=== PATIENT | male | born 1950 | race Caucasian/White ===

== ENCOUNTER 2022-10-31 06:51 | Observation (INO) ==
--- NOTE | 2022-10-31 08:26 | History & Physical Bridge Note ---
Date of Service October 31, 2022 History & Physical Bridge Note I have examined the patient, reviewed the History & Physical and in the interval since the performance of the History & Physical I have noted the following changes of clinical significance: no changes noted Typical anginal symptoms. Normal stress MPI. Primary cyber software engineer feels stress may be false negative with patients symptoms and risk factors. Definitive evaluation by coronary angiography. PCI as indicated.
--- NOTE | 2022-10-31 08:31 | Pre Anesthesia Assessment ---
Date of Service October 31, 2022 Pre Sedation Assessment Vital Signs Temp Pulse Resp BP Pulse Ox O2 Del Method 10/31/22 07:11 36.8 C 90 16 155/105 H 94 Room Air Cardiovascular RRR, no murmur, no edema Respiratory normal respiratory effort, lungs clear to auscultation Pre-Sedation Airway Assessment Smoking Status: Former smoker Hx Sleep Apnea: No Short, Thick Neck: No Thyromental Distance: > or= 3.5 Finger Breadths Oral Cavity: + WNL Mallampati Class: II ASA: ASA3 NPO Status Date of Last Intake of Fluids: 10/31/22 Time of Last Intake of Fluids: 05:00 Last Oral Intake of Fluids Comment: sips with pills Date of Last Intake of Solid Food: 10/30/22 Notes The planned sedation has been discussed with the patient. Informed Consent was obtained. I have identified the patient, determined the appropriateness of sedation and have assessed the patient immediately prior to the procedure. All medicine(s) and interventions are by my order. [facility] Procedure Codes (Charges) Indication for Procedure Indication for procedure: angina
[2022-10-31] MEDS ORDERED: HEPARIN (PORCINE) 1000 UNIT/ML 10 ML (CATH LAB USE ONLY) ONE (09:03)
[2022-10-31] MEDS ORDERED: niCARdipine HCL INJ 2.5 MG/ML 10 ML AMP ONE (09:03)
[2022-10-31] MEDS ORDERED: fentaNYL citrate PF 100 MCG/2 ML VIAL ONE (09:03)
[2022-10-31] MEDS ORDERED: MIDAZOLAM HCL 1 MG/ML 2ML VIAL ONE (09:03)
[2022-10-31] MEDS ORDERED: NITROGLYCERIN/D5W 100MCG/ML 20ML SYR ONE (09:04)
--- NOTE | 2022-10-31 10:09 | Post Anesthesia Assessment ---
Date of Service October 31, 2022 Post Sedation Assessment Vital Signs Temp Pulse Resp BP Pulse Ox O2 Del Method 10/31/22 10:00 87 18 145/100 H 94 Room Air 10/31/22 09:45 91 H 18 142/101 H 94 Room Air 10/31/22 07:11 36.8 C 90 16 155/105 H 94 Room Air Recovery Score Activity: Moves 4 extremities Respiration: Deep Breath/Cough Circulation: +/-20% PreAnes Value Consciousness: Fully Awake Oxygen Saturation: > 92% On Room Air Post Anesthesia Score: 2 Discharge Sedation Level of Care: Fast Track Phase II Post Sedation Plan On clinical assessment, the patient appears to have tolerated the sedation without complications. Patient is recovering as anticipated. Patient will continue to be monitored by nursing and may be discharged when sedation discharge criteria are met per below protocol. Upon Completions of procedure up to 15 minutes continue every 5 minute vital signs and the P.A.R. score; then discharge to a Phase I or Fast Track to Phase II per the following guidelines: * Discharge Patient to appropriate Phase II area if PAR is 8 or greater or return to pre- procedure baseline. The post - procedure orders will be as directed. * If PAR score is less than 8 or not return to pre-procedure baseline then patient will follow Phase I monitoring till PAR is reached for Phase II. The Phase I may be done in procedure room or may call to secure a Phase I area. * If naloxone or flumazenil are used for reversal, hold in Phase I for continued monitoring from when last reversal dose was given for a minimum of 60 minutes or longer pending the nurse and/or physician discretion of patient condition before discharge to Phase II. Please call the Sedation Physician to re-evaluate and complete post-note for discharge to Phase II area. Do NOT discharge from procedure sedation or Phase 1 until post- sedation evaluation note is complete by procedure /sedation MD Sedation Discharge Instructions to be given to the patient at discharge to home. [facility] Procedure Codes (Charges) Indication for Procedure Indication for procedure: angina Sedation/Anesthesia Procedure 1: Sedation/Anesthesia: 22820 Mod Sedation by the same physician;Init15 Min Child Age 5 & Up (09:21-09:31) Total Sedation Time (minutes): 10
--- NOTE | 2022-10-31 10:13 | Cardiac Catheterization ---
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 Cardiac Status Clinical evaluation leading to the procedure CAD Presenation: Stable angina Anginal Classification: CCS III Heart Failure: No Cardiogenic Shock within 24 Hours: No Cardiac Arrest within 24 Hours: No Imaging Studies Past 6 Months: Yes Stress Testing w/SPECT MPI: Yes - Negative Coronary Anatomy Dominant: Right Left Main (% Stenosis): Ostial (40 to 50%) LAD (% Stenosis): Proximal (Tandem 50%) and Mid (99%) D1 (% Stenosis): Ostial (99%) and Proximal (99%) Circumflex (% Stenosis): Proximal (30%) OM1 (% Stenosis): Proximal (70 to 80%) and Mid (40%) RCA (% Stenosis): Proximal (70 to 80%, 60 to 70%) R PDA (% Stenosis): Normal R PL1 (% Stenosis): Normal Ramus (% Stenosis): Normal Diagnostic Physicians Name: Valdemar Mireles MD, PhD Closure Device Percutaneous Entry Location: Radial Closure Device: Radial Band Recommendations: Medical Therapy and/or Counseling and CABG Cardiac Cath Procedure Full Procedure Date October 31, 2022 Pre-Procedure Diagnosis Pre-Procedure Diagnosis: Angina AUC Score AUC Score: 07 Post-Procedure Diagnosis Post-Procedure Diagnosis: Severe CAD Procedure(s) Performed Procedure(s) Performed: Coronary Angiography Specimen Processor Valdemar Mireles MD, PhD Estimated Blood Loss Estimated Blood Loss: 5 mL Medication(s) Medication(s): Fentanyl, Heparin, Lidocaine 1%, Nicardipine, Nitroglycerin and Versed Summary of Findings Brief description: Patient was brought to the cardiac catheterization suite where he was shaved and prepped in a sterile fashion. Sedated using IV Versed and fentanyl. Soft tissues of the right wrist were anesthetized using 2 mils of 1% Xylocaine. The right radial artery was accessed using a modified Seldinger technique and a 6 Australian radial artery glide sheath was placed. Patient was provided anticoagulation with IV heparin and antispasmodics including nicardipine and nitroglycerin. All catheters were advanced and exchanged over a 0.035 J-tip wire. Left coronary angiography was performed in orthogonal views with a 5 [place] Trappe 4 diagnostic catheter. Right coronary angiography was performed in orthogonal views with a 5 [place] Trappe 4 diagnostic catheter. Diagnostic catheters were removed. The radial artery sheath was removed. Hemostasis was obtained using the TR band. Patient remained hemodynamically stable and asymptomatic. He was returned to the recovery area. This ended the case. Coronary angiography findings: LMT: Large caliber and relatively short vessel trifurcating into LAD, circumflex, and ramus. Some views suggest ostial stenosis 40 to 50%. LAD: Large caliber and transapical. Proximal segment with tandem up to 50% stenosis. Gives a large septal branch as well as a medium to large branching first diagonal. The ostium of the diagonal is 99% occluded. The proximal segment also has a 99% occlusion. After that, the vessel remains relatively large and bifurcates. The mid LAD is diffusely diseased with a long eccentric stenosis up to 99% narrowing. The early distal vessel has a short intramyocardial segment. The remainder of the distal vessel has no more than mild scattered plaques. LCx: This is large caliber and nondominant. Travels in the AV groove. Proximal segment with mild less than 30% stenosis. It gives a large caliber and branching OM1. The proximal segment has a 70 to 80% narrowing with the mid segment having a 40% stenosis. The vessel branches distally. The mid AV groove vessel becomes medium in caliber and continues distally where it then terminates. Ramus: Small to medium caliber branching vessel without significant disease. RCA: This is very large caliber and dominant. It is tortuous proximally. There is a 70 to 80% napkin ring type lesion. Then, a longer 60 to 70% hazy stenosis as it transitions to the mid vessel. Mid and distal vessel remain large with mild diffuse disease. There is a large RV marginal branch which has an ostial 99% stenosis. The RCA bifurcates into a large PDA and a large posterior lateral. These vessels have no more than mild scattered plaques. Summary: 1. Severe multivessel coronary artery disease consistent with "normal stress test" as this likely represents balanced ischemia. 2. Recommend evaluation for coronary artery bypass grafting versus complex staged PCI at tertiary center by the "heart team". 3. Optimize medical therapy for secondary prevention of coronary disease. This will include low-dose aspirin, high intensity statin therapy, angiotensin r eceptor geovanni. Consider beta-geovanni if tolerated by asthma. Hemodynamics Rest Ao:: 139/106 mmHg Final Ao: 130/100 mmHg LV: Not performed Recommendations Recommendations: Medical Therapy and/or Counseling and CABG Radiation Exposure (mGy) 825 mGy, fluoroscopy time 1.6 minutes Contrast (mls) 60 Anesthesia 1 mg IV Versed, 25 mcg IV fentanyl (start 09:21, and 09:31) Procedural Complication(s) None Disposition Recovery Room\\PACU I attest to the content of the Intraoperative Record and any orders documented therein. Any exceptions are noted below. [facility] Card Cath Procedure Codes Cardiac Catheterization Procedure 1: Cardiovascular Cath Procedures: 54701 Coronaries Moderate Sedation Procedure 1: Sedation/Anesthesia: 68762 Mod Sedation by the same physician;Init15 Min Child Age 5 & Up (10 min, 920 to 930) PG Care Time/CCT Total # of Minutes Spent Total Time Spent with Patient: Total time spent is greater than 50% in coordination of care (as documented) at patient's floor/unit and/or counseling patient:
[2022-10-31] MEDS ORDERED: ISOSORBIDE MONO EXTENDED REL 30 MG TABCR PO ONE (11:54)
--- NOTE | 2022-10-31 13:33 | XCELERA ---
[id number] [id number]
[2022-10-31] MEDS ORDERED: MoRPHine SULFATE 2 MG/ML CARP IV PRN (14:25)
[2022-10-31] MEDS ORDERED: NITROGLYCERIN SL 0.4 MG/TAB TAB SL PRN (14:25)
[2022-10-31] MEDS ORDERED: ZOLPIDEM TARTRATE 5 MG TAB PO PRN (14:25)
[2022-10-31] MEDS ORDERED: ACETAMINOPHEN 325 MG TAB PO PRN (14:25)
[2022-10-31] MEDS ORDERED: ONDANSETRON INJ 2 MG/ML 2 ML VIAL IV PRN (14:25)
[2022-10-31] MEDS ORDERED: MAGNESIUM HYDROXIDE SUSP 30 ML UDC PO PRN (14:25)
[2022-10-31] MEDS ORDERED: ALUMINUM/MAGNESIUM SUSP 30 ML UDC PO PRN (14:25)
[2022-10-31] MEDS ORDERED: ATORVASTATIN 40 MG TAB PO SCH (16:00)
[2022-11-01] MEDS ORDERED: ISOSORBIDE MONO EXTENDED REL 30 MG TABCR PO SCH (09:00)
[2022-11-01] MEDS ORDERED: METOPROLOL SUCC 25MG EXT REL TAB PO SCH (09:00)
[2022-11-01] MEDS ORDERED: ASPIRIN 81 MG ECTAB PO SCH (09:00)
[2022-11-01] MEDS ORDERED: LOSARTAN POTASSIUM 50 MG TAB PO SCH (09:00)
--- NOTE | 2022-11-12 11:00 | Discharge Summary ---
Date of Service October 31, 2022 Admission HPI Per Admitting Provider Patient was seen for elective outpatient cath. He underwent diagnostic cath demonstrating severe multivessel coronary disease. He had typical symptoms but a negative stress test. Post catheterization decision was made to admit the patient under observation status with tentative plan for transfer to tertiary center. Patient was admitted and was hemodynamically stable. He was subsequently accepted by [facility] cardiac surgery and shortly after arrival on the floor he was transferred to [facility]. Admission Exam (Per Admitting) Constitutional WD/WN, vitals as above Respiratory normal respiratory effort, lungs clear to auscultation Cardiovascular RRR, no murmur, no edema Neurologic patellar DTR's 2+ bilat, sensation intact Psychiatric A+Ox3, euthymic affect Discharge Data Procedures Performed Operation Date: 10/31/22 08:00 Actual Procedures p Cath, Coronaries ONLY (no LV) - Valdemar Mireles MD, PhD s Cineradiography w/Routine Exam - Valdemar Mireles MD, PhD Hospital Course (1) Hypertension: Continue current medical regimen with losartan. Beta-geovanni if tolerated. (2) Hypercholesterolemia: High intensity statin therapy (3) Chest pain syndrome: Severe CAD. Transfer to [facility] for coronary artery bypass grafting. Patient has been accepted in transfer by Dr. Wilburn Plan Transfer to [facility] any cardiac surgery for coronary artery bypass grafting Continue current medical regimen Discharge Instructions Transport ALS Continue current medical regimen Coding Level of Care Code 20876 INP/OBS DISCH >30 MIN Diagnoses Hypertension I10 Hypercholesterolemia E78.00 Chest pain syndrome R07.9
== END 2022-10-31 19:45 | disposition short-term general hospital (02) ==
LOC: 2S 06:51 → CC 06:51
PROC: CLB.CCO (2022-10-31 08:00)

== ENCOUNTER 2023-12-30 08:45 | Inpatient (IN) ==
[2023-12-30] MEDS: ALBUT/IPRATROP 3MG/0.5MG NEB 3 ML VIAL NEB STA (09:19)
[2023-12-30 09:37] LABS: Basophils # (auto) 0.03 K/uL (0.00-0.20); Basophils % (auto) 0.3 %; Eosinophils # (auto) 0.22 K/uL (0.00-0.50); Eosinophils % (auto) 2.3 %; Hematocrit (blood only) 36.1 % (42.0-52.0); Hemoglobin 11.6 g/dl (14.0-18.0); Immature Granulocytes # (auto) 0.07 K/uL (0.01-0.20); Immature Granulocytes % (auto) 0.7 %; Lymphocytes # (auto) 0.79 K/uL (1.20-3.40); Lymphocytes % (auto) 8.3 %; Mean Corpuscular Hemoglobin 29.1 pg (25.0-34.0); Mean Corpuscular Hgb Conc 32.1 g/dL (32.0-36.0); Mean Corpuscular Volume 90.5 fL (80.0-100.0); Mean Platelet Volume 8.9 fL (9.4-12.4); Monocytes # (auto) 1.03 K/uL (0.11-0.59); Monocytes % (auto) 10.9 %; Neutrophils # (auto) 7.34 K/uL (1.40-6.50); Neutrophils % (auto) 77.5 %; Platelet Count 165 K/uL (130-400); RDW Coefficient of Variation 15.2 % (11.5-14.5); RDW Standard Deviation 50.3 fL (36.4-46.3); Red Blood Count 3.99 M/uL (4.70-6.10); White Blood Count 9.48 K/ul (4.8-10.8)
--- NOTE | 2023-12-30 09:51 | Emergency Department Note ---
History of Present Illness General Chief Complaint: Shortness of Breath/Dyspnea Stated Complaint: SOB Time Seen by Provider: 12/30/23 08:58 History of Present Illness Provider Complaint: shortness of breath Onset (ago): day(s) (1) Consistency/Duration: + progressively worsening Relieved By: + oxygen Exacerbated By: + coughing Known history of: COPD and recurrent pneumonia Associated symptoms: + chest pain, + cough, + wheezing and + chest congestion; no hemoptysis Related Data Home oxygen amount: none Home Medications Medication Instructions Recorded Confirmed Type atorvastatin 40 mg tablet 40 mg PO DAILY #90 tabs 02/22/22 12/30/23 Rx fenofibrate nanocrystallized 145 145 mg PO DAILY 02/22/22 12/30/23 History mg tablet folic acid 1 mg tablet 1 mg PO DAILY 02/22/22 12/30/23 History metoprolol tartrate 25 mg tablet 37.5 mg PO BID 12/14/22 12/30/23 History alprazolam 0.5 mg tablet 0.5 mg PO BID PRN Anxiety 12/30/23 12/30/23 History aspirin 81 mg tablet,delayed 81 mg PO DAILY 12/30/23 12/30/23 History release escitalopram oxalate 10 mg tablet 10 mg PO DAILY 12/30/23 12/30/23 History fluticasone fur. 100 mcg-umeclid 1 inh inhalation DAILY 12/30/23 12/30/23 History 62.5 mcg-vilant 25 mcg inhalat.powder (Trelegy Ellipta) Allergies Allergy/AdvReac Type Severity Reaction Status Date / Time Penicillins Allergy Unknown Verified 12/30/23 11:12 Past Med/Surg History Problem List (Updated 12/30/23 @ 14:39 by Vijay Head MD) Hepatitis C virus Cholecystostomy care H/O abdominal aortic aneurysm repair Acute on chronic respiratory failure with hypoxemia Pneumonia (Acute) COPD (chronic obstructive pulmonary disease) COPD exacerbation S/P CABG (coronary artery bypass graft) CAD (coronary artery disease) Chest pain syndrome SOBOE (shortness of breath on exertion) PVD (peripheral vascular disease) Hypercholesterolemia Hypertension Social History Smoking Status: Never smoker Second Hand Exposure: No; Do You Dip or Chew Tobacco: No; Hx Alcohol Use: No Hx Substance Use: Yes Last Used Substance: Unknown Preferred Language: Setswana Communication Ability: Effective Administrative Coordinator Required: No Beliefs That Will Affect Care: None Current Living Situation: Spouse Feels Safe at Home: Yes Assistive Devices: None Physical Exam 2 Vital Signs: Vital Signs - 24 hr 12/30/23 08:56 12/30/23 08:56 12/30/23 08:56 Temperature 36.8 C 36.8 C Temperature Source Oral Oral Pulse Rate 97 H Pulse Rate [Apical ] 97 H Respiratory Rate 20 20 Respiratory Effort / Characteristics Spontaneous Spontaneous Blood Pressure 146/83 H Blood Pressure [Ri ght Arm] 146/83 H Blood Pressure Heide n 104 Blood Pressure Heide n [Right Arm] 104 Blood Pressure Pos ition Semi-fowlers Blood Pressure Pos ition [Right Arm] Pulse Oximetry 96 89 L 96 Oxygen Delivery Me thod Nasal Cannula Room Air Nasal Cannula Oxygen Flow Rate 2 2 Sepsis Recent Feve r Within 48 Hours No Sepsis New/Unexpla ined Change in Men qu[place] Status N/A Sepsis Action Take n by Nursing No Action Required Oxygen Flow Rate - Titration 2 Pulse Oximetry Pos t Tiitration 96 12/30/23 08:58 12/30/23 10:00 12/30/23 12:57 Temperature Temperature Source Pulse Rate 100 H 105 H Pulse Rate [Apical ] 99 H Respiratory Rate 20 Respiratory Effort / Characteristics Blood Pressure Blood Pressure [Ri ght Arm] 135/86 Blood Pressure Heide n Blood Pressure Heide n [Right Arm] 102 Blood Pressure Pos ition Blood Pressure Pos ition [Right Arm] Semi-fowlers Pulse Oximetry 98 Oxygen Delivery Me thod Nasal Cannula Oxygen Flow Rate 2 Sepsis Recent Feve r Within 48 Hours Sepsis New/Unexpla ined Change in Men quinton Status Sepsis Action Take n by Nursing Oxygen Flow Rate - Titration Pulse Oximetry Pos t Tiitration Physical Exam: Physical Exam GENERAL: oriented to person, place, and time. appears well-developed and well- nourished. HENT: Exam performed. - Head: Normocephalic and atraumatic. EYES: Conjunctivae and EOM are normal. Right eye exhibits no discharge. Left eye exhibits no discharge. No scleral icterus. NECK: Normal range of motion. Neck supple. No JVD present. CV: Normal rate, regular rhythm, normal heart sounds and intact distal pulses. There is no peripheral edema. Palpable radial pulses bue. PULM/CHEST: Diminished breath sounds bilaterally. Rhonchi bilaterally. ABD: The abdomen is soft. There is no tenderness. NEURO: Motor and sensation grossly intact. SKIN: Skin is warm and dry. He is not diaphoretic. PSYCH: normal mood and affect. Behavior is normal. Judgment and thought content normal. Course Course 08: The patient was evaluated in room B9. A complete history and physical exam was performed Cardiac monitoring: An order was placed for continuous cardiac monitoring. The monitor shows a rate of 90 with sinus rhythm interpreted by me Patient hypoxic on room air. Supplemental oxygen via nasal cannula applied which improved the patient's oxygen saturation. 1010: Vital signs stable on supplemental oxygen via nasal cannula. Imaging shows pneumonia. Patient be treated with Rocephin and azithromycin. 1035: Vital signs stable on supplemental oxygen via nasal cannula. D-dimer elevated. Will obtain CTA of the chest. 1235:Vital signs stable on supplemental oxygen via nasal cannula. CTA of the chest shows no PE. Does confirm pneumonia. Labs are otherwise unremarkable with exception of mildly elevated BNP of 159. Respiratory BioFire negative. [facility]. Administered Medications Discontinued Medications Albuterol (Albut/Ipratrop 3mg/0.5mg Neb 3 Ml Vial) 3 ml NEB NOW STA; Protocol Stop: 12/30/23 09:07 Last Admin: 12/30/23 09:19 Dose: 3 ml Documented By: GAGE Azithromycin (Azithromycin 250 Mg Tab) 500 mg PO NOW ONE Stop: 12/30/23 10:06 Last Admin: 12/30/23 11:05 Dose: 500 mg Documented By: GAGE Ceftriaxone Sodium (Rocephin) 2,000 mg in 50 mls @ 100 mls/hr IV NOW STA Stop: 12/30/23 10:34 Last Infusion: 12/30/23 11:38 Dose: Infused Documented By: Admin: 12/30/23 10:57 Dose: 100 mls/hr Documented By: GAGE Ioversol (Optiray 320 125ml) 121 ml IV ONCE ONE Stop: 12/30/23 10:49 Last Admin: 12/30/23 10:50 Dose: 121 ml Documented By: Medical Decision Making Laboratory Data Attestation: I reviewed the patient's lab results. 12/30/23 08:55 07/01/24 08:55 Lab Results 12/30/23 12/30/23 12/30/23 Range/Units 08:55 09:19 09:19 WBC 9.48 (4.8-10.8) K/ul RBC 3.99 L (4.70-6.10) M/uL Hgb 11.6 L (14.0-18.0) g/dl Hct 36.1 L (42.0-52.0) % MCV 90.5 (80.0-100.0) fL MCH 29.1 (25.0-34.0) pg MCHC 32.1 (32.0-36.0) g/dL RDW Std Deviation 50.3 H (36.4-46.3) fL RDW Coeff of Kaye 15.2 H (11.5-14.5) % Plt Count 165 (130-400) K/uL MPV 8.9 L (9.4-12.4) fL Immature Gran % (Auto) 0.7 % Neut % (Auto) 77.5 % Lymph % (Auto) 8.3 % Hutchinson % (Auto) 10.9 % Eos % (Auto) 2.3 % Baso % (Auto) 0.3 % Neut # (Auto) 7.34 H (1.40-6.50) K/uL Lymph # (Auto) 0.79 L (1.20-3.40) K/uL Hutchinson # (Auto) 1.03 H (0.11-0.59) K/uL Eos # (Auto) 0.22 (0.00-0.50) K/uL Baso # (Auto) 0.03 (0.00-0.20) K/uL Immature Gran # (Auto) 0.07 (0.01-0.20) K/uL PT 12.1 H (9.0-12.0) Seconds INR 1.1 (0.9-1.1) APTT 33 H (21-31) Seconds PTT Ratio 1.2 D-Dimer 21581 H* (0-500) ug/L FEU VBG pH 7.38 (7.36-7.41) VBG pCO2 (38-50) mmHg VBG pO2 mmHg VBG HCO3 mmol/L VBG O2 Saturation % VBG Base Excess mEq/L Sodium 135 L (136-145) mmol/L Potassium 3.7 (3.5-5.1) mmol/L Chloride 104 (98-107) mmol/L Carbon Dioxide 24 (21-32) mmol/L Anion Gap 7 (3-11) BUN 24 H (6-23) mg/dl Creatinine 0.97 (0.6-1.4) mg/dl Est Cr Clr Drug Dosing 65.4 ml/min Est GFR ( Amer) 90.7 ml/min Est GFR (Non-Af Amer) 78.2 ml/min BUN/Creatinine Ratio 24.7 H (10-20) Glucose 100 H (70-99(Fasting)) mg/dl Calcium 8.3 L (8.6-10.3) mg/dl Troponin I High Sens 10.3 (0-20) pg/ml B-Natriuretic Peptide 159 H (0-100) pg/ml Lipase 50 (11-82) U/L Adenovirus (PCR) (NotDetected) B. pertussis DNA (PCR) (NotDetected) B.parapertussis DNA PCR (NotDetected) C. pneumoniae DNA (PCR) (NotDetected) Coronavirus OC43 (PCR) (NotDetected) Coronavirus HKU1 (PCR) (NotDetected) Coronavirus 229E (PCR) (NotDetected) SARS-CoV-2 (PCR) (NotDetected) Coronavirus NL63 (PCR) (NotDetected) Human Metapneumovir PCR (NotDetected) Influenza Type A (PCR) (NotDetected) Influenza Type B (PCR) (NotDetected) M. pneumoniae (PCR) (NotDetected) Parainfluenza 1 (PCR) (NotDetected) Parainfluenza 2 (PCR) (NotDetected) Parainfluenza 3 (PCR) (NotDetected) Parainfluenza 4 (PCR) (NotDetected) RSV (PCR) (NotDetected) Entero/Rhino (PCR) (NotDetected) 12/30/23 12/30/23 12/30/23 Range/Units 09:19 09:19 09:19 WBC (4.8-10.8) K/ul RBC (4.70-6.10) M/uL Hgb (14.0-18.0) g/dl Hct (42.0-52.0) % MCV (80.0-100.0) fL MCH (25.0-34.0) pg MCHC (32.0-36.0) g/dL RDW Std Deviation (36.4-46.3) fL RDW Coeff of Kaye (11.5-14.5) % Plt Count (130-400) K/uL MPV (9.4-12.4) fL Immature Gran % (Auto) % Neut % (Auto) % Lymph % (Auto) % Hutchinson % (Auto) % Eos % (Auto) % Baso % (Auto) % Neut # (Auto) (1.40-6.50) K/uL Lymph # (Auto) (1.20-3.40) K/uL Hutchinson # (Auto) (0.11-0.59) K/uL Eos # (Auto) (0.00-0.50) K/uL Baso # (Auto) (0.00-0.20) K/uL Immature Gran # (Auto) (0.01-0.20) K/uL PT (9.0-12.0) Seconds INR (0.9-1.1) APTT (21-31) Seconds PTT Ratio D-Dimer (0-500) ug/L FEU VBG pH (7.36-7.41) VBG pCO2 40 (38-50) mmHg VBG pO2 29 mmHg VBG HCO3 24 mmol/L VBG O2 Saturation % VBG Base Excess mEq/L Sodium (136-145) mmol/L Potassium (3.5-5.1) mmol/L Chloride (98-107) mmol/L Carbon Dioxide (21-32) mmol/L Anion Gap (3-11) BUN (6-23) mg/dl Creatinine (0.6-1.4) mg/dl Est Cr Clr Drug Dosing ml/min Est GFR ( Amer) ml/min Est GFR (Non-Af Amer) ml/min BUN/Creatinine Ratio (10-20) Glucose (70-99(Fasting)) mg/dl Calcium (8.6-10.3) mg/dl Troponin I High Sens (0-20) pg/ml B-Natriuretic Peptide (0-100) pg/ml Lipase (11-82) U/L Adenovirus (PCR) (NotDetected) B. pertussis DNA (PCR) (NotDetected) B.parapertussis DNA PCR (NotDetected) C. pneumoniae DNA (PCR) (NotDetected) Coronavirus OC43 (PCR) (NotDetected) Coronavirus HKU1 (PCR) (NotDetected) Coronavirus 229E (PCR) (NotDetected) SARS-CoV-2 (PCR) (NotDetected) Coronavirus NL63 (PCR) (NotDetected) Human Metapneumovir PCR (NotDetected) Influenza Type A (PCR) (NotDetected) Influenza Type B (PCR) (NotDetected) M. pneumoniae (PCR) (NotDetected) Parainfluenza 1 (PCR) (NotDetected) Parainfluenza 2 (PCR) (NotDetected) Parainfluenza 3 (PCR) (NotDetected) Parainfluenza 4 (PCR) (NotDetected) RSV (PCR) (NotDetected) Entero/Rhino (PCR) (NotDetected) 12/30/23 12/30/23 12/30/23 Range/Units 09:19 09:19 09:22 WBC (4.8-10.8) K/ul RBC (4.70-6.10) M/uL Hgb (14.0-18.0) g/dl Hct (42.0-52.0) % MCV (80.0-100.0) fL MCH (25.0-34.0) pg MCHC (32.0-36.0) g/dL RDW Std Deviation (36.4-46.3) fL RDW Coeff of Kaye (11.5-14.5) % Plt Count (130-400) K/uL MPV (9.4-12.4) fL Immature Gran % (Auto) % Neut % (Auto) % Lymph % (Auto) % Hutchinson % (Auto) % Eos % (Auto) % Baso % (Auto) % Neut # (Auto) (1.40-6.50) K/uL Lymph # (Auto) (1.20-3.40) K/uL Hutchinson # (Auto) (0.11-0.59) K/uL Eos # (Auto) (0.00-0.50) K/uL Baso # (Auto) (0.00-0.20) K/uL Immature Gran # (Auto) (0.01-0.20) K/uL PT (9.0-12.0) Seconds INR (0.9-1.1) APTT (21-31) Seconds PTT Ratio D-Dimer (0-500) ug/L FEU VBG pH (7.36-7.41) VBG pCO2 (38-50) mmHg VBG pO2 mmHg VBG HCO3 mmol/L VBG O2 Saturation < 60.0 % VBG Base Excess -1.3 mEq/L Sodium (136-145) mmol/L Potassium (3.5-5.1) mmol/L Chloride (98-107) mmol/L Carbon Dioxide (21-32) mmol/L Anion Gap (3-11) BUN (6-23) mg/dl Creatinine (0.6-1.4) mg/dl Est Cr Clr Drug Dosing ml/min Est GFR ( Amer) ml/min Est GFR (Non-Af Amer) ml/min BUN/Creatinine Ratio (10-20) Glucose (70-99(Fasting)) mg/dl Calcium (8.6-10.3) mg/dl Troponin I High Sens (0-20) pg/ml B-Natriuretic Peptide (0-100) pg/ml Lipase (11-82) U/L Adenovirus (PCR) Not Detected (NotDetected) B. pertussis DNA (PCR) Not Detected (NotDetected) B.parapertussis DNA PCR Not Detected (NotDetected) C. pneumoniae DNA (PCR) Not Detected (NotDetected) Coronavirus OC43 (PCR) Not Detected (NotDetected) Coronavirus HKU1 (PCR) Not Detected (NotDetected) Coronavirus 229E (PCR) Not Detected (NotDetected) SARS-CoV-2 (PCR) Not Detected (NotDetected) Coronavirus NL63 (PCR) Not Detected (NotDetected) Human Metapneumovir PCR Not Detected (NotDetected) Influenza Type A (PCR) Not Detected (NotDetected) Influenza Type B (PCR) Not Detected (NotDetected) M. pneumoniae (PCR) Not Detected (NotDetected) Parainfluenza 1 (PCR) Not Detected (NotDetected) Parainfluenza 2 (PCR) Not Detected (NotDetected) Parainfluenza 3 (PCR) Not Detected (NotDetected) Parainfluenza 4 (PCR) Not Detected (NotDetected) RSV (PCR) Not Detected (NotDetected) Entero/Rhino (PCR) Not Detected (NotDetected) Imaging Data Attestation: I personally reviewed and interpreted this imaging study as follows: My Impression: Chest x-ray: Left-sided pneumonia Radiologist's Impression: Chest X-Ray 12/30/23 09:07 XR chest 1V portable CLINICAL HISTORY: Chest pain, nonspecific COMPARISON STUDY: Chest radiograph October 11, 2014. FINDINGS: There are median sternotomy wires. Cardiac size is normal. Mediastinal contours are unremarkable. No pneumothorax or pleural effusion is present. There is underlying emphysema. A 1.6 cm irregular right upper lung density is present. Moderate airspace opacities within the left lung are present. IMPRESSION: 1. Moderate airspace opacities within the left lung suggestive of pneumonia. Follow-up PA and lateral chest radiographs in 1 to 2 months are recommended to ensure resolution. 2. 1.6 cm irregular right upper lung density. This may also be infectious however should be assessed on follow-up chest radiograph to ensure resolution. 3. Emphysema. ACT 112: Negative or not required by law. Electronically signed by: Oscar Moulton M.D. 12/30/2023 9:53 AM Chest CTA 12/30/23 10:34 CHEST CTA for PULMONARY ARTERIES CT DOSE: 801.58 mGy.cm HISTORY: Shortness of breath. TECHNIQUE: Multiaxial CT images of the chest were performed following the intravenous administration of contrast to evaluate the pulmonary arteries. 3D/Maximal intensity projection images were also obtained. Sagittal and coronal reformations were also reviewed. A dose lowering technique was utilized adhering to the principles of ALARA. COMPARISON STUDY: Chest 12/30/2023. FINDINGS: Atherosclerotic plaque within the thoracic aorta with no evidence for a dissection. 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 Limited views of the upper abdomen demonstrate a normal spleen and adrenal glands. A 1.2 cm hypodense lesion within the right hepatic dome favors a cyst. The heart is normal in size. No pericardial effusion. Trace left pleural effusion. Respiratory motion artifact results in nondiagnostic evaluation of the majority of the left lower lobe segmental/subsegmental pulmonary arteries. Otherwise, no filling defects within the remaining pulmonary arteries to suggest a pulmonary embolus. No evidence for right-sided heart strain. Normal esophagus. No hilar lymphadenopathy. A few mildly enlarged AP window lymph nodes with the dominant lymph node measuring 17 x 9 mm. No acute fractures. There are poststernotomy changes with prior coronary artery bypass. No pneumothorax. The central airways are patent. Advanced emphysema. Peripheral consolidation within the left upper lobe likely representing a pneumonia. A 4R nodule within the right lung apex on image 179. There is an irregular/nodular density within the right lung apex on image 180 measuring approximately 2.0 x 0.9 cm. This corresponds the chest x-ray abnormality and could represent scarring or a pulmonary lesion. A 6 mm nodule within the right upper lobe on image 140 with an adjacent calcified granuloma. A 4 mm nodule within the right upper lobe on image 93. A peripheral 14 x 10 mm nodule within the right lower lobe on image 119. This may also represent an area of scarring or pulmonary lesion. IMPRESSION: 1. No evidence for a pulmonary embolus with limitations as described above. 2. Peripheral consolidation within the left upper lobe which favors a pneumonia. A 3-[address] follow-up recommended to ensure resolution. 3. Advanced emphysema. 4. Borderline AP window lymphadenopathy which may be reactive. Attention at follow-up recommended. 5. Similar-appearing irregular nodules within the right lung apex and right lower lobe as described above with the largest measuring 2.0 x 0.9 cm. These could represent scarring. Pulmonary lesions are not excluded. Therefore, these also require 3-[address] follow-up to ensure stability. 6. 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 7. Additional findings as described above. ACT 112: Positive. There are findings on this exam that require communication between the performing entity and the patient following Patient Test Result Information Act ([place] Act 112) guidelines. Electronically signed by: Alessandro Lujan M.D. 12/30/2023 11:15 AM ECG Data Attestation: I personally reviewed and interpreted this ECG as follows: Interpretation: Sinus rhythm with a rate of 94. UT QRS and QTc intervals within normal limits. No ST elevation or ST depression. [facility] Narrative 0858: The patient was evaluated in room B9. A complete history and physical exam was performed Cardiac monitoring: An order was placed for continuous cardiac monitoring. The monitor shows a rate of 90 with sinus rhythm interpreted by me Patient hypoxic on room air. Supplemental oxygen via nasal cannula applied which improved the patient's oxygen saturation. 1010: Vital signs stable on supplemental oxygen via nasal cannula. Imaging shows pneumonia. Patient be treated with Rocephin and azithromycin. 1035: Vital signs stable on supplemental oxygen via nasal cannula. D-dimer elevated. Will obtain CTA of the chest. 1235:Vital signs stable on supplemental oxygen via nasal cannula. CTA of the chest shows no PE. Does confirm pneumonia. Labs are otherwise unremarkable with exception of mildly elevated BNP of 159. Respiratory BioFire negative. [facility]. Impression & Plan Pneumonia Critical Care Time Critical Care Time: Yes Total Critical Care Time: 70 I have personally spent greater than 70 minutes of critical care time in the direct management of this patient. This includes bedside care, interpretation of diagnostic studies, and testing, discussion with consultants, patient, and family members, and other required patient management activities. This 70 minutes is in excess of all separately billable procedures. Discharge Plan Visit Data Chief Complaint: Shortness of Breath/Dyspnea Stated Complaint: SOB ED Provider: Vijay Head Discharge Problem: Pneumonia Patient Disposition: Admitted As Inpatient Forms Stand Alone Forms: My [facility] Prescriptions Prescriptions: No Action fenofibrate nanocrystallized 145 mg tablet 145 mg PO DAILY folic acid 1 mg tablet 1 mg PO DAILY atorvastatin 40 mg tablet 40 mg PO DAILY Qty: 90 3RF metoprolol tartrate 25 mg tablet 37.5 mg PO BID aspirin 81 mg Tablet,Delayed Release (Dr/Ec) 81 mg PO DAILY alprazolam 0.5 mg tablet 0.5 mg PO BID PRN (Reason: Anxiety) escitalopram oxalate 10 mg tablet 10 mg PO DAILY Trelegy Ellipta 100-62.5-25 mcg blister with device 1 inh INHALATION DAILY Referrals Referrals: Valdemar Segundo [Primary Care Provider] - Discharge Problem: Pneumonia Qualifiers: Pneumonia type: due to unspecified organism Laterality: left Lung location: u nspecified part of lung Qualified Code(s): J18.9 - Pneumonia, unspecified organism
--- NOTE | 2023-12-30 09:55 | XRay Report ---
XR chest 1V portable CLINICAL HISTORY: Chest pain, nonspecific COMPARISON STUDY: Chest radiograph October 11, 2014. FINDINGS: There are median sternotomy wires. Cardiac size is normal. Mediastinal contours are unremar kable. No pneumothorax or pleural effusion is present. There is underlying emphysema. A 1.6 cm irregu lar right upper lung density is present. Moderate airspace opacities within the left lung are present . IMPRESSION: 1. Moderate airspace opacities within the left lung suggestive of pneumonia. Follow-up PA and lateral chest radiographs in 1 to 2 months are recommended to ensure resolution. 2. 1.6 cm irregular right upper lung density. This may also be infectious however should be assessed on follow-up chest radiograph to ensure resolution. 3. Emphysema. ACT 112: Negative or not required by law. Electronically signed by: Oscar Moulton M.D. 12/30/2023 9:53 AM
[2023-12-30 09:56] LABS: INR 1.1 (0.9-1.1); Partial Thromboplastin Ratio 1.2; Partial Thromboplastin Time 33 Seconds (21-31); Prothrombin Time 12.1 Seconds (9.0-12.0)
[2023-12-30 09:59] LABS: Calcium 8.3 mg/dl (8.6-10.3); Potassium 3.7 mmol/L (3.5-5.1)
[2023-12-30 10:03] LABS: Troponin I High Sensitivity 10.3 pg/ml (0-20)
[2023-12-30 10:04] LABS: BUN Creatinine Ratio 24.7 (10-20); Creatinine Clr Calc Pharmacy 65.4 ml/min; Est GFR (African American) 90.7 ml/min; Est GFR (Non-African American) 78.2 ml/min
--- OUTSIDE RECORDS SUMMARY | 2023-12-30 10:17 | External Medical Summary | Summary of Care ---
Author Name Unknown Organization [facility] Address [address] [place] [address] Phone [phone] Care Team Providers Care Home Health Clinician Name Role Phone Valdemar Segundo PA-C Primary Care Provider [phone] Reason for Referral * Evaluate & Treat - Unlimited Visits (Within 30 days (routine)) - Authorized Specialty Diagnoses / Procedures Referred By Renaldo suresh Referred To Contact General Surgery Diagnoses Acute cholecystitis Ginny Lopez MD [address] [place] [address] Referral ID Status Reason Start Date Expiration Date Visits Requested Visits Authorized [id number] Authorized Specialty Services Required 12/04/2023 999 999 Question Answer Referral Priority Within 30 days (routine) Where should this appointment be scheduled? [facility] What condition is the patient being seen for? General Surgery Conditions What condition is the patient being seen for? Gallbladder Comments [place] - Around Mar 2024. Reason for Visit * Reason Comments Follow Up Encounter Details Date Type Department Care Team (Late st Contact Info) Description 12/04/2023 1:00 PM EDT Office Visit General Surgery, [place] [address] [place] [address] Clinic, Emergency General Surgery [address], [place] [id number] Jejunostomy tube leak (HCC)*; Acute cholecystitis Allergies Active Allergy Reactions Criticality Noted Date Comments Penicillins Rash 09/28/2003 documented as of this encounter (statuses as of 12/04/2023) Medications Medication Sig Dispensed Refills Start Date End Date Status Roselia Ellipta 100-62.5-25 MCG/ACT Aerosol Powder Breath Activated TAKE 1 inhalation BY MOUTH daily rinse mouth well after use. 05/09/2022 Active Albuterol Sulfate HFA 108 (90 Base) MCG/ACT Inhalation Aerosol Solution Inhale by mouth as needed. Active Fenofibrate 145 MG Oral Tablet (Tricor) take 1 tablet by mouth daily for triglycerides 04/12/2022 Active Folic Acid 1 MG Oral Tablet Take 1 Tablet by mouth in the morning. 04/12/2022 Active Atorvastatin Calcium 40 MG Oral Tablet (Lipitor) Take 1 Tablet by mouth in the morning. 03/26/2022 Active Cholecalciferol 125 MCG (5000 UT) Oral Capsule DAILY 02/22/2022 Active Aspirin 81 MG Oral Tablet Delayed Release daily. 02/22/2022 Active Cyanocobalamin 1000 MCG/ML Injection Solution (Cyanocobalamin) every 30 days. 02/22/2022 Acti ve Lansoprazole 30 MG Oral Capsule Delayed Release (Prevacid) Take 1 Capsule by mouth in the morning. Active Metoprolol Tartrate 25 MG Oral Tablet (Lopressor) Take by mouth 2 times a day. 1 1/2 tablets Active Escitalopram Oxalate 10 MG Oral Tablet (Lexapro) take 1 tablet by mouth every day for anxiety/depression 11/12/2023 Active oxyCODONE HCl 5 MG Oral Tablet (Oxy IR) Take 1 Tablet by mouth every 4 hours as needed for severe pain. 10 Tablet 11/08/2023 Discontinue d(Patient preference/ discontinua tion) documented as of this encounter (statuses as of 12/04/2023) Active Problems Problem Noted Date Diagnosed Date Bacteremia 10/28/2023 Gram-negative bacteremia 10/27/2023 Acute cholecystitis 10/27/2023 S/P repair of abdominal aort ic aneurysm using bifurcation graft 10/27/2023 Coronary artery disease invo lving [place] coronary artery of [place] heart without angina pectoris 06/05/2023 S/P CABG (coronary artery bypass graft) 06/05/20 23 Infrarenal abdominal aortic aneurysm (AAA) witho ut rupture 05/30/2022 Iliac artery aneurysm, right 05/30/2022 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 Nicotine use 05/30/2022 SPRAIN CRUCIATE LIG KNEE 10/01/2003 documented as of this encounter (statuses as of 12/04/2023) Resolved Problems Problem Noted Date Diagnosed Date Resolved Date Healthcare-associated pneumonia 10/27/2023 11/08/2023 Hypomagnesemia 10/26/2023 11/08/2023 On tube feeding diet 10/25/2023 024 Hypokalemia 10/23/2023 11/08/2023 EDEL (acute kidney injury) 10/20/2023 Acute hypoxic respiratory failure 10/18/2023 11/08/2023 On total parenteral nutrition (TPN) 10/13/2023 11/08/2023 Ileus, postoperative 10/13/2023 024 Kidney dysfunction 10/13/2023 documented as of this encounter (statuses as of 12/04/2023) Social History Tobacco Use Types Packs/Day Years Used Date Smoking Tobacco: Former Cigarettes Smokeless Tobacco: Former Snuff Quit: 10/03/2023 Alcohol Use Standard Drinks/Week Comments Not Currently 0 (1 standard drink = 0.6 oz pur e alcohol) Sex and Gender Information Value Date Recorded Sex Assigned at Not on file Gender Identity Not on file Sexual Orientation Not on file Job Start Date Occupation Industry Not on file Not on file Not on file documented as of this encounter Last Filed Vital Signs Vital Sign Reading Time Taken Comments Blood Pressure 134/76 12/04/2023 1:15 PM EDT Pulse 83 12/04/2023 1:15 PM EDT Temperature 35.3 C (95.5 F) 12/04/2023 1:15 PM ED T Respiratory Rate - - Oxygen Saturation 96% 12/04/2023 1:15 PM EDT Inhaled Oxygen Concentration - - Weight - - Height - - Body Mass Index - - documented in this encounter Functional Status Functional Status Response Date of Assess ment Are you deaf or do you have serious difficulty h earing? No 10/03/2023 Are you blind or do you have serious difficulty seeing, even when wearing glasses? No 10/03/2023 Do you have serious difficul ty walking or climbing stairs? (5 years old or older) No 10/03/2023 Do you have difficulty dress ing or bathing? (5 years old or older) No 10/03/2023 Because of a physical, menta l, or emotional condition, do you have difficulty doing errands alone such as visiting a doctor s office or shopping? (15 years old or older) No 10/03/19 Cognitive Status Response Date of Assessm ent Because of a physical, menta l, or emotional condition, do you have serious difficulty concentrating, remembering, or making decisions? (5 years old or older) No 10/03/2023 documented as of this encounter Progress Notes * Ginny Lopez MD - 12/04/2023 1:00 PM EDT Images from the original note were not included. GENERAL SURGERY CLINIC FOLLOW-UP [facility] Name: Neri Bear Date: 12/04/2023 Time: 1:54 PM Subjective Neri Bear is a 73 year old male that presents for follow-up. He was recently admitted to [facility] after elective open AAA on 10/03/23. He decompensated postoperativelyand returned to the OR on 10/17. There was concern for iatrogenic injury to the duodenum and generalsurgery was consulted intraoperatively. The serosal tear was oversewn and J tube was placed. He even tually became bacteremic and required IR perc deon placement. Prior to discharge patient was able to tolerate PO feeds and J tube has been clamped. He was discharged on 11/08/23. Since discharge, he has been doing well. Appetite is improving. Pain minimal. Mobility improving. Having bowel function. 0 mL coming from LLQ surgical drain over last week. Not using J tube at all since leaving hospital. Leaks occasionally, sutures are coming out. Objective Vitals: 12/04/23 1315 Temp: 35.3 C (95.5 F) Pulse: 83 SpO2: 96% BP: 134/76 PHYSICAL EXAM: CONSTITUTIONAL: no acute distress CV: distally perfused, normal heart rate RESP/CHEST: normal respiratory effort ABDOMEN: soft, non-tender, non-distended EXTREMITIES: no edema SKIN: warm, dry NEURO: awake, alert, oriented SURGICAL SITE: Midline incision well-healed. RUQ drain with bilious output. LLQ drain with scant serous output. G tube in place with 1 suture, appears to have pulled out several cm. LABS: N/A IMAGING: N/A Assessment Neri Bear is a 73 year old male s/p AAA and takeback with repair of duodenal serosal tear and J-tube. Plan - J tube and LLQ drain removed - F/u with IR for cholangiogram through tube prior to discussing removal. - Will place referral for General surgery in [place] (patient prefers) to discuss eventual GB removal. - RT EGS clinic PRN Ginny Lopez MD General Surgery PGY-5 documented in this encounter Plan of Treatment Upcoming Encounters Date Type Department Care Team (Late st Contact Info) Description 01/22/2024 1:50 PM EDT Office Visit Vascular Surgery, [facility] [address] [place] [address] Gregory Le MD [address] [place] [address] 01/27/2024 2:00 PM EDT Appointment Interventional Radiology [facility], [facility] 1st Floor [address] [place] [address] 04/29/2024 1:30 PM EDT Imaging Radiology [facility] [address] [facility] [address] [place] [address] 05/06/2024 1:30 PM EST Office Visit Vascular Surgery, [facility] [address] [place] [address] Gregory Le MD [address] [place] [address] Scheduled Referrals Name Type Priority Associated Diagnoses Orde r Schedule SURGERY REFERRAL OP Referral Within 30 days (routine) Acute cholecystitis Ordered: 12/04/2023 Health Maintenance Due Date Last Done Comments Depression Screening 1962 Hepatitis C Screening 1970 DTaP,Tdap,and Td Vaccines (1 - Tdap) 1971 Cologuard 1997 Fecal Occult Blood Test 1997 Sigmoidoscopy 1997 Zoster Vaccines (1 of 2) 2002 Pneumococcal Vaccine: 65+ Years (1 of 1 - PCV) 2017 COVID-19 Vaccine (1 - 2022-2 4 season) 2023 Influenza Vaccine (FLU shot) (Season Ended) 2024 Colonoscopy 11/04/2033 11/05/2023, 11/05/2023 Colorectal Cancer Screening 11/04/2033 GARDASIL-HPV IMMUNIZATION SERIES Aged Out No longer eligible b ased on patient's age to complete this topic Hepatitis B Aged Out No longer eligi ble based on patient's age to complete this topic MENINGOCOCCAL (MENACTRA/MENVEO) Aged Out No longer eligible b ased on patient's age to complete this topic documented as of this encounter Medical Devices Implanted Type Area Livestock Ranch Hand Device Identifier Shelf Expiration Date Model / Serial / Lot Graft Bifur [id number] [id number] - [id number] Implanted:Qty : 1 on 10/03/2023 by Gregory Le MD at OR [facility] N/A: Aorta GETINGE : MAQUET [id number] 04/30/2028 M002 [id number] / [id number] Tube Feeding Jejunal Skn 0200- - [id number] Implanted:Qty : 1 on 10/18/2023 by Gregory Le MD at OR [facility] N/A: Abdomen [facility] 05/29/2024 0200-18 / / [id number] documented as of this encounter Visit Diagnoses Diagnosis Jejunostomy tube leak (HCC)- Primary Mechanical complication of colostomy and enterostomy Acute cholecystitis documented in this encounter Advance Directives * Full Code (Latest Code Status on File) Date Activated Date Inactivated Comments 10/03/2023 1:20 PM 11/08/2023 6:00 PM This order re flects the patients wishes and were consensually agreed upon. Question Answer Comments Discussion of Advance Direct toma occurred with: Not Discussed due to patient's condition Does the patient have a Living Will? No Does the patient have Health Care Power of [place]? No Care Teams Home Health Clinician Relationship Specialty Start Date End Date Valdemar Segundo, PAWalterC [address] [place] [address] [place] [address] PCP - General Physician Clipper Operator 05/03/21 documented as of this encounter
--- OUTSIDE RECORDS SUMMARY | 2023-12-30 10:17 | External Medical Summary | Summary of Care ---
Author Name Unknown Organization [facility] Address [address] [place] [address] Phone [phone] Care Team Providers Care Managed Security Sales Consultant Name Role Phone Valdemar Segundo PA-C Primary Care Provider [phone] Reason for Visit * Reason Onset Date Comments Advice 11/12/2023 Encounter Details Date Type Department Care Team (Late st Contact Info) Description 11/12/2023 Telephone General Surgery, [place] [address] [place], [place] [phone] Sandra Handy, FIELD ADMINISTRATIVE ASSISTANT [address] [place] [address] Advice Allergies Active Allergy Reactions Criticality Noted Date Comments Penicillins Rash 09/28/2003 documented as of this encounter (statuses as of 11/14/2023) Medications Medication Sig Dispensed Refills Start Date End Date Status Roselia Vasquez 100-62.5-25 MCG/ACT Aerosol Powder Breath Activated TAKE 1 inhalation BY MOUTH daily rinse mouth well after use. 0 05/09/2022 Active Albuterol Sulfate HFA 108 (90 Base) MCG/ACT Inhalation Aerosol Solution Inhale by mouth as needed. 0 Active Fenofibrate 145 MG Oral Tablet (Tricor) take 1 tablet by mouth daily for triglycerides 0 04/12/2022 Active Folic Acid 1 MG Oral Tablet Take 1 Tablet by mouth in the morning. 0 04/12/2022 Active Atorvastatin Calcium 40 MG Oral Tablet (Lipitor) Take 1 Tablet by mouth in the morning. 0 03/26/2022 Active Cholecalciferol 125 MCG (5000 UT) Oral Capsule DAILY 0 02/22/2022 Active Aspirin 81 MG Oral Tablet Delayed Release daily. 0 02/22/2022 Active Cyanocobalamin 1000 MCG/ML Injection Solution (Cyanocobalamin) every 30 days. 0 02/22/2022 Acti ve Lansoprazole 30 MG Oral Capsule Delayed Release (Prevacid) Take 1 Capsule by mouth in the morning. 0 Active Metoprolol Tartrate 25 MG Oral Tablet (Lopressor) Take by mouth 2 times a day. 1 1/2 tablets 0 Active oxyCODONE HCl 5 MG Oral Tablet (Oxy IR) Take 1 Tablet by mouth every 4 hours as needed for severe pain. 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 Nicotine use 05/30/2022 SPRAIN CRUCIATE LIG KNEE 10/01/2003 documented as of this encounter (statuses as of 11/14/2023) Resolved Problems Problem Noted Date Diagnosed Date Resolved Date Healthcare-associated pneumonia 10/27/2023 11/08/2023 Hypomagnesemia 10/26/2023 11/08/2023 On tube feeding diet 10/25/2023 024 Hypokalemia 10/23/2023 11/08/2023 EDEL (acute kidney injury) 10/20/2023 Acute hypoxic respiratory failure 10/18/2023 11/08/2023 On total parenteral nutrition (TPN) 10/13/2023 11/08/2023 Ileus, postoperative 10/13/2023 024 Kidney dysfunction 10/13/2023 05/10/202 4 documented as of this encounter (statuses as of 11/14/2023) Social History Tobacco Use Types Packs/Day Years Used Date Smoking Tobacco: Former Cigarettes Smokeless Tobacco: Current Snuff Sex and Gender Information Value Date Recorded Sex Assigned at Not on file Gender Identity Not on file Sexual Orientation Not on file Job Start Date Occupation Industry Not on file Not on file Not on file documented as of this encounter Functional Status Functional Status Response [...] No 10/03/2023 documented as of this encounter Miscellaneous Notes * Telephone Encounter - Sandra Handy LPN - 11/14/2023 10:[address] Bautista left me know that he should come to clinic as scheduled and clean the skin around the tube area. Can tape the tube to his abdomen. Returned call to the patient and gave her the keith * Telephone Encounter - Sandra Handy LPN - 11/12/2023 3:30 PM EDT Patient's daughter calling into the office to report that the top stitch is out due to skin irritation from leakage around the tube that is yellow, sticky, thick, and has an odor. She reports no fevers at this time but does report hot flashes/chills.I left her know that I'll talk to the team and get back to her. documented in this encounter Plan of Treatment Upcoming Encounters Date Type Department Care Team (Late st Contact Info) Description 11/14/2023 12:30 PM EDT Imaging Radiology [address] [place] [address] 11/20/2023 2:10 PM EDT Office Visit Vascular Surgery, [facility] [address] [place] [address] Gregory Le MD [address], [place] [phone] 12/04/2023 1:00 PM EDT Office Visit General [facility] [address] [place], [place] [phone] Clinic, Emergency General Surgery [address], [place] [id number] 01/27/2024 2:00 PM EDT Appointment Interventional Radiology [facility], [facility] [facility] [address] [place] [address] Health Maintenance Due Date Last Done Comments Depression Screening 1962 Hepatitis C Screening 1970 DTaP,Tdap,and Td Vaccines (1 - Tdap) 1971 Cologuard 1997 Fecal Occult Blood Test 1997 Sigmoidoscopy 1997 Zoster Vaccines (1 of 2) 2002 Pneumococcal Vaccine: 65+ Years (1 of 1 - PCV) 2017 COVID-19 Vaccine ( - 2022-2 4 season) 2023 Influenza Vaccine [...] this encounter Medical Devices Implanted Type Area Tooling Specialist Device Identifier Shelf Expiration Date Model / Serial / Lot Graft Bifur 16x8 [id number] - [id number] Implanted:Qty : 1 on 10/03/2023 by Gregory Le MD at OR [facility] N/A: Aorta GETINGE : MAQUET [id number] 04/30/2028 M002 [id number] / [id number] Tube Feeding Jejunal Skn 0200- - [id number] Implanted:Qty : 1 on 10/18/2023 by Gregory Le MD at OR [facility] N/A: Abdomen [facility] 05/29/2024 0200-18 / / [id number] documented as of this encounter Advance Directives Latest Code Status on File Code Status Date Activated Date Inactivated Comments Full Code 10/03/2023 1:20 PM 11/08/2023 6:00 PM This o rder reflects the patients wishes and were consensually agreed upon. Question Answer Comments Discussion of Advance Directives occurred with: Not Discussed due to patient's condition Does the patient have a Living Will? No Does the patient have Health Care Power of Assistant Art Director? No Care Teams Managed Security Sales Consultant Relationship Specialty Start Date End Date Valdemar Segundo, MARYCARMEN [address] [place] [id number] PCP - General Physician Steel Analyst 05/03/21 documented as of this encounter
--- OUTSIDE RECORDS SUMMARY | 2023-12-30 10:17 | External Medical Summary | Summary of Care ---
Author Name Unknown Organization [facility] Address [address] [place] [address] Phone [phone] Care Team Providers Care Retail Custodial Associate Name Role Phone Valdemar Segundo PA-C Primary Care Provider [phone] Reason for Referral * Precert (Within 10 days (routine)) - Pending Review Specialty Diagnoses / Procedures Referred By Contac t Referred To Contact Radiology Diagnoses Iliac artery aneurysm, right (HCC) S/P repair of abdominal aortic aneurysm using bifurcation graft Acute cholecystitis Gram-negative bacteremia Procedures CTA ABD/PELVIS Elian Herrera PA-C [address] [place] [address] Referral ID Status Reason Start Date Expiration Date V isits Requested Visits Authorized [id number] Pending Review 11/20/2023 999 999 Reason for Visit * Reason Comments Follow Up Encounter Details Date Type Department Care Team (Late st Contact Info) Description 11/20/2023 2:10 PM EDT Office Visit Vascular Surgery, [facility] [address] [facility] [place] [id number] Gregory Le MD [address] [place] [address] S/P repair of abdominal aortic aneurysm using bifurcation graft*; Iliac artery aneurysm, right (HCC); Acute cholecystitis; Gram-negative bacteremia Allergies Active Allergy Reactions Criticality Noted Date Comments Penicillins Rash 09/28/2003 documented as of this encounter (statuses as of 11/20/2023) Medications Medication Sig Dispensed Refills Start Date End Date Status Roselia Pimentelta 100-62.5-25 MCG/ACT Aerosol Powder Breath Activated TAKE [...] times a day. 1 1/2 tablets Active oxyCODONE HCl 5 MG Oral Tablet (Oxy IR) Take 1 Tablet by mouth every 4 hours as needed for severe pain. 10 Tablet 11/08/2023 Active Additional Information Patient not taking.Reported on 11/20/2023 Escitalopram Oxalate 10 MG Oral Tablet (Lexapro) take 1 tablet by mouth every day for anxiety/depression 11/12/2023 Active documented as of this encounter (statuses as of 11/20/2023) Active Problems Problem Noted Date Diagnosed Date Bacteremia 10/28/2023 Gram-negative bacteremia 10/27/2023 Acute cholecystitis 10/27/2023 S/P repair of abdominal aort ic aneurysm using bifurcation graft 10/27/2023 Coronary artery disease invo lving [place] coronary artery of [place] heart without angina pectoris 06/05/2023 S/P CABG (coronary artery bypass graft) 06/05/20 23 Infrarenal abdominal aortic aneurysm (AAA) witho ut rupture 05/30/2022 Iliac artery aneurysm, right 05/30/2022 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 Nicotine use 05/30/2022 SPRAIN CRUCIATE LIG KNEE 10/01/2003 documented as of this encounter (statuses as of 11/20/2023) Resolved Problems Problem Noted Date Diagnosed Date Resolved Date Healthcare-associated pneumonia 10/27/2023 11/08/2023 Hypomagnesemia 10/26/2023 11/08/2023 On tube feeding diet 10/25/2023 024 Hypokalemia 10/23/2023 11/08/2023 EDEL (acute kidney injury) 10/20/2023 Acute hypoxic respiratory failure 10/18/2023 11/08/2023 On total parenteral nutrition (TPN) 10/13/2023 11/08/2023 Ileus, postoperative 10/13/2023 024 Kidney dysfunction 10/13/2023 documented as of this encounter (statuses as of 11/20/2023) Social History Tobacco Use Types Packs/Day Years Used Date Smoking Tobacco: Former Cigarettes Smokeless Tobacco: Former Snuff Quit: 10/03/2023 Tobacco Cessation:Counseling Given: No Sex and Gender Information Value Date Recorded Sex Assigned at Not on file Gender Identity Not on file Sexual Orientation Not on file Job Start Date Occupation Industry Not on file Not on file Not on file documented as of this encounter Last Filed Vital Signs Vital Sign Reading Time Taken Comments Blood Pressure 128/78 11/20/2023 2:14 PM EDT Pulse 79 11/20/2023 2:14 PM EDT Temperature 36.3 C (97.3 F) 11/20/2023 2:14 PM ED T Respiratory Rate - - Oxygen Saturation - - Inhaled Oxygen Concentration - - Weight 69 kg (152 lb 3.2 oz) 11/20/2023 2:14 PM EDT per patient Height - - Body Mass Index 23.15 10/05/2023 4:00 AM EDT documented in this encounter Functional Status Functional [...] as of this encounter Progress Notes * Elian Herrera PA-C - 11/20/2023 2:10 PM EDT Date of Service: 11/20/23 Neri Bear is a 73 year old male. Patient being seen in consultation at the request of Grover Parham DO Chief Complaint: Post op return S/P open AAA repair with bifurcation graft on 10/03/[address] Le Complicated by HAP, bacteremia, acute cholecystitis, EDEL, hypoxic resp failure, ileus Discharged to home on 11/08/23 Required abd exploration, MARCY on 10/18/[address] Le Required repair duodenal serosal repair, naso-duodenal decompression and insertion of J-tube on 10/19/[address] Le Required perc deon tube on 10/27/23 by IR Has scheduled F/U with [facility] GenSurg 12/04/23 To have cholecystogram on 01/27/24 Since discharge to home pt has PT/OT, VNA and a home health aide coming to the home Leg remain weak yet getting stronger Has sacral decubitus that VNA is caring for Remains on NCO2 HPI: Pre op, very pleasant reformed smoker (but uses chewing tobacco) who underwent an MRI which revealed a AAA. He was referred to us. CT scan was also completed at [facility] in [place] on 04/07/21. We were not sure we would get the imaging we requested so an aortic duplex was also completed. He denies any FHx of AAA. ABDOMINAL AORTIC ANEURYSM: Patient denies any symptoms related to AAA. Patient denies new abdominal pain, flank pain and back pain. Size of aneurysm is 3.8 cm as detected by CT scan. FAMILY HISTORY: No family history of aortic aneurysms. Current Outpatient Medications Medication Sig Dispense Refill Trelegy Ellipta 100-62.5-25 MCG/ACT Aerosol Powder Breath Activated TAKE 1 inhalation BY MOUTH daily rinse mouth well after use. Albuterol Sulfate HFA 108 (90 Base) MCG/ACT Inhalation Aerosol Solution Inhale by mouth as needed. Fenofibrate 145 MG Oral Tablet (Tricor) take 1 tablet by mouth daily for triglycerides Folic Acid 1 MG Oral Tablet Take 1 Tablet by mouth in the morning. Atorvastatin Calcium 40 MG Oral Tablet (Lipitor) Take 1 Tablet by mouth in the morning. Cholecalciferol 125 MCG (5000 UT) Oral Capsule DAILY Aspirin 81 MG Oral Tablet Delayed Release daily. Cyanocobalamin 1000 MCG/ML Injection Solution (Cyanocobalamin) every 30 days. Lansoprazole 30 MG Oral Capsule Delayed Release (Prevacid) Take 1 Capsule by mouth in the morning. Metoprolol Tartrate 25 MG Oral Tablet (Lopressor) Take by mouth 2 times a day. 1 1/2 tablets oxyCODONE HCl 5 MG Oral Tablet (Oxy IR) Take 1 Tablet by mouth every 4 hours as needed for severe pain. 10 Tablet 0 No current facility-administered medications for this visit. Patient Active Problem List Diagnosis SPRAIN CRUCIATE LIG KNEE Infrarenal abdominal aortic aneurysm (AAA) without rupture (HCC) Iliac artery aneurysm, right (HCC) Celiac artery aneurysm (HCC) Nicotine use Coronary artery disease involving [place] coronary artery of [place] heart without angina pectoris S/P CABG (coronary artery bypass graft) Gram-negative bacteremia Acute cholecystitis S/P repair of abdominal aortic aneurysm using bifurcation graft Bacteremia No past medical history on file. Past Surgical History: Procedure Laterality Date ANEUR AORTA INVOL RENALS,MESEN N/A 10/03/2023 REPAIR ANEURYSM ABDOMINAL AORTA INVOLVING VISCERAL MUSCLES performed by Gregory Le MD at OR [facility] COLONOSCOPY, DIAGNOSTIC (RECTUM) N/A 11/05/2023 COLONOSCOPY FLEXIBLE PROXIMAL DIAGNOSTIC performed by John Irby DO at ENDOSCOPY [facility] EGD, FLEXIBLE, DIAGNOSTIC N/A 11/04/2023 ESOPHAGOGASTRODUODENOSCOPY (EGD), FLEXIBLE, TRANSORAL, DIAGNOSTIC performed by Kathrine Rawls DO at ENDOSCOPY [facility] IR GASTROINTESTINAL CHOLECYSTOTOMY 10/27/2023 REOPENING OF ABDOMEN N/A 10/18/2023 REOPEN RECENT LAPAROTOMY performed by Gregory Le MD at OR [facility] Social History Socioeconomic History Marital status: Spouse name: Not on file Number of children: Not on file Years of education: Not on file Highest education level: Not on file Occupational History Not on file Tobacco Use Smoking status: Former Types: Cigarettes Smokeless tobacco: Current Types: Snuff Substance and Sexual Activity Alcohol use: Not on file Drug use: Not on file Sexual activity: Not on file Other Topics Concern Not on file Social History Narrative Not on file Social Determinants of Health Financial Resource Strain: Not on file Food Insecurity: Not on file Transportation Needs: Not on file Physical Activity: Not on file Stress: Not on file Social Connections: Not on file Intimate Partner Violence: Not on file Housing Stability: Not on file COMPLETE REVIEW OF SYSTEMS: Cardiovascular: Negative for chest pain, shortness of breath, palpitations, angina or [place]. Stress test @ [facility], [place] per pt report Neurological: Negative for stroke, TIA, amaurosis fugax All other systems negative except for those noted above and in the history of present illness (HPI). GENERAL MULTI-SYSTEM PHYSICAL EXAM: VITAL SIGNS: There were no vitals taken for this visit. GENERAL MULTI-SYSTEM PHYSICAL EXAM: GENERAL: RRR NECK: Supple, no masses RESPIRATORY: CTA, decent effort CHEST: healed sternotomy CARDIOVASCULAR: RRR. No murmurs or varicosities. No BLE edema GASTROINTESTINAL: +BS, NT/ND, midline incision intact w/ anuradha, intact. GB tube, FT and J/P drainall in place SKIN: No rashes PSYCHIATRIC: Nl mood and affect NEUROLOGIC: 5/5 muscle strength and sensation PULSE SCALE: Carotid Right:----Bruit: No Left:----Bruit: No Radial Right: 3 Left: 3 Femoral Right: 3 Left: 3 Popliteal Right: 3 Left: 3 Dorsalis Pedis Right: 2 Left: 3 Posterior Tibial Right: 3 Left: 3 PULSE SCALE: 4=Aneurysmal; 3=Normal; 2=Diminished; 1=Barely Palpable; 0=Absent DIAGNOSTIC STUDIES: 08/28/23 CTA Abd/Pelvis: Stable prox celiac narrowing w/ 1.3 cm post-stenotic dilatation, accessory right superior renal artery, 5.6 x 5.5 cm angulated AAA making prox seal for EVAR a difficult challenge. RCIA 3.5 cm, LCIA 2.7 cm, LIIA 2.9 cm 06/03/2023 CTA Abd/Pelvis: Stable proximal celiac stenosis w/ 1.3 cm post- stenotic dilatation, 5.1 cm AAA w/ 90 degree angulation, short proximal neck ~ 8 mm, RCIA 3.5 cm, LIIA 2.7 cm 06/04/2022 BLE Art Duplex: R pop 1 cm, L pop 0.9 cm 05/21/22 Abd Aortic Duplex: AAA 4.5 cm, RCIA 2.9 cm, LIIA 2.1 cm 05/21/22 Mesenteric Duplex: Celiac Art 1.23 cm, Celiac Art 292, Hep Art 138, Splenic Art 144, SMA 97/148/150/120, ZI 44 04/28/2021; Location of Study: [facility]; Modality: duplex; AAA measures 3.6 cm in greatest transverse dimension. R SONY 2.6 cm and L SONY 1.7 cm 04/07/2021; Location of Study: Outside; Modality: CT; AAA measures 3.8 cm in greatest transverse dimension. R SONY 2.6 cm, L IIA 1.9 cm. Celiac artery also dilated at 1.2 cm, possible proximal stenosisand this is post-stenotic dilatation versus true ectasia/aneurysm LABS: Results for orders placed or performed during the hospital encounter of 10/03/23 TYPE AND SCREEN Result Value Ref Range ABO O Rh Positive Red Blood Cell Antibody Screen Negative Specimen Expiration Date 10/06/2023 23:59 COMPREHENSIVE METABOLIC PANEL Result Value Ref Range BUN 31 (H) 6 - 20 mg/dL Creatinine 1.8 (H) 0.6 - 1.2 mg/dL Estimated Glomerular Filtration Rate 40 (L) >=60 mL/min Sodium 139 135 - 146 mmol/L Potassium 4.0 3.5 - 5.1 mmol/L Chloride 106 98 - 107 mmol/L CO2 20 (L) 22 - 32 mmol/L Anion Gap 13 7 - 15 mmol/L Glucose 102 70 - 120 mg/dL Albumin 4.1 3.8 - 5.0 g/dL AST 38 10 - 50 U/L Alkaline Phosphatase 51 35 - 130 U/L Bilirubin, Total 1.1 <=1.2 mg/dL Calcium 9.1 8.4 - 10.2 mg/dL Protein 7.0 6.0 - 8.3 g/dL ALT 20 10 - 50 U/L ABO/RH Result Value Ref Range ABO O Rh Positive WHOLE BLOOD PROFILE, ARTERIAL Result Value Ref Range Temperature 37.0 C pH, Arterial 7.283 (L) 7.350 - 7.450 units pCO2, Arterial 46.4 (H) 35.0 - 45.0 mmHg pO2, Arterial 271.0 (H) 75.0 - 100.0 mmHg Base Excess, Arterial -5.0 (L) -2.0 - 2.0 mmol/L HGB 13.3 (L) 14.0 - 16.8 g/dL Hematocrit, Whole Blood 40.7 40.0 - 48.4 % Oxyhemoglobin, Arterial 97.5 94.0 - 99.0 % total Hgb Carboxyhemoglobin, Whole Blood 1.1 <=1.5 % total Hgb Methemoglobin, Whole Blood 0.8 <=1.5 % total Hgb Reduced Hemoglobin, Arterial 0.6 0.0 - 5.0 % total Hgb O2 Content, Arterial 18.8 15.0 - 24.0 %vol Potassium, Whole Blood 4.8 3.5 - 5.1 mmol/L Sodium, Whole Blood 139 135 - 146 mmol/L Chloride, Whole Blood 108 (H) 98 - 107 mmol/L Calcium, Ionized, Whole Blood 1.06 (L) 1.13 - 1.32 mmol/L Anion Gap, Whole Blood 9.5 7.0 - 15.0 mmol/L Glucose, Whole Blood 163 (H) 70 - 120 mg/dL FiO2 Not Provided % O2 Flow, Arterial Not Provided L/min Bicarbonate, Whole Blood 21.2 (L) 23.0 - 31.0 mmol/L LACTATE,WHOLE BLOOD Result Value Ref Range Lactate, Whole Blood 1.1 0.4 - 2.0 mmol/L WHOLE BLOOD PROFILE, ARTERIAL Result Value Ref Range Temperature 37.0 C pH, Arterial 7.279 (L) 7.350 - 7.450 units pCO2, Arterial 38.7 35.0 - 45.0 mmHg pO2, Arterial 247.0 (H) 75.0 - 100.0 mmHg Base Excess, Arterial -8.1 (L) -2.0 - 2.0 mmol/L HGB 9.6 (L) 14.0 - 16.8 g/dL Hematocrit, Whole Blood 29.7 (L) 40.0 - 48.4 % Oxyhemoglobin, Arterial 97.8 94.0 - 99.0 % total Hgb Carboxyhemoglobin, Whole Blood 1.4 <=1.5 % total Hgb Methemoglobin, Whole Blood 0.5 <=1.5 % total Hgb Reduced Hemoglobin, Arterial 0.3 0.0 - 5.0 % total Hgb O2 Content, Arterial 13.8 (L) 15.0 - 24.0 %vol Potassium, Whole Blood 4.6 3.5 - 5.1 mmol/L Sodium, Whole Blood 138 135 - 146 mmol/L Chloride, Whole Blood 108 (H) 98 - 107 mmol/L Calcium, Ionized, Whole Blood 1.02 (L) 1.13 - 1.32 mmol/L Anion Gap, Whole Blood 12.8 7.0 - 15.0 mmol/L Glucose, Whole Blood 173 (H) 70 - 120 mg/dL FiO2 Not Provided % O2 Flow, Arterial Not Provided L/min Bicarbonate, Whole Blood 17.5 (L) 23.0 - 31.0 mmol/L LACTATE,WHOLE BLOOD Result Value Ref Range Lactate, Whole Blood 2.9 (H) 0.4 - 2.0 mmol/L CBC Result Value Ref Range WBC 12.20 (H) 4.00 - 10.80 K/uL RBC 3.07 4.50 - 5.25 M/uL HGB 10.1 (L) 14.0 - 16.8 g/dL HCT 30.4 (L) 40.0 - 48.4 % MCV 99.0 82.0 - 99.5 fL MCH 32.9 27.0 - 34.0 pg MCHC 33.2 32.0 - 36.0 g/dL RDW 13.1 11.5 - 15.5 % PLT 49 (L) 140 - 400 K/uL MPV 9.0 6.6 - 11.1 fL nRBCs 0 <=0 /100 WBCs FIBRINOGEN Result Value Ref Range Fibrinogen <60 (LL) 178 - 467 mg/dL PT INR Result Value Ref Range Prothrombin Time 31.2 (H) 11.6 - 15.2 seconds INR 3.0 (H) 0.8 - 1.2 APTT Result Value Ref Range aPTT >150 (HH) 21 - 38 seconds TEG (THROMBOELASTOGRAPH) Result Value Ref Range Reaction Time >20.0 (H) 2.5 - 8.3 minutes TEG (THROMBOELASTOGRAPH), HEPARINASE Result Value Ref Range Reaction Time 7.2 2.5 - 8.3 minutes Kinetics Time 13.8 (H) 0.5 - 3.7 minutes Alpha Angle 23.0 (L) 46.8 - 78.4 degrees Maximum Amplitude 27.3 (L) 50.6 - 72.5 mm Coagulation Index -12.6 (L) -3.0 - 3.0 Percent Lysis 30 0.0 0.0 - 7.5 % WHOLE BLOOD PROFILE, ARTERIAL Result Value Ref Range Temperature 37.0 C pH, Arterial 7.325 (L) 7.350 - 7.450 units pCO2, Arterial 49.5 (H) 35.0 - 45.0 mmHg pO2, Arterial 248.0 (H) 75.0 - 100.0 mmHg Base Excess, Arterial -0.7 -2.0 - 2.0 mmol/L HGB 10.5 (L) 14.0 - 16.8 g/dL Hematocrit, Whole Blood 32.6 (L) 40.0 - 48.4 % Oxyhemoglobin, Arterial 96.6 94.0 - 99.0 % total Hgb Carboxyhemoglobin, Whole Blood 1.7 (H) <=1.5 % total Hgb Methemoglobin, Whole Blood 1.2 <=1.5 % total Hgb Reduced Hemoglobin, Arterial 0.5 0.0 - 5.0 % total Hgb O2 Content, Arterial 14.9 (L) 15.0 - 24.0 %vol Potassium, Whole Blood 5.1 3.5 - 5.1 mmol/L Sodium, Whole Blood 142 135 - 146 mmol/L Chloride, Whole Blood 104 98 - 107 mmol/L Calcium, Ionized, Whole Blood 1.04 (L) 1.13 - 1.32 mmol/L Anion Gap, Whole Blood 12.3 7.0 - 15.0 mmol/L Glucose, Whole Blood 181 (H) 70 - 120 mg/dL FiO2 Not Provided % O2 Flow, Arterial Not Provided L/min Bicarbonate, Whole Blood 25.1 23.0 - 31.0 mmol/L CBC Result Value Ref Range WBC 10.52 4.00 - 10.80 K/uL RBC 3.21 4.50 - 5.25 M/uL HGB 10.7 (L) 14.0 - 16.8 g/dL HCT 31.2 (L) 40.0 - 48.4 % MCV 97.2 82.0 - 99.5 fL MCH 33.3 27.0 - 34.0 pg MCHC 34.3 32.0 - 36.0 g/dL RDW 13.2 11.5 - 15.5 % PLT 87 (L) 140 - 400 K/uL MPV 8.6 6.6 - 11.1 fL nRBCs 0 <=0 /100 WBCs LACTATE,WHOLE BLOOD Result Value Ref Range Lactate, Whole Blood 3.5 (H) 0.4 - 2.0 mmol/L APTT Result Value Ref Range aPTT 37 21 - 38 seconds FIBRINOGEN Result Value Ref Range Fibrinogen 187 178 - 467 mg/dL PT INR Result Value Ref Range Prothrombin Time 17.4 (H) 11.6 - 15.2 seconds INR 1.4 (H) 0.8 - 1.2 TEG (THROMBOELASTOGRAPH) Result Value Ref Range Reaction Time 6.5 2.5 - 8.3 minutes Kinetics Time 2.1 0.5 - 3.7 minutes Alpha Angle 61.7 46.8 - 78.4 degrees Maximum Amplitude 54.8 50.6 - 72.5 mm Coagulation Index -1.4 -3.0 - 3.0 Percent Lysis 30 0.0 0.0 - 7.5 % TEG (THROMBOELASTOGRAPH), HEPARINASE Result Value Ref Range Reaction Time 6.5 2.5 - 8.3 minutes Kinetics Time 2.2 0.5 - 3.7 minutes Alpha Angle 41.2 (L) 46.8 - 78.4 degrees Maximum Amplitude 57.6 50.6 - 72.5 mm Coagulation Index -2.7 -3.0 - 3.0 Percent Lysis 30 0.0 0.0 - 7.5 % CALCIUM, IONIZED Result Value Ref Range Calcium, Ionized 1.19 1.13 - 1.32 mmol/L LACTATE,WHOLE BLOOD Result Value Ref Range Lactate, Whole Blood 2.3 (H) 0.4 - 2.0 mmol/L CK Result Value Ref Range CK 101 39 - 308 U/L TROPONIN T, HIGH SENSITIVITY Result Value Ref Range Troponin T, High Sensitivity 36 (H) <=22 ng/L LACTATE,WHOLE BLOOD Result Value Ref Range Lactate, Whole Blood 1.7 0.4 - 2.0 mmol/L CBC Result Value Ref Range WBC 10.48 4.00 - 10.80 K/uL RBC 3.54 4.50 - 5.25 M/uL HGB 11.6 (L) 14.0 - 16.8 g/dL HCT 35.0 (L) 40.0 - 48.4 % MCV 98.9 82.0 - 99.5 fL MCH 32.8 27.0 - 34.0 pg MCHC 33.1 32.0 - 36.0 g/dL RDW 13.3 11.5 - 15.5 % PLT 95 (L) 140 - 400 K/uL MPV 9.4 6.6 - 11.1 fL nRBCs 0 <=0 /100 WBCs BASIC METABOLIC PANEL Result Value Ref Range BUN 32 (H) 6 - 20 mg/dL Creatinine 2.0 (H) 0.6 - 1.2 mg/dL Estimated Glomerular Filtration Rate 35 (L) >=60 mL/min Sodium 143 135 - 146 mmol/L Potassium 4.6 3.5 - 5.1 mmol/L Chloride 105 98 - 107 mmol/L CO2 26 22 - 32 mmol/L Anion Gap 12 7 - 15 mmol/L Glucose 147 (H) 70 - 120 mg/dL Calcium 8.5 8.4 - 10.2 mg/dL LACTATE,WHOLE BLOOD Result Value Ref Range Lactate, Whole Blood 1.9 0.4 - 2.0 mmol/L CBC Result Value Ref Range WBC 9.97 4.00 - 10.80 K/uL RBC 3.41 4.50 - 5.25 M/uL HGB 11.3 (L) 14.0 - 16.8 g/dL HCT 33.4 (L) 40.0 - 48.4 % MCV 97.9 82.0 - 99.5 fL MCH 33.1 27.0 - 34.0 pg MCHC 33.8 32.0 - 36.0 g/dL RDW 13.4 11.5 - 15.5 % PLT 88 (L) 140 - 400 K/uL MPV 8.8 6.6 - 11.1 fL nRBCs 0 <=0 /100 WBCs BASIC METABOLIC PANEL Result Value Ref Range BUN 34 (H) 6 - 20 mg/dL Creatinine 2.1 (H) 0.6 - 1.2 mg/dL Estimated Glomerular Filtration Rate 33 (L) >=60 mL/min Sodium 143 135 - 146 mmol/L Potassium 4.7 3.5 - 5.1 mmol/L Chloride 105 98 - 107 mmol/L CO2 27 22 - 32 mmol/L Anion Gap 11 7 - 15 mmol/L Glucose 131 (H) 70 - 120 mg/dL Calcium 8.1 (L) 8.4 - 10.2 mg/dL PT INR Result Value Ref Range Prothrombin Time 15.1 11.6 - 15.2 seconds INR 1.2 0.8 - 1.2 APTT Result Value Ref Range aPTT 30 21 - 38 seconds CALCIUM, IONIZED Result Value Ref Range Calcium, Ionized 1.15 1.13 - 1.32 mmol/L IRON SCREEN, INCLUDING TIBC Result Value Ref Range Iron 39 (L) 45 - 176 ug/dL Iron Binding Capacity 190 (L) 250 - 425 ug/dL Transferrin Saturation Percent 21 15 - 55 % HEMOGLOBIN A1C Result Value Ref Range Hemoglobin A1C 5.4 4.0 - 5.6 % Estimated Average Glucose 108 <126 mg/dL LACTATE,WHOLE BLOOD Result Value Ref Range Lactate, Whole Blood 1.8 0.4 - 2.0 mmol/L CBC Result Value Ref Range WBC 10.66 4.00 - 10.80 K/uL RBC 3.22 4.50 - 5.25 M/uL HGB 10.7 (L) 14.0 - 16.8 g/dL HCT 31.9 (L) 40.0 - 48.4 % MCV 99.1 82.0 - 99.5 fL MCH 33.2 27.0 - 34.0 pg MCHC 33.5 32.0 - 36.0 g/dL RDW 13.5 11.5 - 15.5 % PLT 99 (L) 140 - 400 K/uL MPV 9.2 6.6 - 11.1 fL nRBCs 0 <=0 /100 WBCs BASIC METABOLIC PANEL Result Value Ref Range BUN 38 (H) 6 - 20 mg/dL Creatinine 2.2 (H) 0.6 - 1.2 mg/dL Estimated Glomerular Filtration Rate 31 (L) >=60 mL/min Sodium 144 135 - 146 mmol/L Potassium 4.8 3.5 - 5.1 mmol/L Chloride 107 98 - 107 mmol/L CO2 27 22 - 32 mmol/L Anion Gap 10 7 - 15 mmol/L Glucose 112 70 - 120 mg/dL Calcium 8.0 (L) 8.4 - 10.2 mg/dL LACTATE,WHOLE BLOOD Result Value Ref Range Lactate, Whole Blood 3.5 (H) 0.4 - 2.0 mmol/L CBC Result Value Ref Range WBC 12.09 (H) 4.00 - 10.80 K/uL RBC 3.33 4.50 - 5.25 M/uL HGB 10.8 (L) 14.0 - 16.8 g/dL HCT 33.2 (L) 40.0 - 48.4 % MCV 99.7 82.0 - 99.5 fL MCH 32.4 27.0 - 34.0 pg MCHC 32.5 32.0 - 36.0 g/dL RDW 13.7 11.5 - 15.5 % PLT 117 (L) 140 - 400 K/uL MPV 9.2 6.6 - 11.1 fL nRBCs 0 <=0 /100 WBCs BASIC METABOLIC PANEL Result Value Ref Range BUN 41 (H) 6 - 20 mg/dL Creatinine 2.5 (H) 0.6 - 1.2 mg/dL Estimated Glomerular Filtration Rate 27 (L) >=60 mL/min Sodium 143 135 - 146 mmol/L Potassium 4.4 3.5 - 5.1 mmol/L Chloride 105 98 - 107 mmol/L CO2 24 22 - 32 mmol/L Anion Gap 14 7 - 15 mmol/L Glucose 107 70 - 120 mg/dL Calcium 7.6 (L) 8.4 - 10.2 mg/dL BASIC METABOLIC PANEL Result Value Ref Range BUN 45 (H) 6 - 20 mg/dL Creatinine 2.4 (H) 0.6 - 1.2 mg/dL Estimated Glomerular Filtration Rate 29 (L) >=60 mL/min Sodium 143 135 - 146 mmol/L Potassium 4.3 3.5 - 5.1 mmol/L Chloride 106 98 - 107 mmol/L CO2 26 22 - 32 mmol/L Anion Gap 11 7 - 15 mmol/L Glucose 105 70 - 120 mg/dL Calcium 7.3 (L) 8.4 - 10.2 mg/dL BASIC METABOLIC PANEL Result Value Ref Range BUN 48 (H) 6 - 20 mg/dL Creatinine 2.3 (H) 0.6 - 1.2 mg/dL Estimated Glomerular Filtration Rate 29 (L) >=60 mL/min Sodium 141 135 - 146 mmol/L Potassium 4.4 3.5 - 5.1 mmol/L Chloride 103 98 - 107 mmol/L CO2 28 22 - 32 mmol/L Anion Gap 10 7 - 15 mmol/L Glucose 96 70 - 120 mg/dL Calcium 7.6 (L) 8.4 - 10.2 mg/dL *Note: Due to a large number of results and/or encounters for the requested time period, some results have not been displayed. A complete set of results can be found in Results Review. The above clinical lab tests were reviewed by me on 11/20/23 IMPRESSIONS: S/P open AAA repair with bifurcation graft on 10/03/[address] Le Highly complicated post op course highlighted by HAP, bacteremia, acute cholecystitis, EDEL, hypoxicresp failure, ileus EDEL resolved prior to discharge Discharged to home on 11/08/23 Has ICU-induced polyneuropathy, getting stronger with home PT and OT. S/P abd exploration, MARCY on 10/18/[address] Le S/P repair duodenal serosal repair, naso-duodenal decompression and insertion of J-tube on 10/19/[address] 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 Follows with Dr. Vargas, [facility] Reformed smoker but uses chewing tobacco HTN PLAN: Very complicated post op course following recent open AAA repair Patient doing pretty well, all things considered. Has a ways to go for full recovery but pt determined to do so Post op EDEL normalized prior to discharge The patient was counseled regarding the pathophysiology and natural history of mesenteric vascular disease, as well as the interventional and noninterventional therapeutic options. Continue ASA 81 mg daily for platelet inhibition Continue Lipitor 40 mg daily for pleiotropic effects of statins RTC 6 months with CTA Abd/Pelvis 1-2 wks prior to that next visit. He has a LIIA aneurysm that willrequire covered stent and coiling. Will make future OR plans @ next visit. Patient re-instructed to stop nicotine use, in any form. He remains dedicated to using chewing tobacco The patient was seen and examined with Gregory Le MD. Elian Herrera MPAS, PA-C Section of Vascular and Endovascular Surgery [address] [address] I have reviewed the advanced practitioner's documentation on the date of service referenced in note, and I agree with, and take responsibility for the plan of care. 73 year old male s/p open aortoiliac repair on 10/02, with plans for future endovascular repair of left internal iliac artery aneurysm with coil embolization and stent grafting from dacron graft to external iliac artery Unfortunately this was complicated by prolonged ileus, proximal anastomotic stricture, duodenal injury during re-exploration for prolonged ileus and attempted re-opening of the retroperitoneal space to revise the proximal anastomosis (abandoned) which resulted in Rahul drain placement (minimal serous output at this time) and jejunostomy tube placement (not being used, tolerating PO diet). He alsodeveloped acalculous cholecystitis (now with cholecystostomy tube) and is still on some oxygen for COPD and pleural effusion. He has also developed a decubitus ulcer. Today he is home with family. He is generally progressing slowly and feeling stronger. His legs arestill weak. He does have weakly palpable pedal pulses. Hughes were removed in clinic and his incision looks good. He is seeing general surgery in about two weeks and hoping to get multiple tubes removed which will greatly increase his ability to offload his buttocks. 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 We will plan on doing both of these things endovascularly. For now I'll plan to see him back in about a month for a status check. I would prefer to wait about6 months to address his stenosis/aneurysmal disease. I have offered second opinion should he want to seek care elsewhere given his matthew course. Gregory Le MD Section of Vascular [place] [address] [phone] documented in this encounter Nursing Notes * Pooja Graves PHARM Tech - 11/20/2023 2:20 PM EDT Patient was instructed to not get up on the exam table/exam chair until directed and assisted by their provider; patient is to remain seated in the chair/ wheelchair/ exam table/ exam chair for fall prevention and safety reasons. Patient is aware to have assistance to step down off exam table/exam chair with personnel. Patient voiced full comprehension of instructions. Reviewed the option of transferring scripts to [facility] pharmacy with patient and / or family. Pooja L Brown, porcelain mixer documented in this encounter Plan of Treatment Upcoming Encounters Date Type Department Care Team (Late st Contact Info) Description 12/04/2023 1:00 PM EDT [facility] [address] [place] [address] Clinic, Emergency General Surgery [address] [place] [address] 01/22/2024 1:50 PM EDT Office Visit Vascular Surgery, [facility] [address] [place] [address] Gregory Le MD [address] [place], [place] [id number] 01/27/2024 2:00 PM EDT Appointment Interventional Radiology [facility], [facility] 1st Floor [address] [place] [address] 04/29/2024 1:30 PM EDT Imaging Radiology [facility] 1st [facility] [address] [place] [address] 05/06/2024 1:30 PM EST Office Visit Vascular Surgery, [facility] [address] [place] [address] Gregory Le MD [address] [place], [place] [id number] Scheduled Orders Name Type Priority Associated Diagnoses Orde r Schedule CTA ABD/PELVIS Medical Imaging Routine Iliac artery aneurysm, right (HCC) S/P repair of abdominal aortic aneurysm using bifurcation graft Acute cholecystitis Gram-negative bacteremia Ordered: 11/20/2023 Health Maintenance Due Date Last Done Comments [...] this encounter Medical Devices Implanted Type Area Video System Repairer Device Identifier Shelf Expiration Date Model / Serial / Lot Graft Bifur 16x8 [id number] - [id number] Implanted:Qty : 1 on 10/03/2023 by Gregory Le MD at OR [facility] N/A: Aorta GETINGE : MAQUET [id number] 04/30/2028 M002 [id number] / [id number] Tube Feeding Jejunal Skn 0200- - [id number] Implanted:Qty : 1 on 10/18/2023 by Gregory Le MD at OR [facility] N/A: [facility]domen [facility] 05/29/2024 0200-18 / / [id number] documented as of this encounter Visit Diagnoses Diagnosis S/P repair of abdominal aortic aneurysm using bifurcation graft- Primary Other postprocedural status Iliac artery aneurysm, right (HCC) Aneurysm of iliac artery Acute cholecystitis Gram-negative bacteremia Bacteremia documented in this encounter Advance Directives * [...] the patient have Health Care Power of Maintenance Planning Clerk? No Care Teams Retail Custodial Associate Relationship Specialty Start Date End Date Valdemar Segundo PA-C [address] [place] [id number] PCP - General Physician Avionics Manager 05/03/21 documented as of this encounter
--- OUTSIDE RECORDS SUMMARY | 2023-12-30 10:18 | External Medical Summary | Summary of Care ---
Author Name Unknown Organization [facility] Address [address] [place] [address] Phone [phone] Care Team Providers Care Senior Product Engineer Name Role Phone Valdemar Segundo PA-C Primary Care Provider [phone] Reason for Visit * Reason Onset Date Comments Advice 11/12/2023 Encounter Details Date Type Department Care Team (Late st Contact Info) Description 11/12/2023 Telephone Vascular Surg [facility] [address] [place], [place] [phone] Services, [facility] [address] [place] [address] Advice Allergies Active Allergy Reactions Criticality Noted Date Comments Penicillins Rash 09/28/2003 documented as of this encounter (statuses as of 11/12/2023) Medications Medication Sig Dispensed Refills Start Date [...] as of this encounter (statuses as of 11/12/2023) Active Problems Problem Noted Date Diagnosed Date Bacteremia 10/28/2023 Gram-negative bacteremia 10/27/2023 Acute cholecystitis 10/27/2023 S/P repair of abdominal aort ic aneurysm using bifurcation graft 10/27/2023 Coronary artery disease invo lving [place] coronary artery of [place] heart without angina pectoris 06/05/2023 S/P CABG (coronary artery bypass graft) 06/05/20 Infrarenal abdominal aortic aneurysm (AAA) witho ut rupture 05/30/2022 Iliac artery aneurysm, right 05/30/2022 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 Nicotine use 05/30/2022 SPRAIN CRUCIATE LIG KNEE 10/01/2003 documented as of this encounter (statuses as of 11/12/2023) Resolved Problems Problem Noted Date Diagnosed Date Resolved Date Healthcare-associated pneumonia 10/27/2023 11/08/2023 Hypomagnesemia 10/26/2023 11/08/2023 On tube feeding diet 10/25/2023 024 Hypokalemia 10/23/2023 11/08/2023 EDEL (acute kidney injury) 10/20/2023 Acute hypoxic respiratory failure 10/18/2023 11/08/2023 On total parenteral nutrition (TPN) 10/13/2023 11/08/2023 Ileus, postoperative 10/13/2023 024 Kidney dysfunction 10/13/2023 documented as of this encounter (statuses as of 11/12/2023) Social History Tobacco Use Types Packs/Day Years [...] encounter Miscellaneous Notes * Telephone Encounter - Candice Robert OSA - 11/12/2023 3:29 PM EDT Pt daughter Danielle calling on behalf of the pt, pcp and at home nurse both wondering if the pt should be on any kind of anit blood clot medication? Also, he was given a lot of Lasix while in hospital but was not sent home with anything wondering if he should still be on that as well? Please contact daughter at [phone] documented in this encounter Plan of Treatment Upcoming Encounters Date Type Department Care Team (Late st Contact Info) Description 11/14/2023 12:30 PM EDT Imaging Radiology [facility] [address] [place] [address] 11/20/2023 2:10 PM EDT Office Visit Vascular Surgery, [facility] [address] [place] [address] Gregory Le MD [address] [place] [address] 12/04/2023 1:00 PM EDT [facility] [address] [place] [address] Clinic, Emergency General Surgery [address] [place] [address] Health Maintenance Due Date Last Done Comments [...] this encounter Medical Devices Implanted Type Area Supervisor [employer] Device Identifier Shelf Expiration Date Model / Serial / Lot Graft Bifur 16x8 [id number] - [id number] Implanted:Qty : 1 on 10/03/2023 by Gregory Le MD [facility] N/A: Aorta GETINGE : MAQUET [id number] 04/30/2028 M002 [id number] / [id number] / [id number] Tube Feeding Jejunal Skn 0200- - [id number] Implanted:Qty : 1 on 10/18/2023 by Gregory Le MD at OR [facility] N/A: Abdomen [employer] 05/29/2024 0200-18 / / [id number] documented as of this encounter Advance Directives [...] the patient have Health Care Power of Account Support Analyst? No Care Teams Senior Product Engineer Relationship Specialty Start Date End Date Valdemar Segundo, ANGELIAC [address] [place], [place] [address] [address] PCP - General Physician Balance Wheel Screw Hole Driller 05/03/21 documented as of this encounter
--- OUTSIDE RECORDS SUMMARY | 2023-12-30 10:18 | External Medical Summary ---
Author Name Unknown Address Unknown Organization K01:LABORATORY [address] [facility] [address] Laboratory Report Ordering Provider Test Date Status SIRISHA GRAY 11/06/2023 04:29:00 Final Observation Date Value Abnormality Reference (Units ) Status Calcium.ionized [Moles/volume] in Serum or Plasma by Ion-selective membrane electrode (ISE) 11/06/2023 04:29:00 1.16 1.13-1.32 (mmol/L) Final This test was developed and its performance characteristics dtermined by [employer]. It has not been cleared or approved by the [place] Food and Drug Administration Performing Location LAB[facility]ATORY [place] [address] [facility] [address]
--- OUTSIDE RECORDS SUMMARY | 2023-12-30 10:18 | External Medical Summary ---
Author Name Unknown Address Unknown Organization [id number]:LABORATORY [facility] - [address] [place] [address] Laboratory Report Ordering Provider Test Date Status OWEN DORSEY 11/08/2023 04:57:00 Final Observation Date Value Abnormality Reference (Units ) Status WBC, Total 11/08/2023 04:57:00 10.03 4.00-10.80 (K/uL) Final RBC 11/08/2023 04:57:00 3.14 4.50-5.25 (M/uL) Final Hemoglobin 11/08/2023 04:57:00 9.6 Below low normal 14.0-16.8 (g/dL) Final HCT 11/08/2023 04:57:00 30.6 Below low normal 40.0-48.4 (%) Final MCV 11/08/2023 04:57:00 97.5 82.0-99.5 (fL) Final MCH 11/08/2023 04:57:00 30.6 27.0-34.0 (pg) Final MCHC 11/08/2023 04:57:00 31.4 32.0-36.0 (g/dL) Final RDW 11/08/2023 04:57:00 18.1 11.5-15.5 (%) Final Platelets 11/08/2023 04:57:00 312 140-400 (K/uL) Final MPV 11/08/2023 04:57:00 9.0 6.6-11.1 (fL) Final Nucleated erythrocytes/100 leukocytes [Ratio] in Blood by Automated count 11/08/2023 04:57:00 0 <=0 (/100 WBCs) Final Performing Location LABORATORY [facility] - [address] [place] [address]
--- OUTSIDE RECORDS SUMMARY | 2023-12-30 10:18 | External Medical Summary ---
Author Name Unknown Address Unknown Organization [id number]:LABORATORY [facility] - [facility] [address] [place] [address] Laboratory Report Ordering Provider Test Date Status DUNIA JENSEN 11/07/2023 04:24:00 Final Observation Date Value Abnormality Reference (Units ) Status BUN 11/07/2023 04:24:00 28 Above high normal 6-20 (mg/dL) Final Creatinine 11/07/2023 04:24:00 1.3 Above high normal 0.6-1.2 (mg/dL) Final Glomerular filtration rate/1.73 sq M.predicted [Volume Rate/Area] in Serum, Plasma or Blood by Creatinine-based formula (CKD-EPI) 11/07/2023 04:24:00 57 Below low normal >=60 (mL/min) Final eGFR is calculated based on the CKD-EPI 2020 equation Sodium 11/07/2023 04:24:00 140 135-146 (m mol/L) Final Potassium 11/07/2023 04:24:00 4.0 3.5-5.1 (m mol/L) Final Cl 11/07/2023 04:24:00 109 Above high normal 98 -107 (mmol/L) Final CO2 11/07/2023 04:24:00 26 22-32 (mmo l/L) Final Anion gap 11/07/2023 04:24:00 5 Below low normal 7-1 5 (mmol/L) Final Glucose 11/07/2023 04:24:00 85 70-120 (mg /dL) Final Calcium 11/07/2023 04:24:00 7.2 Below low normal 8.4 -10.2 (mg/dL) Final Performing Location LABORATORY [facility] - [address] [place] [address]
--- OUTSIDE RECORDS SUMMARY | 2023-12-30 10:18 | External Medical Summary | Summary of Care ---
Author Name Unknown Organization [facility] Address [address] [place] [address] Phone [phone] Care Team Providers Care Security Inspector Name Role Phone Valdemar Segundo PA-C Primary Care Provider [phone] Reason for Referral * Precert (Within 10 days (routine)) - Pending Review Specialty Diagnoses / Procedures Referred By Contazeem t Referred To Contact Radiology Diagnoses Acute cholecystitis Procedures IR GASTROINTESTINAL CHOLECYSTOTOMY Keila Barth CRNP [address] [place] [address] Referral ID Status Reason Start Date Expiration Date V isits Requested Visits Authorized [id number] Pending Review 12/14/[phone] Encounter Details Date Type Department Care Team (Late st Contact Info) Description 11/13/2023 Telephone Interventional Radiology [facility], [facility] [address] [place] [address] Keila Barth CRNP [address] [place] [address] Allergies Active Allergy Reactions Criticality Noted Date Comments Penicillins Rash 09/28/2003 documented as of this encounter (statuses as of 11/13/2023) Medications Medication Sig Dispensed Refills Start Date [...] as of this encounter (statuses as of 11/13/2023) Active Problems Problem Noted Date Diagnosed Date Bacteremia 10/28/2023 Gram-negative bacteremia 10/27/2023 Acute cholecystitis 10/27/2023 S/P repair of abdominal aort ic aneurysm using bifurcation graft 10/27/2023 Coronary artery disease invo lving [place] coronary artery of [place] heart without angina pectoris 06/05/2023 S/P CABG (coronary artery bypass graft) 06/05/20 Infrarenal abdominal aortic aneurysm (AAA) witho ut rupture 05/30/2022 Iliac artery aneurysm, right 05/30/2022 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 Nicotine use 05/30/2022 SPRAIN CRUCIATE LIG KNEE 10/01/2003 documented as of this encounter (statuses as of 11/13/2023) Resolved Problems Problem Noted Date Diagnosed Date Resolved Date Healthcare-associated pneumonia 10/27/2023 11/08/2023 Hypomagnesemia 10/26/2023 11/08/2023 On tube feeding diet 10/25/2023 024 Hypokalemia 10/23/2023 11/08/2023 EDEL (acute kidney injury) 10/20/2023 Acute hypoxic respiratory failure 10/18/2023 11/08/2023 On total parenteral nutrition (TPN) 10/13/2023 11/08/2023 Ileus, postoperative 10/13/2023 024 Kidney dysfunction 10/13/2023 documented as of this encounter (statuses as of 11/13/2023) Social History Tobacco Use Types Packs/Day Years [...] No 10/03/2023 documented as of this encounter Plan of Treatment Upcoming Encounters Date Type Department Care Team (Late st Contact Info) Description 11/14/2023 12:30 PM EDT Imaging Radiology [facility] [address] [place] [address] 11/20/2023 2:10 PM EDT Office Visit Vascular Surgery, [address] [place] [address] Gregory Le MD [address] [place] [address] 12/04/2023 1:00 PM EDT Office Visit General Surgery, [place] [address] [place] [address] Clinic, Emergency General Surgery [address] [place] [address] 01/27/2024 2:00 PM EDT Appointment Interventional Radiology [facility], [facility] 1st Floor [address] [place] [address] Scheduled Orders Name Type Priority Associated Diagnoses Orde r Schedule IR GASTROINTESTINAL CHOLECYSTOTOMY Medical Imaging Routine Acute cholecystitis Expected: 12/14/2023, Expires: 12/13/2024 Health Maintenance Due Date Last Done Comments [...] this encounter Medical Devices Implanted Type Area Manager Utilization Management Device Identifier Shelf Expiration Date Model / Serial / Lot Graft Bifur 16x8 [id number] - [id number] Implanted:Qty : 1 on 10/03/2023 by Gregory Le MD at OR [facility] N/A: Aorta GETINGE : MAQUET [id number] 04/30/2028 M002 [id number] 1680 / [id number] L2 Tube Feeding Jejunal Skn 0200- - [id number] Implanted:Qty : 1 on 10/18/2023 by Gregory Le MD at OR [facility] N/A: Abdomen [facility] 05/29/2024 0200-18 / / [id number] documented as of this encounter Visit Diagnoses Diagnosis Acute cholecystitis- Primary documented in this encounter Advance Directives Latest Code Status [...] the patient have Health Care Power of Relations Coordinator? No Care Teams Security Inspector Relationship Specialty Start Date End Date Valdemar Segundo, ANGELIAC [address] [place], [place] [address] [address] PCP - General Physician Health Club Attendant 05/03/21 documented as of this encounter
--- OUTSIDE RECORDS SUMMARY | 2023-12-30 10:18 | External Medical Summary | Summary of Care ---
Author Name Unknown Organization [facility] Address [address] [place] [address] Phone [phone] Care Team Providers Care Nurse Wound Name Role Phone Valdemar Segundo PA-C Primary Care Provider [phone] Reason for Visit * Reason Onset Date Comments Advice 11/12/2023 Encounter Details Date Type Department Care Team (Late st Contact Info) Description 11/12/2023 Telephone General Surgery, [place] [address] [place], [place] [id number] Sandra Handy, DIRECTOR OF THERAPY SERVICES [address] [place] [address] Advice Allergies Active Allergy Reactions [...] graft 10/27/2023 Coronary artery disease invo lving [place] coronary artery of [place] heart without angina pectoris 06/05/2023 S/P CABG [...] Description 11/14/2023 12:30 PM EDT Imaging Radiology [address], [address] [place] [address] 11/20/2023 2:10 PM EDT Office Visit Vascular Surgery, [facility] [address] [place] [address] Gregory eL MD [address] [place] [address] 12/04/2023 1:00 PM EDT Office Visit General Surgery, [place] [address] [place] [address] Clinic, Emergency General Surgery [address] [place] [address] 01/27/2024 2:00 PM EDT Appointment Interventional Radiology [facility], [facility] 1[facility] [address] [place] [address] Health Maintenance Due Date Last [...] this encounter Medical Devices Implanted Type Area Heel Cementer Device Identifier Shelf Expiration Date Model / Serial / Lot Graft Bifur 16x8 [id number] - [id number] Implanted:Qty : 1 on 10/03/2023 by Gregory Le MD at [place] [facility] N/A: Aorta GETINGE : MAQUET [id number] 04/30/2028 M002 [id number] 1680 / [id number] L2 Tube Feeding Jejunal Skn 0200- - [id number] Implanted:Qty : 1 on 10/18/2023 by Gregory Le MD at [place] [facility] N/A: Abdomen [facility] 05/29/2024 0200-18 / / [id number] documented as of this encounter Advance Directives [...] the patient have Health Care Power of Automotive Design Layout Drafter? No Care Teams Nurse Wound Relationship Specialty Start Date End Date Valdemar Segundo, MARYCARMEN [address] [place], [place] [address] [address] PCP - General Physician Automobile Appraiser 05/03/21 documented as of this encounter
--- OUTSIDE RECORDS SUMMARY | 2023-12-30 10:18 | External Medical Summary ---
Author Name Unknown Address Unknown Organization K01:LABORATORY [facility] - [address] [place] [address] Laboratory Report Ordering Provider Test Date Status SHAWN HAWLEY 11/08/2023 04:57:00 Final Observation Date Value Abnormality Reference (Units ) Status Albumin 11/08/2023 04:57:00 1.7 Below low normal 3.8-5.0 (g/dL) Final AST (Aspartate aminotransferase) 11/08/2023 04:57:00 23 10-50 (U/L) Final Alk Phos 11/08/2023 04:57:00 44 35-130 (U/L) Final ALT (Alanine aminotransferase) 11/08/2023 04:57:00 8 Below low normal 10-50 (U/L) Final Bilirubin, Total 11/08/2023 04:57:00 0.3 <=1.2 (mg/dL) Final Bilirubin, Direct 11/08/2023 04:57:00 <0.2 0.0-0.3 (mg/dL) Final Protein 11/08/2023 04:57:00 5.3 Below low normal 6.0-8.3 (g/dL) Final Performing Location LABORATORY [facility] - [address] [place] [address]
--- OUTSIDE RECORDS SUMMARY | 2023-12-30 10:18 | External Medical Summary ---
Author Name Unknown Address Unknown Organization K01:LABORATORY [facility] - [address] [place] [address] Laboratory Report Ordering Provider Test Date Status MARCI GRUBER 11/06/2023 08:59:00 Final Observation Date Value Abnormality Reference (Units ) Status ABO 11/06/2023 08:59:00 O Final RH 11/06/2023 08:59:00 Positive Final RED BLOOD CELL ANTIBODY SCREEN 11/06/2023 08:59:00 Negative Final SPECIMEN EXPIRATION DATE 11/06/2023 08:59:00 11/09/2023 23:59 Final Performing Location LABORATORY [facility] - [address] [place] [address]
--- OUTSIDE RECORDS SUMMARY | 2023-12-30 10:18 | External Medical Summary ---
Author Name Unknown Address Unknown Organization : Laboratory Report Ordering Provider Test Date Status CHAITANYA HADLEY 11/05/2023 17:06:07 Final Observation Date Value Abnormality Reference (Units ) Status Glucose Point of Care 11/05/2023 17:06:07 91 70-120 (mg/dL) Final Performing Location
--- OUTSIDE RECORDS SUMMARY | 2023-12-30 10:18 | External Medical Summary ---
Author Name Unknown Address Unknown Organization K01:LABORATORY [facility] - [facility] [address] [place] [address] Laboratory Report Ordering Provider Test Date Status DUNIA JENSEN 11/06/2023 04:29:00 Final Observation Date Value Abnormality Reference (Units ) Status BUN 11/06/2023 04:29:00 40 Above high normal 6-20 (mg/dL) Final Creatinine 11/06/2023 04:29:00 1.5 Above high normal 0.6-1.2 (mg/dL) Final Glomerular filtration rate/1.73 sq M.predicted [Volume Rate/Area] in Serum, Plasma or Blood by Creatinine-based formula (CKD-EPI) 11/06/2023 04:29:00 52 Below low normal >=60 (mL/min) Final eGFR is calculated based on the CKD-EPI 2020 equation Sodium 11/06/2023 04:29:00 147 Above high normal 13 5-146 (mmol/L) Final Potassium 11/06/2023 04:29:00 4.5 3.5-5.1 (m mol/L) Final Cl 11/06/2023 04:29:00 116 Above high normal 98 -107 (mmol/L) Final CO2 11/06/2023 04:29:00 26 22-32 (mmo l/L) Final Anion gap 11/06/2023 04:29:00 5 Below low normal 7-1 5 (mmol/L) Final Glucose 11/06/2023 04:29:00 103 70-120 (mg /dL) Final Calcium 11/06/2023 04:29:00 7.4 Below low normal 8.4 -10.2 (mg/dL) Final Performing Location LABORATORY [facility] - [address] [place] [address]
--- OUTSIDE RECORDS SUMMARY | 2023-12-30 10:18 | External Medical Summary | Summary of Care ---
Author Name Unknown Organization [facility] Address [address] [place] [address] Phone [phone] Care Team Providers Care Senior Net Software Developer Name Role Phone Valdemar Segundo PA-C Primary Care Provider [phone] Reason for Visit * Reason Onset Date Comments Advice 11/12/2023 Encounter Details Date Type Department Care Team (Late st Contact Info) Description 11/12/2023 Telephone Vascular Surg [facility] [address] [place], [place] [id number] Services, [facility] [address] [place] [address] Advice Allergies Active Allergy Reactions Criticality Noted [...] graft 10/27/2023 Coronary artery disease invo [place]ving [place] coronary artery of [place] heart without angina pectoris 06/05/2023 S/P CABG [...] encounter Miscellaneous Notes * Telephone Encounter - Raya Villeda PA-C - 11/12/2023 4:37 PM EDT Called and answered questions * Telephone Encounter - Candice Robert OSA [...] that as well? Please contact daughter at [phone] documented in this encounter Plan of Treatment Upcoming Encounters Date Type Department Care Team (Late st Contact Info) Description 11/14/2023 12:30 PM EDT Imaging Radiology [facility] [address] [facility] [address] [place] [address] 11/20/2023 2:10 PM EDT Office Visit Vascular Surgery, [facility] [address] [facility] [place] [address] Gregory Le MD [address] [place] [address] 12/04/2023 1:00 PM EDT Office Visit General Surgery, [place] [address] [place] [address] Clinic, Emergency General Surgery [address] [place] [address] Health Maintenance Due Date Last Done Comments Depression Screening 1964 Hepatitis C Screening 1970 DTaP,Tdap,and Td Vaccines (1 - Tdap) 1971 Cologuard 1997 Fecal Occult Blood Test 1997 Sigmoidoscopy 1997 Zoster Vaccines (1 of 2) 2002 Pneumococcal Vaccine: 65+ Years (1 of 1 - PCV) 2017 COVID-19 Vaccine (2022-2 4 season) 2023 Influenza Vaccine (FLU shot) [...] this encounter Medical Devices Implanted Type Area Filling Hand Device Identifier Shelf Expiration Date Model / Serial / Lot Graft Bifur 16x8 [id number] - [id number] Implanted:Qty : 1 on 10/03/2023 by Gregory Le MD at [place] [facility] [place] N/A: Aorta GETINGE : MAQUET [id number] 04/30/2028 M002 [id number] [id number] / [id number] L2 Tube Feeding Jejunal Skn 0200- - [id number] Implanted:Qty : 1 on 10/18/2023 by Gregory eL MD at [place] [facility] [place] N/A: Abdomen [facility] 05/29/2024 0200-18 / / [id number] documented as of this encounter Advance Directives [...] the patient have Health Care Power of Header Set Up Operator? No Care Teams Senior Net Software Developer Relationship Specialty Start Date End Date Valdemar Segundo, MARYCARMEN [address] [place] [address] [place] [address] PCP - General Physician Tool Filer Hand 05/03/21 documented as of this encounter
--- OUTSIDE RECORDS SUMMARY | 2023-12-30 10:18 | External Medical Summary ---
Author Name Unknown Address Unknown Organization K01:LAB[facility]ORY [facility] [place] [address] [place] [address] Laboratory Report Ordering Provider Test Date Status OWEN DORSEY 11/07/2023 04:24:00 Final Observation Date Value Abnormality Reference (Units ) Status WBC, Total 11/07/2023 04:24:00 10.42 4.00-10.80 (K/uL) Final RBC 11/07/2023 04:24:00 2.83 4.50-5.25 (M/uL) Final Hemoglobin 11/07/2023 04:24:00 8.7 Below low normal 14.0-16.8 (g/dL) Final HCT 11/07/2023 04:24:00 28.1 Below low normal 40.0-48.4 (%) Final MCV 11/07/2023 04:24:00 99.3 82.0-99.5 (fL) Final MCH 11/07/2023 04:24:00 30.7 27.0-34.0 (pg) Final MCHC 11/07/2023 04:24:00 31.0 32.0-36.0 (g/dL) Final RDW 11/07/2023 04:24:00 18.8 11.5-15.5 (%) Final Platelets 11/07/2023 04:24:00 310 140-400 (K/uL) Final MPV 11/07/2023 04:24:00 8.9 6.6-11.1 (fL) Final Nucleated erythrocytes/100 leukocytes [Ratio] in Blood by Automated count 11/07/2023 04:24:00 0 <=0 (/100 WBCs) Final Performing Location LAB[facility]ORY [facility] [place] - [address] [place] [address]
--- OUTSIDE RECORDS SUMMARY | 2023-12-30 10:18 | External Medical Summary ---
Author Name Unknown Address Unknown Organization K01:LABORATORY [facility] [place] - [address] [place] [address] Laboratory Report Ordering Provider Test Date Status SHWAN HAWLEY 11/06/2023 04:29:00 Final Observation Date Value Abnormality Reference (Units ) Status Albumin 11/06/2023 04:29:00 1.7 Below low normal 3.8-5.0 (g/dL) Final AST (Aspartate aminotransferase) 11/06/2023 04:29:00 14 10-50 (U/L) Final Alk Phos 11/06/2023 04:29:00 41 35-130 (U/L) Final ALT (Alanine aminotransferase) 11/06/2023 04:29:00 11 10-50 (U/L) Final Bilirubin, Total 11/06/2023 04:29:00 0.3 <=1.2 (mg/dL) Final Bilirubin, Direct 11/06/2023 04:29:00 <0.2 0.0-0.3 (mg/dL) Final Protein 11/06/2023 04:29:00 4.7 Below low normal 6.0-8.3 (g/dL) Final Performing Location LABORATORY [facility] [place] - [address] [place] [address]
--- OUTSIDE RECORDS SUMMARY | 2023-12-30 10:18 | External Medical Summary ---
Author Name Unknown Address Unknown Organization K01:LABORATORY [facility] [place] - [address] [place] [address] Laboratory Report Ordering Provider Test Date Status OWEN DORSEY 11/06/2023 04:29:00 Final Observation Date Value Abnormality Reference (Units ) Status WBC, Total 11/06/2023 04:29:00 11.80 Above high normal 4.00-10.80 (K/uL) Final RBC 11/06/2023 04:29:00 2.15 4.50-5.25 (M/uL) Final Hemoglobin 11/06/2023 04:29:00 6.8 Below low normal 14.0-16.8 (g/dL) Final HCT 11/06/2023 04:29:00 22.6 Below low normal 40.0-48.4 (%) Final MCV 11/06/2023 04:29:00 105.1 82.0-99.5 (fL) Final MCH 11/06/2023 04:29:00 31.6 27.0-34.0 (pg) Final MCHC 11/06/2023 04:29:00 30.1 32.0-36.0 (g/dL) Final RDW 11/06/2023 04:29:00 18.4 11.5-15.5 (%) Final Platelets 11/06/2023 04:29:00 300 140-400 (K/uL) Final MPV 11/06/2023 04:29:00 9.2 6.6-11.1 (fL) Final Nucleated erythrocytes/100 leukocytes [Ratio] in Blood by Automated count 11/06/2023 04:29:00 0 <=0 (/100 WBCs) Final Performing Location LABORATORY [facility] [place] - [address] [place] [address]
--- OUTSIDE RECORDS SUMMARY | 2023-12-30 10:18 | External Medical Summary ---
Author Name Unknown Address Unknown Organization K01:LABORATORY [facility] [place] - [address] [place] [address] Laboratory Report Ordering Provider Test Date Status SIRISHA GRAY 11/06/2023 14:13:00 Final Observation Date Value Abnormality Reference (Units ) Status WBC, Total 11/06/2023 14:13:00 11.80 Above high normal 4.00-10.80 (K/uL) Final RBC 11/06/2023 14:13:00 2.87 4.50-5.25 (M/uL) Final Hemoglobin 11/06/2023 14:13:00 8.8 Below low normal 14.0-16.8 (g/dL) Final HCT 11/06/2023 14:13:00 28.7 Below low normal 40.0-48.4 (%) Final MCV 11/06/2023 14:13:00 100.0 82.0-99.5 (fL) Final MCH 11/06/2023 14:13:00 30.7 27.0-34.0 (pg) Final MCHC 11/06/2023 14:13:00 30.7 32.0-36.0 (g/dL) Final RDW 11/06/2023 14:13:00 19.3 11.5-15.5 (%) Final Platelets 11/06/2023 14:13:00 320 140-400 (K/uL) Final MPV 11/06/2023 14:13:00 8.8 6.6-11.1 (fL) Final Nucleated erythrocytes/100 leukocytes [Ratio] in Blood by Automated count 11/06/2023 14:13:00 0 <=0 (/100 WBCs) Final Performing Location LABORATORY [facility] [place] - [address] [place] [address]
--- OUTSIDE RECORDS SUMMARY | 2023-12-30 10:18 | External Medical Summary ---
Author Name Unknown Address Unknown Organization K01:LABORATORY [facility] [place] - [facility] [place] [address] [place] [address] Laboratory Report Ordering Provider Test Date Status SHAWN HAWLEY 11/07/2023 04:24:00 Final Observation Date Value Abnormality Reference (Units ) Status Albumin 11/07/2023 04:24:00 1.8 Below low normal 3.8-5.0 (g/dL) Final AST (Aspartate aminotransferase) 11/07/2023 04:24:00 22 10-50 (U/L) Final Result may be falsely elevat ed due to hemolysis. Alk Phos 11/07/2023 04:24:00 43 35-130 (U/ L) Final ALT (Alanine aminotransferase) 11/07/2023 04:24:00 11 10-50 (U/L) Fin al Bilirubin, Total 11/07/2023 04:24:00 0.3 <=1 .2 (mg/dL) Final Bilirubin, Direct 11/07/2023 04:24:00 <0.2 0. 0-0.3 (mg/dL) Final Protein 11/07/2023 04:24:00 5.1 Below low normal 6.0 -8.3 (g/dL) Final Performing Location LABORATORY [facility] [place] - [address] [place] [address]
--- OUTSIDE RECORDS SUMMARY | 2023-12-30 10:18 | External Medical Summary ---
Author Name Unknown Address Unknown Organization K01:LABORATORY [facility] [place] - [facility] [place] [address] [place] [address] Laboratory Report Ordering Provider Test Date Status DUNIA JENSEN 11/08/2023 04:57:00 Final Observation Date Value Abnormality Reference (Units ) Status BUN 11/08/2023 04:57:00 23 Above high normal 6-20 (mg/dL) Final Creatinine 11/08/2023 04:57:00 1.2 0.6-1.2 (mg/dL) Final Glomerular filtration rate/1.73 sq M.predicted [Volume Rate/Area] in Serum, Plasma or Blood by Creatinine-based formula (CKD-EPI) 11/08/2023 04:57:00 65 >=60 (mL/min) Final eGFR is calculated based on the CKD-EPI 2020 equation Sodium 11/08/2023 04:57:00 139 135-146 (m mol/L) Final Potassium 11/08/2023 04:57:00 3.6 3.5-5.1 (m mol/L) Final Cl 11/08/2023 04:57:00 107 98-107 (mm ol/L) Final CO2 11/08/2023 04:57:00 24 22-32 (mmo l/L) Final Anion gap 11/08/2023 04:57:00 8 7-15 (mmol /L) Final Glucose 11/08/2023 04:57:00 89 70-120 (mg /dL) Final Calcium 11/08/2023 04:57:00 7.4 Below low normal 8.4 -10.2 (mg/dL) Final Performing Location LABORATORY [facility] [place] - [address] [place] [address]
--- OUTSIDE RECORDS SUMMARY | 2023-12-30 10:19 | External Medical Summary ---
Author Name Unknown Address Unknown Organization K01:LABORATORY [facility] [place] - [address] [place] [address] Laboratory Report Ordering Provider Test Date Status DUNIA JENSEN 11/05/2023 05:24:00 Final Observation Date Value Abnormality Reference (Units ) Status BUN 11/05/2023 05:24:00 46 Above high normal 6-20 (mg/dL) Final Creatinine 11/05/2023 05:24:00 1.6 Above high normal 0.6-1.2 (mg/dL) Final Glomerular filtration rate/1.73 sq M.predicted [Volume Rate/Area] in Serum, Plasma or Blood by Creatinine-based formula (CKD-EPI) 11/05/2023 05:24:00 44 Below low normal >=60 (mL/min) Final eGFR is calculated based on the CKD-EPI 2020 equation Sodium 11/05/2023 05:24:00 149 Above high normal 13 5-146 (mmol/L) Final Potassium 11/05/2023 05:24:00 3.6 3.5-5.1 (m mol/L) Final Cl 11/05/2023 05:24:00 117 Above high normal 98 -107 (mmol/L) Final CO2 11/05/2023 05:24:00 24 22-32 (mmo l/L) Final Anion gap 11/05/2023 05:24:00 8 7-15 (mmol /L) Final Glucose 11/05/2023 05:24:00 119 70-120 (mg /dL) Final Calcium 11/05/2023 05:24:00 7.5 Below low normal 8.4 -10.2 (mg/dL) Final Performing Location LABORATORY [facility] [place] - [address] [place] [address]
--- OUTSIDE RECORDS SUMMARY | 2023-12-30 10:19 | External Medical Summary ---
Author Name Unknown Address Unknown Organization : Laboratory Report Ordering Provider Test Date Status CHAITANYA HADLEY 11/04/2023 05:32:14 Final Observation Date Value Abnormality Reference (Units ) Status Glucose Point of Care 11/04/2023 05:32:14 96 70-120 (mg/dL) Final Performing Location
--- OUTSIDE RECORDS SUMMARY | 2023-12-30 10:19 | External Medical Summary ---
Author Name Unknown Address Unknown Organization : Laboratory Report Ordering Provider Test Date Status CHAITANYA HADLEY 11/04/2023 23:23:55 Final Observation Date Value Abnormality Reference (Units ) Status Glucose Point of Care 11/04/2023 23:23:55 140 Above high normal 70-120 (mg/dL) Final Performing Location
--- OUTSIDE RECORDS SUMMARY | 2023-12-30 10:19 | External Medical Summary ---
Author Name Unknown Address Unknown Organization : Laboratory Report Ordering Provider Test Date Status CHAITANYA HADLEY 11/05/2023 05:19:15 Final Observation Date Value Abnormality Reference (Units ) Status Glucose Point of Care 11/05/2023 05:19:15 105 70-120 (mg/dL) Final Performing Location
--- OUTSIDE RECORDS SUMMARY | 2023-12-30 10:19 | External Medical Summary ---
Author Name Unknown Address Unknown Organization : Laboratory Report Ordering Provider Test Date Status CHAITANYA HADLEY 11/04/2023 14:21:44 Final Observation Date Value Abnormality Reference (Units ) Status Glucose Point of Care 11/04/2023 14:21:44 96 70-120 (mg/dL) Final Performing Location
--- OUTSIDE RECORDS SUMMARY | 2023-12-30 10:19 | External Medical Summary ---
Author Name Unknown Address Unknown Organization K01:LABORATORY [facility] - [address] [place] [address] Laboratory Report Ordering Provider Test Date Status OWEN DORSEY 11/04/2023 13:41:00 Final CBC recheck be done after EG D today. Please coordinate with bedside RN on timing Observation Date Value Abnormality Reference (Units ) Status WBC, Total 11/04/2023 13:41:00 19.85 Above high normal 4.00-10.80 (K/uL) Final RBC 11/04/2023 13:41:00 2.57 4.50-5.25 (M/uL) Final Hemoglobin 11/04/2023 13:41:00 8.0 Below low normal 14.0-16.8 (g/dL) Final HCT 11/04/2023 13:41:00 26.4 Below low normal 40.0-48.4 (%) Final MCV 11/04/2023 13:41:00 102.7 82.0-99.5 (fL) Final MCH 11/04/2023 13:41:00 31.1 27.0-34.0 (pg) Final MCHC 11/04/2023 13:41:00 30.3 32.0-36.0 (g/dL) Final RDW 11/04/2023 13:41:00 18.6 11.5-15.5 (%) Final Platelets 11/04/2023 13:41:00 401 Above high normal 140-400 (K/uL) Final MPV 11/04/2023 13:41:00 9.8 6.6-11.1 (fL) Final Nucleated erythrocytes/100 leukocytes [Ratio] in Blood by Automated count 11/04/2023 13:41:00 0 <=0 (/100 WBCs) Final Performing Location LABORATORY [facility] - [address] [place] [address]
--- OUTSIDE RECORDS SUMMARY | 2023-12-30 10:19 | External Medical Summary ---
Author Name Unknown Address Unknown Organization : Laboratory Report Ordering Provider Test Date Status CHAITANYA HADLEY 11/04/2023 17:48:07 Final Observation Date Value Abnormality Reference (Units ) Status Glucose Point of Care 11/04/2023 17:48:07 117 70-120 (mg/dL) Final Performing Location
--- OUTSIDE RECORDS SUMMARY | 2023-12-30 10:19 | External Medical Summary ---
Author Name Unknown Address Unknown Organization K01:LABORATORY [facility] [place] - [address] [place] [address] Laboratory Report Ordering Provider Test Date Status OWEN DORSEY 11/05/2023 05:24:00 Final Observation Date Value Abnormality Reference (Units ) Status WBC, Total 11/05/2023 05:24:00 16.70 Above high normal 4.00-10.80 (K/uL) Final RBC 11/05/2023 05:24:00 2.44 4.50-5.25 (M/uL) Final Hemoglobin 11/05/2023 05:24:00 7.6 Below low normal 14.0-16.8 (g/dL) Final HCT 11/05/2023 05:24:00 25.5 Below low normal 40.0-48.4 (%) Final MCV 11/05/2023 05:24:00 104.5 82.0-99.5 (fL) Final MCH 11/05/2023 05:24:00 31.1 27.0-34.0 (pg) Final MCHC 11/05/2023 05:24:00 29.8 32.0-36.0 (g/dL) Final RDW 11/05/2023 05:24:00 18.3 11.5-15.5 (%) Final Platelets 11/05/2023 05:24:00 372 140-400 (K/uL) Final MPV 11/05/2023 05:24:00 9.4 6.6-11.1 (fL) Final Nucleated erythrocytes/100 leukocytes [Ratio] in Blood by Automated count 11/05/2023 05:24:00 0 <=0 (/100 WBCs) Final Performing Location LABORATORY [facility] [place] - [address] [place] [address]
--- OUTSIDE RECORDS SUMMARY | 2023-12-30 10:19 | External Medical Summary ---
Author Name Unknown Address Unknown Organization K01:[place] [facility] [place] [address] [place] [address] Laboratory Report Ordering Provider Test Date Status SHAWN HAWLEY 11/04/2023 01:31:00 Final Observation Date Value Abnormality Reference (Units ) Status Albumin 11/04/2023 01:31:00 1.6 Below low normal 3.8-5.0 (g/dL) Final AST (Aspartate aminotransferase) 11/04/2023 01:31:00 16 10-50 (U/L) Final Alk Phos 11/04/2023 01:31:00 47 35-130 (U/L) Final ALT (Alanine aminotransferase) 11/04/2023 01:31:00 9 Below low normal 10-50 (U/L) Final Bilirubin, Total 11/04/2023 01:31:00 0.3 <=1.2 (mg/dL) Final Bilirubin, Direct 11/04/2023 01:31:00 <0.2 0.0-0.3 (mg/dL) Final Protein 11/04/2023 01:31:00 4.8 Below low normal 6.0-8.3 (g/dL) Final Performing Location [facility] [place] [address] [place] [address]
--- OUTSIDE RECORDS SUMMARY | 2023-12-30 10:19 | External Medical Summary ---
Author Name Unknown Address Unknown Organization K01:LABORATORY [facility] [place] - [address] [place] [address] Laboratory Report Ordering Provider Test Date Status SHAWN HAWLEY 11/05/2023 05:24:00 Final Observation Date Value Abnormality Reference (Units ) Status Albumin 11/05/2023 05:24:00 1.9 Below low normal 3.8-5.0 (g/dL) Final AST (Aspartate aminotransferase) 11/05/2023 05:24:00 19 10-50 (U/L) Final Alk Phos 11/05/2023 05:24:00 48 35-130 (U/L) Final ALT (Alanine aminotransferase) 11/05/2023 05:24:00 12 10-50 (U/L) Final Bilirubin, Total 11/05/2023 05:24:00 0.3 <=1.2 (mg/dL) Final Bilirubin, Direct 11/05/2023 05:24:00 0.2 0.0-0.3 (mg/dL) Final Protein 11/05/2023 05:24:00 5.4 Below low normal 6.0-8.3 (g/dL) Final Performing Location LABORATORY [facility] [place] - [address] [place] [address]
--- OUTSIDE RECORDS SUMMARY | 2023-12-30 10:19 | External Medical Summary ---
Author Name Unknown Address Unknown Organization K01:LABORATORY [facility] [place] - [address] [place] [address] Laboratory Report Ordering Provider Test Date Status OWEN DORSEY 11/04/2023 01:31:00 Final Observation Date Value Abnormality Reference (Units ) Status WBC, Total 11/04/2023 01:31:00 16.28 Above high normal 4.00-10.80 (K/uL) Final RBC 11/04/2023 01:31:00 2.47 4.50-5.25 (M/uL) Final Hemoglobin 11/04/2023 01:31:00 7.7 Below low normal 14.0-16.8 (g/dL) Final HCT 11/04/2023 01:31:00 25.0 Below low normal 40.0-48.4 (%) Final MCV 11/04/2023 01:31:00 101.2 82.0-99.5 (fL) Final MCH 11/04/2023 01:31:00 31.2 27.0-34.0 (pg) Final MCHC 11/04/2023 01:31:00 30.8 32.0-36.0 (g/dL) Final RDW 11/04/2023 01:31:00 18.0 11.5-15.5 (%) Final Platelets 11/04/2023 01:31:00 348 140-400 (K/uL) Final MPV 11/04/2023 01:31:00 9.6 6.6-11.1 (fL) Final Nucleated erythrocytes/100 leukocytes [Ratio] in Blood by Automated count 11/04/2023 01:31:00 0 <=0 (/100 WBCs) Final Performing Location LABORATORY [facility] [place] - [address] [place] [address]
--- OUTSIDE RECORDS SUMMARY | 2023-12-30 10:20 | External Medical Summary ---
Author Name Unknown Address Unknown Organization : Laboratory Report Ordering Provider Test Date Status CHAITANYA HADLEY 11/03/2023 18:05:10 Final Observation Date Value Abnormality Reference (Units ) Status Glucose Point of Care 11/03/2023 18:05:10 121 Above high normal 70-120 (mg/dL) Final Performing Location
--- OUTSIDE RECORDS SUMMARY | 2023-12-30 10:20 | External Medical Summary ---
Author Name Unknown Address Unknown Organization K01:LABORATORY [facility] [place] - [address] [place] [address] Laboratory Report Ordering Provider Test Date Status SHAWN HAWLEY 11/02/2023 04:47:00 Final Observation Date Value Abnormality Reference (Units ) Status Albumin 11/02/2023 04:47:00 1.6 Below low normal 3.8-5.0 (g/dL) Final AST (Aspartate aminotransferase) 11/02/2023 04:47:00 19 10-50 (U/L) Final Alk Phos 11/02/2023 04:47:00 53 35-130 (U/L) Final ALT (Alanine aminotransferase) 11/02/2023 04:47:00 15 10-50 (U/L) Final Bilirubin, Total 11/02/2023 04:47:00 0.3 <=1.2 (mg/dL) Final Bilirubin, Direct 11/02/2023 04:47:00 0.2 0.0-0.3 (mg/dL) Final Protein 11/02/2023 04:47:00 4.9 Below low normal 6.0-8.3 (g/dL) Final Performing Location LABORATORY [facility] [place] - [address] [place] [address]
--- OUTSIDE RECORDS SUMMARY | 2023-12-30 10:20 | External Medical Summary ---
Author Name Unknown Address Unknown Organization : Laboratory Report Ordering Provider Test Date Status CHAITANYA HADLEY 11/03/2023 11:48:32 Final Observation Date Value Abnormality Reference (Units ) Status Glucose Point of Care 11/03/2023 11:48:32 140 Above high normal 70-120 (mg/dL) Final Performing Location
--- OUTSIDE RECORDS SUMMARY | 2023-12-30 10:20 | External Medical Summary ---
Author Name Unknown Address Unknown Organization : Laboratory Report Ordering Provider Test Date Status CHAITANYA HADLEY 11/03/2023 23:29:16 Final Observation Date Value Abnormality Reference (Units ) Status Glucose Point of Care 11/03/2023 23:29:16 128 Above high normal 70-120 (mg/dL) Final Performing Location
--- OUTSIDE RECORDS SUMMARY | 2023-12-30 10:20 | External Medical Summary ---
Author Name Unknown Address Unknown Organization K01:[place] [facility] [place] [facility] [address] [place] [address] Laboratory Report Ordering Provider Test Date Status OWEN DORSEY 11/02/2023 04:47:00 Final Observation Date Value Abnormality Reference (Units ) Status WBC, Total 11/02/2023 04:47:00 18.09 Above high normal 4.00-10.80 (K/uL) Final RBC 11/02/2023 04:47:00 2.18 4.50-5.25 (M/uL) Final Hemoglobin 11/02/2023 04:47:00 6.8 Below low normal 14.0-16.8 (g/dL) Final HCT 11/02/2023 04:47:00 22.7 Below low normal 40.0-48.4 (%) Final MCV 11/02/2023 04:47:00 104.1 82.0-99.5 (fL) Final MCH 11/02/2023 04:47:00 31.2 27.0-34.0 (pg) Final MCHC 11/02/2023 04:47:00 30.0 32.0-36.0 (g/dL) Final RDW 11/02/2023 04:47:00 15.5 11.5-15.5 (%) Final Platelets 11/02/2023 04:47:00 309 140-400 (K/uL) Final MPV 11/02/2023 04:47:00 10.0 6.6-11.1 (fL) Final Nucleated erythrocytes/100 leukocytes [Ratio] in Blood by Automated count 11/02/2023 04:47:00 0 <=0 (/100 WBCs) Final Performing Location [place] [facility] [place] [address] [place] [address]
--- OUTSIDE RECORDS SUMMARY | 2023-12-30 10:20 | External Medical Summary ---
Author Name Unknown Address Unknown Organization K01:LABORATORY [facility] [place] - [address] [place] [address] Laboratory Report Ordering Provider Test Date Status OWEN DORSEY 11/03/2023 02:24:00 Final Get Heparin, unfractionated (Xa) level 6 hours after start of infusion and 6 hours after each dose adjustment Observation Date Value Abnormality Reference (Units ) Status Heparin, unfractionated level 11/03/2023 02:24:00 0.78 Above high normal <0.10 (IU/mL) Final Unfractionated therapeutic r anges for Anti Xa activity:
For Cardiac/Neurologic treatment: 0.3 to 0.6 IU/mL.
For treatment of DVT or Pulmonary Embolism: 0.3 to 0.7 IU/mL. Performing Location LABORATORY [facility] [place] - [address] [place] [address]
--- OUTSIDE RECORDS SUMMARY | 2023-12-30 10:20 | External Medical Summary ---
Author Name Unknown Address Unknown Organization K01:LABORATORY [facility] [place] - [address] [place] [address] Laboratory Report Ordering Provider Test Date Status CAMILADUNIA 11/02/2023 11:13:00 Final Observation Date Value Abnormality Reference (Units ) Status Sodium 11/02/2023 11:13:00 148 Above high normal 13 5-146 (mmol/L) Final Potassium 11/02/2023 11:13:00 4.1 3.5-5.1 (m mol/L) Final Cl 11/02/2023 11:13:00 115 Above high normal 98 -107 (mmol/L) Final CO2 11/02/2023 11:13:00 26 22-32 (mmo l/L) Final Anion gap 11/02/2023 11:13:00 7 7-15 (mmol /L) Final Performing Location [facility] [place] - [address] [place] [id number]
--- OUTSIDE RECORDS SUMMARY | 2023-12-30 10:20 | External Medical Summary ---
Author Name Unknown Address Unknown Organization : Laboratory Report Ordering Provider Test Date Status CHAITANYA HADLEY 11/03/2023 01:30:37 Final Observation Date Value Abnormality Reference (Units ) Status Glucose Point of Care 11/03/2023 01:30:37 126 Above high normal 70-120 (mg/dL) Final Performing Location
--- OUTSIDE RECORDS SUMMARY | 2023-12-30 10:20 | External Medical Summary ---
Author Name Unknown Address Unknown Organization : Laboratory Report Ordering Provider Test Date Status CHAITANYA HADLEY 11/02/2023 06:28:23 Final Observation Date Value Abnormality Reference (Units ) Status Glucose Point of Care 11/02/2023 06:28:23 119 70-120 (mg/dL) Final Performing Location
--- OUTSIDE RECORDS SUMMARY | 2023-12-30 10:20 | External Medical Summary ---
Author Name Unknown Address Unknown Organization : Laboratory Report Ordering Provider Test Date Status CHAITANYA HADLEY 11/02/2023 12:00:05 Final Observation Date Value Abnormality Reference (Units ) Status Glucose Point of Care 11/02/2023 12:00:05 135 Above high normal 70-120 (mg/dL) Final Performing Location
--- OUTSIDE RECORDS SUMMARY | 2023-12-30 10:20 | External Medical Summary ---
Author Name Unknown Address Unknown Organization K01:LABORATORY [facility] [place] [facility] - [address] [place] [address] Laboratory Report Ordering Provider Test Date Status SUGEY NAGY 11/02/2023 06:25:00 Final Observation Date Value Abnormality Reference (Units ) Status ABO 11/02/2023 06:25:00 O Final RH 11/02/2023 06:25:00 Positive Final RED BLOOD CELL ANTIBODY SCREEN 11/02/2023 06:25:00 Negative Final SPECIMEN EXPIRATION DATE 11/02/2023 06:25:00 11/05/2023 23:59 Final Performing Location LABORATORY [facility] [place] [facility] - [address] [place] [address]
--- OUTSIDE RECORDS SUMMARY | 2023-12-30 10:20 | External Medical Summary ---
Author Name Unknown Address Unknown Organization : Laboratory Report Ordering Provider Test Date Status CHAITANYA HADLEY 11/03/2023 06:11:44 Final Observation Date Value Abnormality Reference (Units ) Status Glucose Point of Care 11/03/2023 06:11:44 128 Above high normal 70-120 (mg/dL) Final Performing Location
--- OUTSIDE RECORDS SUMMARY | 2023-12-30 10:20 | External Medical Summary ---
Author Name Unknown Address Unknown Organization : Laboratory Report Ordering Provider Test Date Status CHAITANYA HADLEY 11/02/2023 00:32:32 Final Observation Date Value Abnormality Reference (Units ) Status Glucose Point of Care 11/02/2023 00:32:32 115 70-120 (mg/dL) Final Performing Location
--- OUTSIDE RECORDS SUMMARY | 2023-12-30 10:20 | External Medical Summary ---
Author Name Unknown Address Unknown Organization : Laboratory Report Ordering Provider Test Date Status CHAITANYA HADLEY 11/02/2023 18:01:58 Final Observation Date Value Abnormality Reference (Units ) Status Glucose Point of Care 11/02/2023 18:01:58 101 70-120 (mg/dL) Final Performing Location
--- OUTSIDE RECORDS SUMMARY | 2023-12-30 10:20 | External Medical Summary ---
Author Name Unknown Address Unknown Organization K01:[facility]ORY [facility] [place] [facility] [address] [place] [address] Laboratory Report Ordering Provider Test Date Status DUNIA JENSEN 11/03/2023 02:24:00 Final Observation Date Value Abnormality Reference (Units ) Status BUN 11/03/2023 02:24:00 43 Above high normal 6-20 (mg/dL) Final Creatinine 11/03/2023 02:24:00 1.7 Above high normal 0.6-1.2 (mg/dL) Final Glomerular filtration rate/1.73 sq M.predicted [Volume Rate/Area] in Serum, Plasma or Blood by Creatinine-based formula (CKD-EPI) 11/03/2023 02:24:00 42 Below low normal >=60 (mL/min) Final eGFR is calculated based on the CKD-EPI 2020 equation Sodium 11/03/2023 02:24:00 149 Above high normal 13 5-146 (mmol/L) Final Potassium 11/03/2023 02:24:00 3.7 3.5-5.1 (m mol/L) Final Cl 11/03/2023 02:24:00 116 Above high normal 98 -107 (mmol/L) Final CO2 11/03/2023 02:24:00 26 22-32 (mmo l/L) Final Anion gap 11/03/2023 02:24:00 7 7-15 (mmol /L) Final Glucose 11/03/2023 02:24:00 134 Above high normal 70 -120 (mg/dL) Final Calcium 11/03/2023 02:24:00 7.0 Below low normal 8.4 -10.2 (mg/dL) Final Performing Location LAB[facility] [place] [address] [place] [address]
--- OUTSIDE RECORDS SUMMARY | 2023-12-30 10:20 | External Medical Summary ---
Author Name Unknown Address Unknown Organization K01:LABORATORY [facility] [place] - [address] [place] [address] Laboratory Report Ordering Provider Test Date Status OWEN DORSEY 11/03/2023 08:21:00 Final Get Heparin, unfractionated (Xa) level 6 hours after start of infusion and 6 hours after each dose adjustment Observation Date Value Abnormality Reference (Units ) Status Heparin, unfractionated level 11/03/2023 08:21:00 0.73 Above high normal <0.10 (IU/mL) Final Unfractionated therapeutic r anges for Anti Xa activity:
For Cardiac/Neurologic treatment: 0.3 to 0.6 IU/mL.
For treatment of DVT or Pulmonary Embolism: 0.3 to 0.7 IU/mL. Performing Location LABORATORY [facility] [place] - [address] [place] [address]
--- OUTSIDE RECORDS SUMMARY | 2023-12-30 10:20 | External Medical Summary ---
Author Name Unknown Address Unknown Organization K01:[facility] [place] [address] [place] [address] Laboratory Report Ordering Provider Test Date Status SUGEY NAGY 11/02/2023 12:48:00 Final Observation Date Value Abnormality Reference (Units ) Status WBC, Total 11/02/2023 12:48:00 19.26 Above high normal 4.00-10.80 (K/uL) Final RBC 11/02/2023 12:48:00 2.75 4.50-5.25 (M/uL) Final Hemoglobin 11/02/2023 12:48:00 8.5 Below low normal 14.0-16.8 (g/dL) Final HCT 11/02/2023 12:48:00 27.5 Below low normal 40.0-48.4 (%) Final MCV 11/02/2023 12:48:00 100.0 82.0-99.5 (fL) Final MCH 11/02/2023 12:48:00 30.9 27.0-34.0 (pg) Final MCHC 11/02/2023 12:48:00 30.9 32.0-36.0 (g/dL) Final RDW 11/02/2023 12:48:00 17.3 11.5-15.5 (%) Final Platelets 11/02/2023 12:48:00 372 140-400 (K/uL) Final MPV 11/02/2023 12:48:00 9.9 6.6-11.1 (fL) Final Nucleated erythrocytes/100 leukocytes [Ratio] in Blood by Automated count 11/02/2023 12:48:00 0 <=0 (/100 WBCs) Final Performing Location [facility] [place] [address] [place] [address]
--- OUTSIDE RECORDS SUMMARY | 2023-12-30 10:20 | External Medical Summary ---
Author Name Unknown Address Unknown Organization K01:[place] [facility] [place] [address] [place] [address] Laboratory Report Ordering Provider Test Date Status DUNIA JENSEN 11/03/2023 10:53:00 Final Observation Date Value Abnormality Reference (Units ) Status WBC, Total 11/03/2023 10:53:00 19.34 Above high normal 4.00-10.80 (K/uL) Final RBC 11/03/2023 10:53:00 2.20 4.50-5.25 (M/uL) Final Hemoglobin 11/03/2023 10:53:00 6.9 Below low normal 14.0-16.8 (g/dL) Final HCT 11/03/2023 10:53:00 22.5 Below low normal 40.0-48.4 (%) Final MCV 11/03/2023 10:53:00 102.3 82.0-99.5 (fL) Final MCH 11/03/2023 10:53:00 31.4 27.0-34.0 (pg) Final MCHC 11/03/2023 10:53:00 30.7 32.0-36.0 (g/dL) Final RDW 11/03/2023 10:53:00 17.3 11.5-15.5 (%) Final Platelets 11/03/2023 10:53:00 358 140-400 (K/uL) Final MPV 11/03/2023 10:53:00 9.8 6.6-11.1 (fL) Final Nucleated erythrocytes/100 leukocytes [Ratio] in Blood by Automated count 11/03/2023 10:53:00 0 <=0 (/100 WBCs) Final Performing Location [facility] [place] [address] [place] [address]
--- OUTSIDE RECORDS SUMMARY | 2023-12-30 10:20 | External Medical Summary ---
Author Name Unknown Address Unknown Organization K01:LABORATORY [facility] [place] - [address] [place] [address] Laboratory Report Ordering Provider Test Date Status MARI ARREDONDO 11/02/2023 21:59:00 Final Observation Date Value Abnormality Reference (Units ) Status WBC, Total 11/02/2023 21:59:00 19.26 Above high normal 4.00-10.80 (K/uL) Final RBC 11/02/2023 21:59:00 2.38 4.50-5.25 (M/uL) Final Hemoglobin 11/02/2023 21:59:00 7.6 Below low normal 14.0-16.8 (g/dL) Final HCT 11/02/2023 21:59:00 24.1 Below low normal 40.0-48.4 (%) Final MCV 11/02/2023 21:59:00 101.3 82.0-99.5 (fL) Final MCH 11/02/2023 21:59:00 31.9 27.0-34.0 (pg) Final MCHC 11/02/2023 21:59:00 31.5 32.0-36.0 (g/dL) Final RDW 11/02/2023 21:59:00 17.4 11.5-15.5 (%) Final Platelets 11/02/2023 21:59:00 346 140-400 (K/uL) Final MPV 11/02/2023 21:59:00 9.6 6.6-11.1 (fL) Final Nucleated erythrocytes/100 leukocytes [Ratio] in Blood by Automated count 11/02/2023 21:59:00 0 <=0 (/100 WBCs) Final Performing Location LABORATORY [facility] [place] - [address] [place] [address]
--- OUTSIDE RECORDS SUMMARY | 2023-12-30 10:20 | External Medical Summary ---
Author Name Unknown Address Unknown Organization : Laboratory Report Ordering Provider Test Date Status CHAITANYA HADLEY 11/01/2023 18:00:05 Final Observation Date Value Abnormality Reference (Units ) Status Glucose Point of Care 11/01/2023 18:00:05 95 70-120 (mg/dL) Final Performing Location
--- OUTSIDE RECORDS SUMMARY | 2023-12-30 10:20 | External Medical Summary ---
Author Name Unknown Address Unknown Organization K01:LABORATORY [facility] - [facility] [place] [address] [place] [address] Laboratory Report Ordering Provider Test Date Status DUNIA JENSEN 11/02/2023 04:47:00 Final Observation Date Value Abnormality Reference (Units ) Status BUN 11/02/2023 04:47:00 43 Above high normal 6-20 (mg/dL) Final Creatinine 11/02/2023 04:47:00 1.6 Above high normal 0.6-1.2 (mg/dL) Final Glomerular filtration rate/1.73 sq M.predicted [Volume Rate/Area] in Serum, Plasma or Blood by Creatinine-based formula (CKD-EPI) 11/02/2023 04:47:00 45 Below low normal >=60 (mL/min) Final eGFR is calculated based on the CKD-EPI 2020 equation Sodium 11/02/2023 04:47:00 149 Above high normal 13 5-146 (mmol/L) Final Potassium 11/02/2023 04:47:00 3.2 Below low normal 3.5 -5.1 (mmol/L) Final Cl 11/02/2023 04:47:00 115 Above high normal 98 -107 (mmol/L) Final CO2 11/02/2023 04:47:00 27 22-32 (mmo l/L) Final Anion gap 11/02/2023 04:47:00 7 7-15 (mmol /L) Final Glucose 11/02/2023 04:47:00 127 Above high normal 70 -120 (mg/dL) Final Calcium 11/02/2023 04:47:00 7.0 Below low normal 8.4 -10.2 (mg/dL) Final Performing Location LABORATORY [facility] - [address] [place] [address]
--- OUTSIDE RECORDS SUMMARY | 2023-12-30 10:20 | External Medical Summary ---
Author Name Unknown Address Unknown Organization K01:LABORATORY [facility] [place] - [address] [place] [address] Laboratory Report Ordering Provider Test Date Status DUNIA JENSEN 11/04/2023 01:31:00 Final Observation Date Value Abnormality Reference (Units ) Status BUN 11/04/2023 01:31:00 43 Above high normal 6-20 (mg/dL) Final Creatinine 11/04/2023 01:31:00 1.6 Above high normal 0.6-1.2 (mg/dL) Final Glomerular filtration rate/1.73 sq M.predicted [Volume Rate/Area] in Serum, Plasma or Blood by Creatinine-based formula (CKD-EPI) 11/04/2023 01:31:00 48 Below low normal >=60 (mL/min) Final eGFR is calculated based on the CKD-EPI 2020 equation Sodium 11/04/2023 01:31:00 149 Above high normal 13 5-146 (mmol/L) Final Potassium 11/04/2023 01:31:00 3.7 3.5-5.1 (m mol/L) Final Cl 11/04/2023 01:31:00 118 Above high normal 98 -107 (mmol/L) Final CO2 11/04/2023 01:31:00 25 22-32 (mmo l/L) Final Anion gap 11/04/2023 01:31:00 6 Below low normal 7-1 5 (mmol/L) Final Glucose 11/04/2023 01:31:00 131 Above high normal 70 -120 (mg/dL) Final Calcium 11/04/2023 01:31:00 6.9 Below low normal 8.4 -10.2 (mg/dL) Final Performing Location LABORATORY [facility] [place] - [address] [place] [address]
--- OUTSIDE RECORDS SUMMARY | 2023-12-30 10:20 | External Medical Summary ---
Author Name Unknown Address Unknown Organization : Laboratory Report Ordering Provider Test Date Status CHAITANYA HADLEY 11/01/2023 12:23:05 Final Observation Date Value Abnormality Reference (Units ) Status Glucose Point of Care 11/01/2023 12:23:05 150 Above high normal 70-120 (mg/dL) Final Performing Location
--- OUTSIDE RECORDS SUMMARY | 2023-12-30 10:20 | External Medical Summary ---
Author Name Unknown Address Unknown Organization K01:LABORATORY [facility] - [address] [place] [address] Laboratory Report Ordering Provider Test Date Status DUNIA JENSEN 11/03/2023 16:15:00 Final Observation Date Value Abnormality Reference (Units ) Status WBC, Total 11/03/2023 16:15:00 18.53 Above high normal 4.00-10.80 (K/uL) Final RBC 11/03/2023 16:15:00 2.65 4.50-5.25 (M/uL) Final Hemoglobin 11/03/2023 16:15:00 8.3 Below low normal 14.0-16.8 (g/dL) Final HCT 11/03/2023 16:15:00 25.8 Below low normal 40.0-48.4 (%) Final MCV 11/03/2023 16:15:00 97.4 82.0-99.5 (fL) Final MCH 11/03/2023 16:15:00 31.3 27.0-34.0 (pg) Final MCHC 11/03/2023 16:15:00 32.2 32.0-36.0 (g/dL) Final RDW 11/03/2023 16:15:00 17.8 11.5-15.5 (%) Final Platelets 11/03/2023 16:15:00 339 140-400 (K/uL) Final MPV 11/03/2023 16:15:00 9.7 6.6-11.1 (fL) Final Nucleated erythrocytes/100 leukocytes [Ratio] in Blood by Automated count 11/03/2023 16:15:00 0 <=0 (/100 WBCs) Final Performing Location LABORATORY [facility] - [address] [place] [address]
--- OUTSIDE RECORDS SUMMARY | 2023-12-30 10:20 | External Medical Summary ---
Author Name Unknown Address Unknown Organization K01:LABORATORY [facility] [place] - [facility] [address] [place] [address] Laboratory Report Ordering Provider Test Date Status OWEN DORSEY 11/02/2023 04:48:00 Final Get Heparin, unfractionated (Xa) level 6 hours after start of infusion and 6 hours after each dose adjustment Observation Date Value Abnormality Reference (Units ) Status Heparin, unfractionated level 11/02/2023 04:48:00 0.47 Above high normal <0.10 (IU/mL) Final Unfractionated therapeutic r anges for Anti Xa activity:
For Cardiac/Neurologic treatment: 0.3 to 0.6 IU/mL.
For treatment of DVT or Pulmonary Embolism: 0.3 to 0.7 IU/mL. Performing Location LABORATORY [facility] [place] - [address] [place] [address]
--- OUTSIDE RECORDS SUMMARY | 2023-12-30 10:20 | External Medical Summary ---
Author Name Unknown Address Unknown Organization K01:LABORATORY [facility] [place] - [address] [place] [address] Laboratory Report Ordering Provider Test Date Status NIMO DIAZ 11/03/2023 08:21:00 Final Observation Date Value Abnormality Reference (Units ) Status WBC, Total 11/03/2023 08:21:00 18.95 Above high normal 4.00-10.80 (K/uL) Final RBC 11/03/2023 08:21:00 2.26 4.50-5.25 (M/uL) Final Hemoglobin 11/03/2023 08:21:00 7.1 Below low normal 14.0-16.8 (g/dL) Final HCT 11/03/2023 08:21:00 23.3 Below low normal 40.0-48.4 (%) Final MCV 11/03/2023 08:21:00 103.1 82.0-99.5 (fL) Final MCH 11/03/2023 08:21:00 31.4 27.0-34.0 (pg) Final MCHC 11/03/2023 08:21:00 30.5 32.0-36.0 (g/dL) Final RDW 11/03/2023 08:21:00 17.2 11.5-15.5 (%) Final Platelets 11/03/2023 08:21:00 345 140-400 (K/uL) Final MPV 11/03/2023 08:21:00 10.0 6.6-11.1 (fL) Final Nucleated erythrocytes/100 leukocytes [Ratio] in Blood by Automated count 11/03/2023 08:21:00 0 <=0 (/100 WBCs) Final Performing Location LABORATORY [facility] [place] - [address] [place] [address]
--- OUTSIDE RECORDS SUMMARY | 2023-12-30 10:20 | External Medical Summary ---
Author Name Unknown Address Unknown Organization K01:LABORATORY [facility] - [address] [place] [address] Laboratory Report Ordering Provider Test Date Status SHAWN HAWLEY 11/03/2023 02:24:00 Final Observation Date Value Abnormality Reference (Units ) Status Albumin 11/03/2023 02:24:00 1.8 Below low normal 3.8-5.0 (g/dL) Final AST (Aspartate aminotransferase) 11/03/2023 02:24:00 16 10-50 (U/L) Final Alk Phos 11/03/2023 02:24:00 50 35-130 (U/L) Final ALT (Alanine aminotransferase) 11/03/2023 02:24:00 10 10-50 (U/L) Final Bilirubin, Total 11/03/2023 02:24:00 0.3 <=1.2 (mg/dL) Final Bilirubin, Direct 11/03/2023 02:24:00 <0.2 0.0-0.3 (mg/dL) Final Protein 11/03/2023 02:24:00 5.1 Below low normal 6.0-8.3 (g/dL) Final Performing Location LABORATORY [facility] - [address] [place] [address]
--- OUTSIDE RECORDS SUMMARY | 2023-12-30 10:20 | External Medical Summary ---
Author Name Unknown Address Unknown Organization K01:LABORATORY [facility] [place] - [address] [place] [address] Laboratory Report Ordering Provider Test Date Status OWEN DORSEY 11/03/2023 02:24:00 Final Observation Date Value Abnormality Reference (Units ) Status WBC, Total 11/03/2023 02:24:00 17.63 Above high normal 4.00-10.80 (K/uL) Final RBC 11/03/2023 02:24:00 2.35 4.50-5.25 (M/uL) Final Hemoglobin 11/03/2023 02:24:00 7.4 Below low normal 14.0-16.8 (g/dL) Final HCT 11/03/2023 02:24:00 24.3 Below low normal 40.0-48.4 (%) Final MCV 11/03/2023 02:24:00 103.4 82.0-99.5 (fL) Final MCH 11/03/2023 02:24:00 31.5 27.0-34.0 (pg) Final MCHC 11/03/2023 02:24:00 30.5 32.0-36.0 (g/dL) Final RDW 11/03/2023 02:24:00 17.4 11.5-15.5 (%) Final Platelets 11/03/2023 02:24:00 342 140-400 (K/uL) Final MPV 11/03/2023 02:24:00 9.8 6.6-11.1 (fL) Final Nucleated erythrocytes/100 leukocytes [Ratio] in Blood by Automated count 11/03/2023 02:24:00 0 <=0 (/100 WBCs) Final Performing Location LABORATORY [facility] [place] - [address] [place] [address]
--- OUTSIDE RECORDS SUMMARY | 2023-12-30 10:20 | External Medical Summary ---
Author Name Unknown Address Unknown Organization K01:LABORATORY [facility] [place] - [address] [place] [address] Laboratory Report Ordering Provider Test Date Status DUNIA JENSEN 11/01/2023 14:28:21 Final Observation Date Value Abnormality Reference (Units) Status Source 11/01/2023 14:28:21 Semi-formed Final Clostridioides difficile toxin and [id number] strain DNA panel - Stool by LAUREN with probe detection 11/01/2023 14:28:21 Negative. No C. difficile toxin B gene DNA detected by PCR (Amplified Probe). Negative Final Performing Location LABORATORY [facility] [place] - [address] [place] [address]
--- OUTSIDE RECORDS SUMMARY | 2023-12-30 10:20 | External Medical Summary ---
Author Name Unknown Address Unknown Organization : Laboratory Report Ordering Provider Test Date Status CHAITANYA HADLEY 11/01/2023 23:58:54 Final Observation Date Value Abnormality Reference (Units ) Status Glucose Point of Care 11/01/2023 23:58:54 129 Above high normal 70-120 (mg/dL) Final Performing Location
--- OUTSIDE RECORDS SUMMARY | 2023-12-30 10:21 | External Medical Summary ---
Author Name Unknown Address Unknown Organization K01:LABORATORY [facility] [place] - [address] [place] [address] Laboratory Report Ordering Provider Test Date Status OWEN DORSEY 10/30/2023 02:19:00 Final Get Heparin, unfractionated (Xa) level 6 hours after start of infusion and 6 hours after each dose adjustment Observation Date Value Abnormality Reference (Units ) Status Heparin, unfractionated level 10/30/2023 02:19:00 0.39 Above high normal <0.10 (IU/mL) Final Unfractionated therapeutic r anges for Anti Xa activity:
For Cardiac/Neurologic treatment: 0.3 to 0.6 IU/mL.
For treatment of DVT or Pulmonary Embolism: 0.3 to 0.7 IU/mL. Performing Location LABORATORY [facility] [place] - [address] [place] [address]
--- OUTSIDE RECORDS SUMMARY | 2023-12-30 10:21 | External Medical Summary ---
Author Name Unknown Address Unknown Organization K01:[place] [facility] [place] [facility] [address] [place] [address] Laboratory Report Ordering Provider Test Date Status OWEN DORSEY 10/31/2023 04:20:00 Final Get Heparin, unfractionated (Xa) level 6 hours after start of infusion and 6 hours after each dose adjustment Observation Date Value Abnormality Reference (Units ) Status Heparin, unfractionated level 10/31/2023 04:20:00 0.24 Above high normal <0.10 (IU/mL) Final Unfractionated therapeutic r anges for Anti Xa activity:
For Cardiac/Neurologic treatment: 0.3 to 0.6 IU/mL.
For treatment of DVT or Pulmonary Embolism: 0.3 to 0.7 IU/mL. Performing Location [place] [facility] [place] [address] [place] [address]
--- OUTSIDE RECORDS SUMMARY | 2023-12-30 10:21 | External Medical Summary ---
Author Name Unknown Address Unknown Organization K01:LABORATORY [facility] [place] - [facility] [address] [place] [address] Laboratory Report Ordering Provider Test Date Status DUNIA JENSEN 10/31/2023 04:20:00 Final Observation Date Value Abnormality Reference (Units ) Status BUN 10/31/2023 04:20:00 52 Above high normal 6-20 (mg/dL) Final Creatinine 10/31/2023 04:20:00 1.6 Above high normal 0.6-1.2 (mg/dL) Final Glomerular filtration rate/1.73 sq M.predicted [Volume Rate/Area] in Serum, Plasma or Blood by Creatinine-based formula (CKD-EPI) 10/31/2023 04:20:00 45 Below low normal >=60 (mL/min) Final eGFR is calculated based on the CKD-EPI 2020 equation Sodium 10/31/2023 04:20:00 146 135-146 (m mol/L) Final Potassium 10/31/2023 04:20:00 3.6 3.5-5.1 (m mol/L) Final Cl 10/31/2023 04:20:00 112 Above high normal 98 -107 (mmol/L) Final CO2 10/31/2023 04:20:00 29 22-32 (mmo l/L) Final Anion gap 10/31/2023 04:20:00 5 Below low normal 7-1 5 (mmol/L) Final Glucose 10/31/2023 04:20:00 117 70-120 (mg /dL) Final Calcium 10/31/2023 04:20:00 6.8 Below low normal 8.4 -10.2 (mg/dL) Final Performing Location LABORATORY [facility] [place] - [address] [place] [address]
--- OUTSIDE RECORDS SUMMARY | 2023-12-30 10:21 | External Medical Summary ---
Author Name Unknown Address Unknown Organization : Laboratory Report Ordering Provider Test Date Status CHAITANYA HADLEY 11/01/2023 06:10:33 Final Observation Date Value Abnormality Reference (Units ) Status Glucose Point of Care 11/01/2023 06:10:33 126 Above high normal 70-120 (mg/dL) Final Performing Location
--- OUTSIDE RECORDS SUMMARY | 2023-12-30 10:21 | External Medical Summary ---
Author Name Unknown Address Unknown Organization : Laboratory Report Ordering Provider Test Date Status CHAITANYA HADLEY 10/30/2023 23:33:56 Final Observation Date Value Abnormality Reference (Units ) Status Glucose Point of Care 10/30/2023 23:33:56 127 Above high normal 70-120 (mg/dL) Final Performing Location
--- OUTSIDE RECORDS SUMMARY | 2023-12-30 10:21 | External Medical Summary ---
Author Name Unknown Address Unknown Organization K01:LABORATORY [facility] [place] - [facility] [address] [place] [address] Laboratory Report Ordering Provider Test Date Status OWEN DORSEY 11/01/2023 02:32:00 Final Observation Date Value Abnormality Reference (Units ) Status WBC, Total 11/01/2023 02:32:00 20.42 Above high normal 4.00-10.80 (K/uL) Final RBC 11/01/2023 02:32:00 2.31 4.50-5.25 (M/uL) Final Hemoglobin 11/01/2023 02:32:00 7.4 Below low normal 14.0-16.8 (g/dL) Final HCT 11/01/2023 02:32:00 23.4 Below low normal 40.0-48.4 (%) Final MCV 11/01/2023 02:32:00 101.3 82.0-99.5 (fL) Final MCH 11/01/2023 02:32:00 32.0 27.0-34.0 (pg) Final MCHC 11/01/2023 02:32:00 31.6 32.0-36.0 (g/dL) Final RDW 11/01/2023 02:32:00 15.3 11.5-15.5 (%) Final Platelets 11/01/2023 02:32:00 315 140-400 (K/uL) Final MPV 11/01/2023 02:32:00 9.8 6.6-11.1 (fL) Final Nucleated erythrocytes/100 leukocytes [Ratio] in Blood by Automated count 11/01/2023 02:32:00 0 <=0 (/100 WBCs) Final Performing Location LABORATORY [facility] [place] - [address] [place] [address]
--- OUTSIDE RECORDS SUMMARY | 2023-12-30 10:21 | External Medical Summary ---
Author Name Unknown Address Unknown Organization : Laboratory Report Ordering Provider Test Date Status CHAITANYA HADLEY 10/30/2023 16:40:57 Final Observation Date Value Abnormality Reference (Units ) Status Glucose Point of Care 10/30/2023 16:40:57 122 Above high normal 70-120 (mg/dL) Final Performing Location
--- OUTSIDE RECORDS SUMMARY | 2023-12-30 10:21 | External Medical Summary | Summary of Care ---
Author Name Unknown Organization [facility] Address [address] [place] [address] Phone [phone] Care Team Providers Care Loss Claim Clerk Name Role Phone Valdemar Segundo PA-C Primary Care Provider [phone] Reason for Visit * Reason Onset Date Comments Med Request 10/25/2023 Encounter Details Date Type Department Care Team (Late st Contact Info) Description 10/25/2023 Telephone Vascular Surg [facility] [address] [place] [address] Gregory Le MD [address], [place] [id number] Med Request Allergies Active Allergy Reactions Criticality Noted Date Comments Penicillins Rash 09/28/2003 documented as of this encounter (statuses as of 10/31/2023) Medications Medication Sig Dispensed Refills Start Date End Date Status Peptamen 1.5 Oral Liquid Administer 65 mL/hr x 21 hours daily, as directed through feeding tube via feeding pump 50973 mL 11 10/28/2023 Active Trelegy Ellipta 100-62.5-25 MCG/ACT Aerosol Powder Breath Activated TAKE 1 inhalation BY MOUTH daily rinse mouth well after use. 0 05/09/2022 Suspended Albuterol Sulfate HFA 108 (90 Base) MCG/ACT Inhalation Aerosol Solution Inhale by mouth as needed. 0 Suspended Fenofibrate 145 MG Oral Tablet (Tricor) take 1 tablet by mouth daily for triglycerides 0 04/12/2022 Suspended Folic Acid 1 MG Oral Tablet Take 1 Tablet by mouth in the morning. 0 04/12/2022 Suspended Atorvastatin Calcium 40 MG Oral Tablet (Lipitor) Take 1 Tablet by mouth in the morning. 0 03/26/2022 Suspended Cholecalciferol 125 MCG (5000 UT) Oral Capsule DAILY 0 02/22/2022 Suspended Aspirin 81 MG Oral Tablet Delayed Release daily. 0 02/22/2022 Suspended Losartan Potassium 100 MG Oral Tablet (Cozaar) take one tablet by mouth every day for blood pressure-stop 50mg 0 02/26/2022 Suspended Cyanocobalamin 1000 MCG/ML Injection Solution (Cyanocobalamin) every 30 days. 0 02/22/2022 Susp ended Lansoprazole 30 MG Oral Capsule Delayed Release (Prevacid) Take 1 Capsule by mouth in the morning. 0 Suspended Metoprolol Tartrate 25 MG Oral Tablet (Lopressor) Take by mouth 2 times a day. 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 using bifurcation graft 10/27/2023 Hypomagnesemia 10/26/2023 On tube feeding diet 10/25/2023 Hypokalemia 10/23/2023 EDEL (acute kidney injury) 10/20/2023 Acute hypoxic respiratory failure 10/18/2023 On total parenteral nutrition (TPN) 10/13/2023 Ileus, postoperative 10/13/2023 Kidney dysfunction 10/13/2023 Coronary artery disease invo lving [place] coronary artery of [place] heart without angina pectoris 06/05/2023 S/P CABG (coronary artery bypass graft) 06/05/20 Infrarenal abdominal aortic aneurysm (AAA) witho ut rupture 05/30/2022 Iliac artery aneurysm, right 05/30/2022 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 Nicotine use 05/30/2022 SPRAIN 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 LIG KNEE 10/01/2003 documented as of this encounter (statuses as of 10/31/2023) Social History Tobacco Use Types Packs/Day Years [...] Description 11/14/2023 12:30 PM EDT Imaging Radiology [facility] [facility] [address] [facility] [place] [address] 11/20/2023 2:10 PM EDT Office Visit Vascular Surgery, [address] [place] [address] Gregory Le MD [address] [place] [address] Health Maintenance Due Date Last Done Comments Depression Screening 1964 Hepatitis C Screening 1970 DTaP,Tdap,and Td Vaccines (1 - Tdap) 1971 Cologuard 1997 Colonoscopy 1997 Colorectal Cancer Screening 1997 Fecal Occult Blood Test 1997 Sigmoidoscopy 1997 Zoster Vaccines (1 of 2) 2002 Pneumococcal Vaccine: 65+ Ye ars (1 of 1 - PCV) 2017 COVID-19 Vaccine (2022-2 4 season) 2023 Influenza Vaccine (FLU shot) (Season Ended) 2024 GARDASIL-HPV IMMUNIZATION SERIES Aged Out No longer eligible based on patient's age to complete this topic Hepatitis B Aged Out No longer eligi ble based on patient's age to complete this topic MENINGOCOCCAL (MENACTRA/MENVEO) Aged Out No longer eligible based on patient's age to complete this topic documented as of this encounter Medical Devices Implanted Type Area Or Director Device Identifier Shelf Expiration Date Model / Serial / Lot Graft Bifur [id number] - [id number] Implanted:Qty : 1 on 10/03/2023 by Gregory Le MD at OR [facility] [place] N/A: Aorta GETINGE : MAQUET [id number] 04/30/2028 [id number] [id number] / [id number] Tube Feeding Jejunal Skn 0200- - [id number] Implanted:Qty : 1 on 10/18/2023 by Gregory Le MD at OR [facility] N/A: Abdomen [facility] 05/29/2024 [id number] / / [id number] documented as of this encounter Advance Directives Latest Code Status on File Code Status Date Activated Date Inactivated Comments Full Code 10/03/2023 1:20 PM This order reflects the patients wishes and were consensually agreed upon. Question Answer Comments Discussion of Advance Directives occurred with: Not Discussed due to patient's condition Does the patient have a Living Will? No Does the patient have Health Care Power of Machine Overhauler? No Care Teams Loss Claim Clerk Relationship Specialty Start Date End Date Valdemar Segundo, MARYCARMEN [address] [place] [address] [place] [address] PCP - General Physician Community Advocate 05/03/21 documented as of this encounter
--- OUTSIDE RECORDS SUMMARY | 2023-12-30 10:21 | External Medical Summary ---
Author Name Unknown Address Unknown Organization [id number]:LABORATORY [facility] [place] - [address] [place] [address] Laboratory Report Ordering Provider Test Date Status OWEN DORSEY 10/30/2023 02:19:00 Final Observation Date Value Abnormality Reference (Units ) Status WBC, Total 10/30/2023 02:19:00 20.05 Above high normal 4.00-10.80 (K/uL) Final RBC 10/30/2023 02:19:00 2.46 4.50-5.25 (M/uL) Final Hemoglobin 10/30/2023 02:19:00 7.7 Below low normal 14.0-16.8 (g/dL) Final HCT 10/30/2023 02:19:00 24.9 Below low normal 40.0-48.4 (%) Final MCV 10/30/2023 02:19:00 101.2 82.0-99.5 (fL) Final MCH 10/30/2023 02:19:00 31.3 27.0-34.0 (pg) Final MCHC 10/30/2023 02:19:00 30.9 32.0-36.0 (g/dL) Final RDW 10/30/2023 02:19:00 15.2 11.5-15.5 (%) Final Platelets 10/30/2023 02:19:00 232 140-400 (K/uL) Final MPV 10/30/2023 02:19:00 10.2 6.6-11.1 (fL) Final Nucleated erythrocytes/100 leukocytes [Ratio] in Blood by Automated count 10/30/2023 02:19:00 0 <=0 (/100 WBCs) Final Performing Location LAB[facility]ATORY [facility] [place] - [address] [place] [address]
--- OUTSIDE RECORDS SUMMARY | 2023-12-30 10:21 | External Medical Summary ---
Author Name Unknown Address Unknown Organization [id number]:LABORATORY [facility] [place] - [address] [place] [address] Laboratory Report Ordering Provider Test Date Status OWEN DORSEY 11/01/2023 09:10:00 Final Get Heparin, unfractionated (Xa) level 6 hours after start of infusion and 6 hours after each dose adjustment Observation Date Value Abnormality Reference (Units ) Status Heparin, unfractionated level 11/01/2023 09:10:00 0.64 Above high normal <0.10 (IU/mL) Final Unfractionated therapeutic r anges for Anti Xa activity:
For Cardiac/Neurologic treatment: 0.3 to 0.6 IU/mL.
For treatment of DVT or Pulmonary Embolism: 0.3 to 0.7 IU/mL. Performing Location LABORATORY [facility] [place] - [address] [place] [address]
--- OUTSIDE RECORDS SUMMARY | 2023-12-30 10:21 | External Medical Summary ---
Author Name Unknown Address Unknown Organization [id number]:[facility] [place] [address] [place] [address] Laboratory Report Ordering Provider Test Date Status OWEN DORSEY 10/30/2023 09:07:00 Final Get Heparin, unfractionated (Xa) level 6 hours after start of infusion and 6 hours after each dose adjustment Observation Date Value Abnormality Reference (Units ) Status Heparin, unfractionated level 10/30/2023 09:07:00 0.34 Above high normal <0.10 (IU/mL) Final Unfractionated therapeutic r anges for Anti Xa activity:
For Cardiac/Neurologic treatment: 0.3 to 0.6 IU/mL.
For treatment of DVT or Pulmonary Embolism: 0.3 to 0.7 IU/mL. Performing Location [facility] [place] [address] [place] [address]
--- OUTSIDE RECORDS SUMMARY | 2023-12-30 10:21 | External Medical Summary ---
Author Name Unknown Address Unknown Organization : Laboratory Report Ordering Provider Test Date Status CHAITANYA HADLEY 10/31/2023 19:00:47 Final Observation Date Value Abnormality Reference (Units ) Status Glucose Point of Care 10/31/2023 19:00:47 147 Above high normal 70-120 (mg/dL) Final Performing Location
--- OUTSIDE RECORDS SUMMARY | 2023-12-30 10:21 | External Medical Summary ---
Author Name Unknown Address Unknown Organization : Laboratory Report Ordering Provider Test Date Status CHAITANYA HADLEY 10/30/2023 11:26:02 Final Observation Date Value Abnormality Reference (Units ) Status Glucose Point of Care 10/30/2023 11:26:02 122 Above high normal 70-120 (mg/dL) Final Performing Location
--- OUTSIDE RECORDS SUMMARY | 2023-12-30 10:21 | External Medical Summary ---
Author Name Unknown Address Unknown Organization [id number]:[facility] [place] [facility] [address] [place] [address] Laboratory Report Ordering Provider Test Date Status DUNIA JENSEN 11/01/2023 02:32:00 Final Observation Date Value Abnormality Reference (Units ) Status BUN 11/01/2023 02:32:00 48 Above high normal 6-20 (mg/dL) Final Creatinine 11/01/2023 02:32:00 1.6 Above high normal 0.6-1.2 (mg/dL) Final Glomerular filtration rate/1.73 sq M.predicted [Volume Rate/Area] in Serum, Plasma or Blood by Creatinine-based formula (CKD-EPI) 11/01/2023 02:32:00 46 Below low normal >=60 (mL/min) Final eGFR is calculated based on the CKD-EPI 2020 equation Sodium 11/01/2023 02:32:00 146 135-146 (m mol/L) Final Potassium 11/01/2023 02:32:00 3.3 Below low normal 3.5 -5.1 (mmol/L) Final Cl 11/01/2023 02:32:00 112 Above high normal 98 -107 (mmol/L) Final CO2 11/01/2023 02:32:00 26 22-32 (mmo l/L) Final Anion gap 11/01/2023 02:32:00 8 7-15 (mmol /L) Final Glucose 11/01/2023 02:32:00 128 Above high normal 70 -120 (mg/dL) Final Calcium 11/01/2023 02:32:00 6.9 Below low normal 8.4 -10.2 (mg/dL) Final Performing Location [facility] [place] [address] [place] [address]
--- OUTSIDE RECORDS SUMMARY | 2023-12-30 10:21 | External Medical Summary ---
Author Name Unknown Address Unknown Organization : Laboratory Report Ordering Provider Test Date Status CHAITANYA HADLEY 10/29/2023 17:49:40 Final Observation Date Value Abnormality Reference (Units ) Status Glucose Point of Care 10/29/2023 17:49:40 145 Above high normal 70-120 (mg/dL) Final Performing Location
--- OUTSIDE RECORDS SUMMARY | 2023-12-30 10:21 | External Medical Summary ---
Author Name Unknown Address Unknown Organization : Laboratory Report Ordering Provider Test Date Status CHAITANYA HADLEY 10/31/2023 11:53:59 Final Observation Date Value Abnormality Reference (Units ) Status Glucose Point of Care 10/31/2023 11:53:59 138 Above high normal 70-120 (mg/dL) Final Performing Location
--- OUTSIDE RECORDS SUMMARY | 2023-12-30 10:21 | External Medical Summary ---
Author Name Unknown Address Unknown Organization : Laboratory Report Ordering Provider Test Date Status CHAITANYA HADLEY 10/31/2023 04:57:08 Final Observation Date Value Abnormality Reference (Units ) Status Glucose Point of Care 10/31/2023 04:57:08 112 70-120 (mg/dL) Final Performing Location
--- OUTSIDE RECORDS SUMMARY | 2023-12-30 10:21 | External Medical Summary ---
Author Name Unknown Address Unknown Organization K01:LABORATORY [facility] [place] - [facility] [address] [place] [address] Laboratory Report Ordering Provider Test Date Status OWEN DORSEY 10/31/2023 18:43:00 Final Get Heparin, unfractionated (Xa) level 6 hours after start of infusion and 6 hours after each dose adjustment Observation Date Value Abnormality Reference (Units ) Status Heparin, unfractionated level 10/31/2023 18:43:00 0.26 Above high normal <0.10 (IU/mL) Final Unfractionated therapeutic r anges for Anti Xa activity:
For Cardiac/Neurologic treatment: 0.3 to 0.6 IU/mL.
For treatment of DVT or Pulmonary Embolism: 0.3 to 0.7 IU/mL. Performing Location LABORATORY [facility] [place] - [address] [place] [address]
--- OUTSIDE RECORDS SUMMARY | 2023-12-30 10:21 | External Medical Summary ---
Author Name Unknown Address Unknown Organization K01:LAB[facility]ATORY [facility] [place] - [facility] [address] [place] [address] Laboratory Report Ordering Provider Test Date Status DUNIA JENSEN 10/30/2023 02:19:00 Final Observation Date Value Abnormality Reference (Units ) Status BUN 10/30/2023 02:19:00 58 Above high normal 6-20 (mg/dL) Final Creatinine 10/30/2023 02:19:00 1.7 Above high normal 0.6-1.2 (mg/dL) Final Glomerular filtration rate/1.73 sq M.predicted [Volume Rate/Area] in Serum, Plasma or Blood by Creatinine-based formula (CKD-EPI) 10/30/2023 02:19:00 43 Below low normal >=60 (mL/min) Final eGFR is calculated based on the CKD-EPI 2020 equation Sodium 10/30/2023 02:19:00 145 135-146 (m mol/L) Final Potassium 10/30/2023 02:19:00 3.9 3.5-5.1 (m mol/L) Final Cl 10/30/2023 02:19:00 110 Above high normal 98 -107 (mmol/L) Final CO2 10/30/2023 02:19:00 24 22-32 (mmo l/L) Final Anion gap 10/30/2023 02:19:00 11 7-15 (mmol /L) Final Glucose 10/30/2023 02:19:00 131 Above high normal 70 -120 (mg/dL) Final Calcium 10/30/2023 02:19:00 6.8 Below low normal 8.4 -10.2 (mg/dL) Final Performing Location LABORATORY [facility] [place] - [address] [place] [address]
--- OUTSIDE RECORDS SUMMARY | 2023-12-30 10:21 | External Medical Summary ---
Author Name Unknown Address Unknown Organization K01[place] [place] [address] [place] [address] Laboratory Report Ordering Provider Test Date Status SHAWN HAWLEY 10/30/2023 02:19:00 Final Observation Date Value Abnormality Reference (Units ) Status Albumin 10/30/2023 02:19:00 1.5 Below low normal 3.8-5.0 (g/dL) Final AST (Aspartate aminotransferase) 10/30/2023 02:19:00 26 10-50 (U/L) Final Alk Phos 10/30/2023 02:19:00 66 35-130 (U/L) Final ALT (Alanine aminotransferase) 10/30/2023 02:19:00 14 10-50 (U/L) Final Bilirubin, Total 10/30/2023 02:19:00 0.5 <=1.2 (mg/dL) Final Bilirubin, Direct 10/30/2023 02:19:00 0.4 Above high normal 0.0-0.3 (mg/dL) Final Protein 10/30/2023 02:19:00 4.9 Below low normal 6.0-8.3 (g/dL) Final Performing Location [facility] [place] [address] [place] [address]
--- OUTSIDE RECORDS SUMMARY | 2023-12-30 10:21 | External Medical Summary ---
Author Name Unknown Address Unknown Organization K01:LABORATORY [facility] [place] - [address] [place] [address] Laboratory Report Ordering Provider Test Date Status OWEN DORSEY 11/01/2023 02:32:00 Final Get Heparin, unfractionated (Xa) level 6 hours after start of infusion and 6 hours after each dose adjustment Observation Date Value Abnormality Reference (Units ) Status Heparin, unfractionated level 11/01/2023 02:32:00 0.62 Above high normal <0.10 (IU/mL) Final Unfractionated therapeutic r anges for Anti Xa activity:
For Cardiac/Neurologic treatment: 0.3 to 0.6 IU/mL.
For treatment of DVT or Pulmonary Embolism: 0.3 to 0.7 IU/mL. Performing Location LABORATORY [facility] [place] - [address] [place] [address]
--- OUTSIDE RECORDS SUMMARY | 2023-12-30 10:21 | External Medical Summary ---
Author Name Unknown Address Unknown Organization K01:[facility] [place] - [facility] [address] [place] [address] Laboratory Report Ordering Provider Test Date Status OWEN DORSEY 10/29/2023 18:52:00 Final Get Heparin, unfractionated (Xa) level 6 hours after start of infusion and 6 hours after each dose adjustment Observation Date Value Abnormality Reference (Units ) Status Heparin, unfractionated level 10/29/2023 18:52:00 0.45 Above high normal <0.10 (IU/mL) Final Unfractionated therapeutic r anges for Anti Xa activity:
For Cardiac/Neurologic treatment: 0.3 to 0.6 IU/mL.
For treatment of DVT or Pulmonary Embolism: 0.3 to 0.7 IU/mL. Performing Location LAB[facility]ORY [facility] [place] - [address] [place] [address]
--- OUTSIDE RECORDS SUMMARY | 2023-12-30 10:21 | External Medical Summary ---
Author Name Unknown Address Unknown Organization : Laboratory Report Ordering Provider Test Date Status CHAITANYA HADLEY 11/01/2023 00:23:43 Final Observation Date Value Abnormality Reference (Units ) Status Glucose Point of Care 11/01/2023 00:23:43 124 Above high normal 70-120 (mg/dL) Final Performing Location
--- OUTSIDE RECORDS SUMMARY | 2023-12-30 10:21 | External Medical Summary ---
Author Name Unknown Address Unknown Organization K01[place] [place] [address] [place] [address] Laboratory Report Ordering Provider Test Date Status OWEN DORSEY 10/31/2023 04:20:00 Final Observation Date Value Abnormality Reference (Units ) Status WBC, Total 10/31/2023 04:20:00 14.96 Above high normal 4.00-10.80 (K/uL) Final RBC 10/31/2023 04:20:00 2.24 4.50-5.25 (M/uL) Final Hemoglobin 10/31/2023 04:20:00 7.0 Below low normal 14.0-16.8 (g/dL) Final HCT 10/31/2023 04:20:00 23.0 Below low normal 40.0-48.4 (%) Final MCV 10/31/2023 04:20:00 102.7 82.0-99.5 (fL) Final MCH 10/31/2023 04:20:00 31.3 27.0-34.0 (pg) Final MCHC 10/31/2023 04:20:00 30.4 32.0-36.0 (g/dL) Final RDW 10/31/2023 04:20:00 15.0 11.5-15.5 (%) Final Platelets 10/31/2023 04:20:00 241 140-400 (K/uL) Final MPV 10/31/2023 04:20:00 10.1 6.6-11.1 (fL) Final Nucleated erythrocytes/100 leukocytes [Ratio] in Blood by Automated count 10/31/2023 04:20:00 0 <=0 (/100 WBCs) Final Performing Location [facility] [place] [address] [place] [address]
--- OUTSIDE RECORDS SUMMARY | 2023-12-30 10:21 | External Medical Summary ---
Author Name Unknown Address Unknown Organization K01:[facility]ORATORY [facility] [place] - [facility] [address] [place] [address] Laboratory Report Ordering Provider Test Date Status OWEN DORSEY 10/31/2023 11:32:00 Final Get Heparin, unfractionated (Xa) level 6 hours after start of infusion and 6 hours after each dose adjustment Observation Date Value Abnormality Reference (Units ) Status Heparin, unfractionated level 10/31/2023 11:32:00 0.37 Above high normal <0.10 (IU/mL) Final Unfractionated therapeutic r anges for Anti Xa activity:
For Cardiac/Neurologic treatment: 0.3 to 0.6 IU/mL.
For treatment of DVT or Pulmonary Embolism: 0.3 to 0.7 IU/mL. Performing Location [facility]ORY [facility] [place] - [address] [place] [address]
--- OUTSIDE RECORDS SUMMARY | 2023-12-30 10:21 | External Medical Summary ---
Author Name Unknown Address Unknown Organization : Laboratory Report Ordering Provider Test Date Status CHAITANYA HADLEY 10/30/2023 05:54:42 Final Observation Date Value Abnormality Reference (Units ) Status Glucose Point of Care 10/30/2023 05:54:42 141 Above high normal 70-120 (mg/dL) Final Performing Location
--- OUTSIDE RECORDS SUMMARY | 2023-12-30 10:21 | External Medical Summary ---
Author Name Unknown Address Unknown Organization : Laboratory Report Ordering Provider Test Date Status CHAITANYA HADLEY 10/30/2023 00:03:30 Final Observation Date Value Abnormality Reference (Units ) Status Glucose Point of Care 10/30/2023 00:03:30 139 Above high normal 70-120 (mg/dL) Final Performing Location
--- OUTSIDE RECORDS SUMMARY | 2023-12-30 10:21 | External Medical Summary ---
Author Name Unknown Address Unknown Organization K01:LAB[facility]ORY [facility] [place] - [facility] [address] [place] [address] Laboratory Report Ordering Provider Test Date Status SHAWN HAWLEY 10/31/2023 04:20:00 Final Observation Date Value Abnormality Reference (Units ) Status Albumin 10/31/2023 04:20:00 1.6 Below low normal 3.8-5.0 (g/dL) Final AST (Aspartate aminotransferase) 10/31/2023 04:20:00 22 10-50 (U/L) Final Result may be falsely elevat ed due to hemolysis. Alk Phos 10/31/2023 04:20:00 54 35-130 (U/ L) Final ALT (Alanine aminotransferase) 10/31/2023 04:20:00 10 10-50 (U/L) Fin al Bilirubin, Total 10/31/2023 04:20:00 0.4 <=1 .2 (mg/dL) Final Bilirubin, Direct 10/31/2023 04:20:00 0.3 0. 0-0.3 (mg/dL) Final Protein 10/31/2023 04:20:00 4.6 Below low normal 6.0 -8.3 (g/dL) Final Performing Location LABORATORY [facility] [place] - [address] [place] [address]
--- OUTSIDE RECORDS SUMMARY | 2023-12-30 10:21 | External Medical Summary ---
Author Name Unknown Address Unknown Organization K01:[facility] [place] [address] [place] [address] Laboratory Report Ordering Provider Test Date Status SHAWN HAWLEY 11/01/2023 02:32:00 Final Observation Date Value Abnormality Reference (Units ) Status Albumin 11/01/2023 02:32:00 1.6 Below low normal 3.8-5.0 (g/dL) Final AST (Aspartate aminotransferase) 11/01/2023 02:32:00 22 10-50 (U/L) Final Alk Phos 11/01/2023 02:32:00 56 35-130 (U/L) Final ALT (Alanine aminotransferase) 11/01/2023 02:32:00 11 10-50 (U/L) Final Bilirubin, Total 11/01/2023 02:32:00 0.5 <=1.2 (mg/dL) Final Bilirubin, Direct 11/01/2023 02:32:00 0.3 0.0-0.3 (mg/dL) Final Protein 11/01/2023 02:32:00 5.1 Below low normal 6.0-8.3 (g/dL) Final Performing Location [facility] [place] [address] [place] [address]
--- OUTSIDE RECORDS SUMMARY | 2023-12-30 10:22 | External Medical Summary ---
Author Name Unknown Address Unknown Organization K01:[facility] [place] [address] [place] [address] Laboratory Report Ordering Provider Test Date Status MARKIE DORSEYGWENDOLYN 10/28/2023 16:12:00 Final Observation Date Value Abnormality Reference (Units ) Status Heparin, unfractionated level 10/28/2023 16:12:00 <0.10 <0.10 (IU/mL) Final Results rechecked. Performing Location [facility] [place] [address] [place] [address]
--- OUTSIDE RECORDS SUMMARY | 2023-12-30 10:22 | External Medical Summary ---
Author Name Unknown Address Unknown Organization K01:[facility] [place] [address] [place] [address] Laboratory Report Ordering Provider Test Date Status CHAITANYA HADLEY 10/28/2023 03:15:06 Final Observation Date Value Abnormality Reference (Units ) Status Vancomycin, level 10/28/2023 03:15:06 21.4 10 .0-40.0 (ug/mL) Final Performing Location LABORATORY [facility] - [address] [place] [address]
--- OUTSIDE RECORDS SUMMARY | 2023-12-30 10:22 | External Medical Summary ---
Author Name Unknown Address Unknown Organization K01[place] [facility] [place] [address] [place] [address] Laboratory Report Ordering Provider Test Date Status OWEN DORSEY 10/29/2023 05:11:00 Final Get Heparin, unfractionated (Xa) level 6 hours after start of infusion and 6 hours after each dose adjustment Observation Date Value Abnormality Reference (Units ) Status Heparin, unfractionated level 10/29/2023 05:11:00 0.21 Above high normal <0.10 (IU/mL) Final Unfractionated therapeutic r anges for Anti Xa activity:
For Cardiac/Neurologic treatment: 0.3 to 0.6 IU/mL.
For treatment of DVT or Pulmonary Embolism: 0.3 to 0.7 IU/mL. Performing Location [facility] [place] [address] [place] [address]
--- OUTSIDE RECORDS SUMMARY | 2023-12-30 10:22 | External Medical Summary ---
Author Name Unknown Address Unknown Organization K01:LAB[facility]ATORY [facility] [place] [address] [place] [address] Laboratory Report Ordering Provider Test Date Status SUNITALARSLEO 10/29/2023 05:11:00 Final Observation Date Value Abnormality Reference (Units ) Status Magnesium 10/29/2023 05:11:00 2.7 Above high normal 1. 5-2.6 (mg/dL) Final Performing Location [facility] - [address] [place] [address]
--- OUTSIDE RECORDS SUMMARY | 2023-12-30 10:22 | External Medical Summary ---
Author Name Unknown Address Unknown Organization K01:LABORATORY [facility] [place] - [facility] [address] [place] [address] Laboratory Report Ordering Provider Test Date Status BRIAN ALFORD 10/28/2023 03:15:06 Final Observation Date Value Abnormality Reference (Units ) Status BUN 10/28/2023 03:15:06 52 Above high normal 6-20 (mg/dL) Final Creatinine 10/28/2023 03:15:06 1.6 Above high normal 0.6-1.2 (mg/dL) Final Glomerular filtration rate/1.73 sq M.predicted [Volume Rate/Area] in Serum, Plasma or Blood by Creatinine-based formula (CKD-EPI) 10/28/2023 03:15:06 45 Below low normal >=60 (mL/min) Final eGFR is calculated based on the CKD-EPI 2020 equation Sodium 10/28/2023 03:15:06 146 135-146 (m mol/L) Final Potassium 10/28/2023 03:15:06 4.7 3.5-5.1 (m mol/L) Final Cl 10/28/2023 03:15:06 109 Above high normal 98 -107 (mmol/L) Final CO2 10/28/2023 03:15:06 30 22-32 (mmo l/L) Final Anion gap 10/28/2023 03:15:06 7 7-15 (mmol /L) Final Glucose 10/28/2023 03:15:06 92 70-120 (mg /dL) Final Calcium 10/28/2023 03:15:06 6.9 Below low normal 8.4 -10.2 (mg/dL) Final Performing Location LABORATORY [facility] [place] - [address] [place] [address]
--- OUTSIDE RECORDS SUMMARY | 2023-12-30 10:22 | External Medical Summary ---
Author Name Unknown Address Unknown Organization K01:LABORATORY [facility] [place] - [address] [place] [address] Laboratory Report Ordering Provider Test Date Status TRACY OLIVAOLPH 10/27/2023 22:20:35 Final Observation Date Value Abnormality Reference (Units ) Status Lactic Acid 10/27/2023 22:20:35 3.1 Above high normal 0.4-2.0 (mmol/L) Final Performing Location LABORATORY [facility] - [address] [place] [address]
--- OUTSIDE RECORDS SUMMARY | 2023-12-30 10:22 | External Medical Summary ---
Author Name Unknown Address Unknown Organization K01:LAB[facility]ATORY [facility] [place] - [address] [place] [id number] Laboratory Report Ordering Provider Test Date Status TAMMY MELARA 10/27/2023 22:16:27 Final Observation Date Value Abnormality Reference (Units) Status Bacteria identified in Specimen by Culture 10/27/2023 22:16:27 No significant growth Final Test: Culture, Urine, Quanti tative
Specimen Source: Urine, Catheter
Specimen Type: Urine
Specimen Date: 10/27/2023 10:16 PM
Result Date: 10/29/2023 7:16 AM
Result Status: Final result
Resulting Lab: [facility]
[address]
[place] [address]

CULTURE

No significant growth

null Performing Location LABORATORY [facility] [place] [address] [facility] [address]
--- OUTSIDE RECORDS SUMMARY | 2023-12-30 10:22 | External Medical Summary ---
Author Name Unknown Address Unknown Organization : Laboratory Report Ordering Provider Test Date Status CHAITANYA HADLEY 10/28/2023 12:19:28 Final Observation Date Value Abnormality Reference (Units ) Status Glucose Point of Care 10/28/2023 12:19:28 126 Above high normal 70-120 (mg/dL) Final Performing Location
--- OUTSIDE RECORDS SUMMARY | 2023-12-30 10:22 | External Medical Summary ---
Author Name Unknown Address Unknown Organization K01:LABORATORY [facility] [place] - [facility] [address] [place] [address] Laboratory Report Ordering Provider Test Date Status OWEN DORSEY 10/29/2023 11:47:00 Final Get Heparin, unfractionated (Xa) level 6 hours after start of infusion and 6 hours after each dose adjustment Observation Date Value Abnormality Reference (Units ) Status Heparin, unfractionated level 10/29/2023 11:47:00 0.26 Above high normal <0.10 (IU/mL) Final Unfractionated therapeutic r anges for Anti Xa activity:
For Cardiac/Neurologic treatment: 0.3 to 0.6 IU/mL.
For treatment of DVT or Pulmonary Embolism: 0.3 to 0.7 IU/mL. Performing Location LABORATORY [facility] [place] - [address] [place] [address]
--- OUTSIDE RECORDS SUMMARY | 2023-12-30 10:22 | External Medical Summary ---
Author Name Unknown Address Unknown Organization : Laboratory Report Ordering Provider Test Date Status CHAITANYA HADLEY 10/29/2023 05:44:32 Final Observation Date Value Abnormality Reference (Units ) Status Glucose Point of Care 10/29/2023 05:44:32 133 Above high normal 70-120 (mg/dL) Final Performing Location
--- OUTSIDE RECORDS SUMMARY | 2023-12-30 10:22 | External Medical Summary ---
Author Name Unknown Address Unknown Organization K01:[place] [facility] [place] [facility] [address] [place] [address] Laboratory Report Ordering Provider Test Date Status OWEN DORSEY 10/28/2023 22:17:00 Final Get Heparin, unfractionated (Xa) level 6 hours after start of infusion and 6 hours after each dose adjustment Observation Date Value Abnormality Reference (Units ) Status Heparin, unfractionated level 10/28/2023 22:17:00 0.22 Above high normal <0.10 (IU/mL) Final Unfractionated therapeutic r anges for Anti Xa activity:
For Cardiac/Neurologic treatment: 0.3 to 0.6 IU/mL.
For treatment of DVT or Pulmonary Embolism: 0.3 to 0.7 IU/mL. Performing Location [facility] [facility] [place] [address] [place] [address]
--- OUTSIDE RECORDS SUMMARY | 2023-12-30 10:22 | External Medical Summary ---
Author Name Unknown Address Unknown Organization K01:[place] [facility] [place] [facility] [address] [facility] [address] [place] [address] Laboratory Report Ordering Provider Test Date Status MADISYN MISHRA 10/28/2023 03:15:06 Final Observation Date Value Abnormality Reference (Units ) Status WBC, Total 10/28/2023 03:15:06 11.81 Above high normal 4.00-10.80 (K/uL) Final RBC 10/28/2023 03:15:06 2.65 4.50-5.25 (M/uL) Final Hemoglobin 10/28/2023 03:15:06 8.4 Below low normal 14.0-16.8 (g/dL) Final HCT 10/28/2023 03:15:06 27.2 Below low normal 40.0-48.4 (%) Final MCV 10/28/2023 03:15:06 102.6 82.0-99.5 (fL) Final MCH 10/28/2023 03:15:06 31.7 27.0-34.0 (pg) Final MCHC 10/28/2023 03:15:06 30.9 32.0-36.0 (g/dL) Final RDW 10/28/2023 03:15:06 14.9 11.5-15.5 (%) Final Platelets 10/28/2023 03:15:06 145 140-400 (K/uL) Final MPV 10/28/2023 03:15:06 9.7 6.6-11.1 (fL) Final Nucleated erythrocytes/100 leukocytes [Ratio] in Blood by Automated count 10/28/2023 03:15:06 0 <=0 (/100 WBCs) Final Performing Location [place] [facility] [place] [address] [place] [address]
--- OUTSIDE RECORDS SUMMARY | 2023-12-30 10:22 | External Medical Summary ---
Author Name Unknown Address Unknown Organization : Laboratory Report Ordering Provider Test Date Status CHAITANYA HADLEY 10/28/2023 17:29:37 Final Observation Date Value Abnormality Reference (Units ) Status Glucose Point of Care 10/28/2023 17:29:37 148 Above high normal 70-120 (mg/dL) Final Performing Location
--- OUTSIDE RECORDS SUMMARY | 2023-12-30 10:22 | External Medical Summary ---
Author Name Unknown Address Unknown Organization K01:LABORATORY [facility] [place] - [address] [place] [address] Laboratory Report Ordering Provider Test Date Status SHAWN HAWLEY 10/29/2023 05:11:00 Final Observation Date Value Abnormality Reference (Units ) Status Albumin 10/29/2023 05:11:00 1.4 Below low normal 3.8-5.0 (g/dL) Final AST (Aspartate aminotransferase) 10/29/2023 05:11:00 33 10-50 (U/L) Final Alk Phos 10/29/2023 05:11:00 69 35-130 (U/L) Final ALT (Alanine aminotransferase) 10/29/2023 05:11:00 19 10-50 (U/L) Final Bilirubin, Total 10/29/2023 05:11:00 0.6 <=1.2 (mg/dL) Final Bilirubin, Direct 10/29/2023 05:11:00 0.4 Above high normal 0.0-0.3 (mg/dL) Final Protein 10/29/2023 05:11:00 4.9 Below low normal 6.0-8.3 (g/dL) Final Performing Location LABORATORY [facility] [place] - [address] [place] [address]
--- OUTSIDE RECORDS SUMMARY | 2023-12-30 10:22 | External Medical Summary ---
Author Name Unknown Address Unknown Organization K01:[facility] - [address] [place] [address] Laboratory Report Ordering Provider Test Date Status OWEN DORSEY 10/28/2023 07:02:00 Final Observation Date Value Abnormality Reference (Units ) Status Bacteria identified in Specimen by Culture 10/28/2023 07:02:00 No growth Final Test: Culture, Blood (Site 2)
Specimen Source: Blood, Venous
Specimen Type: Blood
Specimen Date: 10/28/2023 7:02 AM
Result Date: 11/02/2023 8:02 AM
Result Status: Final result
Resulting Lab: [facility]
[address]
[place] [address]

CULTURE

No growth

null Performing Location LAB[facility]ORY [facility] - [address] [place] [address]
--- OUTSIDE RECORDS SUMMARY | 2023-12-30 10:22 | External Medical Summary ---
Author Name Unknown Address Unknown Organization K01:LABORATORY [facility] [place] - [address] [place] [address] Laboratory Report Ordering Provider Test Date Status OWEN DORSEY 10/29/2023 05:11:00 Final Observation Date Value Abnormality Reference (Units ) Status WBC, Total 10/29/2023 05:11:00 20.61 Above high normal 4.00-10.80 (K/uL) Final RBC 10/29/2023 05:11:00 2.56 4.50-5.25 (M/uL) Final Hemoglobin 10/29/2023 05:11:00 8.2 Below low normal 14.0-16.8 (g/dL) Final HCT 10/29/2023 05:11:00 26.3 Below low normal 40.0-48.4 (%) Final MCV 10/29/2023 05:11:00 102.7 82.0-99.5 (fL) Final MCH 10/29/2023 05:11:00 32.0 27.0-34.0 (pg) Final MCHC 10/29/2023 05:11:00 31.2 32.0-36.0 (g/dL) Final RDW 10/29/2023 05:11:00 14.9 11.5-15.5 (%) Final Platelets 10/29/2023 05:11:00 210 140-400 (K/uL) Final MPV 10/29/2023 05:11:00 10.1 6.6-11.1 (fL) Final Nucleated erythrocytes/100 leukocytes [Ratio] in Blood by Automated count 10/29/2023 05:11:00 0 <=0 (/100 WBCs) Final Performing Location LABORATORY [facility] [place] - [address] [place] [address]
--- OUTSIDE RECORDS SUMMARY | 2023-12-30 10:22 | External Medical Summary | Summary of Care ---
Author Name Unknown Organization [facility] Address [address] [place] [address] Phone [phone] Care Team Providers Care Armament Installer Name Role Phone Valdemar Segundo PA-C Primary Care Provider [phone] Encounter Details Date Type Department Care Team (Late st Contact Info) Description 10/26/2023 CardioDiagnostic Study Vascular Surg [facility] [address], [place] [phone] Gregory Le MD [address], [place] [id number] EKG Report Allergies Active Allergy Reactions Criticality Noted Date Comments Penicillins Rash 09/28/2003 documented as of this encounter (statuses as of 10/28/2023) Medications Medication Sig Dispensed Refills Start Date End Date Status Peptamen 1.5 Oral Liquid Administer 65 mL/hr x 21 hours daily, as directed through feeding tube via feeding pump 88758 mL 11 10/28/2023 Active Trelegy Ellipta 100-62.5-25 [...] as of this encounter (statuses as of 10/28/2023) Active Problems Problem Noted Date Diagnosed Date [...] dysfunction 10/13/2023 Coronary artery disease invo lving [place] coronary artery of [place] heart without angina pectoris 06/05/2023 S/P CABG (coronary artery bypass graft) 06/05/20 Infrarenal abdominal aortic aneurysm (AAA) witho ut rupture 05/30/2022 Iliac artery aneurysm, right 05/30/2022 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 Nicotine use 05/30/2022 SPRAIN CRUCIATE LIG KNEE 10/01/2003 documented as of this encounter (statuses as of 10/28/2023) Social History Tobacco Use Types Packs/Day Years [...] No 10/03/2023 documented as of this encounter Procedure Notes * Desmond Hernandez DO - 10/26/2023 10:34 PM EDTAssociated Order(s): EKG REPORT REASON FOR STUDY: Tachycardia CONCLUSIONS: Sinus tachycardia Anterior infarct , age undetermined When compared with ECG of 26-Oct-2023 11:38, (unconfirmed) ST no longer depressed in Lateral leads Nonspecific T wave abnormality, worse in Anterior leads Ventricular Rate: 104 Atrial Rate: 104 SD Interval: 166 QRS Duration: 72 QT/QTc: 318/418 ms P-R-T Porum: 35 : -6 : 18 degrees documented in this encounter Plan of Treatment Upcoming Encounters Date Type Department Care Team (Late st Contact Info) Description 11/14/2023 12:30 PM EDT Imaging Radiology [facility]st [facility] [address] [facility] [place] [address] 11/20/2023 2:10 PM EDT Office Visit Vascular Surgery, [address] [place] [address] Gregory Le MD [address] [place] [address] Health Maintenance Due Date Last Done Comments [...] this encounter Medical Devices Implanted Type Area Commercial Estimator Device Identifier Shelf Expiration Date Model / Serial / Lot Graft Bifur [id number] - [id number] Implanted:Qty : 1 on 10/03/2023 by Gregory Le MD at [place] [facility] [place] N/A: Aorta GETINGE : MAQUET [id number] 04/30/2028 M002 [id number] / [id number] / [id number] Tube Feeding Jejunal Skn 0200- - [id number] Implanted:Qty : 1 on 10/18/2023 by Gregory Le MD at OR [facility] [place] N/A: Abdomen [employer] [employer] 05/29/2024 [id number] / / [id number] documented as of this encounter Procedures Procedure Name Priority Date/Time Associated Diagnosis Comments EKG REPORT 10/26/2023 10:34 PM EDT documented in this encounter Results * EKG REPORT (10/26/2023 10:34 PM EDT) 10/26/2023 10:3 4 PM EDT Narrative Procedure Note Desmond Hernandez, - 10/26/2023 10:34 PM EDT REASON FOR STUDY: Tachycardia CONCLUSIONS: Sinus tachycardia Anterior infarct , age undetermined When compared with ECG of 26-Oct-2023 11:38, (unconfirmed) ST no longer depressed in Lateral leads Nonspecific T wave abnormality, worse in Anterior leads Ventricular Rate: 104 Atrial Rate: 104 SD Interval: 166 QRS Duration: 72 QT/QTc: 318/418 ms P-R-T Porum: 35 : -6 : 18 degrees Gregory Le MD EKG documented in this encounter Advance Directives Latest [...] the patient have Health Care Power of Brand Sales Consultant? No Care Teams Armament Installer Relationship Specialty Start Date End Date Valdemar Segundo, ANGELIAC [address] [place] [address] PCP - General Physician Binitrotoluene Operator 05/03/21 documented as of this encounter
--- OUTSIDE RECORDS SUMMARY | 2023-12-30 10:22 | External Medical Summary ---
Author Name Unknown Address Unknown Organization K01:[place] [facility] [place] [address] [place] [address] Laboratory Report Ordering Provider Test Date Status SHAWN HAWLEY 10/28/2023 03:15:06 Final Observation Date Value Abnormality Reference (Units ) Status Albumin 10/28/2023 03:15:06 1.3 Below low normal 3.8-5.0 (g/dL) Final AST (Aspartate aminotransferase) 10/28/2023 03:15:06 37 10-50 (U/L) Final Alk Phos 10/28/2023 03:15:06 59 35-130 (U/L) Final ALT (Alanine aminotransferase) 10/28/2023 03:15:06 19 10-50 (U/L) Final Bilirubin, Total 10/28/2023 03:15:06 1.1 <=1.2 (mg/dL) Final Bilirubin, Direct 10/28/2023 03:15:06 1.0 Above high normal 0.0-0.3 (mg/dL) Final Protein 10/28/2023 03:15:06 4.3 Below low normal 6.0-8.3 (g/dL) Final Performing Location [place] [facility] [place] [address] [place] [address]
--- OUTSIDE RECORDS SUMMARY | 2023-12-30 10:22 | External Medical Summary ---
Author Name Unknown Address Unknown Organization : Laboratory Report Ordering Provider Test Date Status CHAITANYA HADLEY 10/28/2023 23:10:49 Final Observation Date Value Abnormality Reference (Units ) Status Glucose Point of Care 10/28/2023 23:10:49 139 Above high normal 70-120 (mg/dL) Final Performing Location
--- OUTSIDE RECORDS SUMMARY | 2023-12-30 10:22 | External Medical Summary ---
Author Name Unknown Address Unknown Organization : Laboratory Report Ordering Provider Test Date Status CHAITANYA HADLEY 10/29/2023 11:34:53 Final Observation Date Value Abnormality Reference (Units ) Status Glucose Point of Care 10/29/2023 11:34:53 140 Above high normal 70-120 (mg/dL) Final Performing Location
--- OUTSIDE RECORDS SUMMARY | 2023-12-30 10:22 | External Medical Summary ---
Author Name Unknown Address Unknown Organization K01:LABORATORY [facility] [place] - [address] [place] [address] Laboratory Report Ordering Provider Test Date Status TRACY OLIVAOLPH 10/28/2023 10:24:00 Final Observation Date Value Abnormality Reference (Units ) Status Lactic Acid 10/28/2023 10:24:00 3.3 Above high normal 0.4-2.0 (mmol/L) Final Performing Location LABORATORY [facility] - [address] [place] [address]
--- OUTSIDE RECORDS SUMMARY | 2023-12-30 10:22 | External Medical Summary ---
Author Name Unknown Address Unknown Organization K01:[facility] - [address] [place] [address] Laboratory Report Ordering Provider Test Date Status SUNITA,MANINGGWENDOLYN 10/29/2023 05:11:00 Final Observation Date Value Abnormality Reference (Units ) Status Phosphate 10/29/2023 05:11:00 4.4 2.5-4.8 (m g/dL) Final Performing Location [facility] - [address] [place] [address]
--- OUTSIDE RECORDS SUMMARY | 2023-12-30 10:22 | External Medical Summary ---
Author Name Unknown Address Unknown Organization K01:LAB[facility]ATORY [facility] - [address] [place] [address] Laboratory Report Ordering Provider Test Date Status BRIAN ALFORD 10/28/2023 03:15:06 Final Observation Date Value Abnormality Reference (Units ) Status Magnesium 10/28/2023 03:15:06 2.4 1.5-2.6 (m g/dL) Final Performing Location [facility] - [address] [place] [address]
--- OUTSIDE RECORDS SUMMARY | 2023-12-30 10:22 | External Medical Summary ---
Author Name Unknown Address Unknown Organization K01:[facility]ATORY [facility] - [address] [place] [address] Laboratory Report Ordering Provider Test Date Status OWEN DORSEY 10/28/2023 06:59:00 Final Observation Date Value Abnormality Reference (Units ) Status Bacteria identified in Specimen by Culture 10/28/2023 06:59:00 No growth Final Test: Culture, Blood
Sp ecimen Source: Blood, Venous
Specimen Type: Blood
Specimen Date: 10/28/2023 6:59 AM
Result Date: 11/02/2023 8:02 AM
Result Status: Final result
Resulting Lab: [facility]ORY [facility]
[address]
[place] [address]

CULTURE

No growth

null Performing Location LAB[facility]ATORY [facility] - [address] [place] [address]
--- OUTSIDE RECORDS SUMMARY | 2023-12-30 10:22 | External Medical Summary ---
Author Name Unknown Address Unknown Organization K01:LABORATORY [facility] [place] - [facility] [address] [facility] [address] [place] [address] Laboratory Report Ordering Provider Test Date Status OWEN DORSEY 10/29/2023 05:11:00 Final Observation Date Value Abnormality Reference (Units ) Status BUN 10/29/2023 05:11:00 59 Above high normal 6-20 (mg/dL) Final Creatinine 10/29/2023 05:11:00 1.6 Above high normal 0.6-1.2 (mg/dL) Final Glomerular filtration rate/1.73 sq M.predicted [Volume Rate/Area] in Serum, Plasma or Blood by Creatinine-based formula (CKD-EPI) 10/29/2023 05:11:00 45 Below low normal >=60 (mL/min) Final eGFR is calculated based on the CKD-EPI 2020 equation Sodium 10/29/2023 05:11:00 144 135-146 (m mol/L) Final Potassium 10/29/2023 05:11:00 4.1 3.5-5.1 (m mol/L) Final Cl 10/29/2023 05:11:00 107 98-107 (mm ol/L) Final CO2 10/29/2023 05:11:00 30 22-32 (mmo l/L) Final Anion gap 10/29/2023 05:11:00 7 7-15 (mmol /L) Final Glucose 10/29/2023 05:11:00 152 Above high normal 70 -120 (mg/dL) Final Calcium 10/29/2023 05:11:00 6.7 Below low normal 8.4 -10.2 (mg/dL) Final Performing Location LABORATORY [facility] [place] - [address] [place] [address]
--- OUTSIDE RECORDS SUMMARY | 2023-12-30 10:22 | External Medical Summary ---
Author Name Unknown Address Unknown Organization K01:[facility] - [address] [place] [address] Laboratory Report Ordering Provider Test Date Status BRIAN ALFORD 10/28/2023 03:15:06 Final Observation Date Value Abnormality Reference (Units ) Status Phosphate 10/28/2023 03:15:06 4.8 2.5-4.8 (m g/dL) Final Performing Location [facility] - [address] [place] [address]
--- OUTSIDE RECORDS SUMMARY | 2023-12-30 10:22 | External Medical Summary ---
Author Name Unknown Address Unknown Organization K01:[place]ATORY [facility] [place] [facility] [address] [place] [address] Laboratory Report Ordering Provider Test Date Status TAMMY MELARA 10/28/2023 03:15:06 Final Warfarin Therapy
INR: 2 .0-3.0 conventional anticoagulation
INR: 2.5- 3.5 high intensity anticoagulation Observation Date Value Abnormality Reference (Units ) Status PT 10/28/2023 03:15:06 15.8 Above high normal 11 .6-15.2 (seconds) Final INR 10/28/2023 03:15:06 1.3 Above high normal 0. 8-1.2 Final Performing Location LABORATORY [facility] [place] [address] [place] [address]
--- OUTSIDE RECORDS SUMMARY | 2023-12-30 10:22 | External Medical Summary ---
Author Name Unknown Address Unknown Organization K01:LABORATORY [facility] [place] - [address] [place] [address] Laboratory Report Ordering Provider Test Date Status MARKIE DORSEYGWENDOLYN 10/29/2023 05:11:00 Final Observation Date Value Abnormality Reference (Units ) Status Lactic Acid 10/29/2023 05:11:00 2.2 Above high normal 0.4-2.0 (mmol/L) Final Performing Location LABORATORY [facility] - [address] [place] [address]
--- OUTSIDE RECORDS SUMMARY | 2023-12-30 10:22 | External Medical Summary ---
Author Name Unknown Address Unknown Organization K01:LABORATORY [facility] [place] - [address] [place] [address] Laboratory Report Ordering Provider Test Date Status TRACY OLIVAOLPH 10/28/2023 03:15:06 Final Observation Date Value Abnormality Reference (Units ) Status Lactic Acid 10/28/2023 03:15:06 2.0 0.4-2.0 (mmol/L) Final Performing Location LABORATORY [facility] - [address] [place] [address]
--- OUTSIDE RECORDS SUMMARY | 2023-12-30 10:22 | External Medical Summary ---
Author Name Unknown Address Unknown Organization : Laboratory Report Ordering Provider Test Date Status CHAITANYA HADLEY 10/28/2023 05:09:23 Final Observation Date Value Abnormality Reference (Units ) Status Glucose Point of Care 10/28/2023 05:09:23 78 70-120 (mg/dL) Final Performing Location
--- OUTSIDE RECORDS SUMMARY | 2023-12-30 10:22 | External Medical Summary ---
Author Name Unknown Address Unknown Organization : Laboratory Report Ordering Provider Test Date Status CHAITANYA HADLEY 10/27/2023 22:22:04 Final Observation Date Value Abnormality Reference (Units ) Status Glucose Point of Care 10/27/2023 22:22:04 97 70-120 (mg/dL) Final Performing Location
--- OUTSIDE RECORDS SUMMARY | 2023-12-30 10:22 | External Medical Summary ---
Author Name Unknown Address Unknown Organization K01:LABORATORY [facility] [place] [address] [place] [address] Laboratory Report Ordering Provider Test Date Status CHAITANYA HADLEY 10/29/2023 05:11:00 Final Observation Date Value Abnormality Reference (Units ) Status Vancomycin, level 10/29/2023 05:11:00 24.8 10 .0-40.0 (ug/mL) Final Performing Location [facility] - [address] [place] [address]
--- OUTSIDE RECORDS SUMMARY | 2023-12-30 10:23 | External Medical Summary ---
Author Name Unknown Address Unknown Organization K01:LABORATORY [address] [facility] [address] Laboratory Report Ordering Provider Test Date Status CHILO MILLARD 10/27/2023 04:18:00 Final Observation Date Value Abnormality Reference (Units ) Status Calcium.ionized [Moles/volume] in Serum or Plasma by Ion-selective membrane electrode (ISE) 10/27/2023 04:18:00 1.16 1.13-1.32 (mmol/L) Final This test was developed and its performance characteristics dtermined by [employer]. It has not been cleared or approved by the [place] Food and Drug Administration Performing Location LABORATORY [place] [address] [address] [facility] [address]
--- OUTSIDE RECORDS SUMMARY | 2023-12-30 10:23 | External Medical Summary ---
Author Name Unknown Address Unknown Organization K01:[facility] [address] [place] [address] Laboratory Report Ordering Provider Test Date Status OWEN DORSEY 10/26/2023 16:06:00 Final Observation Date Value Abnormality Reference (Units ) Status Magnesium 10/26/2023 16:06:00 1.8 1.5-2.6 (m g/dL) Final Performing Location [facility] - [address] [place] [address]
--- OUTSIDE RECORDS SUMMARY | 2023-12-30 10:23 | External Medical Summary ---
Author Name Unknown Address Unknown Organization : Laboratory Report Ordering Provider Test Date Status CHAITANYA HADLEY 10/26/2023 14:06:03 Final Observation Date Value Abnormality Reference (Units) Status Blood draw [PhenX] 10/26/2023 14:06:03 Arterial Draw Final pH, POC (i-STAT) 10/26/2023 14:06:03 7.532 Above high normal 7.350-7.450 Final PCO2 POC (i-STAT) 10/26/2023 14:06:03 34.8 Below low normal 35.0-45.0 (mm Hg) Final PO2 POC (i-STAT) 10/26/2023 14:06:03 105 Above high normal 75-100 (mm Hg) Final Base excess standard in Arterial blood by calculation 10/26/2023 14:06:03 6 Above high normal -2-2 (mmol/L) Final Bicarbonate, Venous, POC (i-STAT) 10/26/2023 14:06:03 29.2 23.0-31.0 (mmol/L) Final O2 Sat, calculated POC (i-STAT) 10/26/2023 14:06:03 99.0 Above high normal 94.0-98.0 (%) Final Glucose, whole blood 10/26/2023 14:06:03 132 Above high normal 70-120 (mg/dL) Final Potassium, Whole Blood 10/26/2023 14:06:03 3.3 Below low normal 3.5-5.1 (mmol/L) Final Sodium, Whole Blood 10/26/2023 14:06:03 141 135-146 (mmol/L) Final Calcium, Ionized, Whole Blood 10/26/2023 14:06:03 1.15 1.13-1.32 (mmol/L) Final Hemoglobin POC (i-STAT) 10/26/2023 14:06:03 9.2 Below low normal 14.0-16.8 (g/dL) Final HCT 10/26/2023 14:06:03 27 Below low normal 40-48 (%) Final Oxygen/Total gas setting [Volume Fraction] Ventilator 10/26/2023 14:06:03 100 (%) Final Performing Location
--- OUTSIDE RECORDS SUMMARY | 2023-12-30 10:23 | External Medical Summary ---
Author Name Unknown Address Unknown Organization K01:[facility] [place] [address] [place] [address] Laboratory Report Ordering Provider Test Date Status TRACY OLIVAOLPH 10/27/2023 04:18:00 Final Observation Date Value Abnormality Reference (Units ) Status Lactic Acid 10/27/2023 04:18:00 1.3 0.4-2.0 (mmol/L) Final Performing Location [facility] - [address] [place] [address]
--- OUTSIDE RECORDS SUMMARY | 2023-12-30 10:23 | External Medical Summary ---
Author Name Unknown Address Unknown Organization K01:LAB[facility]ATORY [facility] [place] - [address] [place] [address] Laboratory Report Ordering Provider Test Date Status TAMMY MELARA 10/26/2023 16:06:00 Final Observation Date Value Abnormality Reference (Units ) Status Troponin T 10/26/2023 16:06:00 27 Above high normal < =22 (ng/L) Final Performing Location [facility] - [address] [place] [address]
--- OUTSIDE RECORDS SUMMARY | 2023-12-30 10:23 | External Medical Summary ---
Author Name Unknown Address Unknown Organization K01:[facility] - [address] [place] [address] Laboratory Report Ordering Provider Test Date Status SUNITAMARKIEGWENDOLYN 10/27/2023 04:18:00 Final Observation Date Value Abnormality Reference (Units ) Status Phosphate 10/27/2023 04:18:00 3.4 2.5-4.8 (m g/dL) Final Performing Location [facility] - [address] [place] [address]
--- OUTSIDE RECORDS SUMMARY | 2023-12-30 10:23 | External Medical Summary ---
Author Name Unknown Address Unknown Organization K01:[facility] [place] [address] [place] [address] Laboratory Report Ordering Provider Test Date Status SHAWN HAWLEY 10/27/2023 04:18:00 Final Observation Date Value Abnormality Reference (Units ) Status Albumin 10/27/2023 04:18:00 1.8 Below low normal 3.8-5.0 (g/dL) Final AST (Aspartate aminotransferase) 10/27/2023 04:18:00 38 10-50 (U/L) Final Alk Phos 10/27/2023 04:18:00 69 35-130 (U/L) Final ALT (Alanine aminotransferase) 10/27/2023 04:18:00 19 10-50 (U/L) Final Bilirubin, Total 10/27/2023 04:18:00 0.8 <=1.2 (mg/dL) Final Bilirubin, Direct 10/27/2023 04:18:00 0.6 Above high normal 0.0-0.3 (mg/dL) Final Protein 10/27/2023 04:18:00 4.8 Below low normal 6.0-8.3 (g/dL) Final Performing Location [facility]ORY [facility] [place] [address] [place] [address]
--- OUTSIDE RECORDS SUMMARY | 2023-12-30 10:23 | External Medical Summary ---
Author Name Unknown Address Unknown Organization K01:[facility] [place] [facility] [address] [place] [address] Laboratory Report Ordering Provider Test Date Status OWEN DORSEY 10/27/2023 16:53:57 Final Observation Date Value Abnormality Reference (Units ) Status BUN 10/27/2023 16:53:57 47 Above high normal 6-20 (mg/dL) Final Creatinine 10/27/2023 16:53:57 1.3 Above high normal 0.6-1.2 (mg/dL) Final Glomerular filtration rate/1.73 sq M.predicted [Volume Rate/Area] in Serum, Plasma or Blood by Creatinine-based formula (CKD-EPI) 10/27/2023 16:53:57 58 Below low normal >=60 (mL/min) Final eGFR is calculated based on the CKD-EPI 2020 equation Sodium 10/27/2023 16:53:57 147 Above high normal 13 5-146 (mmol/L) Final Potassium 10/27/2023 16:53:57 4.0 3.5-5.1 (m mol/L) Final Cl 10/27/2023 16:53:57 110 Above high normal 98 -107 (mmol/L) Final CO2 10/27/2023 16:53:57 28 22-32 (mmo l/L) Final Anion gap 10/27/2023 16:53:57 9 7-15 (mmol /L) Final Glucose 10/27/2023 16:53:57 90 70-120 (mg /dL) Final Calcium 10/27/2023 16:53:57 7.6 Below low normal 8.4 -10.2 (mg/dL) Final Performing Location [facility] [place] [address] [place] [address]
--- OUTSIDE RECORDS SUMMARY | 2023-12-30 10:23 | External Medical Summary ---
Author Name Unknown Address Unknown Organization K01:LAB[facility]ATORY [facility] [place] - [address] [place] [address] Laboratory Report Ordering Provider Test Date Status TAMMY MELARA 10/27/2023 07:23:00 Final Observation Date Value Abnormality Reference (Units ) Status Troponin T 10/27/2023 07:23:00 26 Above high normal < =22 (ng/L) Final Performing Location [facility] - [address] [place] [address]
--- OUTSIDE RECORDS SUMMARY | 2023-12-30 10:23 | External Medical Summary ---
Author Name Unknown Address Unknown Organization K01:LABORATORY [facility] [place] - [address] [place] [address] Laboratory Report Ordering Provider Test Date Status OWEN DORSEY 10/27/2023 04:18:00 Final Observation Date Value Abnormality Reference (Units ) Status BUN 10/27/2023 04:18:00 46 Above high normal 6-20 (mg/dL) Final Creatinine 10/27/2023 04:18:00 1.3 Above high normal 0.6-1.2 (mg/dL) Final Glomerular filtration rate/1.73 sq M.predicted [Volume Rate/Area] in Serum, Plasma or Blood by Creatinine-based formula (CKD-EPI) 10/27/2023 04:18:00 57 Below low normal >=60 (mL/min) Final eGFR is calculated based on the CKD-EPI 2020 equation Sodium 10/27/2023 04:18:00 146 135-146 (m mol/L) Final Potassium 10/27/2023 04:18:00 4.0 3.5-5.1 (m mol/L) Final Cl 10/27/2023 04:18:00 108 Above high normal 98 -107 (mmol/L) Final CO2 10/27/2023 04:18:00 32 22-32 (mmo l/L) Final Anion gap 10/27/2023 04:18:00 6 Below low normal 7-1 5 (mmol/L) Final Glucose 10/27/2023 04:18:00 156 Above high normal 70 -120 (mg/dL) Final Calcium 10/27/2023 04:18:00 7.7 Below low normal 8.4 -10.2 (mg/dL) Final Performing Location LABORATORY [facility] [place] - [address] [place] [address]
--- OUTSIDE RECORDS SUMMARY | 2023-12-30 10:23 | External Medical Summary ---
Author Name Unknown Address Unknown Organization : Laboratory Report Ordering Provider Test Date Status CHAITANYA HADLEY 10/27/2023 05:33:52 Final Observation Date Value Abnormality Reference (Units ) Status Glucose Point of Care 10/27/2023 05:33:52 146 Above high normal 70-120 (mg/dL) Final Performing Location
--- OUTSIDE RECORDS SUMMARY | 2023-12-30 10:23 | External Medical Summary ---
Author Name Unknown Address Unknown Organization K01:[facility] - [address] [place] [address] Laboratory Report Ordering Provider Test Date Status OWEN DORSEY 10/27/2023 04:18:00 Final Observation Date Value Abnormality Reference (Units ) Status Magnesium 10/27/2023 04:18:00 2.5 1.5-2.6 (m g/dL) Final Performing Location [facility] - [address] [place] [address]
--- OUTSIDE RECORDS SUMMARY | 2023-12-30 10:23 | External Medical Summary ---
Author Name Unknown Address Unknown Organization K01:[facility] [place] [facility] [address] [place] [address] Laboratory Report Ordering Provider Test Date Status NIMO DIAZ 10/26/2023 23:52:00 Final Observation Date Value Abnormality Reference (Units ) Status BUN 10/26/2023 23:52:00 45 Above high normal 6-20 (mg/dL) Final Creatinine 10/26/2023 23:52:00 1.3 Above high normal 0.6-1.2 (mg/dL) Final Glomerular filtration rate/1.73 sq M.predicted [Volume Rate/Area] in Serum, Plasma or Blood by Creatinine-based formula (CKD-EPI) 10/26/2023 23:52:00 57 Below low normal >=60 (mL/min) Final eGFR is calculated based on the CKD-EPI 2020 equation Sodium 10/26/2023 23:52:00 147 Above high normal 13 5-146 (mmol/L) Final Potassium 10/26/2023 23:52:00 3.9 3.5-5.1 (m mol/L) Final Cl 10/26/2023 23:52:00 109 Above high normal 98 -107 (mmol/L) Final CO2 10/26/2023 23:52:00 31 22-32 (mmo l/L) Final Anion gap 10/26/2023 23:52:00 7 7-15 (mmol /L) Final Glucose 10/26/2023 23:52:00 149 Above high normal 70 -120 (mg/dL) Final Calcium 10/26/2023 23:52:00 7.6 Below low normal 8.4 -10.2 (mg/dL) Final Performing Location [facility] [place] [address] [place] [address]
--- OUTSIDE RECORDS SUMMARY | 2023-12-30 10:23 | External Medical Summary ---
Author Name Unknown Address Unknown Organization : Laboratory Report Ordering Provider Test Date Status CHAITANYA HADLEY 10/27/2023 11:31:56 Final Observation Date Value Abnormality Reference (Units ) Status Glucose Point of Care 10/27/2023 11:31:56 163 Above high normal 70-120 (mg/dL) Final Performing Location
--- OUTSIDE RECORDS SUMMARY | 2023-12-30 10:23 | External Medical Summary ---
Author Name Unknown Address Unknown Organization : Laboratory Report Ordering Provider Test Date Status CHAITANYA HADLEY 10/27/2023 19:43:15 Final Observation Date Value Abnormality Reference (Units ) Status Glucose Point of Care 10/27/2023 19:43:15 86 70-120 (mg/dL) Final Performing Location
--- OUTSIDE RECORDS SUMMARY | 2023-12-30 10:23 | External Medical Summary ---
Author Name Unknown Address Unknown Organization K01:[facility] - [address] [place] [address] Laboratory Report Ordering Provider Test Date Status SUNITA,MANINGGWENDOLYN 10/27/2023 16:53:57 Final Observation Date Value Abnormality Reference (Units ) Status Phosphate 10/27/2023 16:53:57 4.2 2.5-4.8 (m g/dL) Final Performing Location [facility] - [address] [place] [address]
--- OUTSIDE RECORDS SUMMARY | 2023-12-30 10:23 | External Medical Summary ---
Author Name Unknown Address Unknown Organization K01:LABORATORY [facility] [place] - [address] [place] [address] Laboratory Report Ordering Provider Test Date Status TAMMY MELARA 10/27/2023 22:16:27 Final Observation Date Value Abnormality Reference (Units) Status Color of Urine by Auto 10/27/2023 22:16:27 Dark Yellow Colorless, Light Yellow, Yellow, Dark Yellow Final Clarity, Urine 10/27/2023 22:16:27 Cloudy Abnormal Clear Final Glucose [Mass/volume] in Urine by Automated test strip 10/27/2023 22:16:27 Negative Negative (mg/dL) Final Bilirubin.total [Presence] in Urine by Automated test strip 10/27/2023 22:16:27 Negative Negative Final Ketones [Mass/volume] in Urine by Automated test strip 10/27/2023 22:16:27 Trace Abnormal Negative (mg/dL) Final Specific gravity, Urine 10/27/2023 22:16:27 1.041 Above high normal 1.003-1.030 Final Hemoglobin [Presence] in Urine by Automated test strip 10/27/2023 22:16:27 Small Abnormal Negative Final pH, Urine 10/27/2023 22:16:27 6.0 5.0-7.5 (Units) Final Protein [Mass/volume] in Urine by Automated test strip 10/27/2023 22:16:27 100 Abnormal Negative (mg/dL) Final Urobilinogen [Mass/volume] in Urine by Automated test strip 10/27/2023 22:16:27 2.0 Abnormal Normal (mg/dL) Final Nitrite [Presence] in Urine by Automated test strip 10/27/2023 22:16:27 Negative Negative Final Leukocyte esterase [Presence] in Urine by Automated test strip 10/27/2023 22:16:27 Trace Abnormal Negative Final RBC, Urine 10/27/2023 22:16:27 10-19 Abnormal 0-2 (/HPF) Final WBC, Urine 10/27/2023 22:16:27 6-9 Abnormal 0-2 (/HPF) Final Bacteria [#/area] in Urine sediment by Microscopy high power field 10/27/2023 22:16:27 151-200 Abnormal 0-25 (/HPF) Final Crystals.amorphous [#/area] in Urine sediment by Microscopy high power field 10/27/2023 22:16:27 Many Abnormal None (/HPF) Final Granular casts [#/area] in Urine sediment by Microscopy low power field 10/27/2023 22:16:27 5-9 Abnormal None (/LPF) Final Hyaline casts, Urine 10/27/2023 22:16:27 1-4 Abnormal None (/LPF) Final [facility] 10/27/2023 22:16:27 Final Quantitative urine culture t o be performed Performing Location LABORATORY [facility] [place] - [address] [facility] [place] [address]
--- OUTSIDE RECORDS SUMMARY | 2023-12-30 10:23 | External Medical Summary ---
Author Name Unknown Address Unknown Organization : Laboratory Report Ordering Provider Test Date Status CHAITANYA HADLEY 10/26/2023 17:31:10 Final Observation Date Value Abnormality Reference (Units ) Status Glucose Point of Care 10/26/2023 17:31:10 148 Above high normal 70-120 (mg/dL) Final Performing Location
--- OUTSIDE RECORDS SUMMARY | 2023-12-30 10:23 | External Medical Summary ---
Author Name Unknown Address Unknown Organization K01:[place] [place] [address] [place] [address] Laboratory Report Ordering Provider Test Date Status TRACY OLIVAOLPH 10/27/2023 16:53:57 Final Observation Date Value Abnormality Reference (Units ) Status Lactic Acid 10/27/2023 16:53:57 1.5 0.4-2.0 (mmol/L) Final Performing Location LAB[facility]ATORY [facility] - [address] [place] [address]
--- OUTSIDE RECORDS SUMMARY | 2023-12-30 10:23 | External Medical Summary ---
Author Name Unknown Address Unknown Organization K01:[facility] - [address] [facility] [address] Laboratory Report Ordering Provider Test Date Status TAMMY MELARA 10/27/2023 21:21:20 Final Culture aerobic, anaerobic, and fungal Observation Date Value Abnormality Reference (Units ) Status Bacteria identified in Specimen by Culture 10/27/2023 21:21:20 [id number]^ESCHE RICHIA COLI Very abnormal Final Few Escherichia coli Bacteria identified in Specimen by Culture 10/27/2023 21:21:20 [id number]^KLEBSIELLA PNEUMONIAE Very abnormal Final Moderate Klebsiella pneumoni ae Bacteria identified in Specimen by Culture 10/27/2023 21:21:20 [id number]^BACTEROIDES FRAGILIS Very abnormal Final Many Bacteroides fragilis Gram Stain 10/27/2023 21:21:20 Occasional P olymorphonuclear leukocytes Very abnormal Final Gram Stain 10/27/2023 21:21:20 Moderate Gram negative bacill i Very abnormal Final Performing Location [facility] - [address] [facility] [address] Ordering Provider Test Date Status TAMMY MELARA 10/27/2023 21:21:20 Final Observation Date Value Abnormality Reference (Units) Status Ampicillin 10/27/2023 21:21:20 8 Susceptible Final Cefepime susceptibility 10/27/2023 21:21:20 <=1 Susceptible Final Ceftriaxone suceptibility 10/27/2023 21:21:20 <=1 Susceptible Final Ciprofloxacin 10/27/2023 21:21:20 <=0.25 Susceptible Final Gentamicin susceptibility 10/27/2023 21:21:20 <=1 Susceptible Final Piperacillin + Tazobactamsusceptibility 10/27/2023 21:21:20 <=4 Susceptible Final TMP-SMZ susceptibility 10/27/2023 21:21:20 <=20 Susceptible Final Performing Location [facility] - [address] [facility] [address] Ordering Provider Test Date Status TAMMY MELARA 10/27/2023 21:21:20 Final Observation Date Value Abnormality Reference (Units) Status Ampicillin + Sulbactam 10/27/2023 21:21:20 4 Susceptible Final Cefepime susceptibility 10/27/2023 21:21:20 <=1 Susceptible Final Ceftriaxone suceptibility 10/27/2023 21:21:20 <=1 Susceptible Final Ciprofloxacin 10/27/2023 21:21:20 <=0.25 Susceptible Final Gentamicin susceptibility 10/27/2023 21:21:20 <=1 Susceptible Final Piperacillin + Tazobactamsusceptibility 10/27/2023 21:21:20 <=4 Susceptible Final TMP-SMZ susceptibility 10/27/2023 21:21:20 <=20 Susceptible Final Test: Culture, Body Fluid, A erobic and Anaerobic
Specimen Source: Bile
Specimen Type: Body Fluid
Specimen Date: 10/27/2023 9:21 PM
Result Date: 11/01/2023 11:11 AM
Result Status: Final result
Abnormal: Yes
Resulting Lab: LABORATORY [facility] [place]
[address]
[facility] [address]

CULTURE

Few Escherichia coli (Panic)

Moderate Klebsiella pneumoniae (Panic)

Many Bacteroides fragilis (Panic)

STAIN

Occasional Polymorphonuclear leukocytes

Moderate Gram negative bacilli

SUSCEPTIBILITY

Escherichia coli Klebsiella
pneumoniae
METHOD MICROBROTH MICROBROTH
DILUTIONS DILUTIONS

AMPICILLIN 8 Susceptible
AMPICILLIN/SULBACTAM 4 Susceptible
CEFEPIME <=1 Susceptible <=1 Susceptible
CEFTRIAXONE <=1 Susceptible <=1 Susceptible
CIPROFLOXACIN <=0.25 Susceptible <=0.25 Susceptible
GENTAMICIN <=1 Susceptible <=1 Susceptible
PIPERACILLIN TAZOBACTAM <=4 Susceptible <=4 Susceptible
TRIMETH/SULFAMETHOXAZOLE <=20 Susceptible <=20 Susceptible

null Performing Location LABORATORY [facility] [place] - [address] [facility] [address]
--- OUTSIDE RECORDS SUMMARY | 2023-12-30 10:23 | External Medical Summary ---
Author Name Unknown Address Unknown Organization : Laboratory Report Ordering Provider Test Date Status CHAITANYA HADLEY 10/27/2023 17:40:08 Final Observation Date Value Abnormality Reference (Units ) Status Glucose Point of Care 10/27/2023 17:40:08 73 70-120 (mg/dL) Final Performing Location
--- OUTSIDE RECORDS SUMMARY | 2023-12-30 10:23 | External Medical Summary ---
Author Name Unknown Address Unknown Organization K01:LABORATORY [facility] [place] - [address] [place] [address] Laboratory Report Ordering Provider Test Date Status TAMMY MELARA 10/26/2023 16:06:00 Final Observation Date Value Abnormality Reference (Units ) Status Lactic Acid 10/26/2023 16:06:00 1.9 0.4-2.0 (mmol/L) Final Performing Location LABORATORY [facility] - [address] [place] [address]
--- OUTSIDE RECORDS SUMMARY | 2023-12-30 10:23 | External Medical Summary ---
Author Name Unknown Address Unknown Organization K01:[facility]ORY [facility] [place] [address] [place] [address] Laboratory Report Ordering Provider Test Date Status GENIE OLIVAPH 10/27/2023 11:47:00 Final Observation Date Value Abnormality Reference (Units ) Status Lactic Acid 10/27/2023 11:47:00 1.3 0.4-2.0 (mmol/L) Final Performing Location LABORATORY [facility] - [address] [place] [address]
--- OUTSIDE RECORDS SUMMARY | 2023-12-30 10:23 | External Medical Summary ---
Author Name Unknown Address Unknown Organization K01:[facility] - [address] [place] [address] Laboratory Report Ordering Provider Test Date Status NIMO DIAZ 10/26/2023 23:52:00 Final Observation Date Value Abnormality Reference (Units ) Status Phosphate 10/26/2023 23:52:00 3.2 2.5-4.8 (m g/dL) Final Performing Location [facility] - [address] [place] [address]
--- OUTSIDE RECORDS SUMMARY | 2023-12-30 10:23 | External Medical Summary ---
Author Name Unknown Address Unknown Organization : Laboratory Report Ordering Provider Test Date Status CHAITANYA HADLEY 10/26/2023 23:22:03 Final Observation Date Value Abnormality Reference (Units ) Status Glucose Point of Care 10/26/2023 23:22:03 140 Above high normal 70-120 (mg/dL) Final Performing Location
--- OUTSIDE RECORDS SUMMARY | 2023-12-30 10:23 | External Medical Summary ---
Author Name Unknown Address Unknown Organization K01:LABORATORY [facility] - [address] [place] [address] Laboratory Report Ordering Provider Test Date Status NIMO DIAZ 10/26/2023 23:52:00 Final Observation Date Value Abnormality Reference (Units ) Status Magnesium 10/26/2023 23:52:00 1.6 1.5-2.6 (m g/dL) Final Performing Location [facility] - [address] [place] [address]
--- OUTSIDE RECORDS SUMMARY | 2023-12-30 10:23 | External Medical Summary ---
Author Name Unknown Address Unknown Organization K01:[facility] - [address] [place] [address] Laboratory Report Ordering Provider Test Date Status OWEN DORSEY 10/27/2023 16:53:57 Final Observation Date Value Abnormality Reference (Units ) Status Magnesium 10/27/2023 16:53:57 2.4 1.5-2.6 (m g/dL) Final Performing Location [facility] - [address] [place] [address]
--- OUTSIDE RECORDS SUMMARY | 2023-12-30 10:23 | External Medical Summary ---
Author Name Unknown Address Unknown Organization K01:LABORATORY [facility] [place] - [address] [place] [address] Laboratory Report Ordering Provider Test Date Status MADISYN MISHRA 10/27/2023 04:18:00 Final Observation Date Value Abnormality Reference (Units ) Status WBC, Total 10/27/2023 04:18:00 12.68 Above high normal 4.00-10.80 (K/uL) Final RBC 10/27/2023 04:18:00 2.34 4.50-5.25 (M/uL) Final Hemoglobin 10/27/2023 04:18:00 7.6 Below low normal 14.0-16.8 (g/dL) Final HCT 10/27/2023 04:18:00 24.1 Below low normal 40.0-48.4 (%) Final MCV 10/27/2023 04:18:00 103.0 82.0-99.5 (fL) Final MCH 10/27/2023 04:18:00 32.5 27.0-34.0 (pg) Final MCHC 10/27/2023 04:18:00 31.5 32.0-36.0 (g/dL) Final RDW 10/27/2023 04:18:00 14.8 11.5-15.5 (%) Final Platelets 10/27/2023 04:18:00 170 140-400 (K/uL) Final MPV 10/27/2023 04:18:00 9.6 6.6-11.1 (fL) Final Nucleated erythrocytes/100 leukocytes [Ratio] in Blood by Automated count 10/27/2023 04:18:00 0 <=0 (/100 WBCs) Final Performing Location LABORATORY [facility] [place] - [address] [place] [address]
--- OUTSIDE RECORDS SUMMARY | 2023-12-30 10:23 | External Medical Summary ---
Author Name Unknown Address Unknown Organization K01:[place] [facility] [place] [facility] [address] [place] [address] Laboratory Report Ordering Provider Test Date Status OWEN DORSEY 10/26/2023 16:06:00 Final Observation Date Value Abnormality Reference (Units ) Status BUN 10/26/2023 16:06:00 45 Above high normal 6-20 (mg/dL) Final Creatinine 10/26/2023 16:06:00 1.3 Above high normal 0.6-1.2 (mg/dL) Final Glomerular filtration rate/1.73 sq M.predicted [Volume Rate/Area] in Serum, Plasma or Blood by Creatinine-based formula (CKD-EPI) 10/26/2023 16:06:00 59 Below low normal >=60 (mL/min) Final eGFR is calculated based on the CKD-EPI 2020 equation Sodium 10/26/2023 16:06:00 144 135-146 (m mol/L) Final Potassium 10/26/2023 16:06:00 3.5 3.5-5.1 (m mol/L) Final Cl 10/26/2023 16:06:00 107 98-107 (mm ol/L) Final CO2 10/26/2023 16:06:00 25 22-32 (mmo l/L) Final Anion gap 10/26/2023 16:06:00 12 7-15 (mmol /L) Final Glucose 10/26/2023 16:06:00 152 Above high normal 70 -120 (mg/dL) Final Calcium 10/26/2023 16:06:00 7.4 Below low normal 8.4 -10.2 (mg/dL) Final Performing Location [place] [facility] [place] [address] [place] [address]
--- OUTSIDE RECORDS SUMMARY | 2023-12-30 10:23 | External Medical Summary ---
Author Name Unknown Address Unknown Organization K01:[facility] - [address] [place] [address] Laboratory Report Ordering Provider Test Date Status SUNITA,MANINGGWENDOLYN 10/26/2023 16:06:00 Final Observation Date Value Abnormality Reference (Units ) Status Phosphate 10/26/2023 16:06:00 2.9 2.5-4.8 (m g/dL) Final Performing Location [facility] - [address] [place] [address]
--- OUTSIDE RECORDS SUMMARY | 2023-12-30 10:23 | External Medical Summary ---
Author Name Unknown Address Unknown Organization K01:LABORATORY [facility] [place] - [address] [place] [address] Laboratory Report Ordering Provider Test Date Status CHILO MILLARD 10/27/2023 04:18:00 Final Observation Date Value Abnormality Reference (Units ) Status Triglyceride 10/27/2023 04:18:00 92 <=174 ( mg/dL) Final Triglyceride Reference Range s (mg/dL):
<150 Acceptable
150-174 Borderline high
175-499 High
>=500 Very high Performing Location LABORATORY [facility] [place] - [address] [place] [address]
--- OUTSIDE RECORDS SUMMARY | 2023-12-30 10:23 | External Medical Summary ---
Author Name Unknown Address Unknown Organization K01:LAB[facility]ATORY [facility] [place] [address] [place] [address] Laboratory Report Ordering Provider Test Date Status TRACY OLIVAOLPH 10/26/2023 21:25:00 Final Observation Date Value Abnormality Reference (Units ) Status Lactic Acid 10/26/2023 21:25:00 1.9 0.4-2.0 (mmol/L) Final Performing Location LABORATORY C - [address] [place] [address]
--- OUTSIDE RECORDS SUMMARY | 2023-12-30 10:24 | External Medical Summary ---
Author Name Unknown Address Unknown Organization K01:[facility]ATORY [facility] - [address] [place] [address] Laboratory Report Ordering Provider Test Date Status OWEN DORSEY 10/24/2023 11:42:33 Final Observation Date Value Abnormality Reference (Units ) Status Magnesium 10/24/2023 11:42:33 1.8 1.5-2.6 (m g/dL) Final Performing Location [facility] - [address] [place] [address]
--- OUTSIDE RECORDS SUMMARY | 2023-12-30 10:24 | External Medical Summary ---
Author Name Unknown Address Unknown Organization K01:[facility]ATORY [facility] - [address] [place] [address] Laboratory Report Ordering Provider Test Date Status SUNITA,MANINGGWENDOLYN 10/26/2023 04:26:00 Final Observation Date Value Abnormality Reference (Units ) Status Phosphate 10/26/2023 04:26:00 3.1 2.5-4.8 (m g/dL) Final Performing Location [facility] - [address] [place] [address]
--- OUTSIDE RECORDS SUMMARY | 2023-12-30 10:24 | External Medical Summary ---
Author Name Unknown Address Unknown Organization K01:[facility]ORY [facility] [place] [address] [place] [address] Laboratory Report Ordering Provider Test Date Status GENIE OLIVAPH 10/26/2023 12:51:00 Final Observation Date Value Abnormality Reference (Units ) Status Lactic Acid 10/26/2023 12:51:00 3.0 Above high normal 0.4-2.0 (mmol/L) Final Performing Location LABORATORY [facility] - [address] [place] [address]
--- OUTSIDE RECORDS SUMMARY | 2023-12-30 10:24 | External Medical Summary ---
Author Name Unknown Address Unknown Organization K01:LABORATORY [address] [facility] [address] Laboratory Report Ordering Provider Test Date Status OWEN DORSEY 10/24/2023 11:42:33 Final Observation Date Value Abnormality Reference (Units ) Status Calcium.ionized [Moles/volume] in Serum or Plasma by Ion-selective membrane electrode (ISE) 10/24/2023 11:42:33 1.15 1.13-1.32 (mmol/L) Final This test was developed and its performance characteristics dtermined by [employer]. It has not been cleared or approved by the [place] Food and Drug Administration Performing Location LAB[facility]ATORY [place] [address] [facility] [address]
--- OUTSIDE RECORDS SUMMARY | 2023-12-30 10:24 | External Medical Summary ---
Author Name Unknown Address Unknown Organization K01:[facility]ATORY [facility] [place] [address] [place] [address] Laboratory Report Ordering Provider Test Date Status GENIE OLIVAPH 10/26/2023 12:50:00 Final Observation Date Value Abnormality Reference (Units ) Status Troponin T 10/26/2023 12:50:00 24 Above high normal < =22 (ng/L) Final Performing Location LABORATORY [facility] - [address] [place] [address]
--- OUTSIDE RECORDS SUMMARY | 2023-12-30 10:24 | External Medical Summary ---
Author Name Unknown Address Unknown Organization : Laboratory Report Ordering Provider Test Date Status CHAITANYA HADLEY 10/25/2023 17:39:54 Final Observation Date Value Abnormality Reference (Units ) Status Glucose Point of Care 10/25/2023 17:39:54 147 Above high normal 70-120 (mg/dL) Final Performing Location
--- OUTSIDE RECORDS SUMMARY | 2023-12-30 10:24 | External Medical Summary ---
Author Name Unknown Address Unknown Organization K01:LABORATORY [facility] [place] - [facility] [address] [place] [address] Laboratory Report Ordering Provider Test Date Status RENAE OLIVA 10/26/2023 12:50:00 Final Observation Date Value Abnormality Reference (Units ) Status BUN 10/26/2023 12:50:00 45 Above high normal 6-20 (mg/dL) Final Creatinine 10/26/2023 12:50:00 1.3 Above high normal 0.6-1.2 (mg/dL) Final Glomerular filtration rate/1.73 sq M.predicted [Volume Rate/Area] in Serum, Plasma or Blood by Creatinine-based formula (CKD-EPI) 10/26/2023 12:50:00 59 Below low normal >=60 (mL/min) Final eGFR is calculated based on the CKD-EPI 2020 equation Sodium 10/26/2023 12:50:00 146 135-146 (m mol/L) Final Potassium 10/26/2023 12:50:00 3.3 Below low normal 3.5 -5.1 (mmol/L) Final Cl 10/26/2023 12:50:00 105 98-107 (mm ol/L) Final CO2 10/26/2023 12:50:00 29 22-32 (mmo l/L) Final Anion gap 10/26/2023 12:50:00 12 7-15 (mmol /L) Final Glucose 10/26/2023 12:50:00 136 Above high normal 70 -120 (mg/dL) Final Calcium 10/26/2023 12:50:00 8.0 Below low normal 8.4 -10.2 (mg/dL) Final Performing Location LABORATORY [facility] [place] - [address] [place] [address]
--- OUTSIDE RECORDS SUMMARY | 2023-12-30 10:24 | External Medical Summary ---
Author Name Unknown Address Unknown Organization K01:LABORATORY [facility] [place] - [address] [place] [address] Laboratory Report Ordering Provider Test Date Status SHAWN HAWLEY 10/26/2023 04:26:00 Final Observation Date Value Abnormality Reference (Units ) Status Albumin 10/26/2023 04:26:00 1.9 Below low normal 3.8-5.0 (g/dL) Final AST (Aspartate aminotransferase) 10/26/2023 04:26:00 34 10-50 (U/L) Final Alk Phos 10/26/2023 04:26:00 72 35-130 (U/L) Final ALT (Alanine aminotransferase) 10/26/2023 04:26:00 15 10-50 (U/L) Final Bilirubin, Total 10/26/2023 04:26:00 1.0 <=1.2 (mg/dL) Final Bilirubin, Direct 10/26/2023 04:26:00 0.8 Above high normal 0.0-0.3 (mg/dL) Final Protein 10/26/2023 04:26:00 5.1 Below low normal 6.0-8.3 (g/dL) Final Performing Location LABORATORY [facility] [place] - [address] [place] [address]
--- OUTSIDE RECORDS SUMMARY | 2023-12-30 10:24 | External Medical Summary ---
Author Name Unknown Address Unknown Organization K01:[facility]ORY [facility] [place] [address] [place] [id number] Laboratory Report Ordering Provider Test Date Status RENAE OLIVA 10/26/2023 12:50:00 Final Observation Date Value Abnormality Reference (Units ) Status Body temperature 10/26/2023 12:50:00 37.0 (C) Final pH of Venous blood 10/26/2023 12:50:00 7.314 Below low normal 7.320-7.430 (units) Final Carbon dioxide [Partial pressure] in Venous blood 10/26/2023 12:50:00 62.0 Above high normal 40.0-60.0 (mmHg) Final Oxygen [Partial pressure] in Venous blood 10/26/2023 12:50:00 24.9 Below low normal 25.0-50.0 (mmHg) Final Base excess, Capillary 10/26/2023 12:50:00 3.9 Above high normal -2.0-2.0 (mmol/L) Final Hemoglobin [Mass/volume] in Blood by Oximetry 10/26/2023 12:50:00 9.9 Below low normal 14.0-16.8 (g/dL) Final Oxyhemoglobin, Venous (FO2HB) 10/26/2023 12:50:00 32.6 Below low normal 40.0-85.0 (% total Hgb) Final Carboxyhemoglobin 10/26/2023 12:50:00 1.1 <=1.5 (% total Hgb) Final Smokers: 0-9.0 % Methemoglobin 10/26/2023 12:50:00 0.6 <= 1.5 (% total Hgb) Final Deoxyhemoglobin/Hemoglo bin.total in Venous blood 10/26/2023 12:50:00 65.7 (% total Hgb) Final Oxygen content in Venous blood 10/26/2023 12:50:00 4.6 Below low normal 7.0-18.0 (%vol) F inal Bicarbonate, Venous, POC (i-STAT) 10/26/2023 12:50:00 30.6 23.0-31.0 (mmol/L) Final Performing Location [facility]ORY [facility] [place] [address] [facility] [address]
--- OUTSIDE RECORDS SUMMARY | 2023-12-30 10:24 | External Medical Summary ---
Author Name Unknown Address Unknown Organization K01:[facility]ORY [facility] [place] [address] [place] [address] Laboratory Report Ordering Provider Test Date Status MADISYN MISHRA 10/26/2023 04:26:00 Final Observation Date Value Abnormality Reference (Units ) Status WBC, Total 10/26/2023 04:26:00 13.31 Above high normal 4.00-10.80 (K/uL) Final RBC 10/26/2023 04:26:00 2.63 4.50-5.25 (M/uL) Final Hemoglobin 10/26/2023 04:26:00 8.5 Below low normal 14.0-16.8 (g/dL) Final HCT 10/26/2023 04:26:00 27.0 Below low normal 40.0-48.4 (%) Final MCV 10/26/2023 04:26:00 102.7 82.0-99.5 (fL) Final MCH 10/26/2023 04:26:00 32.3 27.0-34.0 (pg) Final MCHC 10/26/2023 04:26:00 31.5 32.0-36.0 (g/dL) Final RDW 10/26/2023 04:26:00 14.8 11.5-15.5 (%) Final Platelets 10/26/2023 04:26:00 210 140-400 (K/uL) Final MPV 10/26/2023 04:26:00 9.3 6.6-11.1 (fL) Final Nucleated erythrocytes/100 leukocytes [Ratio] in Blood by Automated count 10/26/2023 04:26:00 0 <=0 (/100 WBCs) Final Performing Location LABORATORY [facility] [place] [address] [place] [address]
--- OUTSIDE RECORDS SUMMARY | 2023-12-30 10:24 | External Medical Summary ---
Author Name Unknown Address Unknown Organization : Laboratory Report Ordering Provider Test Date Status CHAITANYA HADLEY 10/24/2023 23:19:19 Final Observation Date Value Abnormality Reference (Units ) Status Glucose Point of Care 10/24/2023 23:19:19 142 Above high normal 70-120 (mg/dL) Final Performing Location
--- OUTSIDE RECORDS SUMMARY | 2023-12-30 10:24 | External Medical Summary ---
Author Name Unknown Address Unknown Organization K01:[place] [place] [address] [place] [address] Laboratory Report Ordering Provider Test Date Status CYRIL MCNAMARA 10/26/2023 12:50:00 Final Observation Date Value Abnormality Reference (Units ) Status Triglyceride 10/26/2023 12:50:00 126 <=174 ( mg/dL) Final Triglyceride Reference Range s (mg/dL):
<150 Acceptable
150-174 Borderline high
175-499 High
>=500 Very high Performing Location [facility] [place] [address] [place] [address]
--- OUTSIDE RECORDS SUMMARY | 2023-12-30 10:24 | External Medical Summary ---
Author Name Unknown Address Unknown Organization K01:[facility]ATORY [facility] - [address] [place] [address] Laboratory Report Ordering Provider Test Date Status OWEN DORSEY 10/25/2023 16:09:00 Final Observation Date Value Abnormality Reference (Units ) Status Magnesium 10/25/2023 16:09:00 2.1 1.5-2.6 (m g/dL) Final Performing Location LAB[facility] - [address] [place] [address]
--- OUTSIDE RECORDS SUMMARY | 2023-12-30 10:24 | External Medical Summary ---
Author Name Unknown Address Unknown Organization K01:LABORATORY [facility] [place] - [address] [facility] [address] Laboratory Report Ordering Provider Test Date Status RENAE OLIVA 10/26/2023 12:58:00 Final Aerobic bottle no growth. Observation Date Value Abnormality Reference (Units) Status Bacteria identified in Specimen by Culture 10/26/2023 12:58:00 [id number]^RAOULTEL LA PLANTICOLA Very abnormal Final Anaerobic bottle Raoultella planticola Gram Stain 10/26/2023 12:58:00 Anaerobic kathya ttle Gram negative bacilli Very abnormal Final This is an appended report. These results have been appended to a previously preliminary verified report. Performing Location LABORATORY [facility] [place] - [address] [facility] [address] Ordering Provider Test Date Status RENAE OLIVA 10/26/2023 12:58:00 Final Observation Date Value Abnormality Reference (Units) Status Ampicillin 10/26/2023 12:58:00 Resistant Final Ampicillin + Sulbactam 10/26/2023 12:58:00 4 Susceptible Final Cefepime susceptibility 10/26/2023 12:58:00 <=1 Susceptible Final cefOXitin [Susceptibility] 10/26/2023 12:58:00 16 Intermediate Final Ceftriaxone suceptibility 10/26/2023 12:58:00 <=1 Susceptible Final Ciprofloxacin 10/26/2023 12:58:00 <=0.25 Susceptible Final Gentamicin susceptibility 10/26/2023 12:58:00 <=1 Susceptible Final Piperacillin + Tazobactamsusceptibility 10/26/2023 12:58:00 <=4 Susceptible Final TMP-SMZ susceptibility 10/26/2023 12:58:00 <=20 Susceptible Final Test: Culture, Blood (Site 2 )
Specimen Source: Blood, Venous
Specimen Type: Blood
Specimen Date: 10/26/2023 12:58 PM
Result Date: 11/01/2023 7:07 AM
Result Status: Final result
Abnormal: Yes
Resulting Lab: LABORATORY [facility] [place]
[address]
[facility] [address]

CULTURE

Anaerobic bottle Raoultella planticola (Panic)

Aerobic bottle no growth.

STAIN

Anaerobic bottle Gram negative bacilli

This is an appended report. These results have been appended to a
previously preliminary verified report.

SUSCEPTIBILITY

Raoultella
planticola
METHOD MICROBROTH DILUTIONS

AMPICILLIN -- Resistant
AMPICILLIN/SULBACTAM 4 Susceptible
CEFEPIME <=1 Susceptible
CEFOXITIN 16 Intermediate
CEFTRIAXONE <=1 Susceptible
CIPROFLOXACIN <=0.25 Susceptible
GENTAMICIN <=1 Susceptible
PIPERACILLIN TAZOBACTAM <=4 Susceptible
TRIMETH/SULFAMETHOXAZOLE <=20 Susceptible

null Performing Location LABORATORY [facility] [place] - [address] [facility] [address]
--- OUTSIDE RECORDS SUMMARY | 2023-12-30 10:24 | External Medical Summary ---
Author Name Unknown Address Unknown Organization K01:LAB[facility]ATORY [facility] - [address] [place] [address] Laboratory Report Ordering Provider Test Date Status SUNITALARSLEO 10/24/2023 11:42:33 Final Observation Date Value Abnormality Reference (Units ) Status Phosphate 10/24/2023 11:42:33 3.4 2.5-4.8 (m g/dL) Final Performing Location LAB[facility] - [address] [place] [address]
--- OUTSIDE RECORDS SUMMARY | 2023-12-30 10:24 | External Medical Summary ---
Author Name Unknown Address Unknown Organization K01:LABORATORY [facility] [place] - [facility] [address] [place] [address] Laboratory Report Ordering Provider Test Date Status OWEN DORSEY 10/24/2023 11:42:33 Final Observation Date Value Abnormality Reference (Units ) Status BUN 10/24/2023 11:42:33 41 Above high normal 6-20 (mg/dL) Final Creatinine 10/24/2023 11:42:33 1.3 Above high normal 0.6-1.2 (mg/dL) Final Glomerular filtration rate/1.73 sq M.predicted [Volume Rate/Area] in Serum, Plasma or Blood by Creatinine-based formula (CKD-EPI) 10/24/2023 11:42:33 57 Below low normal >=60 (mL/min) Final eGFR is calculated based on the CKD-EPI 2020 equation Sodium 10/24/2023 11:42:33 141 135-146 (m mol/L) Final Potassium 10/24/2023 11:42:33 3.3 Below low normal 3.5 -5.1 (mmol/L) Final Cl 10/24/2023 11:42:33 108 Above high normal 98 -107 (mmol/L) Final CO2 10/24/2023 11:42:33 24 22-32 (mmo l/L) Final Anion gap 10/24/2023 11:42:33 9 7-15 (mmol /L) Final Glucose 10/24/2023 11:42:33 170 Above high normal 70 -120 (mg/dL) Final Calcium 10/24/2023 11:42:33 7.8 Below low normal 8.4 -10.2 (mg/dL) Final Performing Location LABORATORY [facility] [place] - [address] [place] [address]
--- OUTSIDE RECORDS SUMMARY | 2023-12-30 10:24 | External Medical Summary ---
Author Name Unknown Address Unknown Organization K01:LAB[facility]ATORY [facility] - [address] [place] [address] Laboratory Report Ordering Provider Test Date Status OWEN DORSEY 10/25/2023 03:31:06 Final Observation Date Value Abnormality Reference (Units ) Status Phosphate 10/25/2023 03:31:06 3.5 2.5-4.8 (m g/dL) Final Performing Location LAB[facility]ORY [facility] - [address] [place] [address]
--- OUTSIDE RECORDS SUMMARY | 2023-12-30 10:24 | External Medical Summary ---
Author Name Unknown Address Unknown Organization : Laboratory Report Ordering Provider Test Date Status CHAITANYA HADLEY 10/24/2023 11:42:20 Final Observation Date Value Abnormality Reference (Units ) Status Glucose Point of Care 10/24/2023 11:42:20 152 Above high normal 70-120 (mg/dL) Final Performing Location
--- OUTSIDE RECORDS SUMMARY | 2023-12-30 10:24 | External Medical Summary ---
Author Name Unknown Address Unknown Organization K01:LABORATORY [facility] - [address] [place] [address] Laboratory Report Ordering Provider Test Date Status OWEN DORSEY 10/25/2023 03:31:06 Final Observation Date Value Abnormality Reference (Units ) Status Magnesium 10/25/2023 03:31:06 1.9 1.5-2.6 (m g/dL) Final Performing Location LAB[facility]ATORY [facility] - [address] [place] [address]
--- OUTSIDE RECORDS SUMMARY | 2023-12-30 10:24 | External Medical Summary ---
Author Name Unknown Address Unknown Organization K01:[place] [facility] [place] [address] [place] [address] Laboratory Report Ordering Provider Test Date Status MADISYN MISHRA 10/25/2023 05:38:14 Final Observation Date Value Abnormality Reference (Units ) Status WBC, Total 10/25/2023 05:38:14 10.31 4.00-10.80 (K/uL) Final RBC 10/25/2023 05:38:14 2.53 4.50-5.25 (M/uL) Final Hemoglobin 10/25/2023 05:38:14 8.3 Below low normal 14.0-16.8 (g/dL) Final HCT 10/25/2023 05:38:14 25.6 Below low normal 40.0-48.4 (%) Final MCV 10/25/2023 05:38:14 101.2 82.0-99.5 (fL) Final MCH 10/25/2023 05:38:14 32.8 27.0-34.0 (pg) Final MCHC 10/25/2023 05:38:14 32.4 32.0-36.0 (g/dL) Final RDW 10/25/2023 05:38:14 14.5 11.5-15.5 (%) Final Platelets 10/25/2023 05:38:14 190 140-400 (K/uL) Final MPV 10/25/2023 05:38:14 9.3 6.6-11.1 (fL) Final Nucleated erythrocytes/100 leukocytes [Ratio] in Blood by Automated count 10/25/2023 05:38:14 0 <=0 (/100 WBCs) Final Performing Location [facility] [facility] [place] [address] [place] [address]
--- OUTSIDE RECORDS SUMMARY | 2023-12-30 10:24 | External Medical Summary ---
Author Name Unknown Address Unknown Organization : Laboratory Report Ordering Provider Test Date Status CHAITANYA HADLEY 10/25/2023 11:43:37 Final Observation Date Value Abnormality Reference (Units ) Status Glucose Point of Care 10/25/2023 11:43:37 157 Above high normal 70-120 (mg/dL) Final Performing Location
--- OUTSIDE RECORDS SUMMARY | 2023-12-30 10:24 | External Medical Summary ---
Author Name Unknown Address Unknown Organization K01:LABORATORY [facility] - [address] [place] [address] Laboratory Report Ordering Provider Test Date Status SUNITA,MANINGGWENDOLYN 10/25/2023 16:09:00 Final Observation Date Value Abnormality Reference (Units ) Status Phosphate 10/25/2023 16:09:00 2.8 2.5-4.8 (m g/dL) Final Performing Location LAB[facility]ATORY [facility] - [address] [place] [address]
--- OUTSIDE RECORDS SUMMARY | 2023-12-30 10:24 | External Medical Summary ---
Author Name Unknown Address Unknown Organization K01:LABORATORY [facility] [place] - [facility] [address] [place] [address] Laboratory Report Ordering Provider Test Date Status RENAE OLIVA 10/26/2023 12:50:00 Final Observation Date Value Abnormality Reference (Units ) Status WBC, Total 10/26/2023 12:50:00 13.90 Above high normal 4.00-10.80 (K/uL) Final RBC 10/26/2023 12:50:00 2.99 4.50-5.25 (M/uL) Final Hemoglobin 10/26/2023 12:50:00 9.7 Below low normal 14.0-16.8 (g/dL) Final HCT 10/26/2023 12:50:00 30.9 Below low normal 40.0-48.4 (%) Final MCV 10/26/2023 12:50:00 103.3 82.0-99.5 (fL) Final MCH 10/26/2023 12:50:00 32.4 27.0-34.0 (pg) Final MCHC 10/26/2023 12:50:00 31.4 32.0-36.0 (g/dL) Final RDW 10/26/2023 12:50:00 14.6 11.5-15.5 (%) Final Platelets 10/26/2023 12:50:00 238 140-400 (K/uL) Final MPV 10/26/2023 12:50:00 9.2 6.6-11.1 (fL) Final Nucleated erythrocytes/100 leukocytes [Ratio] in Blood by Automated count 10/26/2023 12:50:00 0 <=0 (/100 WBCs) Final Performing Location LABORATORY [facility] [place] - [address] [place] [address]
--- OUTSIDE RECORDS SUMMARY | 2023-12-30 10:24 | External Medical Summary ---
Author Name Unknown Address Unknown Organization : Laboratory Report Ordering Provider Test Date Status CHAITANYA HADLEY 10/24/2023 17:45:24 Final Observation Date Value Abnormality Reference (Units ) Status Glucose Point of Care 10/24/2023 17:45:24 136 Above high normal 70-120 (mg/dL) Final Performing Location
--- OUTSIDE RECORDS SUMMARY | 2023-12-30 10:24 | External Medical Summary ---
Author Name Unknown Address Unknown Organization K01:[place] [facility] [place] [facility] [address] [place] [address] Laboratory Report Ordering Provider Test Date Status OWEN DORSEY 10/26/2023 04:26:00 Final Observation Date Value Abnormality Reference (Units ) Status BUN 10/26/2023 04:26:00 42 Above high normal 6-20 (mg/dL) Final Creatinine 10/26/2023 04:26:00 1.4 Above high normal 0.6-1.2 (mg/dL) Final Glomerular filtration rate/1.73 sq M.predicted [Volume Rate/Area] in Serum, Plasma or Blood by Creatinine-based formula (CKD-EPI) 10/26/2023 04:26:00 56 Below low normal >=60 (mL/min) Final eGFR is calculated based on the CKD-EPI 2020 equation Sodium 10/26/2023 04:26:00 146 135-146 (m mol/L) Final Potassium 10/26/2023 04:26:00 3.3 Below low normal 3.5 -5.1 (mmol/L) Final Cl 10/26/2023 04:26:00 107 98-107 (mm ol/L) Final CO2 10/26/2023 04:26:00 30 22-32 (mmo l/L) Final Anion gap 10/26/2023 04:26:00 9 7-15 (mmol /L) Final Glucose 10/26/2023 04:26:00 161 Above high normal 70 -120 (mg/dL) Final Calcium 10/26/2023 04:26:00 7.9 Below low normal 8.4 -10.2 (mg/dL) Final Performing Location LABORATORY [facility] [place] [address] [place] [address]
--- OUTSIDE RECORDS SUMMARY | 2023-12-30 10:24 | External Medical Summary ---
Author Name Unknown Address Unknown Organization K01:[place] [facility] [facility] [place] [address] [facility] [address] Laboratory Report Ordering Provider Test Date Status RENAE OLIVA 10/26/2023 12:58:00 Final Observation Date Value Abnormality Reference (Units) Status Enterobacteriaceae DNA [Presence] by LAUREN with non-probe detection in Positive blood culture 10/26/2023 12:58:00 Positive Very abnormal Negative Final Cephalosporin resistance blaCTX-M gene [Presence] by Molecular method 10/26/2023 12:58:00 Negative Negative Final Carbapenem resistance genes [Presence] by Molecular method 10/26/2023 12:58:00 Negative Negative Final Carbapenem resistance blaKPC gene [Presence] by Molecular method 10/26/2023 12:58:00 Negative Negative Final Carbapenem resistance blaVIM gene [Presence] by Molecular method 10/26/2023 12:58:00 Negative Negative Final Carbapenem resistance kcbDPF-17-povl+blaOXA-48 -like genes [Presence] in Isolate or Specimen by Molecular genetics method 10/26/2023 12:58:00 Negative Negative Final Carbapenem resistance blaNDM gene [Presence] by Molecular method 10/26/2023 12:58:00 Negative Negative Final Blood pathogens panel by LAUREN with non-probe detection in Positive blood culture 10/26/2023 12:58:00 Negative for all other bacterial targets and resistance genes. Final This assay detects: Enteroco ccus faecalis,Enterococcus faecium, Listeria monocytogenes,Staphylococcus,Staphylococcus aureus,Staphylococcus epidermidis,Staphylococcus lugdunensis, Streptococcus,Streptococcus agalactiae, Streptococcus pneumoniae,Streptococcus pyogenes, Acinetobacter calcoaceticus-baumannii complex,Bacteriodes fragilis,Stenotrophomonas maltophilia,Enterobacterales,Enterobacter cloacae complex,Escherichia coli, Klebsiella oxytoca,Klebsiella pneumoniae,Klebsiella aerogenes,Proteus, Serratia marcescens,Salmonella spp.,Haemophilus influenzae, Neisseria meningitidis, Pseudomonas aeruginosa,Yessenia albicans,Yessenia auris,Yessenia glabrata,Yessenia krusei,Yessenia parapsilosis,Yessenia tropicalis,Cryptococcus neoformans/winter, KPC carbapenem resistance gene, mecA/C resistance gene,mecA/C MREJ (MRSA)resistance gene,Ezra/B vancomycin resistance gene,VIM resistance gene, OXA-48-like resistance gene, NDM resistance gene,MCR-1 resistance gene, IMP resistance gene and CTX-M resistance gene.

The validation of this specimen type for this assay was developed and performance characteristics determined by [employer]. It has not been cleared or approved by the U.S. Food and Drug Administration (FDA). The FDA has determined that such clearance or approval is not necessary. Performing Location LAB[facility]ATORY [address] [facility] [address]
--- OUTSIDE RECORDS SUMMARY | 2023-12-30 10:24 | External Medical Summary ---
Author Name Unknown Address Unknown Organization K01:LABORATORY [facility] [place] - [facility] [address] [place] [address] Laboratory Report Ordering Provider Test Date Status SHAWN HAWLEY 10/25/2023 03:31:06 Final Observation Date Value Abnormality Reference (Units ) Status Albumin 10/25/2023 03:31:06 1.8 Below low normal 3.8-5.0 (g/dL) Final AST (Aspartate aminotransferase) 10/25/2023 03:31:06 21 10-50 (U/L) Final Alk Phos 10/25/2023 03:31:06 59 35-130 (U/L) Final ALT (Alanine aminotransferase) 10/25/2023 03:31:06 9 Below low normal 10-50 (U/L) Final Bilirubin, Total 10/25/2023 03:31:06 0.8 <=1.2 (mg/dL) Final Bilirubin, Direct 10/25/2023 03:31:06 0.6 Above high normal 0.0-0.3 (mg/dL) Final Protein 10/25/2023 03:31:06 5.0 Below low normal 6.0-8.3 (g/dL) Final Performing Location LABORATORY [facility] [place] - [facility] [address] [place] [address]
--- OUTSIDE RECORDS SUMMARY | 2023-12-30 10:24 | External Medical Summary ---
Author Name Unknown Address Unknown Organization : Laboratory Report Ordering Provider Test Date Status CHAITANYA HADLEY 10/26/2023 05:52:18 Final Observation Date Value Abnormality Reference (Units ) Status Glucose Point of Care 10/26/2023 05:52:18 152 Above high normal 70-120 (mg/dL) Final Performing Location
--- OUTSIDE RECORDS SUMMARY | 2023-12-30 10:24 | External Medical Summary ---
Author Name Unknown Address Unknown Organization K01:LABORATORY [address] [facility] [address] Laboratory Report Ordering Provider Test Date Status CYRIL MCNAMARA 10/26/2023 10:10:00 Final Observation Date Value Abnormality Reference (Units ) Status Calcium.ionized [Moles/volume] in Serum or Plasma by Ion-selective membrane electrode (ISE) 10/26/2023 10:10:00 1.20 1.13-1.32 (mmol/L) Final This test was developed and its performance characteristics dtermined by [employer]. It has not been cleared or approved by the US Food and Drug Administration Performing Location LABORATORY [address] [facility] [address]
--- OUTSIDE RECORDS SUMMARY | 2023-12-30 10:24 | External Medical Summary ---
Author Name Unknown Address Unknown Organization K01:[place] [facility] [place] [address] [facility] [facility] [address] Laboratory Report Ordering Provider Test Date Status RNEAE OLIVA 10/26/2023 12:50:00 Final Aerobic bottle no growth. Observation Date Value Abnormality Reference (Units ) Status Bacteria identified in Specimen by Culture 10/26/2023 12:50:00 [id number]^BACTERO IDES FRAGILIS Very abnormal Final Anaerobic bottle Bacteroides fragilis Gram Stain 10/26/2023 12:50:00 Anaerobic kathya ttle Gram negative bacilli Very abnormal Final This is an appended report. These results have been appended to a previously preliminary verified report.
Test: Culture, Blood
Specimen Source: Blood, Venous
Specimen Type: Blood
Specimen Date: 10/26/2023 12:50 PM
Result Date: 11/01/2023 7:07 AM
Result Status: Final result
Abnormal: Yes
Resulting Lab: LAB[place]ATORY [facility] [place]
[address] [facility]
[place] [address]

CULTURE

Anaerobic bottle Bacteroides fragilis (Panic)

Aerobic bottle no growth.

STAIN

Anaerobic bottle Gram negative bacilli

This is an appended report. These results have been appended to a
previously preliminary verified report.

null Performing Location LAB[place]ATORY [facility] [place] [address] [facility] [address]
--- OUTSIDE RECORDS SUMMARY | 2023-12-30 10:24 | External Medical Summary ---
Author Name Unknown Address Unknown Organization K01:[place] [facility] [place] [facility] [address] [place] [address] Laboratory Report Ordering Provider Test Date Status OWEN DORSEY 10/25/2023 03:31:06 Final Observation Date Value Abnormality Reference (Units ) Status BUN 10/25/2023 03:31:06 43 Above high normal 6-20 (mg/dL) Final Creatinine 10/25/2023 03:31:06 1.3 Above high normal 0.6-1.2 (mg/dL) Final Glomerular filtration rate/1.73 sq M.predicted [Volume Rate/Area] in Serum, Plasma or Blood by Creatinine-based formula (CKD-EPI) 10/25/2023 03:31:06 57 Below low normal >=60 (mL/min) Final eGFR is calculated based on the CKD-EPI 2020 equation Sodium 10/25/2023 03:31:06 144 135-146 (m mol/L) Final Potassium 10/25/2023 03:31:06 3.2 Below low normal 3.5 -5.1 (mmol/L) Final Cl 10/25/2023 03:31:06 108 Above high normal 98 -107 (mmol/L) Final CO2 10/25/2023 03:31:06 25 22-32 (mmo l/L) Final Anion gap 10/25/2023 03:31:06 11 7-15 (mmol /L) Final Glucose 10/25/2023 03:31:06 159 Above high normal 70 -120 (mg/dL) Final Calcium 10/25/2023 03:31:06 7.6 Below low normal 8.4 -10.2 (mg/dL) Final Performing Location [place] [facility] [place] [address] [place] [address]
--- OUTSIDE RECORDS SUMMARY | 2023-12-30 10:24 | External Medical Summary ---
Author Name Unknown Address Unknown Organization : Laboratory Report Ordering Provider Test Date Status CHAITANYA HADLEY 10/25/2023 23:33:52 Final Observation Date Value Abnormality Reference (Units ) Status Glucose Point of Care 10/25/2023 23:33:52 151 Above high normal 70-120 (mg/dL) Final Performing Location
--- OUTSIDE RECORDS SUMMARY | 2023-12-30 10:24 | External Medical Summary ---
Author Name Unknown Address Unknown Organization : Laboratory Report Ordering Provider Test Date Status CHAITANYA HADLEY 10/26/2023 11:44:10 Final Observation Date Value Abnormality Reference (Units ) Status Glucose Point of Care 10/26/2023 11:44:10 149 Above high normal 70-120 (mg/dL) Final Performing Location
--- OUTSIDE RECORDS SUMMARY | 2023-12-30 10:24 | External Medical Summary ---
Author Name Unknown Address Unknown Organization K01:LABORATORY [facility] [place] - [facility] [address] [place] [address] Laboratory Report Ordering Provider Test Date Status OWEN DORSEY 10/25/2023 16:09:00 Final Observation Date Value Abnormality Reference (Units ) Status BUN 10/25/2023 16:09:00 41 Above high normal 6-20 (mg/dL) Final Creatinine 10/25/2023 16:09:00 1.3 Above high normal 0.6-1.2 (mg/dL) Final Glomerular filtration rate/1.73 sq M.predicted [Volume Rate/Area] in Serum, Plasma or Blood by Creatinine-based formula (CKD-EPI) 10/25/2023 16:09:00 58 Below low normal >=60 (mL/min) Final eGFR is calculated based on the CKD-EPI 2020 equation Sodium 10/25/2023 16:09:00 144 135-146 (m mol/L) Final Potassium 10/25/2023 16:09:00 3.3 Below low normal 3.5 -5.1 (mmol/L) Final Cl 10/25/2023 16:09:00 107 98-107 (mm ol/L) Final CO2 10/25/2023 16:09:00 28 22-32 (mmo l/L) Final Anion gap 10/25/2023 16:09:00 9 7-15 (mmol /L) Final Glucose 10/25/2023 16:09:00 141 Above high normal 70 -120 (mg/dL) Final Calcium 10/25/2023 16:09:00 7.9 Below low normal 8.4 -10.2 (mg/dL) Final Performing Location LABORATORY [facility] [place] - [address] [place] [address]
--- OUTSIDE RECORDS SUMMARY | 2023-12-30 10:24 | External Medical Summary ---
Author Name Unknown Address Unknown Organization : Laboratory Report Ordering Provider Test Date Status CHAITANYA HADLEY 10/25/2023 05:52:50 Final Observation Date Value Abnormality Reference (Units ) Status Glucose Point of Care 10/25/2023 05:52:50 153 Above high normal 70-120 (mg/dL) Final Performing Location
--- OUTSIDE RECORDS SUMMARY | 2023-12-30 10:24 | External Medical Summary ---
Author Name Unknown Address Unknown Organization K01:LABORATORY [facility] - [address] [place] [address] Laboratory Report Ordering Provider Test Date Status OWEN DORSEY 10/26/2023 04:26:00 Final Observation Date Value Abnormality Reference (Units ) Status Magnesium 10/26/2023 04:26:00 1.9 1.5-2.6 (m g/dL) Final Performing Location LABORATORY [facility] - [address] [place] [address]
--- OUTSIDE RECORDS SUMMARY | 2023-12-30 10:25 | External Medical Summary ---
Author Name Unknown Address Unknown Organization K01:[place] [facility] [place] [facility] [address] [place] [address] Laboratory Report Ordering Provider Test Date Status SHAWN HAWLEY 10/24/2023 03:55:30 Final Observation Date Value Abnormality Reference (Units ) Status Albumin 10/24/2023 03:55:30 1.7 Below low normal 3.8-5.0 (g/dL) Final AST (Aspartate aminotransferase) 10/24/2023 03:55:30 17 10-50 (U/L) Final Alk Phos 10/24/2023 03:55:30 59 35-130 (U/L) Final ALT (Alanine aminotransferase) 10/24/2023 03:55:30 7 Below low normal 10-50 (U/L) Final Bilirubin, Total 10/24/2023 03:55:30 0.7 <=1.2 (mg/dL) Final Bilirubin, Direct 10/24/2023 03:55:30 0.5 Above high normal 0.0-0.3 (mg/dL) Final Protein 10/24/2023 03:55:30 4.5 Below low normal 6.0-8.3 (g/dL) Final Performing Location [place] [facility] [place] [facility] [address] [place] [address]
--- OUTSIDE RECORDS SUMMARY | 2023-12-30 10:25 | External Medical Summary ---
Author Name Unknown Address Unknown Organization K01:LABORATORY [facility] [place] - [facility] [address] [place] [address] Laboratory Report Ordering Provider Test Date Status OWEN DORSEY 10/24/2023 03:55:30 Final Observation Date Value Abnormality Reference (Units ) Status BUN 10/24/2023 03:55:30 39 Above high normal 6-20 (mg/dL) Final Creatinine 10/24/2023 03:55:30 1.3 Above high normal 0.6-1.2 (mg/dL) Final Glomerular filtration rate/1.73 sq M.predicted [Volume Rate/Area] in Serum, Plasma or Blood by Creatinine-based formula (CKD-EPI) 10/24/2023 03:55:30 58 Below low normal >=60 (mL/min) Final eGFR is calculated based on the CKD-EPI 2020 equation Sodium 10/24/2023 03:55:30 141 135-146 (m mol/L) Final Potassium 10/24/2023 03:55:30 3.5 3.5-5.1 (m mol/L) Final Cl 10/24/2023 03:55:30 109 Above high normal 98 -107 (mmol/L) Final CO2 10/24/2023 03:55:30 22 22-32 (mmo l/L) Final Anion gap 10/24/2023 03:55:30 10 7-15 (mmol /L) Final Glucose 10/24/2023 03:55:30 160 Above high normal 70 -120 (mg/dL) Final Calcium 10/24/2023 03:55:30 7.4 Below low normal 8.4 -10.2 (mg/dL) Final Performing Location LABORATORY [facility] [place] - [address] [place] [address]
--- OUTSIDE RECORDS SUMMARY | 2023-12-30 10:25 | External Medical Summary ---
Author Name Unknown Address Unknown Organization : Laboratory Report Ordering Provider Test Date Status CHAITANYA HADLEY 10/24/2023 00:04:34 Final Observation Date Value Abnormality Reference (Units ) Status Glucose Point of Care 10/24/2023 00:04:34 147 Above high normal 70-120 (mg/dL) Final Performing Location
--- OUTSIDE RECORDS SUMMARY | 2023-12-30 10:25 | External Medical Summary ---
Author Name Unknown Address Unknown Organization K01:LABORATORY [facility] - [address] [place] [address] Laboratory Report Ordering Provider Test Date Status SUNITALARSLEO 10/24/2023 03:55:30 Final Observation Date Value Abnormality Reference (Units ) Status Phosphate 10/24/2023 03:55:30 3.2 2.5-4.8 (m g/dL) Final Performing Location LABORATORY [facility] - [address] [place] [address]
--- OUTSIDE RECORDS SUMMARY | 2023-12-30 10:25 | External Medical Summary ---
Author Name Unknown Address Unknown Organization : Laboratory Report Ordering Provider Test Date Status CHAITANYA HADLEY 10/23/2023 17:44:18 Final Observation Date Value Abnormality Reference (Units ) Status Glucose Point of Care 10/23/2023 17:44:18 100 70-120 (mg/dL) Final Performing Location
--- OUTSIDE RECORDS SUMMARY | 2023-12-30 10:25 | External Medical Summary ---
Author Name Unknown Address Unknown Organization : Laboratory Report Ordering Provider Test Date Status CHAITANYA HADLEY 10/23/2023 11:33:43 Final Observation Date Value Abnormality Reference (Units ) Status Glucose Point of Care 10/23/2023 11:33:43 95 70-120 (mg/dL) Final Performing Location
--- OUTSIDE RECORDS SUMMARY | 2023-12-30 10:25 | External Medical Summary ---
Author Name Unknown Address Unknown Organization K01:LABORATORY [facility] - [address] [place] [address] Laboratory Report Ordering Provider Test Date Status SUNITA,MANINGGWENDOLYN 10/23/2023 15:18:15 Final Observation Date Value Abnormality Reference (Units ) Status Phosphate 10/23/2023 15:18:15 3.8 2.5-4.8 (m g/dL) Final Performing Location LABORATORY [facility] - [address] [place] [address]
--- OUTSIDE RECORDS SUMMARY | 2023-12-30 10:25 | External Medical Summary ---
Author Name Unknown Address Unknown Organization K01:LABORATORY [facility] - [address] [place] [address] Laboratory Report Ordering Provider Test Date Status OWEN DORSEY 10/23/2023 04:02:09 Final Observation Date Value Abnormality Reference (Units ) Status Magnesium 10/23/2023 04:02:09 2.0 1.5-2.6 (m g/dL) Final Performing Location LABORATORY [facility] - [address] [place] [address]
--- OUTSIDE RECORDS SUMMARY | 2023-12-30 10:25 | External Medical Summary ---
Author Name Unknown Address Unknown Organization : Laboratory Report Ordering Provider Test Date Status CHAITANYA HADLEY 10/24/2023 05:50:08 Final Observation Date Value Abnormality Reference (Units ) Status Glucose Point of Care 10/24/2023 05:50:08 169 Above high normal 70-120 (mg/dL) Final Performing Location
--- OUTSIDE RECORDS SUMMARY | 2023-12-30 10:25 | External Medical Summary ---
Author Name Unknown Address Unknown Organization K01:[place] [facility] [place] [facility] [address] [facility] [address] Laboratory Report Ordering Provider Test Date Status OWEN DORSEY 10/23/2023 15:18:15 Final Observation Date Value Abnormality Reference (Units ) Status BUN 10/23/2023 15:18:15 38 Above high normal 6-20 (mg/dL) Final Creatinine 10/23/2023 15:18:15 1.4 Above high normal 0.6-1.2 (mg/dL) Final Glomerular filtration rate/1.73 sq M.predicted [Volume Rate/Area] in Serum, Plasma or Blood by Creatinine-based formula (CKD-EPI) 10/23/2023 15:18:15 52 Below low normal >=60 (mL/min) Final eGFR is calculated based on the CKD-EPI 2020 equation Sodium 10/23/2023 15:18:15 137 135-146 (m mol/L) Final Potassium 10/23/2023 15:18:15 3.7 3.5-5.1 (m mol/L) Final Cl 10/23/2023 15:18:15 106 98-107 (mm ol/L) Final CO2 10/23/2023 15:18:15 22 22-32 (mmo l/L) Final Anion gap 10/23/2023 15:18:15 9 7-15 (mmol /L) Final Glucose 10/23/2023 15:18:15 102 70-120 (mg /dL) Final Calcium 10/23/2023 15:18:15 7.2 Below low normal 8.4 -10.2 (mg/dL) Final Performing Location [place]ORY [facility] [place] [address] [facility] [place] [address]
--- OUTSIDE RECORDS SUMMARY | 2023-12-30 10:25 | External Medical Summary ---
Author Name Unknown Address Unknown Organization K01:LABORATORY [facility] - [address] [place] [address] Laboratory Report Ordering Provider Test Date Status OWEN DORSEY 10/23/2023 15:18:15 Final Observation Date Value Abnormality Reference (Units ) Status Magnesium 10/23/2023 15:18:15 1.9 1.5-2.6 (m g/dL) Final Performing Location LABORATORY [facility] - [address] [place] [address]
--- OUTSIDE RECORDS SUMMARY | 2023-12-30 10:25 | External Medical Summary ---
Author Name Unknown Address Unknown Organization K01:LABORATORY [facility] [place] - [address] [place] [address] Laboratory Report Ordering Provider Test Date Status MADISYN MISHRA 10/24/2023 05:50:40 Final Observation Date Value Abnormality Reference (Units ) Status WBC, Total 10/24/2023 05:50:40 11.13 Above high normal 4.00-10.80 (K/uL) Final RBC 10/24/2023 05:50:40 2.42 4.50-5.25 (M/uL) Final Hemoglobin 10/24/2023 05:50:40 7.8 Below low normal 14.0-16.8 (g/dL) Final HCT 10/24/2023 05:50:40 24.8 Below low normal 40.0-48.4 (%) Final MCV 10/24/2023 05:50:40 102.5 82.0-99.5 (fL) Final MCH 10/24/2023 05:50:40 32.2 27.0-34.0 (pg) Final MCHC 10/24/2023 05:50:40 31.5 32.0-36.0 (g/dL) Final RDW 10/24/2023 05:50:40 14.6 11.5-15.5 (%) Final Platelets 10/24/2023 05:50:40 168 140-400 (K/uL) Final MPV 10/24/2023 05:50:40 9.2 6.6-11.1 (fL) Final Nucleated erythrocytes/100 leukocytes [Ratio] in Blood by Automated count 10/24/2023 05:50:40 0 <=0 (/100 WBCs) Final Performing Location LABORATORY [facility] [place] - [address] [place] [address]
--- OUTSIDE RECORDS SUMMARY | 2023-12-30 10:25 | External Medical Summary ---
Author Name Unknown Address Unknown Organization K01:LABORATORY [facility] - [address] [place] [address] Laboratory Report Ordering Provider Test Date Status OWEN DORSEY 10/23/2023 04:02:09 Final Observation Date Value Abnormality Reference (Units ) Status Phosphate 10/23/2023 04:02:09 3.4 2.5-4.8 (m g/dL) Final Performing Location LABORATORY [facility] - [address] [place] [address]
--- OUTSIDE RECORDS SUMMARY | 2023-12-30 10:25 | External Medical Summary ---
Author Name Unknown Address Unknown Organization K01:LABORATORY [address] [facility] [address] Laboratory Report Ordering Provider Test Date Status CYRIL MCNAMARA 10/23/2023 09:35:54 Final Observation Date Value Abnormality Reference (Units ) Status Calcium.ionized [Moles/volume] in Serum or Plasma by Ion-selective membrane electrode (ISE) 10/23/2023 09:35:54 1.15 1.13-1.32 (mmol/L) Final This test was developed and its performance characteristics dtermined by [facility]. It has not been cleared or approved by the [place] Food and Drug Administration Performing Location LABORATORY [address] [facility] [address]
--- OUTSIDE RECORDS SUMMARY | 2023-12-30 10:25 | External Medical Summary ---
Author Name Unknown Address Unknown Organization K01:[place]ORATORY [facility] [place] [facility] [address] [place] [address] Laboratory Report Ordering Provider Test Date Status SHAWN HAWLEY 10/23/2023 04:02:09 Final Observation Date Value Abnormality Reference (Units ) Status Albumin 10/23/2023 04:02:09 1.8 Below low normal 3.8-5.0 (g/dL) Final AST (Aspartate aminotransferase) 10/23/2023 04:02:09 15 10-50 (U/L) Final Alk Phos 10/23/2023 04:02:09 44 35-130 (U/L) Final ALT (Alanine aminotransferase) 10/23/2023 04:02:09 5 Below low normal 10-50 (U/L) Final Bilirubin, Total 10/23/2023 04:02:09 0.5 <=1.2 (mg/dL) Final Bilirubin, Direct 10/23/2023 04:02:09 0.4 Above high normal 0.0-0.3 (mg/dL) Final Protein 10/23/2023 04:02:09 4.4 Below low normal 6.0-8.3 (g/dL) Final Performing Location LABORATORY [facility] [place] - [address] [place] [address]
--- OUTSIDE RECORDS SUMMARY | 2023-12-30 10:25 | External Medical Summary ---
Author Name Unknown Address Unknown Organization : Laboratory Report Ordering Provider Test Date Status CHAITANYA HADLEY 10/23/2023 00:07:08 Final Observation Date Value Abnormality Reference (Units ) Status Glucose Point of Care 10/23/2023 00:07:08 134 Above high normal 70-120 (mg/dL) Final Performing Location
--- OUTSIDE RECORDS SUMMARY | 2023-12-30 10:25 | External Medical Summary ---
Author Name Unknown Address Unknown Organization K01:LABORATORY [facility] [place] - [facility] [address] [place] [address] Laboratory Report Ordering Provider Test Date Status OWEN DORSEY 10/23/2023 04:02:09 Final Observation Date Value Abnormality Reference (Units ) Status BUN 10/23/2023 04:02:09 36 Above high normal 6-20 (mg/dL) Final Creatinine 10/23/2023 04:02:09 1.3 Above high normal 0.6-1.2 (mg/dL) Final Glomerular filtration rate/1.73 sq M.predicted [Volume Rate/Area] in Serum, Plasma or Blood by Creatinine-based formula (CKD-EPI) 10/23/2023 04:02:09 58 Below low normal >=60 (mL/min) Final eGFR is calculated based on the CKD-EPI 2020 equation Sodium 10/23/2023 04:02:09 138 135-146 (m mol/L) Final Potassium 10/23/2023 04:02:09 3.3 Below low normal 3.5 -5.1 (mmol/L) Final Cl 10/23/2023 04:02:09 109 Above high normal 98 -107 (mmol/L) Final CO2 10/23/2023 04:02:09 21 Below low normal 22- 32 (mmol/L) Final Anion gap 10/23/2023 04:02:09 8 7-15 (mmol /L) Final Glucose 10/23/2023 04:02:09 105 70-120 (mg /dL) Final Calcium 10/23/2023 04:02:09 7.2 Below low normal 8.4 -10.2 (mg/dL) Final Performing Location LABORATORY [facility] [place] - [address] [place] [address]
--- OUTSIDE RECORDS SUMMARY | 2023-12-30 10:25 | External Medical Summary ---
Author Name Unknown Address Unknown Organization [id number]:LABORATORY [facility] [place] - [address] [place] [address] Laboratory Report Ordering Provider Test Date Status MADISYN MISHRA 10/23/2023 05:55:47 Final Observation Date Value Abnormality Reference (Units ) Status WBC, Total 10/23/2023 05:55:47 14.26 Above high normal 4.00-10.80 (K/uL) Final RBC 10/23/2023 05:55:47 2.60 4.50-5.25 (M/uL) Final Hemoglobin 10/23/2023 05:55:47 8.4 Below low normal 14.0-16.8 (g/dL) Final HCT 10/23/2023 05:55:47 26.0 Below low normal 40.0-48.4 (%) Final MCV 10/23/2023 05:55:47 100.0 82.0-99.5 (fL) Final MCH 10/23/2023 05:55:47 32.3 27.0-34.0 (pg) Final MCHC 10/23/2023 05:55:47 32.3 32.0-36.0 (g/dL) Final RDW 10/23/2023 05:55:47 14.4 11.5-15.5 (%) Final Platelets 10/23/2023 05:55:47 163 140-400 (K/uL) Final MPV 10/23/2023 05:55:47 9.2 6.6-11.1 (fL) Final Nucleated erythrocytes/100 leukocytes [Ratio] in Blood by Automated count 10/23/2023 05:55:47 0 <=0 (/100 WBCs) Final Performing Location LABORATORY [facility] [place] - [address] [place] [address]
--- OUTSIDE RECORDS SUMMARY | 2023-12-30 10:25 | External Medical Summary ---
Author Name Unknown Address Unknown Organization : Laboratory Report Ordering Provider Test Date Status CHAITANYA HADLEY 10/23/2023 05:54:41 Final Observation Date Value Abnormality Reference (Units ) Status Glucose Point of Care 10/23/2023 05:54:41 108 70-120 (mg/dL) Final Performing Location
--- OUTSIDE RECORDS SUMMARY | 2023-12-30 10:25 | External Medical Summary ---
Author Name Unknown Address Unknown Organization [id number]:[facility]ATORY [facility] - [address] [place] [address] Laboratory Report Ordering Provider Test Date Status OWEN DORSEY 10/24/2023 03:55:30 Final Observation Date Value Abnormality Reference (Units ) Status Magnesium 10/24/2023 03:55:30 1.9 1.5-2.6 (m g/dL) Final Performing Location [facility]ATORY [facility] - [address] [place] [address]
--- OUTSIDE RECORDS SUMMARY | 2023-12-30 10:26 | External Medical Summary ---
Author Name Unknown Address Unknown Organization : Laboratory Report Ordering Provider Test Date Status CHAITANYA HADLEY 10/22/2023 11:08:36 Final Observation Date Value Abnormality Reference (Units ) Status Glucose Point of Care 10/22/2023 11:08:36 145 Above high normal 70-120 (mg/dL) Final Performing Location
--- OUTSIDE RECORDS SUMMARY | 2023-12-30 10:26 | External Medical Summary ---
Author Name Unknown Address Unknown Organization [id number]:LAB[place]ATORY [facility] [place] [address] [place] [address] Laboratory Report Ordering Provider Test Date Status SHAWN HAWLEY 10/20/2023 04:09:40 Final Observation Date Value Abnormality Reference (Units ) Status BUN 10/20/2023 04:09:40 40 Above high normal 6-20 (mg/dL) Final Creatinine 10/20/2023 04:09:40 1.9 Above high normal 0.6-1.2 (mg/dL) Final Glomerular filtration rate/1.73 sq M.predicted [Volume Rate/Area] in Serum, Plasma or Blood by Creatinine-based formula (CKD-EPI) 10/20/2023 04:09:40 37 Below low normal >=60 (mL/min) Final eGFR is calculated based on the CKD-EPI 2020 equation Sodium 10/20/2023 04:09:40 136 135-146 (m mol/L) Final Potassium 10/20/2023 04:09:40 4.0 3.5-5.1 (m mol/L) Final Cl 10/20/2023 04:09:40 108 Above high normal 98 -107 (mmol/L) Final CO2 10/20/2023 04:09:40 18 Below low normal 22- 32 (mmol/L) Final Anion gap 10/20/2023 04:09:40 10 7-15 (mmol /L) Final Glucose 10/20/2023 04:09:40 131 Above high normal 70 -120 (mg/dL) Final Calcium 10/20/2023 04:09:40 6.8 Below low normal 8.4 -10.2 (mg/dL) Final Performing Location LAB[facility]ORY [facility] [place] [address] [place] [address]
--- OUTSIDE RECORDS SUMMARY | 2023-12-30 10:26 | External Medical Summary ---
Author Name Unknown Address Unknown Organization : Laboratory Report Ordering Provider Test Date Status CHAITANYA HADLEY 10/22/2023 18:13:25 Final Observation Date Value Abnormality Reference (Units ) Status Glucose Point of Care 10/22/2023 18:13:25 146 Above high normal 70-120 (mg/dL) Final Performing Location
--- OUTSIDE RECORDS SUMMARY | 2023-12-30 10:26 | External Medical Summary ---
Author Name Unknown Address Unknown Organization : Laboratory Report Ordering Provider Test Date Status CHAITANYA HADLEY 10/21/2023 11:32:38 Final Observation Date Value Abnormality Reference (Units ) Status Glucose Point of Care 10/21/2023 11:32:38 111 70-120 (mg/dL) Final Performing Location
--- OUTSIDE RECORDS SUMMARY | 2023-12-30 10:26 | External Medical Summary ---
Author Name Unknown Address Unknown Organization [id number]:[facility] [address] [place] [address] Laboratory Report Ordering Provider Test Date Status MADISYN MISHRA 10/20/2023 05:16:05 Final Observation Date Value Abnormality Reference (Units ) Status WBC, Total 10/20/2023 05:16:05 10.53 4.00-10.8 0 (K/uL) Final RBC 10/20/2023 05:16:05 2.72 4.50-5.25 (M/uL) Final Results corrected for probab le cold agglutinin.
null Hemoglobin 10/20/2023 05:16:05 9.1 Below low normal 14 .0-16.8 (g/dL) Final HCT 10/20/2023 05:16:05 28.0 Below low normal 40. 0-48.4 (%) Final MCV 10/20/2023 05:16:05 102.9 82.0-99.5 (fL) Final MCH 10/20/2023 05:16:05 33.5 27.0-34.0 (pg) Final MCHC 10/20/2023 05:16:05 32.5 32.0-36.0 (g/dL) Final RDW 10/20/2023 05:16:05 15.0 11.5-15.5 (%) Final Platelets 10/20/2023 05:16:05 205 140-400 (K /uL) Final MPV 10/20/2023 05:16:05 8.8 6.6-11.1 ( fL) Final Nucleated erythrocytes/100 leukocytes [Ratio] in Blood by Automated count 10/20/2023 05:16:05 0 <=0 (/100 WBCs) Fi nal Performing Location LAB[facility]ORY [facility] - [address] [place] [address]
--- OUTSIDE RECORDS SUMMARY | 2023-12-30 10:26 | External Medical Summary ---
Author Name Unknown Address Unknown Organization [id number]:LABORATORY [facility] [place] - [facility] [address] [place] [address] Laboratory Report Ordering Provider Test Date Status OWEN DORSEY 10/22/2023 14:56:28 Final Observation Date Value Abnormality Reference (Units ) Status BUN 10/22/2023 14:56:28 37 Above high normal 6-20 (mg/dL) Final Creatinine 10/22/2023 14:56:28 1.3 Above high normal 0.6-1.2 (mg/dL) Final Glomerular filtration rate/1.73 sq M.predicted [Volume Rate/Area] in Serum, Plasma or Blood by Creatinine-based formula (CKD-EPI) 10/22/2023 14:56:28 59 Below low normal >=60 (mL/min) Final eGFR is calculated based on the CKD-EPI 2020 equation Sodium 10/22/2023 14:56:28 135 135-146 (m mol/L) Final Potassium 10/22/2023 14:56:28 3.3 Below low normal 3.5 -5.1 (mmol/L) Final Cl 10/22/2023 14:56:28 107 98-107 (mm ol/L) Final CO2 10/22/2023 14:56:28 20 Below low normal 22- 32 (mmol/L) Final Anion gap 10/22/2023 14:56:28 8 7-15 (mmol /L) Final Glucose 10/22/2023 14:56:28 160 Above high normal 70 -120 (mg/dL) Final Calcium 10/22/2023 14:56:28 7.4 Below low normal 8.4 -10.2 (mg/dL) Final Performing Location LABORATORY [facility] [place] - [address] [place] [address]
--- OUTSIDE RECORDS SUMMARY | 2023-12-30 10:26 | External Medical Summary ---
Author Name Unknown Address Unknown Organization [id number]:LABORATORY [facility] [place] - [address] [place] [address] Laboratory Report Ordering Provider Test Date Status MADISYN MISHRA 10/22/2023 05:41:37 Final Observation Date Value Abnormality Reference (Units ) Status WBC, Total 10/22/2023 05:41:37 14.78 Above high normal 4.00-10.80 (K/uL) Final RBC 10/22/2023 05:41:37 2.83 4.50-5.25 (M/uL) Final Hemoglobin 10/22/2023 05:41:37 9.2 Below low normal 14.0-16.8 (g/dL) Final HCT 10/22/2023 05:41:37 28.5 Below low normal 40.0-48.4 (%) Final MCV 10/22/2023 05:41:37 100.7 82.0-99.5 (fL) Final MCH 10/22/2023 05:41:37 32.5 27.0-34.0 (pg) Final MCHC 10/22/2023 05:41:37 32.3 32.0-36.0 (g/dL) Final RDW 10/22/2023 05:41:37 14.1 11.5-15.5 (%) Final Platelets 10/22/2023 05:41:37 182 140-400 (K/uL) Final MPV 10/22/2023 05:41:37 8.7 6.6-11.1 (fL) Final Nucleated erythrocytes/100 leukocytes [Ratio] in Blood by Automated count 10/22/2023 05:41:37 0 <=0 (/100 WBCs) Final Performing Location LABORATORY [facility] [place] - [address] [place] [address]
--- OUTSIDE RECORDS SUMMARY | 2023-12-30 10:26 | External Medical Summary ---
Author Name Unknown Address Unknown Organization K01:LABORATORY [facility] - [address] [place] [address] Laboratory Report Ordering Provider Test Date Status SUNITAMARKIEGWENDOLYN 10/19/2023 18:04:07 Final Observation Date Value Abnormality Reference (Units ) Status Phosphate 10/19/2023 18:04:07 4.9 Above high normal 2. 5-4.8 (mg/dL) Final Performing Location [facility]ORY [facility] - [address] [place] [address]
--- OUTSIDE RECORDS SUMMARY | 2023-12-30 10:26 | External Medical Summary ---
Author Name Unknown Address Unknown Organization : Laboratory Report Ordering Provider Test Date Status CHAITANYA HADLEY 10/22/2023 00:58:43 Final Observation Date Value Abnormality Reference (Units ) Status Glucose Point of Care 10/22/2023 00:58:43 148 Above high normal 70-120 (mg/dL) Final Performing Location
--- OUTSIDE RECORDS SUMMARY | 2023-12-30 10:26 | External Medical Summary ---
Author Name Unknown Address Unknown Organization : Laboratory Report Ordering Provider Test Date Status CHAITANYA HADLEY 10/20/2023 05:17:27 Final Observation Date Value Abnormality Reference (Units ) Status Glucose Point of Care 10/20/2023 05:17:27 132 Above high normal 70-120 (mg/dL) Final Performing Location
--- OUTSIDE RECORDS SUMMARY | 2023-12-30 10:26 | External Medical Summary ---
Author Name Unknown Address Unknown Organization K01:LAB[facility]ATORY [facility] - [address] [place] [address] Laboratory Report Ordering Provider Test Date Status OWEN DORSEY 10/19/2023 18:04:07 Final Observation Date Value Abnormality Reference (Units ) Status Magnesium 10/19/2023 18:04:07 2.0 1.5-2.6 (m g/dL) Final Performing Location LAB[facility] - [address] [place] [address]
--- OUTSIDE RECORDS SUMMARY | 2023-12-30 10:26 | External Medical Summary ---
Author Name Unknown Address Unknown Organization K01:[place]ORY [facility] [place] - [address] [place] [address] Laboratory Report Ordering Provider Test Date Status SHAWN HAWLEY 10/19/2023 22:01:03 Final Observation Date Value Abnormality Reference (Units ) Status Lactic Acid 10/19/2023 22:01:03 2.7 Above high normal 0.4-2.0 (mmol/L) Final Performing Location LAB[facility]ATORY [facility] - [address] [place] [address]
--- OUTSIDE RECORDS SUMMARY | 2023-12-30 10:26 | External Medical Summary ---
Author Name Unknown Address Unknown Organization : Laboratory Report Ordering Provider Test Date Status CHAITANYA HADLEY 10/22/2023 05:47:48 Final Observation Date Value Abnormality Reference (Units ) Status Glucose Point of Care 10/22/2023 05:47:48 145 Above high normal 70-120 (mg/dL) Final Performing Location
--- OUTSIDE RECORDS SUMMARY | 2023-12-30 10:26 | External Medical Summary ---
Author Name Unknown Address Unknown Organization K01:LAB[facility]ATORY [facility] - [address] [place] [address] Laboratory Report Ordering Provider Test Date Status MARKIE DORSEYGWENDOLYN 10/22/2023 04:48:43 Final Observation Date Value Abnormality Reference (Units ) Status Phosphate 10/22/2023 04:48:43 2.0 Below low normal 2.5 -4.8 (mg/dL) Final Performing Location [facility] - [address] [place] [address]
--- OUTSIDE RECORDS SUMMARY | 2023-12-30 10:26 | External Medical Summary ---
Author Name Unknown Address Unknown Organization K01:LAB[facility]ATORY [facility] - [address] [place] [address] Laboratory Report Ordering Provider Test Date Status SUNITALARSLEO 10/20/2023 18:09:40 Final Observation Date Value Abnormality Reference (Units ) Status Phosphate 10/20/2023 18:09:40 4.2 2.5-4.8 (m g/dL) Final Performing Location LAB[facility] - [address] [place] [address]
--- OUTSIDE RECORDS SUMMARY | 2023-12-30 10:26 | External Medical Summary ---
Author Name Unknown Address Unknown Organization K01:LABORATORY [facility] – [place] - [facility] [address] [place] [address] Laboratory Report Ordering Provider Test Date Status SHAWN HAWLEY 10/21/2023 04:00:22 Final Observation Date Value Abnormality Reference (Units ) Status BUN 10/21/2023 04:00:22 39 Above high normal 6-20 (mg/dL) Final Creatinine 10/21/2023 04:00:22 1.6 Above high normal 0.6-1.2 (mg/dL) Final Glomerular filtration rate/1.73 sq M.predicted [Volume Rate/Area] in Serum, Plasma or Blood by Creatinine-based formula (CKD-EPI) 10/21/2023 04:00:22 48 Below low normal >=60 (mL/min) Final eGFR is calculated based on the CKD-EPI 2020 equation Sodium 10/21/2023 04:00:22 132 Below low normal 135 -146 (mmol/L) Final Potassium 10/21/2023 04:00:22 3.7 3.5-5.1 (m mol/L) Final Cl 10/21/2023 04:00:22 105 98-107 (mm ol/L) Final CO2 10/21/2023 04:00:22 19 Below low normal 22- 32 (mmol/L) Final Anion gap 10/21/2023 04:00:22 8 7-15 (mmol /L) Final Glucose 10/21/2023 04:00:22 115 70-120 (mg /dL) Final Calcium 10/21/2023 04:00:22 7.0 Below low normal 8.4 -10.2 (mg/dL) Final Performing Location LABORATORY [facility] [place] - [address] [place] [address]
--- OUTSIDE RECORDS SUMMARY | 2023-12-30 10:26 | External Medical Summary ---
Author Name Unknown Address Unknown Organization K01:[facility]ATORY [facility] - [address] [place] [address] Laboratory Report Ordering Provider Test Date Status OWEN DORSEY 10/20/2023 05:16:05 Final Observation Date Value Abnormality Reference (Units ) Status Magnesium 10/20/2023 05:16:05 1.9 1.5-2.6 (m g/dL) Final Performing Location LAB[facility] - [address] [place] [address]
--- OUTSIDE RECORDS SUMMARY | 2023-12-30 10:26 | External Medical Summary ---
Author Name Unknown Address Unknown Organization K01:LABORATORY [facility] - [address] [place] [address] Laboratory Report Ordering Provider Test Date Status SUNITA,MANINGGWENDOLYN 10/21/2023 05:33:14 Final Observation Date Value Abnormality Reference (Units ) Status Phosphate 10/21/2023 05:33:14 3.1 2.5-4.8 (m g/dL) Final Performing Location [facility] - [address] [place] [address]
--- OUTSIDE RECORDS SUMMARY | 2023-12-30 10:26 | External Medical Summary ---
Author Name Unknown Address Unknown Organization : Laboratory Report Ordering Provider Test Date Status CHAITANYA HADLEY 10/19/2023 17:54:43 Final Observation Date Value Abnormality Reference (Units ) Status Glucose Point of Care 10/19/2023 17:54:43 121 Above high normal 70-120 (mg/dL) Final Performing Location
--- OUTSIDE RECORDS SUMMARY | 2023-12-30 10:26 | External Medical Summary ---
Author Name Unknown Address Unknown Organization K01:[place] [facility] [place] [facility] [place] [address] [place] [address] Laboratory Report Ordering Provider Test Date Status OWEN DORSEY 10/22/2023 04:48:43 Final Observation Date Value Abnormality Reference (Units ) Status BUN 10/22/2023 04:48:43 37 Above high normal 6-20 (mg/dL) Final Creatinine 10/22/2023 04:48:43 1.3 Above high normal 0.6-1.2 (mg/dL) Final Glomerular filtration rate/1.73 sq M.predicted [Volume Rate/Area] in Serum, Plasma or Blood by Creatinine-based formula (CKD-EPI) 10/22/2023 04:48:43 59 Below low normal >=60 (mL/min) Final eGFR is calculated based on the CKD-EPI 2020 equation Sodium 10/22/2023 04:48:43 135 135-146 (m mol/L) Final Potassium 10/22/2023 04:48:43 3.5 3.5-5.1 (m mol/L) Final Cl 10/22/2023 04:48:43 106 98-107 (mm ol/L) Final CO2 10/22/2023 04:48:43 20 Below low normal 22- 32 (mmol/L) Final Anion gap 10/22/2023 04:48:43 9 7-15 (mmol /L) Final Glucose 10/22/2023 04:48:43 155 Above high normal 70 -120 (mg/dL) Final Calcium 10/22/2023 04:48:43 7.2 Below low normal 8.4 -10.2 (mg/dL) Final Performing Location [place] [facility] [place] [address] [place] [address]
--- OUTSIDE RECORDS SUMMARY | 2023-12-30 10:26 | External Medical Summary ---
Author Name Unknown Address Unknown Organization : Laboratory Report Ordering Provider Test Date Status CHAITANYA HADLEY 10/20/2023 23:19:00 Final Observation Date Value Abnormality Reference (Units ) Status Glucose Point of Care 10/20/2023 23:19:00 98 70-120 (mg/dL) Final Performing Location
--- OUTSIDE RECORDS SUMMARY | 2023-12-30 10:26 | External Medical Summary ---
Author Name Unknown Address Unknown Organization : Laboratory Report Ordering Provider Test Date Status CHAITANYA HADLEY 10/20/2023 12:22:59 Final Observation Date Value Abnormality Reference (Units ) Status Glucose Point of Care 10/20/2023 12:22:59 121 Above high normal 70-120 (mg/dL) Final Performing Location
--- OUTSIDE RECORDS SUMMARY | 2023-12-30 10:26 | External Medical Summary ---
Author Name Unknown Address Unknown Organization : Laboratory Report Ordering Provider Test Date Status CHAITANYA HADLEY 10/19/2023 23:17:25 Final Observation Date Value Abnormality Reference (Units ) Status Glucose Point of Care 10/19/2023 23:17:25 126 Above high normal 70-120 (mg/dL) Final Performing Location
--- OUTSIDE RECORDS SUMMARY | 2023-12-30 10:26 | External Medical Summary ---
Author Name Unknown Address Unknown Organization K01:[facility]ORY [facility] - [address] [place] [address] Laboratory Report Ordering Provider Test Date Status SUNITALARSLEO 10/22/2023 14:56:28 Final Observation Date Value Abnormality Reference (Units ) Status Phosphate 10/22/2023 14:56:28 3.4 2.5-4.8 (m g/dL) Final Performing Location [facility] - [address] [place] [address]
--- OUTSIDE RECORDS SUMMARY | 2023-12-30 10:26 | External Medical Summary | Summary of Care ---
Author Name Unknown Organization [facility] Address [address] [place] [address] Phone [phone] Care Team Providers Care Unix System Administrator Name Role Phone Valdemar Segundo PA-C Primary Care Provider [phone] Reason for Visit * Auth/Cert Specialty Diagnoses / Procedures Referred By Contac t Referred To Contact Diagnoses Infrarenal abdominal aortic aneurysm (AAA) without rupture (HCC) Infrarenal abdominal aortic aneurysm (AAA) without rupture (HCC) [I71.43] Procedures ANEUR AORTA INVOL RENALS,MESEN REPAIR ANEURYSM ABDOMINAL AORTA INVOLVING VISCERAL MUSCLES Gregory Le MD [address] [place] [address] Or [facility] [address] [place] [address] Referral ID Status Reason Start Date Expiration Date Visits Re quested Visits Authorized [id number] Encounter Details Date Type Department Care Team (Latest Contact Info) Description 10/18/2023 8:43 AM EDT - 10/18/2023 11:59 PM EDT Hospital Encounter Cardiac Studies [facility] [address] [place] [address] Discharge Disposition: Home - Self Care Allergies Active Allergy Reactions Criticality Noted Date Comments Penicillins Rash 09/28/2003 documented as of this encounter (statuses as of 10/19/2023) Medications Medication Sig Dispensed Refills Start Date [...] as of this encounter (statuses as of 10/19/2023) Active Problems Problem Noted Date Diagnosed Date Acute hypoxic respiratory failure 10/18/2023 On total parenteral nutrition (TPN) 10/13/2023 Ileus, postoperative 10/13/2023 Kidney dysfunction 10/13/2023 Coronary artery disease invo lving [place] coronary artery of [place] heart without angina pectoris 06/05/2023 S/P CABG (coronary artery bypass graft) 06/05/20 Infrarenal abdominal aortic aneurysm (AAA) witho ut rupture 05/30/2022 Iliac artery aneurysm, right 05/30/2022 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 Nicotine use 05/30/2022 SPRAIN CRUCIATE LIG KNEE 10/01/2003 documented as of this encounter (statuses as of 10/19/2023) Social History Tobacco Use Types Packs/Day Years [...] Description 11/14/2023 12:30 PM EDT Imaging Radiology [facility] [address] [place] [address] 11/20/2023 2:10 PM EDT Office Visit Vascular Surgery, [facility] [address] [place] [address] Gregory Le MD [address], [place] [id number] Health Maintenance Due Date Last Done Comments [...] this encounter Medical Devices Implanted Type Area Head Waitress Device Identifier Shelf Expiration Date Model / Serial / Lot Graft Bifur [id number] - [id number] Implanted:Qty : 1 on 10/03/2023 by Gregory Le MD at OR [facility] N/A: Aorta GETINGE : MAQUET [id number] 04/30/2028 [id number] / [id number] L2 Tube Feeding Jejunal Skn 0200- - [id number] Implanted:Qty : 1 on 10/18/2023 by Gregoyr Le MD at OR [facility] N/A: Abdomen [facility] 05/29/2024 0200-18 / / [id number] documented as of this encounter Procedures Procedure Name Priority Date/Time Associated Diagnosis Comments ECHO, COMPLETE (2D), TRANS-THORACIC Routine 10/18/2023 9:47 AM EDT AAA (abdominal aortic aneurysm) (HCC) documented in this encounter Visit Diagnoses Diagnosis S/P CABG (coronary artery bypass graft)- Primary Postsurgical aortocoronary bypass status Coronary artery disease involving [place] coronary artery of [place] heart without angina pectoris documented in this encounter Administered Medications Inactive Administered Medications - up to 3 most recent administrations Medication Order MAR Action Action Date Dose Rate Site perflutren lipid microsphere inj SUSP 1.956 mg 1.956 mg, Intravenous, ONCE PRN Other, For Echo Only - Suboptimal Echo Images, Starting on Sat10/18/23 at 0944, Until Sat10/18/23 at 1143, For 2 hours, Administer IVP over 45 seconds, Cardiac Studies_HODHOV Given 10/18/2023 9:45 AM EDT 1.956 mg documented in this encounter Additional Health Concerns Infection Onset Date Last Indicated Resolved Time Respiratory Rule-Out 10/18/2023 10/18/2023 024 10:54 AM EDT COVID-19 Rule-Out 10/18/2023 10/18/2023 10/18/2023 10:54 AM EDT documented as of this encounter Advance Directives [...] the patient have Health Care Power of Distiller? No Care Teams Unix System Administrator Relationship Specialty Start Date End Date Valdemar Segundo, ANGELIAC [address] [place] [address] [place] [address] PCP - General Physician Hop Worker 05/03/21 documented as of this encounter
--- OUTSIDE RECORDS SUMMARY | 2023-12-30 10:26 | External Medical Summary ---
Author Name Unknown Address Unknown Organization K01:LABORATORY [facility] - [address] [place] [address] Laboratory Report Ordering Provider Test Date Status SHAWN HAWLEY 10/21/2023 04:00:22 Final Observation Date Value Abnormality Reference (Units ) Status Albumin 10/21/2023 04:00:22 1.7 Below low normal 3.8-5.0 (g/dL) Final AST (Aspartate aminotransferase) 10/21/2023 04:00:22 19 10-50 (U/L) Final Alk Phos 10/21/2023 04:00:22 33 Below low normal 35-130 (U/L) Final ALT (Alanine aminotransferase) 10/21/2023 04:00:22 9 Below low normal 10-50 (U/L) Final Bilirubin, Total 10/21/2023 04:00:22 0.3 <=1.2 (mg/dL) Final Bilirubin, Direct 10/21/2023 04:00:22 <0.2 0.0-0.3 (mg/dL) Final Protein 10/21/2023 04:00:22 4.1 Below low normal 6.0-8.3 (g/dL) Final Performing Location LABORATORY [facility] - [address] [place] [address]
--- OUTSIDE RECORDS SUMMARY | 2023-12-30 10:26 | External Medical Summary ---
Author Name Unknown Address Unknown Organization K01:LABORATORY [facility] [place] - [address] [place] [address] Laboratory Report Ordering Provider Test Date Status MADISYN MISHRA 10/21/2023 05:33:14 Final Observation Date Value Abnormality Reference (Units ) Status WBC, Total 10/21/2023 05:33:14 8.39 4.00-10.80 (K/uL) Final RBC 10/21/2023 05:33:14 2.60 4.50-5.25 (M/uL) Final Hemoglobin 10/21/2023 05:33:14 8.5 Below low normal 14.0-16.8 (g/dL) Final HCT 10/21/2023 05:33:14 27.0 Below low normal 40.0-48.4 (%) Final MCV 10/21/2023 05:33:14 103.8 82.0-99.5 (fL) Final MCH 10/21/2023 05:33:14 32.7 27.0-34.0 (pg) Final MCHC 10/21/2023 05:33:14 31.5 32.0-36.0 (g/dL) Final RDW 10/21/2023 05:33:14 14.6 11.5-15.5 (%) Final Platelets 10/21/2023 05:33:14 173 140-400 (K/uL) Final MPV 10/21/2023 05:33:14 8.7 6.6-11.1 (fL) Final Nucleated erythrocytes/100 leukocytes [Ratio] in Blood by Automated count 10/21/2023 05:33:14 0 <=0 (/100 WBCs) Final Performing Location LABORATORY [facility] [place] - [address] [place] [address]
--- OUTSIDE RECORDS SUMMARY | 2023-12-30 10:26 | External Medical Summary ---
Author Name Unknown Address Unknown Organization K01:[facility] - [address] [place] [address] Laboratory Report Ordering Provider Test Date Status OWEN DORSEY 10/20/2023 18:09:40 Final Observation Date Value Abnormality Reference (Units ) Status Magnesium 10/20/2023 18:09:40 2.0 1.5-2.6 (m g/dL) Final Performing Location [facility] - [address] [place] [address]
--- OUTSIDE RECORDS SUMMARY | 2023-12-30 10:26 | External Medical Summary ---
Author Name Unknown Address Unknown Organization K01:[facility]ORY [facility] - [address] [place] [address] Laboratory Report Ordering Provider Test Date Status OWEN DORSEY 10/20/2023 05:16:05 Final Observation Date Value Abnormality Reference (Units ) Status Phosphate 10/20/2023 05:16:05 4.8 2.5-4.8 (m g/dL) Final Performing Location [facility] - [address] [place] [address]
--- OUTSIDE RECORDS SUMMARY | 2023-12-30 10:26 | External Medical Summary ---
Author Name Unknown Address Unknown Organization K01:[facility] - [address] [place] [address] Laboratory Report Ordering Provider Test Date Status OWEN DORSEY 10/22/2023 04:48:43 Final Observation Date Value Abnormality Reference (Units ) Status Magnesium 10/22/2023 04:48:43 1.8 1.5-2.6 (m g/dL) Final Performing Location [facility] - [address] [place] [address]
--- OUTSIDE RECORDS SUMMARY | 2023-12-30 10:26 | External Medical Summary ---
Author Name Unknown Address Unknown Organization [id number]:LABORATORY [facility] [place] - [address] [place] [address] Laboratory Report Ordering Provider Test Date Status SHAWN HAWLEY 10/20/2023 04:09:40 Final Observation Date Value Abnormality Reference (Units ) Status Lactic Acid 10/20/2023 04:09:40 1.1 0.4-2.0 (mmol/L) Final Performing Location LABORATORY C - [address] [place] [address]
--- OUTSIDE RECORDS SUMMARY | 2023-12-30 10:26 | External Medical Summary ---
Author Name Unknown Address Unknown Organization K01:LABORATORY [facility] [place] - [facility] [address] [place] [address] Laboratory Report Ordering Provider Test Date Status DUNIA JENSEN 10/19/2023 22:01:03 Final Observation Date Value Abnormality Reference (Units ) Status BUN 10/19/2023 22:01:03 41 Above high normal 6-20 (mg/dL) Final Creatinine 10/19/2023 22:01:03 2.0 Above high normal 0.6-1.2 (mg/dL) Final Glomerular filtration rate/1.73 sq M.predicted [Volume Rate/Area] in Serum, Plasma or Blood by Creatinine-based formula (CKD-EPI) 10/19/2023 22:01:03 34 Below low normal >=60 (mL/min) Final eGFR is calculated based on the CKD-EPI 2020 equation Sodium 10/19/2023 22:01:03 134 Below low normal 135 -146 (mmol/L) Final Potassium 10/19/2023 22:01:03 4.6 3.5-5.1 (m mol/L) Final Cl 10/19/2023 22:01:03 104 98-107 (mm ol/L) Final CO2 10/19/2023 22:01:03 17 Below low normal 22- 32 (mmol/L) Final Anion gap 10/19/2023 22:01:03 13 7-15 (mmol /L) Final Glucose 10/19/2023 22:01:03 134 Above high normal 70 -120 (mg/dL) Final Calcium 10/19/2023 22:01:03 6.8 Below low normal 8.4 -10.2 (mg/dL) Final Performing Location LABORATORY [facility] [place] - [address] [place] [address]
--- OUTSIDE RECORDS SUMMARY | 2023-12-30 10:26 | External Medical Summary ---
Author Name Unknown Address Unknown Organization K01:[facility]ORY [facility] - [address] [place] [address] Laboratory Report Ordering Provider Test Date Status OWEN DORSEY 10/22/2023 14:56:28 Final Observation Date Value Abnormality Reference (Units ) Status Magnesium 10/22/2023 14:56:28 2.2 1.5-2.6 (m g/dL) Final Performing Location [facility] - [address] [place] [address]
--- OUTSIDE RECORDS SUMMARY | 2023-12-30 10:26 | External Medical Summary ---
Author Name Unknown Address Unknown Organization K01:LABORATORY [facility] [place] - [facility] [address] [place] [address] Laboratory Report Ordering Provider Test Date Status SHAWN HAWLEY 10/20/2023 04:09:40 Final Observation Date Value Abnormality Reference (Units ) Status Albumin 10/20/2023 04:09:40 1.9 Below low normal 3.8-5.0 (g/dL) Final AST (Aspartate aminotransferase) 10/20/2023 04:09:40 22 10-50 (U/L) Final Alk Phos 10/20/2023 04:09:40 32 Below low normal 35-130 (U/L) Final ALT (Alanine aminotransferase) 10/20/2023 04:09:40 8 Below low normal 10-50 (U/L) Final Bilirubin, Total 10/20/2023 04:09:40 0.4 <=1.2 (mg/dL) Final Bilirubin, Direct 10/20/2023 04:09:40 0.3 0.0-0.3 (mg/dL) Final Protein 10/20/2023 04:09:40 4.0 Below low normal 6.0-8.3 (g/dL) Final Performing Location LABORATORY [facility] [place] - [address] [place] [address]
--- OUTSIDE RECORDS SUMMARY | 2023-12-30 10:26 | External Medical Summary ---
Author Name Unknown Address Unknown Organization K01:[facility]ORY [facility] - [address] [place] [address] Laboratory Report Ordering Provider Test Date Status OWEN DORSEY 10/21/2023 05:33:14 Final Observation Date Value Abnormality Reference (Units ) Status Magnesium 10/21/2023 05:33:14 2.0 1.5-2.6 (m g/dL) Final Performing Location [facility] - [address] [place] [address]
--- OUTSIDE RECORDS SUMMARY | 2023-12-30 10:26 | External Medical Summary ---
Author Name Unknown Address Unknown Organization K01:LAB[place]ORY [facility] [place] - [address] [place] [address] Laboratory Report Ordering Provider Test Date Status SHAWN HAWLEY 10/22/2023 04:48:43 Final Observation Date Value Abnormality Reference (Units ) Status Albumin 10/22/2023 04:48:43 1.7 Below low normal 3.8-5.0 (g/dL) Final AST (Aspartate aminotransferase) 10/22/2023 04:48:43 16 10-50 (U/L) Final Alk Phos 10/22/2023 04:48:43 38 35-130 (U/L) Final ALT (Alanine aminotransferase) 10/22/2023 04:48:43 <5 Below low normal 10-50 (U/L) Final Bilirubin, Total 10/22/2023 04:48:43 0.4 <=1.2 (mg/dL) Final Bilirubin, Direct 10/22/2023 04:48:43 0.2 0.0-0.3 (mg/dL) Final Protein 10/22/2023 04:48:43 4.2 Below low normal 6.0-8.3 (g/dL) Final Performing Location LAB[facility]ATORY [facility] [place] - [address] [place] [address]
--- OUTSIDE RECORDS SUMMARY | 2023-12-30 10:26 | External Medical Summary ---
Author Name Unknown Address Unknown Organization : Laboratory Report Ordering Provider Test Date Status CHAITANYA HADLEY 10/21/2023 05:32:31 Final Observation Date Value Abnormality Reference (Units ) Status Glucose Point of Care 10/21/2023 05:32:31 117 70-120 (mg/dL) Final Performing Location
--- OUTSIDE RECORDS SUMMARY | 2023-12-30 10:26 | External Medical Summary ---
Author Name Unknown Address Unknown Organization K01:[place] [place] [facility] [address] [place] [address] Laboratory Report Ordering Provider Test Date Status SHAWN HAWLEY 10/19/2023 16:10:21 Final Observation Date Value Abnormality Reference (Units ) Status BUN 10/19/2023 16:10:21 41 Above high normal 6-20 (mg/dL) Final Creatinine 10/19/2023 16:10:21 2.1 Above high normal 0.6-1.2 (mg/dL) Final Glomerular filtration rate/1.73 sq M.predicted [Volume Rate/Area] in Serum, Plasma or Blood by Creatinine-based formula (CKD-EPI) 10/19/2023 16:10:21 33 Below low normal >=60 (mL/min) Final eGFR is calculated based on the CKD-EPI 2020 equation Sodium 10/19/2023 16:10:21 134 Below low normal 135 -146 (mmol/L) Final Potassium 10/19/2023 16:10:21 5.2 Above high normal 3. 5-5.1 (mmol/L) Final Cl 10/19/2023 16:10:21 104 98-107 (mm ol/L) Final CO2 10/19/2023 16:10:21 18 Below low normal 22- 32 (mmol/L) Final Anion gap 10/19/2023 16:10:21 12 7-15 (mmol /L) Final Glucose 10/19/2023 16:10:21 141 Above high normal 70 -120 (mg/dL) Final Calcium 10/19/2023 16:10:21 7.1 Below low normal 8.4 -10.2 (mg/dL) Final Performing Location [facility] [place] [address] [place] [address]
--- OUTSIDE RECORDS SUMMARY | 2023-12-30 10:26 | External Medical Summary ---
Author Name Unknown Address Unknown Organization K01:[place] [facility] [place] [facility] [address] [place] [address] Laboratory Report Ordering Provider Test Date Status SHAWN HAWLEY 10/20/2023 16:28:32 Final Observation Date Value Abnormality Reference (Units ) Status BUN 10/20/2023 16:28:32 41 Above high normal 6-20 (mg/dL) Final Creatinine 10/20/2023 16:28:32 1.8 Above high normal 0.6-1.2 (mg/dL) Final Glomerular filtration rate/1.73 sq M.predicted [Volume Rate/Area] in Serum, Plasma or Blood by Creatinine-based formula (CKD-EPI) 10/20/2023 16:28:32 40 Below low normal >=60 (mL/min) Final eGFR is calculated based on the CKD-EPI 2020 equation Sodium 10/20/2023 16:28:32 132 Below low normal 135 -146 (mmol/L) Final Potassium 10/20/2023 16:28:32 3.8 3.5-5.1 (m mol/L) Final Cl 10/20/2023 16:28:32 105 98-107 (mm ol/L) Final CO2 10/20/2023 16:28:32 18 Below low normal 22- 32 (mmol/L) Final Anion gap 10/20/2023 16:28:32 9 7-15 (mmol /L) Final Glucose 10/20/2023 16:28:32 117 70-120 (mg /dL) Final Calcium 10/20/2023 16:28:32 6.9 Below low normal 8.4 -10.2 (mg/dL) Final Performing Location [place] [facility] [place] [address] [place] [address]
--- OUTSIDE RECORDS SUMMARY | 2023-12-30 10:27 | External Medical Summary ---
Author Name Unknown Address Unknown Organization K01:LABORATORY [facility] [place] - [address] [place] [address] Laboratory Report Ordering Provider Test Date Status JENELLE GARCIA 10/18/2023 09:02:00 Final Observation Date Value Abnormality Reference (Units) Status Bacteria identified in Specimen by Culture 10/18/2023 09:02:00 Moderate growth normal ras Final Gram Stain 10/18/2023 09:02:00 No purulence detected. <25 neutrophils/low power microscopic field. Final Gram Stain 10/18/2023 09:02:00 Occasional Polymorphonuclear leukocytes Final Gram Stain 10/18/2023 09:02:00 Rare Gram positive cocci Final Test: Culture, Respiratory, Lower, Aerobic
Specimen Source: Sputum
Specimen Type: Lower Respiratory
Specimen Date: 10/18/2023 9:02 AM
Result Date: 10/20/2023 7:54 AM
Result Status: Final result
Resulting Lab: LABORATORY [facility] [place]
[address]
[place] [address]

CULTURE

Moderate growth normal ras

STAIN

No purulence detected. <25 neutrophils/low power microscopic field.

Occasional Polymorphonuclear leukocytes

Rare Gram positive cocci

null Performing Location LABORATORY [facility] [address] [place] [address]
--- OUTSIDE RECORDS SUMMARY | 2023-12-30 10:27 | External Medical Summary ---
Author Name Unknown Address Unknown Organization K01:LABORATORY [facility] [place] - Formerly named [facility] [address] [facility] [address] Laboratory Report Ordering Provider Test Date Status CHAITANYA HADLEY 10/18/2023 18:15:00 Final Observation Date Value Abnormality Reference (Units ) Status Creatinine, Body Fluid 10/18/2023 18:15:00 1.5 (mg/dL) Final The reference interval(s) an d other method performance specifications may not be available for this body fluid. Comparison of this result with the concentration in the blood, serum, or plasma is recommended. The test result must be integrated into the clinical context for interpretation.

Please refer to test catalog ([email or web address]_[email or web address]) for additional interpretive information.

This test was developed and its performance characteristics determined by [facility]. It has not been cleared or approved by the [place] Food and Drug Administration. Performing Location LABORATORY [facility] [place] - Formerly named [facility] [address] [facility] [address]
--- OUTSIDE RECORDS SUMMARY | 2023-12-30 10:27 | External Medical Summary ---
Author Name Unknown Address Unknown Organization K01:LABORATORY [facility] [place] - [address] [place] [address] Laboratory Report Ordering Provider Test Date Status SHAWN HAWLEY 10/19/2023 05:05:33 Final Observation Date Value Abnormality Reference (Units ) Status Lactic Acid 10/19/2023 05:05:33 1.7 0.4-2.0 (mmol/L) Final Performing Location LABORATORY [facility] - [address] [place] [address]
--- OUTSIDE RECORDS SUMMARY | 2023-12-30 10:27 | External Medical Summary ---
Author Name Unknown Address Unknown Organization K01:LABORATORY [facility] [place] - [address] [place] [address] Laboratory Report Ordering Provider Test Date Status SHAWN HAWLEY 10/19/2023 05:13:00 Final Observation Date Value Abnormality Reference (Units ) Status Bacteria identified in Specimen by Culture 10/19/2023 05:13:00 No growth Final Test: Culture, Blood (Site 2)
Specimen Source: Blood, Venous
Specimen Type: Blood
Specimen Date: 10/19/2023 5:13 AM
Result Date: 10/24/2023 7:01 AM
Result Status: Final result
Resulting Lab: LABORATORY [facility] [place]
[address]
[place] [address]

CULTURE

No growth

null Performing Location LABORATORY [facility] [place] - [address] [place] [address]
--- OUTSIDE RECORDS SUMMARY | 2023-12-30 10:27 | External Medical Summary ---
Author Name Unknown Address Unknown Organization K01:LABORATORY [facility] [place] - [address] [place] [address] Laboratory Report Ordering Provider Test Date Status DUNIA JENSEN 10/18/2023 11:36:00 Final Observation Date Value Abnormality Reference (Units ) Status Lactic Acid 10/18/2023 11:36:00 1.2 0.4-2.0 (mmol/L) Final Performing Location LABORATORY [facility] - [address] [place] [address]
--- OUTSIDE RECORDS SUMMARY | 2023-12-30 10:27 | External Medical Summary ---
Author Name Unknown Address Unknown Organization K01:[facility]ORY [facility] - [address] [place] [address] Laboratory Report Ordering Provider Test Date Status SUNITALARSLEO 10/19/2023 05:05:33 Final Observation Date Value Abnormality Reference (Units ) Status Phosphate 10/19/2023 05:05:33 4.2 2.5-4.8 (m g/dL) Final Performing Location [facility] - [address] [place] [address]
--- OUTSIDE RECORDS SUMMARY | 2023-12-30 10:27 | External Medical Summary ---
Author Name Unknown Address Unknown Organization K01:LAB[facility]ATORY [facility] - [address] [place] [address] Laboratory Report Ordering Provider Test Date Status OWEN DORSEY 10/18/2023 13:52:00 Final Observation Date Value Abnormality Reference (Units ) Status Magnesium 10/18/2023 13:52:00 2.4 1.5-2.6 (m g/dL) Final Performing Location LAB[facility] - [address] [place] [address]
--- OUTSIDE RECORDS SUMMARY | 2023-12-30 10:27 | External Medical Summary ---
Author Name Unknown Address Unknown Organization K01:LABORATORY [facility] - [address] [place] [address] Laboratory Report Ordering Provider Test Date Status SUNITAMARKIEGWENDOLYN 10/19/2023 02:38:00 Final Observation Date Value Abnormality Reference (Units ) Status Phosphate 10/19/2023 02:38:00 4.7 2.5-4.8 (m g/dL) Final Performing Location [facility] - [address] [place] [address]
--- OUTSIDE RECORDS SUMMARY | 2023-12-30 10:27 | External Medical Summary ---
Author Name Unknown Address Unknown Organization : Laboratory Report Ordering Provider Test Date Status CHAITANYA HADLEY 10/18/2023 23:25:53 Final Observation Date Value Abnormality Reference (Units ) Status Glucose Point of Care 10/18/2023 23:25:53 135 Above high normal 70-120 (mg/dL) Final Performing Location
--- OUTSIDE RECORDS SUMMARY | 2023-12-30 10:27 | External Medical Summary ---
Author Name Unknown Address Unknown Organization K01:LABORATORY [facility] [place] - [address] [place] [address] Laboratory Report Ordering Provider Test Date Status SHAWN HAWLEY 10/19/2023 10:22:34 Final Observation Date Value Abnormality Reference (Units ) Status Lactic Acid 10/19/2023 10:22:34 1.7 0.4-2.0 (mmol/L) Final Performing Location LABORATORY [facility] - [address] [place] [address]
--- OUTSIDE RECORDS SUMMARY | 2023-12-30 10:27 | External Medical Summary ---
Author Name Unknown Address Unknown Organization K01:LABORATORY [facility] [place] - [address] [place] [address] Laboratory Report Ordering Provider Test Date Status DUNIA JENSEN 10/18/2023 21:50:23 Final Observation Date Value Abnormality Reference (Units ) Status WBC, Total 10/18/2023 21:50:23 12.62 Above high normal 4.00-10.80 (K/uL) Final RBC 10/18/2023 21:50:23 3.43 4.50-5.25 (M/uL) Final Hemoglobin 10/18/2023 21:50:23 11.3 Below low normal 14.0-16.8 (g/dL) Final HCT 10/18/2023 21:50:23 34.3 Below low normal 40.0-48.4 (%) Final MCV 10/18/2023 21:50:23 100.0 82.0-99.5 (fL) Final MCH 10/18/2023 21:50:23 32.9 27.0-34.0 (pg) Final MCHC 10/18/2023 21:50:23 32.9 32.0-36.0 (g/dL) Final RDW 10/18/2023 21:50:23 14.9 11.5-15.5 (%) Final Platelets 10/18/2023 21:50:23 267 140-400 (K/uL) Final MPV 10/18/2023 21:50:23 8.4 6.6-11.1 (fL) Final Nucleated erythrocytes/100 leukocytes [Ratio] in Blood by Automated count 10/18/2023 21:50:23 0 <=0 (/100 WBCs) Final Performing Location LABORATORY [facility] [place] - [address] [place] [address]
--- OUTSIDE RECORDS SUMMARY | 2023-12-30 10:27 | External Medical Summary ---
Author Name Unknown Address Unknown Organization K01:LABORATORY [facility] - [address] [place] [address] Laboratory Report Ordering Provider Test Date Status SHAWN HAWLEY 10/19/2023 05:05:59 Final Observation Date Value Abnormality Reference (Units ) Status Body temperature 10/19/2023 05:05:59 37.0 (C) Final pH of Arterial blood 10/19/2023 05:05:59 7.396 7.350-7.450 (units) Final Carbon dioxide [Partial pressure] in Arterial blood 10/19/2023 05:05:59 32.2 Below low normal 35.0-45.0 (mmHg) Final Oxygen [Partial pressure] in Arterial blood 10/19/2023 05:05:59 117.0 Above high normal 75.0-100.0 (mmHg) Final Base excess, Arterial 10/19/2023 05:05:59 -4.2 Below low normal -2.0-2.0 (mmol/L) Final Hemoglobin [Mass/volume] in Blood by Oximetry 10/19/2023 05:05:59 11.3 Below low normal 14.0-16.8 (g/dL) Final Oxyhemoglobin, Arterial (FO2HB) 10/19/2023 05:05:59 96.0 94.0-99.0 (% total Hgb) Final Carboxyhemoglobin 10/19/2023 05:05:59 2.3 Above high normal <=1.5 (% total Hgb) Final Smokers: 0-9.0 % Methemoglobin 10/19/2023 05:05:59 0.7 <=1.5 (% total Hgb) Final Deoxyhemoglobin/Hemog lobin.total in Arterial blood 10/19/2023 05:05:59 1.0 0.0-5.0 (% total Hgb) Final Oxygen content in Arterial blood 10/19/2023 05:05:59 15.4 15.0-24.0 (%vol) Final Oxygen/Total gas setting [Volume Fraction] Ventilator 10/19/2023 05:05:59 40 (%) Final O2 FLOW, [facility] - [facility] 10/19/2023 05:05:59 Not Provided (L/min) Final Bicarbonate, Venous, POC (i-STAT) 10/19/2023 05:05:59 19.4 Below low normal 23.0-31.0 (mmol/L) Final Performing Location LABORATORY [facility] - [address] [facility] [address]
--- OUTSIDE RECORDS SUMMARY | 2023-12-30 10:27 | External Medical Summary ---
Author Name Unknown Address Unknown Organization : Laboratory Report Ordering Provider Test Date Status CHAITANYA HADLEY 10/18/2023 18:13:05 Final Observation Date Value Abnormality Reference (Units) Status Blood draw [PhenX] 10/18/2023 18:13:05 Arterial Draw Final pH, POC (i-STAT) 10/18/2023 18:13:05 7.332 Below low normal 7.350-7.450 Final PCO2 POC (i-STAT) 10/18/2023 18:13:05 39.3 35.0-45.0 (mm Hg) Final PO2 POC (i-STAT) 10/18/2023 18:13:05 133 Above high normal 75-100 (mm Hg) Final Base excess standard in Arterial blood by calculation 10/18/2023 18:13:05 -5 Below low normal -2-2 (mmol/L) Final Bicarbonate, Venous, POC (i-STAT) 10/18/2023 18:13:05 20.8 Below low normal 23.0-31.0 (mmol/L) Final O2 Sat, calculated POC (i-STAT) 10/18/2023 18:13:05 99.0 Above high normal 94.0-98.0 (%) Final Glucose, whole blood 10/18/2023 18:13:05 105 70-120 (mg/dL) Final Potassium, Whole Blood 10/18/2023 18:13:05 4.7 3.5-5.1 (mmol/L) Final Sodium, Whole Blood 10/18/2023 18:13:05 133 Below low normal 135-146 (mmol/L) Final Calcium, Ionized, Whole Blood 10/18/2023 18:13:05 1.11 Below low normal 1.13-1.32 (mmol/L) Final Hemoglobin POC (i-STAT) 10/18/2023 18:13:05 9.5 Below low normal 14.0-16.8 (g/dL) Final HCT 10/18/2023 18:13:05 28 Below low normal 40-48 (%) Final Performing Location
--- OUTSIDE RECORDS SUMMARY | 2023-12-30 10:27 | External Medical Summary ---
Author Name Unknown Address Unknown Organization K01:LABORATORY [facility] - [address] [place] [address] Laboratory Report Ordering Provider Test Date Status OWEN DORSEY 10/19/2023 05:05:33 Final Observation Date Value Abnormality Reference (Units ) Status Magnesium 10/19/2023 05:05:33 1.9 1.5-2.6 (m g/dL) Final Performing Location LABORATORY [facility] - [address] [place] [address]
--- OUTSIDE RECORDS SUMMARY | 2023-12-30 10:27 | External Medical Summary ---
Author Name Unknown Address Unknown Organization K01:LABORATORY [facility] [place] - [address] [place] [address] Laboratory Report Ordering Provider Test Date Status OWEN DORSEY 10/18/2023 13:52:00 Final Observation Date Value Abnormality Reference (Units ) Status WBC, Total 10/18/2023 13:52:00 7.27 4.00-10.80 (K/uL) Final RBC 10/18/2023 13:52:00 2.92 4.50-5.25 (M/uL) Final Hemoglobin 10/18/2023 13:52:00 9.7 Below low normal 14.0-16.8 (g/dL) Final HCT 10/18/2023 13:52:00 29.4 Below low normal 40.0-48.4 (%) Final MCV 10/18/2023 13:52:00 100.7 82.0-99.5 (fL) Final MCH 10/18/2023 13:52:00 33.2 27.0-34.0 (pg) Final MCHC 10/18/2023 13:52:00 33.0 32.0-36.0 (g/dL) Final RDW 10/18/2023 13:52:00 14.6 11.5-15.5 (%) Final Platelets 10/18/2023 13:52:00 180 140-400 (K/uL) Final MPV 10/18/2023 13:52:00 8.4 6.6-11.1 (fL) Final Nucleated erythrocytes/100 leukocytes [Ratio] in Blood by Automated count 10/18/2023 13:52:00 0 <=0 (/100 WBCs) Final Performing Location LABORATORY [facility] [place] - [address] [place] [address]
--- OUTSIDE RECORDS SUMMARY | 2023-12-30 10:27 | External Medical Summary ---
Author Name Unknown Address Unknown Organization K01:LABORATORY [facility] - [address] [place] [address] Laboratory Report Ordering Provider Test Date Status MARKIE DORSEYGWENDOLYN 10/18/2023 13:52:00 Final Observation Date Value Abnormality Reference (Units ) Status Phosphate 10/18/2023 13:52:00 3.6 2.5-4.8 (m g/dL) Final Performing Location LAB[facility]ATORY [facility] - [address] [place] [address]
--- OUTSIDE RECORDS SUMMARY | 2023-12-30 10:27 | External Medical Summary ---
Author Name Unknown Address Unknown Organization : Laboratory Report Ordering Provider Test Date Status CHAITANYA HADLEY 10/18/2023 11:27:08 Final Observation Date Value Abnormality Reference (Units ) Status Glucose Point of Care 10/18/2023 11:27:08 89 70-120 (mg/dL) Final Performing Location
--- OUTSIDE RECORDS SUMMARY | 2023-12-30 10:27 | External Medical Summary ---
Author Name Unknown Address Unknown Organization K01:LABORATORY [facility] [place] [address] [place] [address] Laboratory Report Ordering Provider Test Date Status MADISYN MISHRA 10/19/2023 05:05:40 Final Observation Date Value Abnormality Reference (Units ) Status WBC, Total 10/19/2023 05:05:40 14.31 Above high normal 4.00-10.80 (K/uL) Final RBC 10/19/2023 05:05:40 3.45 4.50-5.25 (M/uL) Final Hemoglobin 10/19/2023 05:05:40 11.2 Below low normal 14.0-16.8 (g/dL) Final HCT 10/19/2023 05:05:40 35.0 Below low normal 40.0-48.4 (%) Final MCV 10/19/2023 05:05:40 101.4 82.0-99.5 (fL) Final MCH 10/19/2023 05:05:40 32.5 27.0-34.0 (pg) Final MCHC 10/19/2023 05:05:40 32.0 32.0-36.0 (g/dL) Final RDW 10/19/2023 05:05:40 14.9 11.5-15.5 (%) Final Platelets 10/19/2023 05:05:40 292 140-400 (K/uL) Final MPV 10/19/2023 05:05:40 8.9 6.6-11.1 (fL) Final Nucleated erythrocytes/100 leukocytes [Ratio] in Blood by Automated count 10/19/2023 05:05:40 0 <=0 (/100 WBCs) Final Performing Location LABORATORY [facility] [place] - [address] [place] [address]
--- OUTSIDE RECORDS SUMMARY | 2023-12-30 10:27 | External Medical Summary ---
Author Name Unknown Address Unknown Organization K01:[place]ORY [facility] [place] [address] [place] [address] Laboratory Report Ordering Provider Test Date Status CHANDANJEROMEARLETTE 10/19/2023 16:10:21 Final Observation Date Value Abnormality Reference (Units ) Status Lactic Acid 10/19/2023 16:10:21 1.6 0.4-2.0 (mmol/L) Final Performing Location LABORATORY [facility] - [address] [place] [address]
--- OUTSIDE RECORDS SUMMARY | 2023-12-30 10:27 | External Medical Summary ---
Author Name Unknown Address Unknown Organization K01:LABORATORY [facility] - [address] [place] [address] Laboratory Report Ordering Provider Test Date Status OWEN DORSEY 10/19/2023 02:38:00 Final Observation Date Value Abnormality Reference (Units ) Status Magnesium 10/19/2023 02:38:00 2.0 1.5-2.6 (m g/dL) Final Performing Location LABORATORY [facility] - [address] [place] [address]
--- OUTSIDE RECORDS SUMMARY | 2023-12-30 10:27 | External Medical Summary ---
Author Name Unknown Address Unknown Organization : Laboratory Report Ordering Provider Test Date Status CHAITANYA HADLEY 10/19/2023 11:57:56 Final Observation Date Value Abnormality Reference (Units ) Status Glucose Point of Care 10/19/2023 11:57:56 141 Above high normal 70-120 (mg/dL) Final Performing Location
--- OUTSIDE RECORDS SUMMARY | 2023-12-30 10:27 | External Medical Summary ---
Author Name Unknown Address Unknown Organization K01:LAB[facility]ATORY [facility] [place] [address] [place] [address] Laboratory Report Ordering Provider Test Date Status DUNIA JENSEN 10/18/2023 11:31:00 Final Observation Date Value Abnormality Reference (Units ) Status Troponin T 10/18/2023 11:31:00 50 Above high normal < =22 (ng/L) Final Performing Location LABORATORY [facility] [place] [address] [place] [address]
--- OUTSIDE RECORDS SUMMARY | 2023-12-30 10:27 | External Medical Summary ---
Author Name Unknown Address Unknown Organization K01:[place] [facility] [place] [facility] [address] [place] [address] Laboratory Report Ordering Provider Test Date Status SHAWN HAWLEY 10/19/2023 02:38:00 Final Observation Date Value Abnormality Reference (Units ) Status BUN 10/19/2023 02:38:00 38 Above high normal 6-20 (mg/dL) Final Creatinine 10/19/2023 02:38:00 1.6 Above high normal 0.6-1.2 (mg/dL) Final Glomerular filtration rate/1.73 sq M.predicted [Volume Rate/Area] in Serum, Plasma or Blood by Creatinine-based formula (CKD-EPI) 10/19/2023 02:38:00 48 Below low normal >=60 (mL/min) Final eGFR is calculated based on the CKD-EPI 2020 equation Sodium 10/19/2023 02:38:00 133 Below low normal 135 -146 (mmol/L) Final Potassium 10/19/2023 02:38:00 6.0 Above high normal 3. 5-5.1 (mmol/L) Final Cl 10/19/2023 02:38:00 103 98-107 (mm ol/L) Final CO2 10/19/2023 02:38:00 19 Below low normal 22- 32 (mmol/L) Final Anion gap 10/19/2023 02:38:00 11 7-15 (mmol /L) Final Glucose 10/19/2023 02:38:00 155 Above high normal 70 -120 (mg/dL) Final Calcium 10/19/2023 02:38:00 7.3 Below low normal 8.4 -10.2 (mg/dL) Final Performing Location [facility] [facility] [place] [address] [place] [address]
--- OUTSIDE RECORDS SUMMARY | 2023-12-30 10:27 | External Medical Summary ---
Author Name Unknown Address Unknown Organization K01:[place] [facility] [place] [address] [place] [address] Laboratory Report Ordering Provider Test Date Status MANSOOR MARQUEZ 10/18/2023 09:29:02 Final ADMITTED patient Observation Date Value Abnormality Reference (Units ) Status Adenovirus DNA [Presence] in Nasopharynx by LAUREN with non-probe detection 10/18/2023 09:29:02 Negative Negative Final Human coronavirus 229E RNA [Presence] in Nasopharynx by LAUREN with non-probe detection 10/18/2023 09:29:02 Negative Negative Final Human coronavirus HKU1 RNA [Presence] in Nasopharynx by LAUREN with non-probe detection 10/18/2023 09:29:02 Negative Negative Final Human coronavirus NL63 RNA [Presence] in Nasopharynx by LAUREN with non-probe detection 10/18/2023 09:29:02 Negative Negative Final Human coronavirus OC43 RNA [Presence] in Nasopharynx by LAUREN with non-probe detection 10/18/2023 09:29:02 Negative Negative Final SARS-CoV-2 (COVID-19) RNA [Presence] in Nasopharynx by LAUREN with non-probe detection 10/18/2023 09:29:02 Negative Negative Final Human metapneumovirus RNA [Presence] in Nasopharynx by LAUREN with non-probe detection 10/18/2023 09:29:02 Negative Negative Final Rhinovirus+Enterovirus RNA [Presence] in Nasopharynx by LAUREN with non-probe detection 10/18/2023 09:29:02 Negative Negative Final Influenza virus A RNA [Presence] in Nasopharynx by LAUREN with non-probe detection 10/18/2023 09:29:02 Negative Negative Final Influenza virus B RNA [Presence] in Nasopharynx by LAUREN with non-probe detection 10/18/2023 09:29:02 Negative Negative Final Parainfluenza virus 1 RNA [Presence] in Nasopharynx by LAUREN with non-probe detection 10/18/2023 09:29:02 Negative Negative Final Parainfluenza virus 2 RNA [Presence] in Nasopharynx by LAUREN with non-probe detection 10/18/2023 09:29:02 Negative Negative Final Parainfluenza virus 3 RNA [Presence] in Nasopharynx by LAUREN with non-probe detection 10/18/2023 09:29:02 Negative Negative Final Parainfluenza virus 4 RNA [Presence] in Nasopharynx by LAUREN with non-probe detection 10/18/2023 09:29:02 Negative Negative Final Respiratory syncytial virus RNA [Presence] in Nasopharynx by LAUREN with non-probe detection 10/18/2023 09:29:02 Negative Negative Final Bordetella pertussis.pertussis toxin promoter region [Presence] in Nasopharynx by LAUREN with non-probe detection 10/18/2023 09:29:02 Negative Negative Final Chlamydophila pneumoniae DNA [Presence] in Nasopharynx by LAUREN with non-probe detection 10/18/2023 09:29:02 Negative Negative Final Mycoplasma pneumoniae DNA [Presence] in Nasopharynx by LAUREN with non-probe detection 10/18/2023 09:29:02 Negative Negative Final Bordetella parapertussis [id number] DNA [Presence] in Nasopharynx by LAUREN with non-probe detection 10/18/2023 09:29:02 Negative Negative Final
The primers that detect Rhinovirus may cross react with some Enterorviruses. The validation of bronchial specimens, tracheal aspirates, and throats for this assay was developed and performance characteristics determined by [employer]. The validation of alternate specimen types has not been cleared or approved by the U.S. Food and Drug Administration (FDA). It has been determined that such clearance or approval is not necessary. Performing Location [place] [facility] [place] [facility] [address] [facility] [address] [facility] [address]
--- OUTSIDE RECORDS SUMMARY | 2023-12-30 10:27 | External Medical Summary ---
Author Name Unknown Address Unknown Organization : Laboratory Report Ordering Provider Test Date Status CHAITANYA HADLEY 10/19/2023 05:05:06 Final Observation Date Value Abnormality Reference (Units ) Status Glucose Point of Care 10/19/2023 05:05:06 159 Above high normal 70-120 (mg/dL) Final Performing Location
--- OUTSIDE RECORDS SUMMARY | 2023-12-30 10:27 | External Medical Summary ---
Author Name Unknown Address Unknown Organization K01:[place]ORY [facility] [place] [address] [place] [address] Laboratory Report Ordering Provider Test Date Status DUNIA JENSEN 10/18/2023 10:10:00 Final Observation Date Value Abnormality Reference (Units ) Status Troponin T 10/18/2023 10:10:00 51 Above high normal < =22 (ng/L) Final Performing Location [facility] [place] [address] [place] [address]
--- OUTSIDE RECORDS SUMMARY | 2023-12-30 10:27 | External Medical Summary ---
Author Name Unknown Address Unknown Organization K01:LAB[facility]ATORY [facility] [place] - [address] [place] [address] Laboratory Report Ordering Provider Test Date Status MANSOOR MARQUEZ 10/18/2023 09:29:02 Final Observation Date Value Abnormality Reference (Units ) Status Methicillin resistant Staphylococcus aureus (MRSA) DNA [Presence] in Nose by LAUREN with probe detection 10/18/2023 09:29:02 Positive Abnormal Negative Final Methicillin resistant Staphy lococcus aureus detected by PCR (amplified probe). MRSA-This patient may require isolation. Please refer to Infection Control isolation policy. Performing Location LABORATORY [facility] [place] - [address] [place] [address]
--- OUTSIDE RECORDS SUMMARY | 2023-12-30 10:27 | External Medical Summary ---
Author Name Unknown Address Unknown Organization K01:LAB[facility]ATORY [facility] [place] [facility] [place] - [address] [place] [address] Laboratory Report Ordering Provider Test Date Status OWEN DORSEY 10/18/2023 13:52:00 Final Observation Date Value Abnormality Reference (Units ) Status ABO 10/18/2023 13:52:00 O Final RH 10/18/2023 13:52:00 Positive Final RED BLOOD CELL ANTIBODY SCREEN 10/18/2023 13:52:00 Negative Final SPECIMEN EXPIRATION DATE 10/18/2023 13:52:00 10/21/2023 23:59 Final Performing Location LAB[facility]ORY [facility] [place] [facility] [facility] - [address] [place] [address]
--- OUTSIDE RECORDS SUMMARY | 2023-12-30 10:27 | External Medical Summary ---
Author Name Unknown Address Unknown Organization K01:[place] [facility] [place] [address] [place] [id number] Laboratory Report Ordering Provider Test Date Status SHAWN HAWLEY 10/19/2023 05:19:00 Final No anaerobic bottle received . Observation Date Value Abnormality Reference (Units ) Status Bacteria identified in Specimen by Culture 10/19/2023 05:19:00 No growth Final Test: Culture, Blood
Harinder wasserman Source: Blood, Venous
Specimen Type: Blood
Specimen Date: 10/19/2023 5:19 AM
Result Date: 10/24/2023 7:01 AM
Result Status: Final result
Resulting Lab: [place] [facility] [place]
[address]
[place] [id number]

CULTURE

No growth

No anaerobic bottle received.

null Performing Location [place] [facility] [place] [address] [place] [id number]
--- OUTSIDE RECORDS SUMMARY | 2023-12-30 10:27 | External Medical Summary ---
Author Name Unknown Address Unknown Organization K01:[place] [facility] [place] - [facility] [address] [facility] [address] Laboratory Report Ordering Provider Test Date Status CHAITANYA HADLEY 10/18/2023 18:15:00 Final Observation Date Value Abnormality Reference (Units ) Status Albumin, Body Fluid 10/18/2023 18:15:00 1.8 (g/dL) Final The reference interval(s) an d other method performance specifications may not be available for this body fluid. Comparison of this result with the concentration in the blood, serum, or plasma is recommended. The test result must be integrated into the clinical context for interpretation.

Please refer to test catalog ([email or web address]_[email or web address]) for additional interpretive information.

This test was developed and its performance characteristics determined by [employer]. It has not been cleared or approved by the [place] Food and Drug Administration. Performing Location LABORATORY [facility] [place] - [address] [facility] [address]
--- OUTSIDE RECORDS SUMMARY | 2023-12-30 10:27 | External Medical Summary ---
Author Name Unknown Address Unknown Organization K01:[place] [facility] [place] [facility] [address] [place] [address] Laboratory Report Ordering Provider Test Date Status OWEN DORSEY 10/18/2023 13:52:00 Final Observation Date Value Abnormality Reference (Units ) Status BUN 10/18/2023 13:52:00 39 Above high normal 6-20 (mg/dL) Final Creatinine 10/18/2023 13:52:00 1.5 Above high normal 0.6-1.2 (mg/dL) Final Glomerular filtration rate/1.73 sq M.predicted [Volume Rate/Area] in Serum, Plasma or Blood by Creatinine-based formula (CKD-EPI) 10/18/2023 13:52:00 50 Below low normal >=60 (mL/min) Final eGFR is calculated based on the CKD-EPI 2020 equation Sodium 10/18/2023 13:52:00 130 Below low normal 135 -146 (mmol/L) Final Potassium 10/18/2023 13:52:00 4.7 3.5-5.1 (m mol/L) Final Cl 10/18/2023 13:52:00 103 98-107 (mm ol/L) Final CO2 10/18/2023 13:52:00 21 Below low normal 22- 32 (mmol/L) Final Anion gap 10/18/2023 13:52:00 6 Below low normal 7-1 5 (mmol/L) Final Glucose 10/18/2023 13:52:00 109 70-120 (mg /dL) Final Calcium 10/18/2023 13:52:00 7.9 Below low normal 8.4 -10.2 (mg/dL) Final Performing Location [facility] [facility] [place] - [address] [place] [address]
--- OUTSIDE RECORDS SUMMARY | 2023-12-30 10:27 | External Medical Summary ---
Author Name Unknown Address Unknown Organization K01:[place] [facility] [place] [address] [place] [address] Laboratory Report Ordering Provider Test Date Status MIKEY NICHOLSON 10/19/2023 02:38:00 Final Observation Date Value Abnormality Reference (Units ) Status Triglyceride 10/19/2023 02:38:00 96 <=174 ( mg/dL) Final Triglyceride Reference Range s (mg/dL):
<150 Acceptable
150-174 Borderline high
175-499 High
>=500 Very high Performing Location LAB[facility] [place] [address] [place] [address]
--- OUTSIDE RECORDS SUMMARY | 2023-12-30 10:27 | External Medical Summary ---
Author Name Unknown Address Unknown Organization K01:[place]ORY [facility] [place] - [facility] [address] [facility] [address] Laboratory Report Ordering Provider Test Date Status SHAWN HAWLEY 10/19/2023 05:05:33 Final Observation Date Value Abnormality Reference (Units ) Status BUN 10/19/2023 05:05:33 39 Above high normal 6-20 (mg/dL) Final Creatinine 10/19/2023 05:05:33 1.7 Above high normal 0.6-1.2 (mg/dL) Final Glomerular filtration rate/1.73 sq M.predicted [Volume Rate/Area] in Serum, Plasma or Blood by Creatinine-based formula (CKD-EPI) 10/19/2023 05:05:33 43 Below low normal >=60 (mL/min) Final eGFR is calculated based on the CKD-EPI 2020 equation Sodium 10/19/2023 05:05:33 131 Below low normal 135 -146 (mmol/L) Final Potassium 10/19/2023 05:05:33 5.6 Above high normal 3. 5-5.1 (mmol/L) Final Cl 10/19/2023 05:05:33 106 98-107 (mm ol/L) Final CO2 10/19/2023 05:05:33 18 Below low normal 22- 32 (mmol/L) Final Anion gap 10/19/2023 05:05:33 7 7-15 (mmol /L) Final Glucose 10/19/2023 05:05:33 156 Above high normal 70 -120 (mg/dL) Final Calcium 10/19/2023 05:05:33 6.9 Below low normal 8.4 -10.2 (mg/dL) Final Performing Location LAB[facility]ORY [facility] [place] - [address] [place] [address]
--- OUTSIDE RECORDS SUMMARY | 2023-12-30 10:27 | External Medical Summary ---
Author Name Unknown Address Unknown Organization K01:[place] [facility] [place] [address] [place] [id number] Laboratory Report Ordering Provider Test Date Status SHAWN HWALEY 10/18/2023 23:26:26 Final Observation Date Value Abnormality Reference (Units ) Status Body temperature 10/18/2023 23:26:26 37.0 (C) Final pH of Arterial blood 10/18/2023 23:26:26 7.371 7.350-7.450 (units) Final Carbon dioxide [Partial pressure] in Arterial blood 10/18/2023 23:26:26 34.3 Below low normal 35.0-45.0 (mmHg) Final Oxygen [Partial pressure] in Arterial blood 10/18/2023 23:26:26 106.0 Above high normal 75.0-100.0 (mmHg) Final Base excess, Arterial 10/18/2023 23:26:26 -4.7 Below low normal -2.0-2.0 (mmol/L) Final Hemoglobin [Mass/volume] in Blood by Oximetry 10/18/2023 23:26:26 11.1 Below low normal 14.0-16.8 (g/dL) Final Oxyhemoglobin, Arterial (FO2HB) 10/18/2023 23:26:26 96.4 94.0-99.0 (% total Hgb) Final Carboxyhemoglobin 10/18/2023 23:26:26 2.0 Above high normal <=1.5 (% total Hgb) Final Smokers: 0-9.0 % Methemoglobin 10/18/2023 23:26:26 0.6 <=1.5 (% total Hgb) Final Deoxyhemoglobin/Hemog lobin.total in Arterial blood 10/18/2023 23:26:26 1.0 0.0-5.0 (% total Hgb) Final Oxygen content in Arterial blood 10/18/2023 23:26:26 15.2 15.0-24.0 (%vol) Final Oxygen/Total gas setting [Volume Fraction] Ventilator 10/18/2023 23:26:26 40 (%) Final O2 FLOW, [facility] - [facility] 10/18/2023 23:26:26 Not Provided (L/min) Final Bicarbonate, Venous, POC (i-STAT) 10/18/2023 23:26:26 19.4 Below low normal 23.0-31.0 (mmol/L) Final Performing Location LAB[facility]ORY [facility] [place] [address] [facility] [address]
--- OUTSIDE RECORDS SUMMARY | 2023-12-30 10:27 | External Medical Summary ---
Author Name Unknown Address Unknown Organization K01:[place] [facility] [place] [facility] [address] [place] [address] Laboratory Report Ordering Provider Test Date Status DUNIA JENSEN 10/18/2023 21:50:23 Final Observation Date Value Abnormality Reference (Units ) Status BUN 10/18/2023 21:50:23 35 Above high normal 6-20 (mg/dL) Final Creatinine 10/18/2023 21:50:23 1.5 Above high normal 0.6-1.2 (mg/dL) Final Glomerular filtration rate/1.73 sq M.predicted [Volume Rate/Area] in Serum, Plasma or Blood by Creatinine-based formula (CKD-EPI) 10/18/2023 21:50:23 49 Below low normal >=60 (mL/min) Final eGFR is calculated based on the CKD-EPI 2020 equation Sodium 10/18/2023 21:50:23 133 Below low normal 135 -146 (mmol/L) Final Potassium 10/18/2023 21:50:23 5.4 Above high normal 3. 5-5.1 (mmol/L) Final Cl 10/18/2023 21:50:23 103 98-107 (mm ol/L) Final CO2 10/18/2023 21:50:23 20 Below low normal 22- 32 (mmol/L) Final Anion gap 10/18/2023 21:50:23 10 7-15 (mmol /L) Final Glucose 10/18/2023 21:50:23 145 Above high normal 70 -120 (mg/dL) Final Calcium 10/18/2023 21:50:23 7.8 Below low normal 8.4 -10.2 (mg/dL) Final Performing Location [place] [facility] [place] [address] [place] [address]
--- OUTSIDE RECORDS SUMMARY | 2023-12-30 10:28 | External Medical Summary ---
Author Name Unknown Address Unknown Organization K01:LABORATORY [facility] [place] - [address] [place] [address] Laboratory Report Ordering Provider Test Date Status CAMILADUNIA 10/18/2023 06:44:00 Final Observation Date Value Abnormality Reference (Units ) Status Albumin 10/18/2023 06:44:00 3.1 Below low normal 3.8-5.0 (g/dL) Final AST (Aspartate aminotransferase) 10/18/2023 06:44:00 45 10-50 (U/L) Final Alk Phos 10/18/2023 06:44:00 55 35-130 (U/L) Final ALT (Alanine aminotransferase) 10/18/2023 06:44:00 15 10-50 (U/L) Final Bilirubin, Total 10/18/2023 06:44:00 1.1 <=1.2 (mg/dL) Final Bilirubin, Direct 10/18/2023 06:44:00 0.5 Above high normal 0.0-0.3 (mg/dL) Final Protein 10/18/2023 06:44:00 6.6 6.0-8.3 (g/dL) Final Performing Location LABORATORY [facility] [place] - [address] [place] [address]
--- OUTSIDE RECORDS SUMMARY | 2023-12-30 10:28 | External Medical Summary ---
Author Name Unknown Address Unknown Organization K01:LABORATORY [place] [address] [place] [address] Laboratory Report Ordering Provider Test Date Status OWEN DORSEY 10/18/2023 06:44:00 Final Exclude Heart Failure: <300 pg/mL
Diagnose Heart Failure:
Age <50 yr: >450 pg/mL
50-75 yr: >900 pg/mL
>75 yr: >1800 pg/mL
GFR is 30-59 mL/min: >1200 pg/mL or Age- adjusted values
GFR <30 mL/min: do not use, not reliable

Prognostic threshold: 1000 pg/mL Observation Date Value Abnormality Reference (Units ) Status BNP, Pro-hormone 10/18/2023 06:44:00 720 Above high no rmal <300 (pg/mL) Final Performing Location LABORATORY [facility] - [facility] [address] [place] [address]
--- OUTSIDE RECORDS SUMMARY | 2023-12-30 10:28 | External Medical Summary ---
Author Name Unknown Address Unknown Organization K01:LABORATORY [facility] [place] [address] [place] [address] Laboratory Report Ordering Provider Test Date Status MANSOOR MARQUEZ 10/18/2023 06:44:00 Final Observation Date Value Abnormality Reference (Units ) Status CRP, low-sensitivity 10/18/2023 06:44:00 120 Above high normal <=5 (mg/L) Final Performing Location LABORATORY [facility] - [address] [place] [address]
--- OUTSIDE RECORDS SUMMARY | 2023-12-30 10:28 | External Medical Summary ---
Author Name Unknown Address Unknown Organization K01:LABORATORY [place] [address] [address] [facility] [address] [facility] [address] Laboratory Report Ordering Provider Test Date Status OWEN DORSEY 10/18/2023 05:57:00 Final Observation Date Value Abnormality Reference (Units ) Status Calcium.ionized [Moles/volume] in Serum or Plasma by Ion-selective membrane electrode (ISE) 10/18/2023 05:57:00 1.21 1.13-1.32 (mmol/L) Final This test was developed and its performance characteristics dtermined by [employer] It has not been cleared or approved by the [place] Food and Drug Administration Performing Location LABORATORY [place] [address] [address] [facility] [address]
--- OUTSIDE RECORDS SUMMARY | 2023-12-30 10:28 | External Medical Summary ---
Author Name Unknown Address Unknown Organization K01:LABORATORY [facility] - [address] [place] [address] Laboratory Report Ordering Provider Test Date Status MARKIE DORSEYGWENDOLYN 10/16/2023 20:48:00 Final Observation Date Value Abnormality Reference (Units ) Status Phosphate 10/16/2023 20:48:00 3.3 2.5-4.8 (m g/dL) Final Performing Location LABORATORY [facility] - [address] [place] [address]
--- OUTSIDE RECORDS SUMMARY | 2023-12-30 10:28 | External Medical Summary ---
Author Name Unknown Address Unknown Organization : Laboratory Report Ordering Provider Test Date Status CHAITANYA HADLEY 10/17/2023 05:44:34 Final Observation Date Value Abnormality Reference (Units ) Status Glucose Point of Care 10/17/2023 05:44:34 97 70-120 (mg/dL) Final Performing Location
--- OUTSIDE RECORDS SUMMARY | 2023-12-30 10:28 | External Medical Summary ---
Author Name Unknown Address Unknown Organization K01:LAB[place]ATORY [place] [address] [address] [facility] [address] [facility] [address] Laboratory Report Ordering Provider Test Date Status OWEN DORSEY 10/17/2023 18:23:00 Final Observation Date Value Abnormality Reference (Units ) Status Calcium.ionized [Moles/volume] in Serum or Plasma by Ion-selective membrane electrode (ISE) 10/17/2023 18:23:00 1.21 1.13-1.32 (mmol/L) Final This test was developed and its performance characteristics dtermined by [employer]. It has not been cleared or approved by the US Food and Drug Administration Performing Location [facility] [place] [address] [address] [facility] [address]
--- OUTSIDE RECORDS SUMMARY | 2023-12-30 10:28 | External Medical Summary ---
Author Name Unknown Address Unknown Organization : Laboratory Report Ordering Provider Test Date Status CHAITANYA HADLEY 10/17/2023 12:02:30 Final Observation Date Value Abnormality Reference (Units ) Status Glucose Point of Care 10/17/2023 12:02:30 98 70-120 (mg/dL) Final Performing Location
--- OUTSIDE RECORDS SUMMARY | 2023-12-30 10:28 | External Medical Summary ---
Author Name Unknown Address Unknown Organization : Laboratory Report Ordering Provider Test Date Status CHAITANYA HADLEY 10/17/2023 23:43:00 Final Observation Date Value Abnormality Reference (Units ) Status Glucose Point of Care 10/17/2023 23:43:00 87 70-120 (mg/dL) Final Performing Location
--- OUTSIDE RECORDS SUMMARY | 2023-12-30 10:28 | External Medical Summary ---
Author Name Unknown Address Unknown Organization K01:LAB[place]ATORY [facility] [place] - [facility] [address] [place] [address] Laboratory Report Ordering Provider Test Date Status ORLANDO NICHOLSON 10/17/2023 07:39:00 Final Observation Date Value Abnormality Reference (Units ) Status BUN 10/17/2023 07:39:00 42 Above high normal 6-20 (mg/dL) Final Creatinine 10/17/2023 07:39:00 1.4 Above high normal 0.6-1.2 (mg/dL) Final Glomerular filtration rate/1.73 sq M.predicted [Volume Rate/Area] in Serum, Plasma or Blood by Creatinine-based formula (CKD-EPI) 10/17/2023 07:39:00 56 Below low normal >=60 (mL/min) Final eGFR is calculated based on the CKD-EPI 2020 equation Sodium 10/17/2023 07:39:00 136 135-146 (m mol/L) Final Potassium 10/17/2023 07:39:00 4.6 3.5-5.1 (m mol/L) Final Cl 10/17/2023 07:39:00 105 98-107 (mm ol/L) Final CO2 10/17/2023 07:39:00 24 22-32 (mmo l/L) Final Anion gap 10/17/2023 07:39:00 7 7-15 (mmol /L) Final Glucose 10/17/2023 07:39:00 99 70-120 (mg /dL) Final Calcium 10/17/2023 07:39:00 8.1 Below low normal 8.4 -10.2 (mg/dL) Final Performing Location LABORATORY [facility] [place] - [address] [place] [address]
--- OUTSIDE RECORDS SUMMARY | 2023-12-30 10:28 | External Medical Summary ---
Author Name Unknown Address Unknown Organization K01:LAB[place]ATORY [facility] [place] - [address] [place] [address] Laboratory Report Ordering Provider Test Date Status ORLANDO NICHOLSON 10/18/2023 06:44:00 Final Observation Date Value Abnormality Reference (Units ) Status Lactic Acid 10/18/2023 06:44:00 3.8 Above high normal 0.4-2.0 (mmol/L) Final Performing Location LABORATORY C - [address] [place] [address]
--- OUTSIDE RECORDS SUMMARY | 2023-12-30 10:28 | External Medical Summary ---
Author Name Unknown Address Unknown Organization : Laboratory Report Ordering Provider Test Date Status CHAITANYA HADLEY 10/18/2023 05:44:18 Final Observation Date Value Abnormality Reference (Units ) Status Glucose Point of Care 10/18/2023 05:44:18 107 70-120 (mg/dL) Final Performing Location
--- OUTSIDE RECORDS SUMMARY | 2023-12-30 10:28 | External Medical Summary ---
Author Name Unknown Address Unknown Organization K01:[facility]ORY [facility] - [address] [place] [address] Laboratory Report Ordering Provider Test Date Status SUNITA,MANINGGWENDOLYN 10/17/2023 07:39:00 Final Observation Date Value Abnormality Reference (Units ) Status Phosphate 10/17/2023 07:39:00 3.3 2.5-4.8 (m g/dL) Final Performing Location LAB[facility] - [address] [place] [address]
--- OUTSIDE RECORDS SUMMARY | 2023-12-30 10:28 | External Medical Summary ---
Author Name Unknown Address Unknown Organization K01:LABORATORY [facility] [place] - [address] [place] [address] Laboratory Report Ordering Provider Test Date Status MADISYN MISHRA 10/18/2023 05:57:00 Final Observation Date Value Abnormality Reference (Units ) Status WBC, Total 10/18/2023 05:57:00 8.79 4.00-10.80 (K/uL) Final RBC 10/18/2023 05:57:00 3.31 4.50-5.25 (M/uL) Final Hemoglobin 10/18/2023 05:57:00 10.9 Below low normal 14.0-16.8 (g/dL) Final HCT 10/18/2023 05:57:00 34.4 Below low normal 40.0-48.4 (%) Final MCV 10/18/2023 05:57:00 103.9 82.0-99.5 (fL) Final MCH 10/18/2023 05:57:00 32.9 27.0-34.0 (pg) Final MCHC 10/18/2023 05:57:00 31.7 32.0-36.0 (g/dL) Final RDW 10/18/2023 05:57:00 14.6 11.5-15.5 (%) Final Platelets 10/18/2023 05:57:00 242 140-400 (K/uL) Final MPV 10/18/2023 05:57:00 8.8 6.6-11.1 (fL) Final Nucleated erythrocytes/100 leukocytes [Ratio] in Blood by Automated count 10/18/2023 05:57:00 0 <=0 (/100 WBCs) Final Performing Location LABORATORY [facility] [place] - [address] [place] [address]
--- OUTSIDE RECORDS SUMMARY | 2023-12-30 10:28 | External Medical Summary ---
Author Name Unknown Address Unknown Organization K01:[place] [facility] [place] [facility] [address] [place] [address] Laboratory Report Ordering Provider Test Date Status ORLANDO NICHOLSON 10/16/2023 20:48:00 Final Observation Date Value Abnormality Reference (Units ) Status BUN 10/16/2023 20:48:00 41 Above high normal 6-20 (mg/dL) Final Creatinine 10/16/2023 20:48:00 1.3 Above high normal 0.6-1.2 (mg/dL) Final Glomerular filtration rate/1.73 sq M.predicted [Volume Rate/Area] in Serum, Plasma or Blood by Creatinine-based formula (CKD-EPI) 10/16/2023 20:48:00 58 Below low normal >=60 (mL/min) Final eGFR is calculated based on the CKD-EPI 2020 equation Sodium 10/16/2023 20:48:00 137 135-146 (m mol/L) Final Potassium 10/16/2023 20:48:00 4.3 3.5-5.1 (m mol/L) Final Cl 10/16/2023 20:48:00 105 98-107 (mm ol/L) Final CO2 10/16/2023 20:48:00 26 22-32 (mmo l/L) Final Anion gap 10/16/2023 20:48:00 6 Below low normal 7-1 5 (mmol/L) Final Glucose 10/16/2023 20:48:00 98 70-120 (mg /dL) Final Calcium 10/16/2023 20:48:00 7.9 Below low normal 8.4 -10.2 (mg/dL) Final Performing Location [place] [facility] [place] [address] [place] [address]
--- OUTSIDE RECORDS SUMMARY | 2023-12-30 10:28 | External Medical Summary ---
Author Name Unknown Address Unknown Organization K01:[facility]ORY [facility] - [address] [place] [address] Laboratory Report Ordering Provider Test Date Status WOEN DORSEY 10/18/2023 05:57:00 Final Observation Date Value Abnormality Reference (Units ) Status Magnesium 10/18/2023 05:57:00 1.7 1.5-2.6 (m g/dL) Final Performing Location LAB[facility]ATORY [facility] - [address] [place] [address]
--- OUTSIDE RECORDS SUMMARY | 2023-12-30 10:28 | External Medical Summary ---
Author Name Unknown Address Unknown Organization K01:[place] [facility] [place] [facility] [address] [place] [address] Laboratory Report Ordering Provider Test Date Status MANSOOR MARQUEZ 10/18/2023 06:44:00 Final Less than 0.5 ng/mL: Low ris k for progression to sepsis. Review patients condition for localized infections.

0.5 to 2.0 ng/mL: Intermediate risk for progresion to sepsis. Review underlying conditions. Recommend repeat PCT after 6 hours has elapsed.

Greater than 2.0 ng/mL: high risk for progression to sepsis unless other causes are known. Observation Date Value Abnormality Reference (Units ) Status Procalcitonin [Mass/volume] in Serum or Plasma by Immunoassay 10/18/2023 06:44:00 0.15 Above high normal <0.10 (ng/mL) Final Performing Location LAB[place]ORY [facility] [place] [facility] [address] [place] [address]
--- OUTSIDE RECORDS SUMMARY | 2023-12-30 10:28 | External Medical Summary ---
Author Name Unknown Address Unknown Organization K01:[facility]ORY [facility] - [address] [place] [address] Laboratory Report Ordering Provider Test Date Status OWEN DORSEY 10/17/2023 18:23:00 Final Observation Date Value Abnormality Reference (Units ) Status Magnesium 10/17/2023 18:23:00 1.8 1.5-2.6 (m g/dL) Final Performing Location LAB[facility]ORY [facility] - [address] [place] [address]
--- OUTSIDE RECORDS SUMMARY | 2023-12-30 10:28 | External Medical Summary ---
Author Name Unknown Address Unknown Organization K01:LABORATORY [facility] [place] - [facility] [address] [place] [address] Laboratory Report Ordering Provider Test Date Status ORLANDO NICHOLSON 10/18/2023 05:57:00 Final Observation Date Value Abnormality Reference (Units ) Status BUN 10/18/2023 05:57:00 40 Above high normal 6-20 (mg/dL) Final Creatinine 10/18/2023 05:57:00 1.3 Above high normal 0.6-1.2 (mg/dL) Final Glomerular filtration rate/1.73 sq M.predicted [Volume Rate/Area] in Serum, Plasma or Blood by Creatinine-based formula (CKD-EPI) 10/18/2023 05:57:00 58 Below low normal >=60 (mL/min) Final eGFR is calculated based on the CKD-EPI 2020 equation Sodium 10/18/2023 05:57:00 133 Below low normal 135 -146 (mmol/L) Final Potassium 10/18/2023 05:57:00 5.1 3.5-5.1 (m mol/L) Final Cl 10/18/2023 05:57:00 104 98-107 (mm ol/L) Final CO2 10/18/2023 05:57:00 19 Below low normal 22- 32 (mmol/L) Final Anion gap 10/18/2023 05:57:00 10 7-15 (mmol /L) Final Glucose 10/18/2023 05:57:00 107 70-120 (mg /dL) Final Calcium 10/18/2023 05:57:00 8.2 Below low normal 8.4 -10.2 (mg/dL) Final Performing Location LABORATORY [facility] [place] - [address] [place] [address]
--- OUTSIDE RECORDS SUMMARY | 2023-12-30 10:28 | External Medical Summary ---
Author Name Unknown Address Unknown Organization K01:LAB[facility]ATORY [facility] - [address] [place] [address] Laboratory Report Ordering Provider Test Date Status SUNITA,MANINGGWENDOLYN 10/17/2023 18:23:00 Final Observation Date Value Abnormality Reference (Units ) Status Phosphate 10/17/2023 18:23:00 3.4 2.5-4.8 (m g/dL) Final Performing Location LAB[facility]ATORY [facility] - [address] [place] [address]
--- OUTSIDE RECORDS SUMMARY | 2023-12-30 10:28 | External Medical Summary ---
Author Name Unknown Address Unknown Organization K01:LABORATORY [facility] [place] - [address] [place] [address] Laboratory Report Ordering Provider Test Date Status HORACE GARCIACELESTE 10/18/2023 06:44:00 Final Observation Date Value Abnormality Reference (Units ) Status Troponin T 10/18/2023 06:44:00 26 Above high normal < =22 (ng/L) Final Performing Location LABORATORY C - [address] [place] [address]
--- OUTSIDE RECORDS SUMMARY | 2023-12-30 10:28 | External Medical Summary ---
Author Name Unknown Address Unknown Organization K01:[place] [facility] [place] [address] [place] [address] Laboratory Report Ordering Provider Test Date Status MADISYN MISHRA 10/17/2023 07:39:00 Final Observation Date Value Abnormality Reference (Units ) Status WBC, Total 10/17/2023 07:39:00 7.15 4.00-10.80 (K/uL) Final RBC 10/17/2023 07:39:00 3.14 4.50-5.25 (M/uL) Final Hemoglobin 10/17/2023 07:39:00 10.4 Below low normal 14.0-16.8 (g/dL) Final HCT 10/17/2023 07:39:00 32.1 Below low normal 40.0-48.4 (%) Final MCV 10/17/2023 07:39:00 102.2 82.0-99.5 (fL) Final MCH 10/17/2023 07:39:00 33.1 27.0-34.0 (pg) Final MCHC 10/17/2023 07:39:00 32.4 32.0-36.0 (g/dL) Final RDW 10/17/2023 07:39:00 15.0 11.5-15.5 (%) Final Platelets 10/17/2023 07:39:00 226 140-400 (K/uL) Final MPV 10/17/2023 07:39:00 8.7 6.6-11.1 (fL) Final Nucleated erythrocytes/100 leukocytes [Ratio] in Blood by Automated count 10/17/2023 07:39:00 0 <=0 (/100 WBCs) Final Performing Location [place] [facility] [place] [address] [place] [address]
--- OUTSIDE RECORDS SUMMARY | 2023-12-30 10:28 | External Medical Summary ---
Author Name Unknown Address Unknown Organization : Laboratory Report Ordering Provider Test Date Status CHAITANYA HADLEY 10/18/2023 06:30:36 Final Observation Date Value Abnormality Reference (Units) Status Blood draw [PhenX] 10/18/2023 06:30:36 Arterial Draw Final pH, POC (i-STAT) 10/18/2023 06:30:36 7.221 Below low normal 7.350-7.450 Final PCO2 POC (i-STAT) 10/18/2023 06:30:36 43.2 35.0-45.0 (mm Hg) Final PO2 POC (i-STAT) 10/18/2023 06:30:36 252 Above high normal 75-100 (mm Hg) Final Base excess standard in Arterial blood by calculation 10/18/2023 06:30:36 -10 Below low normal -2-2 (mmol/L) Final Bicarbonate, Venous, POC (i-STAT) 10/18/2023 06:30:36 17.7 Below low normal 23.0-31.0 (mmol/L) Final O2 Sat, calculated POC (i-STAT) 10/18/2023 06:30:36 100.0 Above high normal 94.0-98.0 (%) Final Glucose, whole blood 10/18/2023 06:30:36 174 Above high normal 70-120 (mg/dL) Final Potassium, Whole Blood 10/18/2023 06:30:36 5.1 3.5-5.1 (mmol/L) Final Sodium, Whole Blood 10/18/2023 06:30:36 132 Below low normal 135-146 (mmol/L) Final Calcium, Ionized, Whole Blood 10/18/2023 06:30:36 1.30 1.13-1.32 (mmol/L) Final Hemoglobin POC (i-STAT) 10/18/2023 06:30:36 12.2 Below low normal 14.0-16.8 (g/dL) Final HCT 10/18/2023 06:30:36 36 Below low normal 40-48 (%) Final Oxygen/Total gas setting [Volume Fraction] Ventilator 10/18/2023 06:30:36 100 (%) Final Performing Location
--- OUTSIDE RECORDS SUMMARY | 2023-12-30 10:28 | External Medical Summary ---
Author Name Unknown Address Unknown Organization K01:[place] [facility] [place] [facility] [address] [place] [address] Laboratory Report Ordering Provider Test Date Status MANSOOR MARQUEZ 10/18/2023 05:57:00 Final Exclude Heart Failure: <300 pg/mL
Diagnose Heart Failure:
Age <50 yr: >450 pg/mL
50-75 yr: >900 pg/mL
>75 yr: >1800 pg/mL
GFR is 30-59 mL/min: >1200 pg/mL or Age- adjusted values
GFR <30 mL/min: do not use, not reliable

Prognostic threshold: 1000 pg/mL Observation Date Value Abnormality Reference (Units ) Status BNP, Pro-hormone 10/18/2023 05:57:00 627 Above high no rmal <300 (pg/mL) Final Performing Location [place] [facility] [place] [facility] [address] [place] [address]
--- OUTSIDE RECORDS SUMMARY | 2023-12-30 10:28 | External Medical Summary ---
Author Name Unknown Address Unknown Organization K01:LABORATORY [facility] [place] - [address] [place] [address] Laboratory Report Ordering Provider Test Date Status ORLANDO NICHOLSON 10/18/2023 06:44:00 Final Observation Date Value Abnormality Reference (Units ) Status WBC, Total 10/18/2023 06:44:00 12.63 Above high normal 4.00-10.80 (K/uL) Final RBC 10/18/2023 06:44:00 3.85 4.50-5.25 (M/uL) Final Hemoglobin 10/18/2023 06:44:00 12.8 Below low normal 14.0-16.8 (g/dL) Final HCT 10/18/2023 06:44:00 39.7 Below low normal 40.0-48.4 (%) Final MCV 10/18/2023 06:44:00 103.1 82.0-99.5 (fL) Final MCH 10/18/2023 06:44:00 33.2 27.0-34.0 (pg) Final MCHC 10/18/2023 06:44:00 32.2 32.0-36.0 (g/dL) Final RDW 10/18/2023 06:44:00 14.7 11.5-15.5 (%) Final Platelets 10/18/2023 06:44:00 358 140-400 (K/uL) Final MPV 10/18/2023 06:44:00 8.8 6.6-11.1 (fL) Final Nucleated erythrocytes/100 leukocytes [Ratio] in Blood by Automated count 10/18/2023 06:44:00 0 <=0 (/100 WBCs) Final Performing Location LABORATORY [facility] [place] - [address] [place] [address]
--- OUTSIDE RECORDS SUMMARY | 2023-12-30 10:28 | External Medical Summary ---
Author Name Unknown Address Unknown Organization K01:LABORATORY [place] [address] [address] [facility] [address] [facility] [address] Laboratory Report Ordering Provider Test Date Status OWEN DORSEY 10/17/2023 07:39:00 Final Observation Date Value Abnormality Reference (Units ) Status Calcium.ionized [Moles/volume] in Serum or Plasma by Ion-selective membrane electrode (ISE) 10/17/2023 07:39:00 1.20 1.13-1.32 (mmol/L) Final This test was developed and its performance characteristics dtermined by [employer]. It has not been cleared or approved by the [place] Food and Drug Administration Performing Location LABORATORY [place] [address] [address] [facility] [address]
--- OUTSIDE RECORDS SUMMARY | 2023-12-30 10:28 | External Medical Summary ---
Author Name Unknown Address Unknown Organization K01:LABORATORY [facility] - [facility] [place] [address] [place] [address] Laboratory Report Ordering Provider Test Date Status ORLANDO NICHOLSON 10/18/2023 06:44:00 Final Observation Date Value Abnormality Reference (Units ) Status BUN 10/18/2023 06:44:00 40 Above high normal 6-20 (mg/dL) Final Creatinine 10/18/2023 06:44:00 1.4 Above high normal 0.6-1.2 (mg/dL) Final Glomerular filtration rate/1.73 sq M.predicted [Volume Rate/Area] in Serum, Plasma or Blood by Creatinine-based formula (CKD-EPI) 10/18/2023 06:44:00 55 Below low normal >=60 (mL/min) Final eGFR is calculated based on the CKD-EPI 2020 equation Sodium 10/18/2023 06:44:00 132 Below low normal 135 -146 (mmol/L) Final Potassium 10/18/2023 06:44:00 5.2 Above high normal 3. 5-5.1 (mmol/L) Final Cl 10/18/2023 06:44:00 101 98-107 (mm ol/L) Final CO2 10/18/2023 06:44:00 17 Below low normal 22- 32 (mmol/L) Final Anion gap 10/18/2023 06:44:00 14 7-15 (mmol /L) Final Glucose 10/18/2023 06:44:00 133 Above high normal 70 -120 (mg/dL) Final Calcium 10/18/2023 06:44:00 8.7 8.4-10.2 ( mg/dL) Final Performing Location LABORATORY [facility] - [address] [place] [address]
--- OUTSIDE RECORDS SUMMARY | 2023-12-30 10:28 | External Medical Summary ---
Author Name Unknown Address Unknown Organization K01:LABORATORY [facility] - [address] [place] [address] Laboratory Report Ordering Provider Test Date Status OWEN DORSEY 10/16/2023 20:48:00 Final Observation Date Value Abnormality Reference (Units ) Status Magnesium 10/16/2023 20:48:00 2.0 1.5-2.6 (m g/dL) Final Performing Location LAB[facility]ATORY [facility] - [address] [place] [address]
--- OUTSIDE RECORDS SUMMARY | 2023-12-30 10:28 | External Medical Summary ---
Author Name Unknown Address Unknown Organization K01:LABORATORY [facility] - [address] [place] [address] Laboratory Report Ordering Provider Test Date Status SUNITA,MANINGGWENDOLYN 10/18/2023 05:57:00 Final Observation Date Value Abnormality Reference (Units ) Status Phosphate 10/18/2023 05:57:00 3.5 2.5-4.8 (m g/dL) Final Performing Location LAB[facility]ORY [facility] - [address] [place] [address]
--- OUTSIDE RECORDS SUMMARY | 2023-12-30 10:28 | External Medical Summary ---
Author Name Unknown Address Unknown Organization K01:[place]ORY [facility] [place] [facility] [address] [place] [address] Laboratory Report Ordering Provider Test Date Status ORLANDO NICHOLSON 10/17/2023 18:23:00 Final Observation Date Value Abnormality Reference (Units ) Status BUN 10/17/2023 18:23:00 42 Above high normal 6-20 (mg/dL) Final Creatinine 10/17/2023 18:23:00 1.4 Above high normal 0.6-1.2 (mg/dL) Final Glomerular filtration rate/1.73 sq M.predicted [Volume Rate/Area] in Serum, Plasma or Blood by Creatinine-based formula (CKD-EPI) 10/17/2023 18:23:00 56 Below low normal >=60 (mL/min) Final eGFR is calculated based on the CKD-EPI 2020 equation Sodium 10/17/2023 18:23:00 133 Below low normal 135 -146 (mmol/L) Final Potassium 10/17/2023 18:23:00 5.1 3.5-5.1 (m mol/L) Final Cl 10/17/2023 18:23:00 102 98-107 (mm ol/L) Final CO2 10/17/2023 18:23:00 22 22-32 (mmo l/L) Final Anion gap 10/17/2023 18:23:00 9 7-15 (mmol /L) Final Glucose 10/17/2023 18:23:00 101 70-120 (mg /dL) Final Calcium 10/17/2023 18:23:00 8.2 Below low normal 8.4 -10.2 (mg/dL) Final Performing Location LABORATORY [facility] [place] [address] [place] [address]
--- OUTSIDE RECORDS SUMMARY | 2023-12-30 10:28 | External Medical Summary ---
Author Name Unknown Address Unknown Organization K01:LABORATORY [facility] - [address] [place] [address] Laboratory Report Ordering Provider Test Date Status OWEN DORSEY 10/17/2023 07:39:00 Final Observation Date Value Abnormality Reference (Units ) Status Magnesium 10/17/2023 07:39:00 1.9 1.5-2.6 (m g/dL) Final Performing Location LAB[facility]ORY [facility] - [address] [place] [address]
--- OUTSIDE RECORDS SUMMARY | 2023-12-30 10:28 | External Medical Summary ---
Author Name Unknown Address Unknown Organization : Laboratory Report Ordering Provider Test Date Status CHAITANYA HADLEY 10/16/2023 23:56:02 Final Observation Date Value Abnormality Reference (Units ) Status Glucose Point of Care 10/16/2023 23:56:02 101 70-120 (mg/dL) Final Performing Location
--- OUTSIDE RECORDS SUMMARY | 2023-12-30 10:29 | External Medical Summary ---
Author Name Unknown Address Unknown Organization K01:LABORATORY [facility] - [address] [place] [address] Laboratory Report Ordering Provider Test Date Status SUNITAMARKIEGWENDOLYN 10/15/2023 17:41:00 Final Observation Date Value Abnormality Reference (Units ) Status Phosphate 10/15/2023 17:41:00 3.1 2.5-4.8 (m g/dL) Final Performing Location LABORATORY [facility] - [address] [place] [address]
--- OUTSIDE RECORDS SUMMARY | 2023-12-30 10:29 | External Medical Summary ---
Author Name Unknown Address Unknown Organization K01:LABORATORY [facility] - [address] [place] [address] Laboratory Report Ordering Provider Test Date Status MARKIE DORSEYGWENDOLYN 10/14/2023 05:59:00 Final Observation Date Value Abnormality Reference (Units ) Status Phosphate 10/14/2023 05:59:00 2.6 2.5-4.8 (m g/dL) Final Performing Location LAB[facility]ATORY [facility] - [address] [place] [address]
--- OUTSIDE RECORDS SUMMARY | 2023-12-30 10:29 | External Medical Summary ---
Author Name Unknown Address Unknown Organization : Laboratory Report Ordering Provider Test Date Status CHAITANYA HADLEY 10/16/2023 12:26:40 Final Observation Date Value Abnormality Reference (Units ) Status Glucose Point of Care 10/16/2023 12:26:40 122 Above high normal 70-120 (mg/dL) Final Performing Location
--- OUTSIDE RECORDS SUMMARY | 2023-12-30 10:29 | External Medical Summary ---
Author Name Unknown Address Unknown Organization K01:LABORATORY [facility] - [address] [place] [address] Laboratory Report Ordering Provider Test Date Status OWEN DORSEY 10/14/2023 05:59:00 Final Observation Date Value Abnormality Reference (Units ) Status Magnesium 10/14/2023 05:59:00 2.4 1.5-2.6 (m g/dL) Final Performing Location LAB[facility]ATORY [facility] - [address] [place] [address]
--- OUTSIDE RECORDS SUMMARY | 2023-12-30 10:29 | External Medical Summary ---
Author Name Unknown Address Unknown Organization : Laboratory Report Ordering Provider Test Date Status CHAITANYA HADLEY 10/15/2023 18:02:07 Final Observation Date Value Abnormality Reference (Units ) Status Glucose Point of Care 10/15/2023 18:02:07 101 70-120 (mg/dL) Final Performing Location
--- OUTSIDE RECORDS SUMMARY | 2023-12-30 10:29 | External Medical Summary ---
Author Name Unknown Address Unknown Organization K01:[place]ORY [facility] [place] [address] [place] [address] Laboratory Report Ordering Provider Test Date Status CHILO MILLARD 10/15/2023 06:12:00 Final Observation Date Value Abnormality Reference (Units ) Status Triglyceride 10/15/2023 06:12:00 158 <=174 ( mg/dL) Final Triglyceride Reference Range s (mg/dL):
<150 Acceptable
150-174 Borderline high
175-499 High
>=500 Very high Performing Location LABORATORY [facility] [place] [address] [place] [address]
--- OUTSIDE RECORDS SUMMARY | 2023-12-30 10:29 | External Medical Summary ---
Author Name Unknown Address Unknown Organization K01:LABORATORY [facility] [place] - [address] [place] [address] Laboratory Report Ordering Provider Test Date Status MADISYN MISHRA 10/16/2023 04:59:00 Final Observation Date Value Abnormality Reference (Units ) Status WBC, Total 10/16/2023 04:59:00 6.46 4.00-10.80 (K/uL) Final RBC 10/16/2023 04:59:00 3.06 4.50-5.25 (M/uL) Final Hemoglobin 10/16/2023 04:59:00 10.1 Below low normal 14.0-16.8 (g/dL) Final HCT 10/16/2023 04:59:00 30.6 Below low normal 40.0-48.4 (%) Final MCV 10/16/2023 04:59:00 100.0 82.0-99.5 (fL) Final MCH 10/16/2023 04:59:00 33.0 27.0-34.0 (pg) Final MCHC 10/16/2023 04:59:00 33.0 32.0-36.0 (g/dL) Final RDW 10/16/2023 04:59:00 15.3 11.5-15.5 (%) Final Platelets 10/16/2023 04:59:00 218 140-400 (K/uL) Final MPV 10/16/2023 04:59:00 8.7 6.6-11.1 (fL) Final Nucleated erythrocytes/100 leukocytes [Ratio] in Blood by Automated count 10/16/2023 04:59:00 0 <=0 (/100 WBCs) Final Performing Location LABORATORY [facility] [place] - [address] [place] [address]
--- OUTSIDE RECORDS SUMMARY | 2023-12-30 10:29 | External Medical Summary ---
Author Name Unknown Address Unknown Organization K01:LAB[facility]ORY [facility] [place] [facility] [address] [place] [address] Laboratory Report Ordering Provider Test Date Status ORLANDO NICHOLSON 10/14/2023 05:59:00 Final Observation Date Value Abnormality Reference (Units ) Status BUN 10/14/2023 05:59:00 45 Above high normal 6-20 (mg/dL) Final Creatinine 10/14/2023 05:59:00 1.6 Above high normal 0.6-1.2 (mg/dL) Final Glomerular filtration rate/1.73 sq M.predicted [Volume Rate/Area] in Serum, Plasma or Blood by Creatinine-based formula (CKD-EPI) 10/14/2023 05:59:00 46 Below low normal >=60 (mL/min) Final eGFR is calculated based on the CKD-EPI 2020 equation Sodium 10/14/2023 05:59:00 140 135-146 (m mol/L) Final Potassium 10/14/2023 05:59:00 3.4 Below low normal 3.5 -5.1 (mmol/L) Final Cl 10/14/2023 05:59:00 101 98-107 (mm ol/L) Final CO2 10/14/2023 05:59:00 30 22-32 (mmo l/L) Final Anion gap 10/14/2023 05:59:00 9 7-15 (mmol /L) Final Glucose 10/14/2023 05:59:00 107 70-120 (mg /dL) Final Calcium 10/14/2023 05:59:00 7.8 Below low normal 8.4 -10.2 (mg/dL) Final Performing Location [facility] [place] [address] [place] [address]
--- OUTSIDE RECORDS SUMMARY | 2023-12-30 10:29 | External Medical Summary ---
Author Name Unknown Address Unknown Organization K01:LABORATORY [place] [address] [address] [place] [address] Laboratory Report Ordering Provider Test Date Status OWEN DORSEY 10/14/2023 07:49:00 Final Observation Date Value Abnormality Reference (Units ) Status Calcium.ionized [Moles/volume] in Serum or Plasma by Ion-selective membrane electrode (ISE) 10/14/2023 07:49:00 1.07 Below low normal 1.13-1.32 (mmol/L) Final This test was developed and its performance characteristics dtermined by [employer]. It has not been cleared or approved by the US Food and Drug Administration Performing Location LABORATORY [facility] [address] [place] [address]
--- OUTSIDE RECORDS SUMMARY | 2023-12-30 10:29 | External Medical Summary ---
Author Name Unknown Address Unknown Organization K01:LABORATORY [facility] - [address] [place] [address] Laboratory Report Ordering Provider Test Date Status OWEN DORSEY 10/16/2023 04:59:00 Final Observation Date Value Abnormality Reference (Units ) Status Magnesium 10/16/2023 04:59:00 1.8 1.5-2.6 (m g/dL) Final Performing Location LABORATORY [facility] - [address] [place] [address]
--- OUTSIDE RECORDS SUMMARY | 2023-12-30 10:29 | External Medical Summary ---
Author Name Unknown Address Unknown Organization K01:LABORATORY [facility] [place] - [address] [place] [address] Laboratory Report Ordering Provider Test Date Status MADISYN MISHRA 10/14/2023 05:59:00 Final Observation Date Value Abnormality Reference (Units ) Status WBC, Total 10/14/2023 05:59:00 7.14 4.00-10.80 (K/uL) Final RBC 10/14/2023 05:59:00 3.24 4.50-5.25 (M/uL) Final Hemoglobin 10/14/2023 05:59:00 10.8 Below low normal 14.0-16.8 (g/dL) Final HCT 10/14/2023 05:59:00 33.5 Below low normal 40.0-48.4 (%) Final MCV 10/14/2023 05:59:00 103.4 82.0-99.5 (fL) Final MCH 10/14/2023 05:59:00 33.3 27.0-34.0 (pg) Final MCHC 10/14/2023 05:59:00 32.2 32.0-36.0 (g/dL) Final RDW 10/14/2023 05:59:00 15.1 11.5-15.5 (%) Final Platelets 10/14/2023 05:59:00 226 140-400 (K/uL) Final MPV 10/14/2023 05:59:00 9.3 6.6-11.1 (fL) Final Nucleated erythrocytes/100 leukocytes [Ratio] in Blood by Automated count 10/14/2023 05:59:00 0 <=0 (/100 WBCs) Final Performing Location LABORATORY [facility] [place] - [address] [place] [address]
--- OUTSIDE RECORDS SUMMARY | 2023-12-30 10:29 | External Medical Summary ---
Author Name Unknown Address Unknown Organization K01:LABORATORY [facility] - [address] [place] [address] Laboratory Report Ordering Provider Test Date Status SUNITA,MANINGGWENDOLYN 10/14/2023 19:00:00 Final Observation Date Value Abnormality Reference (Units ) Status Phosphate 10/14/2023 19:00:00 3.8 2.5-4.8 (m g/dL) Final Performing Location LABORATORY [facility] - [address] [place] [address]
--- OUTSIDE RECORDS SUMMARY | 2023-12-30 10:29 | External Medical Summary ---
Author Name Unknown Address Unknown Organization K01:LABORATORY [facility] [place] - [address] [place] [address] Laboratory Report Ordering Provider Test Date Status CHILO MILLARD 10/15/2023 06:12:00 Final Observation Date Value Abnormality Reference (Units ) Status Albumin 10/15/2023 06:12:00 2.4 Below low normal 3.8-5.0 (g/dL) Final AST (Aspartate aminotransferase) 10/15/2023 06:12:00 30 10-50 (U/L) Final Alk Phos 10/15/2023 06:12:00 37 35-130 (U/L) Final ALT (Alanine aminotransferase) 10/15/2023 06:12:00 16 10-50 (U/L) Final Bilirubin, Total 10/15/2023 06:12:00 0.8 <=1.2 (mg/dL) Final Bilirubin, Direct 10/15/2023 06:12:00 0.5 Above high normal 0.0-0.3 (mg/dL) Final Protein 10/15/2023 06:12:00 4.7 Below low normal 6.0-8.3 (g/dL) Final Performing Location LABORATORY [facility] [place] - [address] [place] [address]
--- OUTSIDE RECORDS SUMMARY | 2023-12-30 10:29 | External Medical Summary ---
Author Name Unknown Address Unknown Organization K01:LABORATORY [facility] - [address] [place] [address] Laboratory Report Ordering Provider Test Date Status OWEN DORSEY 10/14/2023 19:00:00 Final Observation Date Value Abnormality Reference (Units ) Status Magnesium 10/14/2023 19:00:00 2.1 1.5-2.6 (m g/dL) Final Performing Location LABORATORY [facility] - [address] [place] [address]
--- OUTSIDE RECORDS SUMMARY | 2023-12-30 10:29 | External Medical Summary ---
Author Name Unknown Address Unknown Organization K01:LABORATORY [facility] [place] - [facility] [address] [place] [address] Laboratory Report Ordering Provider Test Date Status ORLANDO NICHOLSON 10/15/2023 06:12:00 Final Observation Date Value Abnormality Reference (Units ) Status BUN 10/15/2023 06:12:00 41 Above high normal 6-20 (mg/dL) Final Creatinine 10/15/2023 06:12:00 1.4 Above high normal 0.6-1.2 (mg/dL) Final Glomerular filtration rate/1.73 sq M.predicted [Volume Rate/Area] in Serum, Plasma or Blood by Creatinine-based formula (CKD-EPI) 10/15/2023 06:12:00 55 Below low normal >=60 (mL/min) Final eGFR is calculated based on the CKD-EPI 2020 equation Sodium 10/15/2023 06:12:00 139 135-146 (m mol/L) Final Potassium 10/15/2023 06:12:00 3.4 Below low normal 3.5 -5.1 (mmol/L) Final Cl 10/15/2023 06:12:00 103 98-107 (mm ol/L) Final CO2 10/15/2023 06:12:00 27 22-32 (mmo l/L) Final Anion gap 10/15/2023 06:12:00 9 7-15 (mmol /L) Final Glucose 10/15/2023 06:12:00 95 70-120 (mg /dL) Final Calcium 10/15/2023 06:12:00 7.9 Below low normal 8.4 -10.2 (mg/dL) Final Performing Location LABORATORY [facility] [place] - [address] [place] [address]
--- OUTSIDE RECORDS SUMMARY | 2023-12-30 10:29 | External Medical Summary ---
Author Name Unknown Address Unknown Organization : Laboratory Report Ordering Provider Test Date Status CHAITANYA HADLEY 10/14/2023 11:53:42 Final Observation Date Value Abnormality Reference (Units ) Status Glucose Point of Care 10/14/2023 11:53:42 110 70-120 (mg/dL) Final Performing Location
--- OUTSIDE RECORDS SUMMARY | 2023-12-30 10:29 | External Medical Summary ---
Author Name Unknown Address Unknown Organization : Laboratory Report Ordering Provider Test Date Status CHAITANYA HADLEY 10/14/2023 19:33:44 Final Observation Date Value Abnormality Reference (Units ) Status Glucose Point of Care 10/14/2023 19:33:44 86 70-120 (mg/dL) Final Performing Location
--- OUTSIDE RECORDS SUMMARY | 2023-12-30 10:29 | External Medical Summary ---
Author Name Unknown Address Unknown Organization K01:LABORATORY [facility] - [address] [place] [address] Laboratory Report Ordering Provider Test Date Status OWEN DORSEY 10/15/2023 17:41:00 Final Observation Date Value Abnormality Reference (Units ) Status Magnesium 10/15/2023 17:41:00 2.0 1.5-2.6 (m g/dL) Final Performing Location LABORATORY [facility] - [address] [place] [address]
--- OUTSIDE RECORDS SUMMARY | 2023-12-30 10:29 | External Medical Summary ---
Author Name Unknown Address Unknown Organization K01:LABORATORY [facility] [place] - [address] [place] [address] Laboratory Report Ordering Provider Test Date Status MADISYN MISHRA 10/15/2023 06:12:00 Final Observation Date Value Abnormality Reference (Units ) Status WBC, Total 10/15/2023 06:12:00 6.48 4.00-10.80 (K/uL) Final RBC 10/15/2023 06:12:00 2.99 4.50-5.25 (M/uL) Final Hemoglobin 10/15/2023 06:12:00 10.0 Below low normal 14.0-16.8 (g/dL) Final HCT 10/15/2023 06:12:00 30.3 Below low normal 40.0-48.4 (%) Final MCV 10/15/2023 06:12:00 101.3 82.0-99.5 (fL) Final MCH 10/15/2023 06:12:00 33.4 27.0-34.0 (pg) Final MCHC 10/15/2023 06:12:00 33.0 32.0-36.0 (g/dL) Final RDW 10/15/2023 06:12:00 15.4 11.5-15.5 (%) Final Platelets 10/15/2023 06:12:00 194 140-400 (K/uL) Final MPV 10/15/2023 06:12:00 8.7 6.6-11.1 (fL) Final Nucleated erythrocytes/100 leukocytes [Ratio] in Blood by Automated count 10/15/2023 06:12:00 0 <=0 (/100 WBCs) Final Performing Location LABORATORY [facility] [place] - [address] [place] [address]
--- OUTSIDE RECORDS SUMMARY | 2023-12-30 10:29 | External Medical Summary ---
Author Name Unknown Address Unknown Organization : Laboratory Report Ordering Provider Test Date Status CHAITANYA HADLEY 10/15/2023 11:53:06 Final Observation Date Value Abnormality Reference (Units ) Status Glucose Point of Care 10/15/2023 11:53:06 105 70-120 (mg/dL) Final Performing Location
--- OUTSIDE RECORDS SUMMARY | 2023-12-30 10:29 | External Medical Summary ---
Author Name Unknown Address Unknown Organization : Laboratory Report Ordering Provider Test Date Status CHAITANYA HADLEY 10/14/2023 06:56:34 Final Observation Date Value Abnormality Reference (Units ) Status Glucose Point of Care 10/14/2023 06:56:34 118 70-120 (mg/dL) Final Performing Location
--- OUTSIDE RECORDS SUMMARY | 2023-12-30 10:29 | External Medical Summary ---
Author Name Unknown Address Unknown Organization : Laboratory Report Ordering Provider Test Date Status CHAITANYA HADLEY 10/16/2023 18:50:24 Final Observation Date Value Abnormality Reference (Units ) Status Glucose Point of Care 10/16/2023 18:50:24 96 70-120 (mg/dL) Final Performing Location
--- OUTSIDE RECORDS SUMMARY | 2023-12-30 10:29 | External Medical Summary ---
Author Name Unknown Address Unknown Organization K01:LABORATORY [facility] [place] - [facility] [address] [place] [address] Laboratory Report Ordering Provider Test Date Status ORLANDO NICHOSLON 10/16/2023 04:59:00 Final Observation Date Value Abnormality Reference (Units ) Status BUN 10/16/2023 04:59:00 42 Above high normal 6-20 (mg/dL) Final Creatinine 10/16/2023 04:59:00 1.3 Above high normal 0.6-1.2 (mg/dL) Final Glomerular filtration rate/1.73 sq M.predicted [Volume Rate/Area] in Serum, Plasma or Blood by Creatinine-based formula (CKD-EPI) 10/16/2023 04:59:00 59 Below low normal >=60 (mL/min) Final eGFR is calculated based on the CKD-EPI 2020 equation Sodium 10/16/2023 04:59:00 138 135-146 (m mol/L) Final Potassium 10/16/2023 04:59:00 3.6 3.5-5.1 (m mol/L) Final Cl 10/16/2023 04:59:00 103 98-107 (mm ol/L) Final CO2 10/16/2023 04:59:00 27 22-32 (mmo l/L) Final Anion gap 10/16/2023 04:59:00 8 7-15 (mmol /L) Final Glucose 10/16/2023 04:59:00 104 70-120 (mg /dL) Final Calcium 10/16/2023 04:59:00 8.0 Below low normal 8.4 -10.2 (mg/dL) Final Performing Location LABORATORY [facility] [place] - [address] [place] [address]
--- OUTSIDE RECORDS SUMMARY | 2023-12-30 10:29 | External Medical Summary ---
Author Name Unknown Address Unknown Organization : Laboratory Report Ordering Provider Test Date Status CHAITANYA HADLEY 10/16/2023 06:33:02 Final Observation Date Value Abnormality Reference (Units ) Status Glucose Point of Care 10/16/2023 06:33:02 111 70-120 (mg/dL) Final Performing Location
--- OUTSIDE RECORDS SUMMARY | 2023-12-30 10:29 | External Medical Summary ---
Author Name Unknown Address Unknown Organization K01:LABORATORY [facility] - [address] [place] [address] Laboratory Report Ordering Provider Test Date Status OWEN DORSEY 10/15/2023 06:12:00 Final Observation Date Value Abnormality Reference (Units ) Status Magnesium 10/15/2023 06:12:00 2.0 1.5-2.6 (m g/dL) Final Performing Location LABORATORY [facility] - [address] [place] [address]
--- OUTSIDE RECORDS SUMMARY | 2023-12-30 10:29 | External Medical Summary ---
Author Name Unknown Address Unknown Organization K01:[place] [place] [facility] [address] [place] [address] Laboratory Report Ordering Provider Test Date Status ORLANDO NICHOLSON 10/14/2023 19:00:00 Final Observation Date Value Abnormality Reference (Units ) Status BUN 10/14/2023 19:00:00 47 Above high normal 6-20 (mg/dL) Final Creatinine 10/14/2023 19:00:00 1.5 Above high normal 0.6-1.2 (mg/dL) Final Glomerular filtration rate/1.73 sq M.predicted [Volume Rate/Area] in Serum, Plasma or Blood by Creatinine-based formula (CKD-EPI) 10/14/2023 19:00:00 49 Below low normal >=60 (mL/min) Final eGFR is calculated based on the CKD-EPI 2020 equation Sodium 10/14/2023 19:00:00 141 135-146 (m mol/L) Final Potassium 10/14/2023 19:00:00 4.6 3.5-5.1 (m mol/L) Final Cl 10/14/2023 19:00:00 104 98-107 (mm ol/L) Final CO2 10/14/2023 19:00:00 26 22-32 (mmo l/L) Final Anion gap 10/14/2023 19:00:00 11 7-15 (mmol /L) Final Glucose 10/14/2023 19:00:00 93 70-120 (mg /dL) Final Calcium 10/14/2023 19:00:00 8.0 Below low normal 8.4 -10.2 (mg/dL) Final Performing Location LAB[facility]ORY [facility] [place] [address] [place] [address]
--- OUTSIDE RECORDS SUMMARY | 2023-12-30 10:29 | External Medical Summary ---
Author Name Unknown Address Unknown Organization K01:LABORATORY [place] [address] [address] [place] [address] Laboratory Report Ordering Provider Test Date Status CHILO MILLARD 10/15/2023 06:12:00 Final Observation Date Value Abnormality Reference (Units ) Status Calcium.ionized [Moles/volume] in Serum or Plasma by Ion-selective membrane electrode (ISE) 10/15/2023 06:12:00 1.11 Below low normal 1.13-1.32 (mmol/L) Final This test was developed and its performance characteristics dtermined by [employer]. It has not been cleared or approved by the [place] Food and Drug Administration Performing Location LABORATORY [place] [address] [address] [facility] [facility] [address] [facility] [address]
--- OUTSIDE RECORDS SUMMARY | 2023-12-30 10:29 | External Medical Summary ---
Author Name Unknown Address Unknown Organization K01:LABORATORY [facility] - [address] [place] [address] Laboratory Report Ordering Provider Test Date Status MARKIE DORSEYGWENDOLYN 10/16/2023 04:59:00 Final Observation Date Value Abnormality Reference (Units ) Status Phosphate 10/16/2023 04:59:00 3.2 2.5-4.8 (m g/dL) Final Performing Location LABORATORY [facility] - [address] [place] [address]
--- OUTSIDE RECORDS SUMMARY | 2023-12-30 10:29 | External Medical Summary ---
Author Name Unknown Address Unknown Organization : Laboratory Report Ordering Provider Test Date Status CHAITANYA HADLEY 10/15/2023 00:02:25 Final Observation Date Value Abnormality Reference (Units ) Status Glucose Point of Care 10/15/2023 00:02:25 111 70-120 (mg/dL) Final Performing Location
--- OUTSIDE RECORDS SUMMARY | 2023-12-30 10:29 | External Medical Summary ---
Author Name Unknown Address Unknown Organization K01:[place] [facility] [place] [address] [place] [address] Laboratory Report Ordering Provider Test Date Status OWEN DORSEY 10/14/2023 05:59:00 Final Observation Date Value Abnormality Reference (Units ) Status Lipase 10/14/2023 05:59:00 83 Above high normal 13 -60 (U/L) Final Performing Location LABORATORY [facility] - [address] [place] [address]
--- OUTSIDE RECORDS SUMMARY | 2023-12-30 10:29 | External Medical Summary ---
Author Name Unknown Address Unknown Organization : Laboratory Report Ordering Provider Test Date Status CHAITANYA HADLEY 10/15/2023 23:43:15 Final Observation Date Value Abnormality Reference (Units ) Status Glucose Point of Care 10/15/2023 23:43:15 110 70-120 (mg/dL) Final Performing Location
--- OUTSIDE RECORDS SUMMARY | 2023-12-30 10:29 | External Medical Summary ---
Author Name Unknown Address Unknown Organization K01:[facility]ORY [facility] [place] [facility] [address] [place] [address] Laboratory Report Ordering Provider Test Date Status ORLANDO NICHOLSON 10/15/2023 17:41:00 Final Observation Date Value Abnormality Reference (Units ) Status BUN 10/15/2023 17:41:00 44 Above high normal 6-20 (mg/dL) Final Creatinine 10/15/2023 17:41:00 1.3 Above high normal 0.6-1.2 (mg/dL) Final Glomerular filtration rate/1.73 sq M.predicted [Volume Rate/Area] in Serum, Plasma or Blood by Creatinine-based formula (CKD-EPI) 10/15/2023 17:41:00 57 Below low normal >=60 (mL/min) Final eGFR is calculated based on the CKD-EPI 2020 equation Sodium 10/15/2023 17:41:00 139 135-146 (m mol/L) Final Potassium 10/15/2023 17:41:00 3.6 3.5-5.1 (m mol/L) Final Cl 10/15/2023 17:41:00 103 98-107 (mm ol/L) Final CO2 10/15/2023 17:41:00 23 22-32 (mmo l/L) Final Anion gap 10/15/2023 17:41:00 13 7-15 (mmol /L) Final Glucose 10/15/2023 17:41:00 90 70-120 (mg /dL) Final Calcium 10/15/2023 17:41:00 8.0 Below low normal 8.4 -10.2 (mg/dL) Final Performing Location LABORATORY [facility] [place] - [address] [place] [address]
--- OUTSIDE RECORDS SUMMARY | 2023-12-30 10:29 | External Medical Summary ---
Author Name Unknown Address Unknown Organization : Laboratory Report Ordering Provider Test Date Status CHAITANYA HADLEY 10/15/2023 06:15:13 Final Observation Date Value Abnormality Reference (Units ) Status Glucose Point of Care 10/15/2023 06:15:13 96 70-120 (mg/dL) Final Performing Location
--- OUTSIDE RECORDS SUMMARY | 2023-12-30 10:29 | External Medical Summary ---
Author Name Unknown Address Unknown Organization : Laboratory Report Ordering Provider Test Date Status CHAITANYA HADLEY 10/14/2023 18:48:30 Final Observation Date Value Abnormality Reference (Units ) Status Glucose Point of Care 10/14/2023 18:48:30 83 70-120 (mg/dL) Final Performing Location
--- OUTSIDE RECORDS SUMMARY | 2023-12-30 10:29 | External Medical Summary ---
Author Name Unknown Address Unknown Organization K01:LABORATORY [facility] - [address] [place] [address] Laboratory Report Ordering Provider Test Date Status SUNITALARSLEO 10/15/2023 06:12:00 Final Observation Date Value Abnormality Reference (Units ) Status Phosphate 10/15/2023 06:12:00 3.0 2.5-4.8 (m g/dL) Final Performing Location LABORATORY [facility] - [address] [place] [address]
--- OUTSIDE RECORDS SUMMARY | 2023-12-30 10:30 | External Medical Summary ---
Author Name Unknown Address Unknown Organization : Laboratory Report Ordering Provider Test Date Status CHAITANYA HADLEY 10/12/2023 16:48:59 Final Observation Date Value Abnormality Reference (Units ) Status Glucose Point of Care 10/12/2023 16:48:59 108 70-120 (mg/dL) Final Performing Location
--- OUTSIDE RECORDS SUMMARY | 2023-12-30 10:30 | External Medical Summary ---
Author Name Unknown Address Unknown Organization K01:LABORATORY [facility] [place] - [facility] [address] [place] [address] Laboratory Report Ordering Provider Test Date Status ORLANDO NICHOLSON 10/11/2023 05:39:00 Final Observation Date Value Abnormality Reference (Units ) Status BUN 10/11/2023 05:39:00 49 Above high normal 6-20 (mg/dL) Final Creatinine 10/11/2023 05:39:00 2.1 Above high normal 0.6-1.2 (mg/dL) Final Glomerular filtration rate/1.73 sq M.predicted [Volume Rate/Area] in Serum, Plasma or Blood by Creatinine-based formula (CKD-EPI) 10/11/2023 05:39:00 34 Below low normal >=60 (mL/min) Final eGFR is calculated based on the CKD-EPI 2020 equation Sodium 10/11/2023 05:39:00 146 135-146 (m mol/L) Final Potassium 10/11/2023 05:39:00 4.1 3.5-5.1 (m mol/L) Final Cl 10/11/2023 05:39:00 102 98-107 (mm ol/L) Final CO2 10/11/2023 05:39:00 33 Above high normal 22 -32 (mmol/L) Final Anion gap 10/11/2023 05:39:00 11 7-15 (mmol /L) Final Glucose 10/11/2023 05:39:00 81 70-120 (mg /dL) Final Calcium 10/11/2023 05:39:00 7.8 Below low normal 8.4 -10.2 (mg/dL) Final Performing Location LABORATORY [facility] [place] - [address] [place] [address]
--- OUTSIDE RECORDS SUMMARY | 2023-12-30 10:30 | External Medical Summary ---
Author Name Unknown Address Unknown Organization K01:LABORATORY [facility] [place] - [facility] [address] [place] [address] Laboratory Report Ordering Provider Test Date Status ORLANDO NICHOLSON 10/11/2023 17:54:00 Final Observation Date Value Abnormality Reference (Units ) Status BUN 10/11/2023 17:54:00 47 Above high normal 6-20 (mg/dL) Final Creatinine 10/11/2023 17:54:00 1.8 Above high normal 0.6-1.2 (mg/dL) Final Glomerular filtration rate/1.73 sq M.predicted [Volume Rate/Area] in Serum, Plasma or Blood by Creatinine-based formula (CKD-EPI) 10/11/2023 17:54:00 40 Below low normal >=60 (mL/min) Final eGFR is calculated based on the CKD-EPI 2020 equation Sodium 10/11/2023 17:54:00 143 135-146 (m mol/L) Final Potassium 10/11/2023 17:54:00 3.2 Below low normal 3.5 -5.1 (mmol/L) Final Cl 10/11/2023 17:54:00 100 98-107 (mm ol/L) Final CO2 10/11/2023 17:54:00 31 22-32 (mmo l/L) Final Anion gap 10/11/2023 17:54:00 12 7-15 (mmol /L) Final Glucose 10/11/2023 17:54:00 101 70-120 (mg /dL) Final Calcium 10/11/2023 17:54:00 7.9 Below low normal 8.4 -10.2 (mg/dL) Final Performing Location LABORATORY [facility] [place] - [address] [place] [address]
--- OUTSIDE RECORDS SUMMARY | 2023-12-30 10:30 | External Medical Summary ---
Author Name Unknown Address Unknown Organization K01:LABORATORY [facility] - [address] [place] [address] Laboratory Report Ordering Provider Test Date Status OWEN DORSEY 10/13/2023 05:21:00 Final Observation Date Value Abnormality Reference (Units ) Status Magnesium 10/13/2023 05:21:00 2.4 1.5-2.6 (m g/dL) Final Performing Location LABORATORY [facility] - [address] [place] [address]
--- OUTSIDE RECORDS SUMMARY | 2023-12-30 10:30 | External Medical Summary ---
Author Name Unknown Address Unknown Organization : Laboratory Report Ordering Provider Test Date Status CHAITANYA HADLEY 10/12/2023 20:35:48 Final Observation Date Value Abnormality Reference (Units ) Status Glucose Point of Care 10/12/2023 20:35:48 118 70-120 (mg/dL) Final Performing Location
--- OUTSIDE RECORDS SUMMARY | 2023-12-30 10:30 | External Medical Summary ---
Author Name Unknown Address Unknown Organization K01:[facility] [address] [place] [address] Laboratory Report Ordering Provider Test Date Status OWEN DORSEY 10/13/2023 17:39:00 Final Observation Date Value Abnormality Reference (Units ) Status Magnesium 10/13/2023 17:39:00 2.4 1.5-2.6 (m g/dL) Final Performing Location [facility] - [address] [place] [address]
--- OUTSIDE RECORDS SUMMARY | 2023-12-30 10:30 | External Medical Summary ---
Author Name Unknown Address Unknown Organization [id number]:LABORATORY [facility] [place] - [facility] [address] [place] [address] Laboratory Report Ordering Provider Test Date Status ORLANDO NICHOLSON 10/12/2023 19:57:00 Final Observation Date Value Abnormality Reference (Units ) Status BUN 10/12/2023 19:57:00 41 Above high normal 6-20 (mg/dL) Final Creatinine 10/12/2023 19:57:00 1.8 Above high normal 0.6-1.2 (mg/dL) Final Glomerular filtration rate/1.73 sq M.predicted [Volume Rate/Area] in Serum, Plasma or Blood by Creatinine-based formula (CKD-EPI) 10/12/2023 19:57:00 41 Below low normal >=60 (mL/min) Final eGFR is calculated based on the CKD-EPI 2020 equation Sodium 10/12/2023 19:57:00 139 135-146 (m mol/L) Final Potassium 10/12/2023 19:57:00 3.6 3.5-5.1 (m mol/L) Final Cl 10/12/2023 19:57:00 100 98-107 (mm ol/L) Final CO2 10/12/2023 19:57:00 31 22-32 (mmo l/L) Final Anion gap 10/12/2023 19:57:00 8 7-15 (mmol /L) Final Glucose 10/12/2023 19:57:00 121 Above high normal 70 -120 (mg/dL) Final Calcium 10/12/2023 19:57:00 8.1 Below low normal 8.4 -10.2 (mg/dL) Final Performing Location LABORATORY [facility] [place] - [address] [place] [address]
--- OUTSIDE RECORDS SUMMARY | 2023-12-30 10:30 | External Medical Summary ---
Author Name Unknown Address Unknown Organization : Laboratory Report Ordering Provider Test Date Status CHAITANYA HADLEY 10/11/2023 11:15:35 Final Observation Date Value Abnormality Reference (Units ) Status Glucose Point of Care 10/11/2023 11:15:35 81 70-120 (mg/dL) Final Performing Location
--- OUTSIDE RECORDS SUMMARY | 2023-12-30 10:30 | External Medical Summary ---
Author Name Unknown Address Unknown Organization : Laboratory Report Ordering Provider Test Date Status CHAITANYA HADLEY 10/13/2023 06:17:30 Final Observation Date Value Abnormality Reference (Units ) Status Glucose Point of Care 10/13/2023 06:17:30 122 Above high normal 70-120 (mg/dL) Final Performing Location
--- OUTSIDE RECORDS SUMMARY | 2023-12-30 10:30 | External Medical Summary ---
Author Name Unknown Address Unknown Organization [id number]:[facility] [place] [address] [place] [address] Laboratory Report Ordering Provider Test Date Status LOGANANYI 10/13/2023 05:21:00 Final Observation Date Value Abnormality Reference (Units ) Status Triglyceride 10/13/2023 05:21:00 144 <=174 ( mg/dL) Final Triglyceride Reference Range s (mg/dL):
<150 Acceptable
150-174 Borderline high
175-499 High
>=500 Very high Performing Location LAB[facility] [place] [address] [place] [address]
--- OUTSIDE RECORDS SUMMARY | 2023-12-30 10:30 | External Medical Summary ---
Author Name Unknown Address Unknown Organization [id number]:LABORATORY [facility] [place] - [address] [place] [address] Laboratory Report Ordering Provider Test Date Status SUNITAMARKIEGWENDOLYN 10/13/2023 00:02:00 Final Observation Date Value Abnormality Reference (Units ) Status Lactic Acid 10/13/2023 00:02:00 1.5 0.4-2.0 (mmol/L) Final Performing Location LAB[facility]ATORY [facility] - [address] [place] [address]
--- OUTSIDE RECORDS SUMMARY | 2023-12-30 10:30 | External Medical Summary ---
Author Name Unknown Address Unknown Organization K01:[facility] [place] [facility] [place] [address] [place] [address] Laboratory Report Ordering Provider Test Date Status ORLANDO NICHOLSON 10/13/2023 05:21:00 Final Observation Date Value Abnormality Reference (Units ) Status BUN 10/13/2023 05:21:00 42 Above high normal 6-20 (mg/dL) Final Creatinine 10/13/2023 05:21:00 1.6 Above high normal 0.6-1.2 (mg/dL) Final Glomerular filtration rate/1.73 sq M.predicted [Volume Rate/Area] in Serum, Plasma or Blood by Creatinine-based formula (CKD-EPI) 10/13/2023 05:21:00 44 Below low normal >=60 (mL/min) Final eGFR is calculated based on the CKD-EPI 2020 equation Sodium 10/13/2023 05:21:00 138 135-146 (m mol/L) Final Potassium 10/13/2023 05:21:00 3.9 3.5-5.1 (m mol/L) Final Cl 10/13/2023 05:21:00 101 98-107 (mm ol/L) Final CO2 10/13/2023 05:21:00 27 22-32 (mmo l/L) Final Anion gap 10/13/2023 05:21:00 10 7-15 (mmol /L) Final Glucose 10/13/2023 05:21:00 122 Above high normal 70 -120 (mg/dL) Final Calcium 10/13/2023 05:21:00 7.7 Below low normal 8.4 -10.2 (mg/dL) Final Performing Location [facility] [place] [address] [place] [address]
--- OUTSIDE RECORDS SUMMARY | 2023-12-30 10:30 | External Medical Summary ---
Author Name Unknown Address Unknown Organization : Laboratory Report Ordering Provider Test Date Status CHAITANYA HADLEY 10/13/2023 17:59:32 Final Observation Date Value Abnormality Reference (Units ) Status Glucose Point of Care 10/13/2023 17:59:32 92 70-120 (mg/dL) Final Performing Location
--- OUTSIDE RECORDS SUMMARY | 2023-12-30 10:30 | External Medical Summary ---
Author Name Unknown Address Unknown Organization : Laboratory Report Ordering Provider Test Date Status CHAITANYA HADLEY 10/11/2023 20:54:55 Final Observation Date Value Abnormality Reference (Units ) Status Glucose Point of Care 10/11/2023 20:54:55 81 70-120 (mg/dL) Final Performing Location
--- OUTSIDE RECORDS SUMMARY | 2023-12-30 10:30 | External Medical Summary ---
Author Name Unknown Address Unknown Organization K01:[facility] - [address] [place] [address] Laboratory Report Ordering Provider Test Date Status OWEN DORSEY 10/13/2023 00:02:00 Final Observation Date Value Abnormality Reference (Units ) Status Magnesium 10/13/2023 00:02:00 2.4 1.5-2.6 (m g/dL) Final Performing Location [facility] - [address] [place] [address]
--- OUTSIDE RECORDS SUMMARY | 2023-12-30 10:30 | External Medical Summary ---
Author Name Unknown Address Unknown Organization K01:[facility] - [address] [place] [address] Laboratory Report Ordering Provider Test Date Status SUNITA,LARSLEO 10/13/2023 00:02:00 Final Observation Date Value Abnormality Reference (Units ) Status Phosphate 10/13/2023 00:02:00 2.9 2.5-4.8 (m g/dL) Final Performing Location [facility] - [address] [place] [address]
--- OUTSIDE RECORDS SUMMARY | 2023-12-30 10:30 | External Medical Summary ---
Author Name Unknown Address Unknown Organization K01:[facility] [place] [facility] [address] [facility] [address] Laboratory Report Ordering Provider Test Date Status ORLANDO NICHOLSON 10/13/2023 17:39:00 Final Observation Date Value Abnormality Reference (Units ) Status BUN 10/13/2023 17:39:00 42 Above high normal 6-20 (mg/dL) Final Creatinine 10/13/2023 17:39:00 1.6 Above high normal 0.6-1.2 (mg/dL) Final Glomerular filtration rate/1.73 sq M.predicted [Volume Rate/Area] in Serum, Plasma or Blood by Creatinine-based formula (CKD-EPI) 10/13/2023 17:39:00 46 Below low normal >=60 (mL/min) Final eGFR is calculated based on the CKD-EPI 2020 equation Sodium 10/13/2023 17:39:00 142 135-146 (m mol/L) Final Potassium 10/13/2023 17:39:00 4.2 3.5-5.1 (m mol/L) Final Cl 10/13/2023 17:39:00 103 98-107 (mm ol/L) Final CO2 10/13/2023 17:39:00 28 22-32 (mmo l/L) Final Anion gap 10/13/2023 17:39:00 11 7-15 (mmol /L) Final Glucose 10/13/2023 17:39:00 95 70-120 (mg /dL) Final Calcium 10/13/2023 17:39:00 7.7 Below low normal 8.4 -10.2 (mg/dL) Final Performing Location LAB[facility]ORY [facility] [place] [address] [place] [address]
--- OUTSIDE RECORDS SUMMARY | 2023-12-30 10:30 | External Medical Summary ---
Author Name Unknown Address Unknown Organization : Laboratory Report Ordering Provider Test Date Status CHAITANYA HADLEY 10/14/2023 00:03:22 Final Observation Date Value Abnormality Reference (Units ) Status Glucose Point of Care 10/14/2023 00:03:22 109 70-120 (mg/dL) Final Performing Location
--- OUTSIDE RECORDS SUMMARY | 2023-12-30 10:30 | External Medical Summary ---
Author Name Unknown Address Unknown Organization : Laboratory Report Ordering Provider Test Date Status CHAITANYA HADLEY 10/12/2023 07:07:59 Final Observation Date Value Abnormality Reference (Units ) Status Glucose Point of Care 10/12/2023 07:07:59 111 70-120 (mg/dL) Final Performing Location
--- OUTSIDE RECORDS SUMMARY | 2023-12-30 10:30 | External Medical Summary | Summary of Care ---
Author Name Unknown Organization [facility] Address [address] [place] [address] Phone [phone] Care Team Providers Care Assistant Account Manager Name Role Phone Valdemar Segundo PA-C Primary Care Provider [phone] Encounter Details Date Type Department Care Team (Late st Contact Info) Description 10/09/2023 CardioDiagnostic Study Vascular Surg [facility] [address] [place] [address] Gregory Le MD [address] [place] [address] EKG Report Allergies Active Allergy Reactions Criticality Noted Date Comments Penicillins Rash 09/28/2003 documented as of this encounter (statuses as of 10/11/2023) Medications Medication Sig Dispensed Refills Start Date End Date Status Trelehermelinda Ellipta 100-62.5-25 MCG/ACT Aerosol Powder Breath Activated [...] as of this encounter (statuses as of 10/11/2023) Active Problems Problem Noted Date Diagnosed Date Coronary artery disease invo lving [place] coronary artery of [place] heart without angina pectoris 06/05/2023 S/P CABG (coronary artery bypass graft) 06/05/20 23 Infrarenal abdominal aortic aneurysm (AAA) witho ut rupture 05/30/2022 Iliac artery aneurysm, right 05/30/2022 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 (5 years old or older) No 10/03/2023 documented as of this encounter Procedure Notes * Sacha Major DO - 10/09/2023 2:41 AM EDTAssociated Order(s): EKG REPORT REASON FOR STUDY: CONCLUSIONS: Sinus tachycardia Low voltage QRS, consider pulmonary disease, pericardial effusion, or normal variant Cannot rule out Anterior infarct (cited on or before 04-Sep-2023) ST-t wave abnormality consider anterolateral ischemia When compared with ECG of 08-Oct-2023 20:10, (unconfirmed) Fusion complexes are now Present Ventricular Rate: 100 Atrial Rate: 100 LA Interval: 156 QRS Duration: 78 QT/QTc: 344/443 ms P-R-T Zillah: 55 : 13 : 94 degrees documented in this encounter Plan of Treatment Upcoming Encounters Date Type Department Care Team (Late st Contact Info) Description 11/14/2023 12:30 PM EDT Imaging Radiology [facility] [address] [place] [address] 11/20/2023 2:10 PM EDT Office Visit Vascular Surgery, [address] [place] [address] Gregory Le MD [address] [place] [address] Health Maintenance Due Date Last [...] this encounter Medical Devices Implanted Type Area Chain Testing Machine Operator Device Identifier Shelf Expiration Date Model / Serial / Lot Graft Bifur [id number] - [id number] Implanted:Qty : 1 on 10/03/2023 by [place] Le MD [place] [facility] [place]: Aorta GETINGE : MAQUET [id number] 04/30/2028 [id number] / [id number] / [id number] documented as of this encounter Procedures Procedure Name Priority Date/Time Associated Diagnosis Comments EKG REPORT 10/09/2023 2:41 AM EDT documented in this encounter Results * EKG REPORT (10/09/2023 2:41 AM EDT) 10/09/2023 2:41 AM EDT Narrative Procedure Note Sacha Major, - 10/09/2023 2:41 AM EDT REASON FOR STUDY: CONCLUSIONS: Sinus tachycardia Low voltage QRS, consider pulmonary disease, pericardial effusion, ornormal variant Cannot rule out Anterior infarct (cited on or before 04-Sep-2023) ST-t wave abnormality consider anterolateral ischemia When compared with ECG of 08-Oct-2023 20:10, (unconfirmed) Fusion complexes are now Present Ventricular Rate: 100 Atrial Rate: 100 LA Interval: 156 QRS Duration: 78 QT/QTc: 344/443 ms P-R-T Zillah: 55 : 13 : 94 degrees Gregory Le MD EKG documented in [...] the patient have Health Care Power of Rubber Gasket Inspector Trimmer? No Care Teams Assistant Account Manager Relationship Specialty Start Date End Date Valdemar Segundo, MARYCARMEN [address] [place], [place] [address] [id number] PCP - General Physician Fisher Trap 05/03/21 documented as of this encounter
--- OUTSIDE RECORDS SUMMARY | 2023-12-30 10:30 | External Medical Summary ---
Author Name Unknown Address Unknown Organization : Laboratory Report Ordering Provider Test Date Status CHAITANYA HADLEY 10/12/2023 10:56:49 Final Observation Date Value Abnormality Reference (Units ) Status Glucose Point of Care 10/12/2023 10:56:49 85 70-120 (mg/dL) Final Performing Location
--- OUTSIDE RECORDS SUMMARY | 2023-12-30 10:30 | External Medical Summary ---
Author Name Unknown Address Unknown Organization K01:LABORATORY [facility] [place] - [address] [place] [address] Laboratory Report Ordering Provider Test Date Status MADISYN MISHRA 10/13/2023 05:21:00 Final Observation Date Value Abnormality Reference (Units ) Status WBC, Total 10/13/2023 05:21:00 7.19 4.00-10.80 (K/uL) Final RBC 10/13/2023 05:21:00 3.20 4.50-5.25 (M/uL) Final Hemoglobin 10/13/2023 05:21:00 10.6 Below low normal 14.0-16.8 (g/dL) Final HCT 10/13/2023 05:21:00 32.4 Below low normal 40.0-48.4 (%) Final MCV 10/13/2023 05:21:00 101.3 82.0-99.5 (fL) Final MCH 10/13/2023 05:21:00 33.1 27.0-34.0 (pg) Final MCHC 10/13/2023 05:21:00 32.7 32.0-36.0 (g/dL) Final RDW 10/13/2023 05:21:00 15.1 11.5-15.5 (%) Final Platelets 10/13/2023 05:21:00 182 140-400 (K/uL) Final MPV 10/13/2023 05:21:00 8.4 6.6-11.1 (fL) Final Nucleated erythrocytes/100 leukocytes [Ratio] in Blood by Automated count 10/13/2023 05:21:00 0 <=0 (/100 WBCs) Final Performing Location LABORATORY [facility] [place] - [address] [place] [address]
--- OUTSIDE RECORDS SUMMARY | 2023-12-30 10:30 | External Medical Summary ---
Author Name Unknown Address Unknown Organization : Laboratory Report Ordering Provider Test Date Status CHAITANYA HADLEY 10/11/2023 17:18:05 Final Observation Date Value Abnormality Reference (Units ) Status Glucose Point of Care 10/11/2023 17:18:05 76 70-120 (mg/dL) Final Performing Location
--- OUTSIDE RECORDS SUMMARY | 2023-12-30 10:30 | External Medical Summary ---
Author Name Unknown Address Unknown Organization K01:[facility] - [address] [place] [address] Laboratory Report Ordering Provider Test Date Status SUNITA,MANINGGWENDOLYN 10/13/2023 17:39:00 Final Observation Date Value Abnormality Reference (Units ) Status Phosphate 10/13/2023 17:39:00 3.6 2.5-4.8 (m g/dL) Final Performing Location [facility] - [address] [place] [address]
--- OUTSIDE RECORDS SUMMARY | 2023-12-30 10:30 | External Medical Summary ---
Author Name Unknown Address Unknown Organization K01:[facility] - [address] [place] [address] Laboratory Report Ordering Provider Test Date Status SUNITALARSLEO 10/13/2023 05:21:00 Final Observation Date Value Abnormality Reference (Units ) Status Phosphate 10/13/2023 05:21:00 3.2 2.5-4.8 (m g/dL) Final Performing Location [facility] - [address] [place] [address]
--- OUTSIDE RECORDS SUMMARY | 2023-12-30 10:30 | External Medical Summary ---
Author Name Unknown Address Unknown Organization K01:[facility]ORY [facility] [place] [address] [place] [address] Laboratory Report Ordering Provider Test Date Status MADISYN MISHRA 10/12/2023 05:24:00 Final Observation Date Value Abnormality Reference (Units ) Status WBC, Total 10/12/2023 05:24:00 5.56 4.00-10.80 (K/uL) Final RBC 10/12/2023 05:24:00 2.90 4.50-5.25 (M/uL) Final Hemoglobin 10/12/2023 05:24:00 9.5 Below low normal 14.0-16.8 (g/dL) Final HCT 10/12/2023 05:24:00 29.5 Below low normal 40.0-48.4 (%) Final MCV 10/12/2023 05:24:00 101.7 82.0-99.5 (fL) Final MCH 10/12/2023 05:24:00 32.8 27.0-34.0 (pg) Final MCHC 10/12/2023 05:24:00 32.2 32.0-36.0 (g/dL) Final RDW 10/12/2023 05:24:00 15.2 11.5-15.5 (%) Final Platelets 10/12/2023 05:24:00 171 140-400 (K/uL) Final MPV 10/12/2023 05:24:00 8.8 6.6-11.1 (fL) Final Nucleated erythrocytes/100 leukocytes [Ratio] in Blood by Automated count 10/12/2023 05:24:00 0 <=0 (/100 WBCs) Final Performing Location LABORATORY [facility] [place] [address] [place] [address]
--- OUTSIDE RECORDS SUMMARY | 2023-12-30 10:30 | External Medical Summary ---
Author Name Unknown Address Unknown Organization K01:LABORATORY [facility] [place] - [facility] [address] [place] [address] Laboratory Report Ordering Provider Test Date Status ORLANDO NICHOLSON 10/10/2023 17:22:00 Final Observation Date Value Abnormality Reference (Units ) Status BUN 10/10/2023 17:22:00 51 Above high normal 6-20 (mg/dL) Final Creatinine 10/10/2023 17:22:00 2.2 Above high normal 0.6-1.2 (mg/dL) Final Glomerular filtration rate/1.73 sq M.predicted [Volume Rate/Area] in Serum, Plasma or Blood by Creatinine-based formula (CKD-EPI) 10/10/2023 17:22:00 31 Below low normal >=60 (mL/min) Final eGFR is calculated based on the CKD-EPI 2020 equation Sodium 10/10/2023 17:22:00 145 135-146 (m mol/L) Final Potassium 10/10/2023 17:22:00 4.2 3.5-5.1 (m mol/L) Final Cl 10/10/2023 17:22:00 100 98-107 (mm ol/L) Final CO2 10/10/2023 17:22:00 34 Above high normal 22 -32 (mmol/L) Final Anion gap 10/10/2023 17:22:00 11 7-15 (mmol /L) Final Glucose 10/10/2023 17:22:00 86 70-120 (mg /dL) Final Calcium 10/10/2023 17:22:00 8.1 Below low normal 8.4 -10.2 (mg/dL) Final Performing Location LABORATORY [facility] [place] - [address] [place] [address]
--- OUTSIDE RECORDS SUMMARY | 2023-12-30 10:30 | External Medical Summary ---
Author Name Unknown Address Unknown Organization K01:[facility]ORY [facility] [place] [address] [place] [address] Laboratory Report Ordering Provider Test Date Status MADISYN MISHRA 10/11/2023 05:39:00 Final Observation Date Value Abnormality Reference (Units ) Status WBC, Total 10/11/2023 05:39:00 4.33 4.00-10.80 (K/uL) Final RBC 10/11/2023 05:39:00 3.08 4.50-5.25 (M/uL) Final Hemoglobin 10/11/2023 05:39:00 10.2 Below low normal 14.0-16.8 (g/dL) Final HCT 10/11/2023 05:39:00 31.6 Below low normal 40.0-48.4 (%) Final MCV 10/11/2023 05:39:00 102.6 82.0-99.5 (fL) Final MCH 10/11/2023 05:39:00 33.1 27.0-34.0 (pg) Final MCHC 10/11/2023 05:39:00 32.3 32.0-36.0 (g/dL) Final RDW 10/11/2023 05:39:00 15.3 11.5-15.5 (%) Final Platelets 10/11/2023 05:39:00 183 140-400 (K/uL) Final MPV 10/11/2023 05:39:00 8.5 6.6-11.1 (fL) Final Nucleated erythrocytes/100 leukocytes [Ratio] in Blood by Automated count 10/11/2023 05:39:00 0 <=0 (/100 WBCs) Final Performing Location LAB[facility]ORY [facility] [place] [address] [place] [address]
--- OUTSIDE RECORDS SUMMARY | 2023-12-30 10:30 | External Medical Summary ---
Author Name Unknown Address Unknown Organization K01:[facility] [place] [facility] [address] [place] [address] Laboratory Report Ordering Provider Test Date Status ORLANDO NICHOLSON 10/12/2023 05:24:00 Final Observation Date Value Abnormality Reference (Units ) Status BUN 10/12/2023 05:24:00 41 Above high normal 6-20 (mg/dL) Final Creatinine 10/12/2023 05:24:00 1.7 Above high normal 0.6-1.2 (mg/dL) Final Glomerular filtration rate/1.73 sq M.predicted [Volume Rate/Area] in Serum, Plasma or Blood by Creatinine-based formula (CKD-EPI) 10/12/2023 05:24:00 42 Below low normal >=60 (mL/min) Final eGFR is calculated based on the CKD-EPI 2020 equation Sodium 10/12/2023 05:24:00 140 135-146 (m mol/L) Final Potassium 10/12/2023 05:24:00 3.2 Below low normal 3.5 -5.1 (mmol/L) Final Cl 10/12/2023 05:24:00 100 98-107 (mm ol/L) Final CO2 10/12/2023 05:24:00 31 22-32 (mmo l/L) Final Anion gap 10/12/2023 05:24:00 9 7-15 (mmol /L) Final Glucose 10/12/2023 05:24:00 110 70-120 (mg /dL) Final Calcium 10/12/2023 05:24:00 7.7 Below low normal 8.4 -10.2 (mg/dL) Final Performing Location LAB[facility]ORY [facility] [place] [address] [place] [address]
--- OUTSIDE RECORDS SUMMARY | 2023-12-30 10:30 | External Medical Summary ---
Author Name Unknown Address Unknown Organization : Laboratory Report Ordering Provider Test Date Status CHAITANYA HADLEY 10/13/2023 11:38:40 Final Observation Date Value Abnormality Reference (Units ) Status Glucose Point of Care 10/13/2023 11:38:40 112 70-120 (mg/dL) Final Performing Location
--- OUTSIDE RECORDS SUMMARY | 2023-12-30 10:30 | External Medical Summary ---
Author Name Unknown Address Unknown Organization : Laboratory Report Ordering Provider Test Date Status CHAITANYA HADLEY 10/10/2023 17:44:11 Final Observation Date Value Abnormality Reference (Units ) Status Glucose Point of Care 10/10/2023 17:44:11 83 70-120 (mg/dL) Final Performing Location
--- OUTSIDE RECORDS SUMMARY | 2023-12-30 10:31 | External Medical Summary ---
Author Name Unknown Address Unknown Organization : Laboratory Report Ordering Provider Test Date Status CHAITANYA HADLEY 10/09/2023 06:39:54 Final Observation Date Value Abnormality Reference (Units ) Status Glucose Point of Care 10/09/2023 06:39:54 113 70-120 (mg/dL) Final Performing Location
--- OUTSIDE RECORDS SUMMARY | 2023-12-30 10:31 | External Medical Summary ---
Author Name Unknown Address Unknown Organization : Laboratory Report Ordering Provider Test Date Status CHAITANYA HADLEY 10/09/2023 23:49:13 Final Observation Date Value Abnormality Reference (Units ) Status Glucose Point of Care 10/09/2023 23:49:13 87 70-120 (mg/dL) Final Performing Location
--- OUTSIDE RECORDS SUMMARY | 2023-12-30 10:31 | External Medical Summary ---
Author Name Unknown Address Unknown Organization : Laboratory Report Ordering Provider Test Date Status CHAITANYA HADLEY 10/08/2023 16:36:04 Final Observation Date Value Abnormality Reference (Units ) Status Glucose Point of Care 10/08/2023 16:36:04 103 70-120 (mg/dL) Final Performing Location
--- OUTSIDE RECORDS SUMMARY | 2023-12-30 10:31 | External Medical Summary ---
Author Name Unknown Address Unknown Organization : Laboratory Report Ordering Provider Test Date Status CHAITANYA HADLEY 10/10/2023 07:46:16 Final Observation Date Value Abnormality Reference (Units ) Status Glucose Point of Care 10/10/2023 07:46:16 84 70-120 (mg/dL) Final Performing Location
--- OUTSIDE RECORDS SUMMARY | 2023-12-30 10:31 | External Medical Summary ---
Author Name Unknown Address Unknown Organization : Laboratory Report Ordering Provider Test Date Status CHAITANYA HADLEY 10/09/2023 11:02:53 Final Observation Date Value Abnormality Reference (Units ) Status Glucose Point of Care 10/09/2023 11:02:53 113 70-120 (mg/dL) Final Performing Location
--- OUTSIDE RECORDS SUMMARY | 2023-12-30 10:31 | External Medical Summary ---
Author Name Unknown Address Unknown Organization K01:LABORATORY [facility] [place] - [facility] [place] [address] [place] [address] Laboratory Report Ordering Provider Test Date Status ORLANDO NICHOLSON 10/09/2023 17:05:00 Final Observation Date Value Abnormality Reference (Units ) Status BUN 10/09/2023 17:05:00 50 Above high normal 6-20 (mg/dL) Final Creatinine 10/09/2023 17:05:00 2.3 Above high normal 0.6-1.2 (mg/dL) Final Glomerular filtration rate/1.73 sq M.predicted [Volume Rate/Area] in Serum, Plasma or Blood by Creatinine-based formula (CKD-EPI) 10/09/2023 17:05:00 30 Below low normal >=60 (mL/min) Final eGFR is calculated based on the CKD-EPI 2020 equation Sodium 10/09/2023 17:05:00 142 135-146 (m mol/L) Final Potassium 10/09/2023 17:05:00 4.1 3.5-5.1 (m mol/L) Final Cl 10/09/2023 17:05:00 100 98-107 (mm ol/L) Final CO2 10/09/2023 17:05:00 33 Above high normal 22 -32 (mmol/L) Final Anion gap 10/09/2023 17:05:00 9 7-15 (mmol /L) Final Glucose 10/09/2023 17:05:00 98 70-120 (mg /dL) Final Calcium 10/09/2023 17:05:00 8.2 Below low normal 8.4 -10.2 (mg/dL) Final Performing Location LABORATORY [facility] [place] - [address] [place] [address]
--- OUTSIDE RECORDS SUMMARY | 2023-12-30 10:31 | External Medical Summary ---
Author Name Unknown Address Unknown Organization : Laboratory Report Ordering Provider Test Date Status CHAITANYA HADLEY 10/08/2023 10:51:54 Final Observation Date Value Abnormality Reference (Units ) Status Glucose Point of Care 10/08/2023 10:51:54 136 Above high normal 70-120 (mg/dL) Final Performing Location
--- OUTSIDE RECORDS SUMMARY | 2023-12-30 10:31 | External Medical Summary ---
Author Name Unknown Address Unknown Organization K01:LABORATORY [facility] [place] - [facility] [address] [place] [address] Laboratory Report Ordering Provider Test Date Status DUNIA JENSEN 10/08/2023 21:53:00 Final Observation Date Value Abnormality Reference (Units ) Status BUN 10/08/2023 21:53:00 41 Above high normal 6-20 (mg/dL) Final Creatinine 10/08/2023 21:53:00 2.0 Above high normal 0.6-1.2 (mg/dL) Final Glomerular filtration rate/1.73 sq M.predicted [Volume Rate/Area] in Serum, Plasma or Blood by Creatinine-based formula (CKD-EPI) 10/08/2023 21:53:00 35 Below low normal >=60 (mL/min) Final eGFR is calculated based on the CKD-EPI 2020 equation Sodium 10/08/2023 21:53:00 141 135-146 (m mol/L) Final Potassium 10/08/2023 21:53:00 3.6 3.5-5.1 (m mol/L) Final Cl 10/08/2023 21:53:00 102 98-107 (mm ol/L) Final CO2 10/08/2023 21:53:00 29 22-32 (mmo l/L) Final Anion gap 10/08/2023 21:53:00 10 7-15 (mmol /L) Final Glucose 10/08/2023 21:53:00 123 Above high normal 70 -120 (mg/dL) Final Calcium 10/08/2023 21:53:00 8.4 8.4-10.2 ( mg/dL) Final Performing Location LABORATORY [facility] [place] - [address] [place] [address]
--- OUTSIDE RECORDS SUMMARY | 2023-12-30 10:31 | External Medical Summary ---
Author Name Unknown Address Unknown Organization [id number]:LABORATORY [facility] [place] - [address] [place] [address] Laboratory Report Ordering Provider Test Date Status MADISYN MISHRA 10/10/2023 04:44:00 Final Observation Date Value Abnormality Reference (Units ) Status WBC, Total 10/10/2023 04:44:00 4.00 4.00-10.80 (K/uL) Final RBC 10/10/2023 04:44:00 2.97 4.50-5.25 (M/uL) Final Hemoglobin 10/10/2023 04:44:00 9.7 Below low normal 14.0-16.8 (g/dL) Final HCT 10/10/2023 04:44:00 30.2 Below low normal 40.0-48.4 (%) Final MCV 10/10/2023 04:44:00 101.7 82.0-99.5 (fL) Final MCH 10/10/2023 04:44:00 32.7 27.0-34.0 (pg) Final MCHC 10/10/2023 04:44:00 32.1 32.0-36.0 (g/dL) Final RDW 10/10/2023 04:44:00 14.9 11.5-15.5 (%) Final Platelets 10/10/2023 04:44:00 157 140-400 (K/uL) Final MPV 10/10/2023 04:44:00 8.4 6.6-11.1 (fL) Final Nucleated erythrocytes/100 leukocytes [Ratio] in Blood by Automated count 10/10/2023 04:44:00 0 <=0 (/100 WBCs) Final Performing Location LABORATORY [facility] [place] - [address] [place] [address]
--- OUTSIDE RECORDS SUMMARY | 2023-12-30 10:31 | External Medical Summary ---
Author Name Unknown Address Unknown Organization K01:LABORATORY [place] - [facility] [address] [facility] [address] Laboratory Report Ordering Provider Test Date Status DUNIA JENSEN 10/08/2023 05:51:00 Final Observation Date Value Abnormality Reference (Units ) Status BUN 10/08/2023 05:51:00 44 Above high normal 6-20 (mg/dL) Final Creatinine 10/08/2023 05:51:00 1.9 Above high normal 0.6-1.2 (mg/dL) Final Glomerular filtration rate/1.73 sq M.predicted [Volume Rate/Area] in Serum, Plasma or Blood by Creatinine-based formula (CKD-EPI) 10/08/2023 05:51:00 38 Below low normal >=60 (mL/min) Final eGFR is calculated based on the CKD-EPI 2020 equation Sodium 10/08/2023 05:51:00 140 135-146 (m mol/L) Final Potassium 10/08/2023 05:51:00 4.0 3.5-5.1 (m mol/L) Final Cl 10/08/2023 05:51:00 103 98-107 (mm ol/L) Final CO2 10/08/2023 05:51:00 30 22-32 (mmo l/L) Final Anion gap 10/08/2023 05:51:00 7 7-15 (mmol /L) Final Glucose 10/08/2023 05:51:00 124 Above high normal 70 -120 (mg/dL) Final Calcium 10/08/2023 05:51:00 8.4 8.4-10.2 ( mg/dL) Final Performing Location LABORATORY [place] - [address] [place] [address]
--- OUTSIDE RECORDS SUMMARY | 2023-12-30 10:31 | External Medical Summary ---
Author Name Unknown Address Unknown Organization : Laboratory Report Ordering Provider Test Date Status CHAITANYA HADLEY 10/08/2023 07:20:32 Final Observation Date Value Abnormality Reference (Units ) Status Glucose Point of Care 10/08/2023 07:20:32 128 Above high normal 70-120 (mg/dL) Final Performing Location
--- OUTSIDE RECORDS SUMMARY | 2023-12-30 10:31 | External Medical Summary ---
Author Name Unknown Address Unknown Organization K01:LAB[facility]ATORY [facility] [place] - [facility] [address] [facility] [address] Laboratory Report Ordering Provider Test Date Status DUNIA JENSEN 10/07/2023 18:36:00 Final Observation Date Value Abnormality Reference (Units ) Status BUN 10/07/2023 18:36:00 46 Above high normal 6-20 (mg/dL) Final Creatinine 10/07/2023 18:36:00 1.9 Above high normal 0.6-1.2 (mg/dL) Final Glomerular filtration rate/1.73 sq M.predicted [Volume Rate/Area] in Serum, Plasma or Blood by Creatinine-based formula (CKD-EPI) 10/07/2023 18:36:00 38 Below low normal >=60 (mL/min) Final eGFR is calculated based on the CKD-EPI 2020 equation Sodium 10/07/2023 18:36:00 140 135-146 (m mol/L) Final Potassium 10/07/2023 18:36:00 4.1 3.5-5.1 (m mol/L) Final Cl 10/07/2023 18:36:00 102 98-107 (mm ol/L) Final CO2 10/07/2023 18:36:00 30 22-32 (mmo l/L) Final Anion gap 10/07/2023 18:36:00 8 7-15 (mmol /L) Final Glucose 10/07/2023 18:36:00 135 Above high normal 70 -120 (mg/dL) Final Calcium 10/07/2023 18:36:00 8.4 8.4-10.2 ( mg/dL) Final Performing Location LABORATORY [facility] [place] - [facility] [place] [address]
--- OUTSIDE RECORDS SUMMARY | 2023-12-30 10:31 | External Medical Summary ---
Author Name Unknown Address Unknown Organization K01:LABORATORY [facility] [place] - [address] [place] [address] Laboratory Report Ordering Provider Test Date Status MADISYN MISHRA 10/08/2023 05:51:00 Final Observation Date Value Abnormality Reference (Units ) Status WBC, Total 10/08/2023 05:51:00 6.72 4.00-10.80 (K/uL) Final RBC 10/08/2023 05:51:00 3.19 4.50-5.25 (M/uL) Final Hemoglobin 10/08/2023 05:51:00 10.4 Below low normal 14.0-16.8 (g/dL) Final HCT 10/08/2023 05:51:00 31.6 Below low normal 40.0-48.4 (%) Final MCV 10/08/2023 05:51:00 99.1 82.0-99.5 (fL) Final MCH 10/08/2023 05:51:00 32.6 27.0-34.0 (pg) Final MCHC 10/08/2023 05:51:00 32.9 32.0-36.0 (g/dL) Final RDW 10/08/2023 05:51:00 13.5 11.5-15.5 (%) Final Platelets 10/08/2023 05:51:00 146 140-400 (K/uL) Final MPV 10/08/2023 05:51:00 8.4 6.6-11.1 (fL) Final Nucleated erythrocytes/100 leukocytes [Ratio] in Blood by Automated count 10/08/2023 05:51:00 0 <=0 (/100 WBCs) Final Performing Location LABORATORY [facility] [place] - [address] [place] [address]
--- OUTSIDE RECORDS SUMMARY | 2023-12-30 10:31 | External Medical Summary ---
Author Name Unknown Address Unknown Organization K01:LABORATORY [facility] [place] - [facility] [address] [place] [address] Laboratory Report Ordering Provider Test Date Status DUNIA JENSEN 10/09/2023 06:05:00 Final Observation Date Value Abnormality Reference (Units ) Status BUN 10/09/2023 06:05:00 44 Above high normal 6-20 (mg/dL) Final Creatinine 10/09/2023 06:05:00 2.1 Above high normal 0.6-1.2 (mg/dL) Final Glomerular filtration rate/1.73 sq M.predicted [Volume Rate/Area] in Serum, Plasma or Blood by Creatinine-based formula (CKD-EPI) 10/09/2023 06:05:00 33 Below low normal >=60 (mL/min) Final eGFR is calculated based on the CKD-EPI 2020 equation Sodium 10/09/2023 06:05:00 142 135-146 (m mol/L) Final Potassium 10/09/2023 06:05:00 4.0 3.5-5.1 (m mol/L) Final Cl 10/09/2023 06:05:00 101 98-107 (mm ol/L) Final CO2 10/09/2023 06:05:00 31 22-32 (mmo l/L) Final Anion gap 10/09/2023 06:05:00 10 7-15 (mmol /L) Final Glucose 10/09/2023 06:05:00 111 70-120 (mg /dL) Final Calcium 10/09/2023 06:05:00 8.4 8.4-10.2 ( mg/dL) Final Performing Location LABORATORY [facility] [place] - [address] [place] [address]
--- OUTSIDE RECORDS SUMMARY | 2023-12-30 10:31 | External Medical Summary ---
Author Name Unknown Address Unknown Organization K01:[place] [facility] [place] [facility] [address] [place] [address] Laboratory Report Ordering Provider Test Date Status ORLANDO NICHOLSON 10/10/2023 04:44:00 Final Observation Date Value Abnormality Reference (Units ) Status BUN 10/10/2023 04:44:00 49 Above high normal 6-20 (mg/dL) Final Creatinine 10/10/2023 04:44:00 2.2 Above high normal 0.6-1.2 (mg/dL) Final Glomerular filtration rate/1.73 sq M.predicted [Volume Rate/Area] in Serum, Plasma or Blood by Creatinine-based formula (CKD-EPI) 10/10/2023 04:44:00 31 Below low normal >=60 (mL/min) Final eGFR is calculated based on the CKD-EPI 2020 equation Sodium 10/10/2023 04:44:00 143 135-146 (m mol/L) Final Potassium 10/10/2023 04:44:00 3.9 3.5-5.1 (m mol/L) Final Cl 10/10/2023 04:44:00 99 98-107 (mm ol/L) Final CO2 10/10/2023 04:44:00 34 Above high normal 22 -32 (mmol/L) Final Anion gap 10/10/2023 04:44:00 10 7-15 (mmol /L) Final Glucose 10/10/2023 04:44:00 82 70-120 (mg /dL) Final Calcium 10/10/2023 04:44:00 7.7 Below low normal 8.4 -10.2 (mg/dL) Final Performing Location LAB[facility]ORY [facility] [place] [address] [place] [address]
--- OUTSIDE RECORDS SUMMARY | 2023-12-30 10:31 | External Medical Summary ---
Author Name Unknown Address Unknown Organization K01:LABORATORY [facility] [place] - [facility] [address] [facility] [address] Laboratory Report Ordering Provider Test Date Status DUNIA JENSEN 10/08/2023 15:55:00 Final Observation Date Value Abnormality Reference (Units ) Status BUN 10/08/2023 15:55:00 42 Above high normal 6-20 (mg/dL) Final Creatinine 10/08/2023 15:55:00 2.0 Above high normal 0.6-1.2 (mg/dL) Final Glomerular filtration rate/1.73 sq M.predicted [Volume Rate/Area] in Serum, Plasma or Blood by Creatinine-based formula (CKD-EPI) 10/08/2023 15:55:00 36 Below low normal >=60 (mL/min) Final eGFR is calculated based on the CKD-EPI 2020 equation Sodium 10/08/2023 15:55:00 141 135-146 (m mol/L) Final Potassium 10/08/2023 15:55:00 4.3 3.5-5.1 (m mol/L) Final Cl 10/08/2023 15:55:00 103 98-107 (mm ol/L) Final CO2 10/08/2023 15:55:00 31 22-32 (mmo l/L) Final Anion gap 10/08/2023 15:55:00 7 7-15 (mmol /L) Final Glucose 10/08/2023 15:55:00 119 70-120 (mg /dL) Final Calcium 10/08/2023 15:55:00 8.6 8.4-10.2 ( mg/dL) Final Performing Location LABORATORY [facility] [place] - [address] [place] [address]
--- OUTSIDE RECORDS SUMMARY | 2023-12-30 10:31 | External Medical Summary ---
Author Name Unknown Address Unknown Organization : Laboratory Report Ordering Provider Test Date Status CHAITANYA HADLEY 10/07/2023 20:53:32 Final Observation Date Value Abnormality Reference (Units ) Status Glucose Point of Care 10/07/2023 20:53:32 110 70-120 (mg/dL) Final Performing Location
--- OUTSIDE RECORDS SUMMARY | 2023-12-30 10:31 | External Medical Summary ---
Author Name Unknown Address Unknown Organization K01:LABORATORY [facility] [place] - [facility] [address] [place] [address] Laboratory Report Ordering Provider Test Date Status DUNIA JENSEN 10/08/2023 09:27:00 Final Observation Date Value Abnormality Reference (Units ) Status BUN 10/08/2023 09:27:00 43 Above high normal 6-20 (mg/dL) Final Creatinine 10/08/2023 09:27:00 1.8 Above high normal 0.6-1.2 (mg/dL) Final Glomerular filtration rate/1.73 sq M.predicted [Volume Rate/Area] in Serum, Plasma or Blood by Creatinine-based formula (CKD-EPI) 10/08/2023 09:27:00 40 Below low normal >=60 (mL/min) Final eGFR is calculated based on the CKD-EPI 2020 equation Sodium 10/08/2023 09:27:00 134 Below low normal 135 -146 (mmol/L) Final Potassium 10/08/2023 09:27:00 Final Specimen too hemolyzed. Reor fernando if needed. Cl 10/08/2023 09:27:00 101 98-107 (mm ol/L) Final CO2 10/08/2023 09:27:00 23 22-32 (mmo l/L) Final Anion gap 10/08/2023 09:27:00 10 7-15 (mmol /L) Final Glucose 10/08/2023 09:27:00 131 Above high normal 70 -120 (mg/dL) Final Calcium 10/08/2023 09:27:00 8.4 8.4-10.2 ( mg/dL) Final Performing Location LABORATORY [facility] [place] - [address] [place] [address]
--- OUTSIDE RECORDS SUMMARY | 2023-12-30 10:31 | External Medical Summary ---
Author Name Unknown Address Unknown Organization : Laboratory Report Ordering Provider Test Date Status CHAITANYA HADLEY 10/08/2023 20:38:38 Final Observation Date Value Abnormality Reference (Units ) Status Glucose Point of Care 10/08/2023 20:38:38 112 70-120 (mg/dL) Final Performing Location
--- OUTSIDE RECORDS SUMMARY | 2023-12-30 10:31 | External Medical Summary ---
Author Name Unknown Address Unknown Organization K01:LABORATORY [facility] [place] - [facility] [address] [facility] [address] Laboratory Report Ordering Provider Test Date Status ORLANDO NICHOLSON 10/09/2023 11:51:00 Final Observation Date Value Abnormality Reference (Units ) Status BUN 10/09/2023 11:51:00 47 Above high normal 6-20 (mg/dL) Final Creatinine 10/09/2023 11:51:00 2.3 Above high normal 0.6-1.2 (mg/dL) Final Glomerular filtration rate/1.73 sq M.predicted [Volume Rate/Area] in Serum, Plasma or Blood by Creatinine-based formula (CKD-EPI) 10/09/2023 11:51:00 30 Below low normal >=60 (mL/min) Final eGFR is calculated based on the CKD-EPI 2020 equation Sodium 10/09/2023 11:51:00 142 135-146 (m mol/L) Final Potassium 10/09/2023 11:51:00 4.1 3.5-5.1 (m mol/L) Final Cl 10/09/2023 11:51:00 99 98-107 (mm ol/L) Final CO2 10/09/2023 11:51:00 35 Above high normal 22 -32 (mmol/L) Final Anion gap 10/09/2023 11:51:00 8 7-15 (mmol /L) Final Glucose 10/09/2023 11:51:00 108 70-120 (mg /dL) Final Calcium 10/09/2023 11:51:00 8.4 8.4-10.2 ( mg/dL) Final Performing Location LABORATORY [facility] [place] - [facility] [place] [address]
--- OUTSIDE RECORDS SUMMARY | 2023-12-30 10:31 | External Medical Summary ---
Author Name Unknown Address Unknown Organization K01:[place] [facility] [place] [facility] [address] [place] [address] Laboratory Report Ordering Provider Test Date Status DUNIA JENSEN 10/09/2023 09:21:00 Final Observation Date Value Abnormality Reference (Units ) Status BUN 10/09/2023 09:21:00 44 Above high normal 6-20 (mg/dL) Final Creatinine 10/09/2023 09:21:00 2.2 Above high normal 0.6-1.2 (mg/dL) Final Glomerular filtration rate/1.73 sq M.predicted [Volume Rate/Area] in Serum, Plasma or Blood by Creatinine-based formula (CKD-EPI) 10/09/2023 09:21:00 31 Below low normal >=60 (mL/min) Final eGFR is calculated based on the CKD-EPI 2020 equation Sodium 10/09/2023 09:21:00 142 135-146 (m mol/L) Final Potassium 10/09/2023 09:21:00 3.9 3.5-5.1 (m mol/L) Final Cl 10/09/2023 09:21:00 98 98-107 (mm ol/L) Final CO2 10/09/2023 09:21:00 34 Above high normal 22 -32 (mmol/L) Final Anion gap 10/09/2023 09:21:00 10 7-15 (mmol /L) Final Glucose 10/09/2023 09:21:00 114 70-120 (mg /dL) Final Calcium 10/09/2023 09:21:00 8.4 8.4-10.2 ( mg/dL) Final Performing Location [place] [place] [address] [place] [address]
--- OUTSIDE RECORDS SUMMARY | 2023-12-30 10:31 | External Medical Summary ---
Author Name Unknown Address Unknown Organization K01:[place] [facility] [place] [facility] [place] [facility] [address] [facility] [address] Laboratory Report Ordering Provider Test Date Status DUNIA JENSEN 10/07/2023 21:40:00 Final Observation Date Value Abnormality Reference (Units ) Status BUN 10/07/2023 21:40:00 43 Above high normal 6-20 (mg/dL) Final Creatinine 10/07/2023 21:40:00 1.9 Above high normal 0.6-1.2 (mg/dL) Final Glomerular filtration rate/1.73 sq M.predicted [Volume Rate/Area] in Serum, Plasma or Blood by Creatinine-based formula (CKD-EPI) 10/07/2023 21:40:00 38 Below low normal >=60 (mL/min) Final eGFR is calculated based on the CKD-EPI 2020 equation Sodium 10/07/2023 21:40:00 140 135-146 (m mol/L) Final Potassium 10/07/2023 21:40:00 3.7 3.5-5.1 (m mol/L) Final Cl 10/07/2023 21:40:00 102 98-107 (mm ol/L) Final CO2 10/07/2023 21:40:00 30 22-32 (mmo l/L) Final Anion gap 10/07/2023 21:40:00 8 7-15 (mmol /L) Final Glucose 10/07/2023 21:40:00 112 70-120 (mg /dL) Final Calcium 10/07/2023 21:40:00 8.3 Below low normal 8.4 -10.2 (mg/dL) Final Performing Location [facility] [facility] [place] [facility] [place] [address] [place] [address]
--- OUTSIDE RECORDS SUMMARY | 2023-12-30 10:31 | External Medical Summary ---
Author Name Unknown Address Unknown Organization : Laboratory Report Ordering Provider Test Date Status CHAITANYA HADLEY 10/10/2023 11:10:54 Final Observation Date Value Abnormality Reference (Units ) Status Glucose Point of Care 10/10/2023 11:10:54 79 70-120 (mg/dL) Final Performing Location
--- OUTSIDE RECORDS SUMMARY | 2023-12-30 10:31 | External Medical Summary ---
Author Name Unknown Address Unknown Organization : Laboratory Report Ordering Provider Test Date Status CHAITANYA HADLEY 10/09/2023 18:40:22 Final Observation Date Value Abnormality Reference (Units ) Status Glucose Point of Care 10/09/2023 18:40:22 98 70-120 (mg/dL) Final Performing Location
--- OUTSIDE RECORDS SUMMARY | 2023-12-30 10:31 | External Medical Summary ---
Author Name Unknown Address Unknown Organization K01:[place]ORY [facility] [place] [address] [place] [address] Laboratory Report Ordering Provider Test Date Status MADISYN MISHRA 10/09/2023 06:04:00 Final Observation Date Value Abnormality Reference (Units ) Status WBC, Total 10/09/2023 06:04:00 8.97 4.00-10.80 (K/uL) Final RBC 10/09/2023 06:04:00 3.38 4.50-5.25 (M/uL) Final Hemoglobin 10/09/2023 06:04:00 11.0 Below low normal 14.0-16.8 (g/dL) Final HCT 10/09/2023 06:04:00 33.4 Below low normal 40.0-48.4 (%) Final MCV 10/09/2023 06:04:00 98.8 82.0-99.5 (fL) Final MCH 10/09/2023 06:04:00 32.5 27.0-34.0 (pg) Final MCHC 10/09/2023 06:04:00 32.9 32.0-36.0 (g/dL) Final RDW 10/09/2023 06:04:00 14.2 11.5-15.5 (%) Final Platelets 10/09/2023 06:04:00 186 140-400 (K/uL) Final MPV 10/09/2023 06:04:00 8.4 6.6-11.1 (fL) Final Nucleated erythrocytes/100 leukocytes [Ratio] in Blood by Automated count 10/09/2023 06:04:00 0 <=0 (/100 WBCs) Final Performing Location LAB[facility]ORY [facility] [place] - [address] [place] [address]
--- OUTSIDE RECORDS SUMMARY | 2023-12-30 10:32 | External Medical Summary ---
Author Name Unknown Address Unknown Organization K01:LABORATORY [facility] [place] - [address] [place] [address] Laboratory Report Ordering Provider Test Date Status MADISYN MISHRA 10/06/2023 05:42:00 Final Observation Date Value Abnormality Reference (Units ) Status WBC, Total 10/06/2023 05:42:00 5.71 4.00-10.80 (K/uL) Final RBC 10/06/2023 05:42:00 2.56 4.50-5.25 (M/uL) Final Hemoglobin 10/06/2023 05:42:00 8.4 Below low normal 14.0-16.8 (g/dL) Final HCT 10/06/2023 05:42:00 25.6 Below low normal 40.0-48.4 (%) Final MCV 10/06/2023 05:42:00 100.0 82.0-99.5 (fL) Final MCH 10/06/2023 05:42:00 32.8 27.0-34.0 (pg) Final MCHC 10/06/2023 05:42:00 32.8 32.0-36.0 (g/dL) Final RDW 10/06/2023 05:42:00 13.2 11.5-15.5 (%) Final Platelets 10/06/2023 05:42:00 94 Below low normal 140-400 (K/uL) Final MPV 10/06/2023 05:42:00 9.0 6.6-11.1 (fL) Final Nucleated erythrocytes/100 leukocytes [Ratio] in Blood by Automated count 10/06/2023 05:42:00 0 <=0 (/100 WBCs) Final Performing Location LABORATORY [facility] [place] - [address] [place] [address]
--- OUTSIDE RECORDS SUMMARY | 2023-12-30 10:32 | External Medical Summary ---
Author Name Unknown Address Unknown Organization K01:[place] [facility] [place] [address] [place] [address] Laboratory Report Ordering Provider Test Date Status DUNIA JENSEN 10/04/2023 05:49:58 Final Observation Date Value Abnormality Reference (Units ) Status WBC, Total 10/04/2023 05:49:58 10.66 4.00-10.80 (K/uL) Final RBC 10/04/2023 05:49:58 3.22 4.50-5.25 (M/uL) Final Hemoglobin 10/04/2023 05:49:58 10.7 Below low normal 14.0-16.8 (g/dL) Final HCT 10/04/2023 05:49:58 31.9 Below low normal 40.0-48.4 (%) Final MCV 10/04/2023 05:49:58 99.1 82.0-99.5 (fL) Final MCH 10/04/2023 05:49:58 33.2 27.0-34.0 (pg) Final MCHC 10/04/2023 05:49:58 33.5 32.0-36.0 (g/dL) Final RDW 10/04/2023 05:49:58 13.5 11.5-15.5 (%) Final Platelets 10/04/2023 05:49:58 99 Below low normal 140-400 (K/uL) Final MPV 10/04/2023 05:49:58 9.2 6.6-11.1 (fL) Final Nucleated erythrocytes/100 leukocytes [Ratio] in Blood by Automated count 10/04/2023 05:49:58 0 <=0 (/100 WBCs) Final Performing Location [facility] [place] [address] [place] [address]
--- OUTSIDE RECORDS SUMMARY | 2023-12-30 10:32 | External Medical Summary ---
Author Name Unknown Address Unknown Organization : Laboratory Report Ordering Provider Test Date Status CHAITANYA HADLEY 10/04/2023 17:32:23 Final Observation Date Value Abnormality Reference (Units ) Status Glucose Point of Care 10/04/2023 17:32:23 97 70-120 (mg/dL) Final Performing Location
--- OUTSIDE RECORDS SUMMARY | 2023-12-30 10:32 | External Medical Summary ---
Author Name Unknown Address Unknown Organization K01:LABORATORY [facility] [place] - [address] [facility] [address] Laboratory Report Ordering Provider Test Date Status MADISYN MISHRA 10/06/2023 15:46:56 Final Observation Date Value Abnormality Reference (Units ) Status Color of Urine by Auto 10/06/2023 15:46:56 Light Yellow Colorless, Light Yellow, Yellow, Dark Yellow Final Clarity, Urine 10/06/2023 15:46:56 Clear Clear Final Glucose [Mass/volume] in Urine by Automated test strip 10/06/2023 15:46:56 Negative Negative (mg/dL) Final Bilirubin.total [Presence] in Urine by Automated test strip 10/06/2023 15:46:56 Negative Negative Final Ketones [Mass/volume] in Urine by Automated test strip 10/06/2023 15:46:56 Negative Negative (mg/dL) Final Specific gravity, Urine 10/06/2023 15:46:56 1.015 1.003-1.030 Final Hemoglobin [Presence] in Urine by Automated test strip 10/06/2023 15:46:56 Trace Abnormal Negative Final pH, Urine 10/06/2023 15:46:56 6.5 5.0-7.5 (Units) Final Protein [Mass/volume] in Urine by Automated test strip 10/06/2023 15:46:56 Negative Negative (mg/dL) Final Urobilinogen [Mass/volume] in Urine by Automated test strip 10/06/2023 15:46:56 Normal Normal (mg/dL) Final Nitrite [Presence] in Urine by Automated test strip 10/06/2023 15:46:56 Negative Negative Final Leukocyte esterase [Presence] in Urine by Automated test strip 10/06/2023 15:46:56 Negative Negative Final RBC, Urine 10/06/2023 15:46:56 6-9 Abnormal 0-2 (/HPF) Final WBC, Urine 10/06/2023 15:46:56 3-5 Abnormal 0-2 (/HPF) Final Bacteria [#/area] in Urine sediment by Microscopy high power field 10/06/2023 15:46:56 0-25 0-25 (/HPF) Final CULTURE, URINE - [facility] 10/06/2023 15:46:56 Final Culture not indicated by uri nalysis results\[id number]\ Performing Location LABORATORY [facility] [place] - [address] [facility] [address]
--- OUTSIDE RECORDS SUMMARY | 2023-12-30 10:32 | External Medical Summary ---
Author Name Unknown Address Unknown Organization K01:LAB[address]ATORY [address] [facility] [address] Laboratory Report Ordering Provider Test Date Status DUNIA JENSEN 10/04/2023 05:49:58 Final Observation Date Value Abnormality Reference (Units ) Status Calcium.ionized [Moles/volume] in Serum or Plasma by Ion-selective membrane electrode (ISE) 10/04/2023 05:49:58 1.15 1.13-1.32 (mmol/L) Final This test was developed and its performance characteristics dtermined by [employer]. It has not been cleared or approved by the [place] Food and Drug Administration Performing Location LABORATORY [address] [facility] [address]
--- OUTSIDE RECORDS SUMMARY | 2023-12-30 10:32 | External Medical Summary ---
Author Name Unknown Address Unknown Organization K01:LABORATORY [facility] [place] - [facility] [address] [place] [address] Laboratory Report Ordering Provider Test Date Status DUNIA JENSEN 10/04/2023 05:49:58 Final Warfarin Therapy
INR: 2 .0-3.0 conventional anticoagulation
INR: 2.5- 3.5 high intensity anticoagulation Observation Date Value Abnormality Reference (Units ) Status PT 10/04/2023 05:49:58 15.1 11.6-15.2 (seconds) Final INR 10/04/2023 05:49:58 1.2 0.8-1.2 Final Performing Location LABORATORY [facility] [place] - [facility] [address] [place] [address]
--- OUTSIDE RECORDS SUMMARY | 2023-12-30 10:32 | External Medical Summary ---
Author Name Unknown Address Unknown Organization : Laboratory Report Ordering Provider Test Date Status CHAITANYA HADLEY 10/05/2023 11:14:39 Final Observation Date Value Abnormality Reference (Units ) Status Glucose Point of Care 10/05/2023 11:14:39 94 70-120 (mg/dL) Final Performing Location
--- OUTSIDE RECORDS SUMMARY | 2023-12-30 10:32 | External Medical Summary ---
Author Name Unknown Address Unknown Organization : Laboratory Report Ordering Provider Test Date Status CHAITANYA HADLEY 10/06/2023 07:27:45 Final Observation Date Value Abnormality Reference (Units ) Status Glucose Point of Care 10/06/2023 07:27:45 92 70-120 (mg/dL) Final Performing Location
--- OUTSIDE RECORDS SUMMARY | 2023-12-30 10:32 | External Medical Summary ---
Author Name Unknown Address Unknown Organization K01:LABORATORY [facility] [place] - [address] [place] [address] Laboratory Report Ordering Provider Test Date Status DUNIA JENSEN 10/04/2023 05:49:58 Final Observation Date Value Abnormality Reference (Units ) Status HbA1C 10/04/2023 05:49:58 5.4 4.0-5.6 (% ) Final The use of HbA1c to monitor glycemic status is based on normal hemoglobin and HbA composition. This test should not be used in patients with abnormal hemoglobin that affects the half life of the red blood cell or the in vivo glycation rates. Glucose, estimated average 10/04/2023 05:49:58 108 <126 (mg/dL) Final Performing Location LABORATORY [facility] [place] - [address] [place] [address]
--- OUTSIDE RECORDS SUMMARY | 2023-12-30 10:32 | External Medical Summary ---
Author Name Unknown Address Unknown Organization K01:LABORATORY [facility] [place] - [address] [place] [address] Laboratory Report Ordering Provider Test Date Status DUNIA JENSEN 10/04/2023 05:49:58 Final Observation Date Value Abnormality Reference (Units ) Status Iron 10/04/2023 05:49:58 39 Below low normal 45-176 (ug/dL) Final Iron-binding capacity 10/04/2023 05:49:58 190 Below low normal 250-425 (ug/dL) Final Transferrin Sat % 10/04/2023 05:49:58 21 15-55 (%) Final Performing Location LABORATORY [facility] [place] - [address] [place] [address]
--- OUTSIDE RECORDS SUMMARY | 2023-12-30 10:32 | External Medical Summary ---
Author Name Unknown Address Unknown Organization : Laboratory Report Ordering Provider Test Date Status CHAITANYA HADLEY 10/05/2023 17:27:57 Final Observation Date Value Abnormality Reference (Units ) Status Glucose Point of Care 10/05/2023 17:27:57 84 70-120 (mg/dL) Final Performing Location
--- OUTSIDE RECORDS SUMMARY | 2023-12-30 10:32 | External Medical Summary ---
Author Name Unknown Address Unknown Organization : Laboratory Report Ordering Provider Test Date Status CHAITANYA HADLEY 10/04/2023 05:54:05 Final Observation Date Value Abnormality Reference (Units ) Status Glucose Point of Care 10/04/2023 05:54:05 109 70-120 (mg/dL) Final Performing Location
--- OUTSIDE RECORDS SUMMARY | 2023-12-30 10:32 | External Medical Summary ---
Author Name Unknown Address Unknown Organization : Laboratory Report Ordering Provider Test Date Status CHAITANYA HADLEY 10/05/2023 06:16:37 Final Observation Date Value Abnormality Reference (Units ) Status Glucose Point of Care 10/05/2023 06:16:37 86 70-120 (mg/dL) Final Performing Location
--- OUTSIDE RECORDS SUMMARY | 2023-12-30 10:32 | External Medical Summary ---
Author Name Unknown Address Unknown Organization K01:[place] [facility] [place] [facility] [address] [place] [address] Laboratory Report Ordering Provider Test Date Status DUNIA JENSEN 10/06/2023 21:59:00 Final Observation Date Value Abnormality Reference (Units ) Status BUN 10/06/2023 21:59:00 52 Above high normal 6-20 (mg/dL) Final Creatinine 10/06/2023 21:59:00 1.9 Above high normal 0.6-1.2 (mg/dL) Final Glomerular filtration rate/1.73 sq M.predicted [Volume Rate/Area] in Serum, Plasma or Blood by Creatinine-based formula (CKD-EPI) 10/06/2023 21:59:00 36 Below low normal >=60 (mL/min) Final eGFR is calculated based on the CKD-EPI 2020 equation Sodium 10/06/2023 21:59:00 140 135-146 (m mol/L) Final Potassium 10/06/2023 21:59:00 3.5 3.5-5.1 (m mol/L) Final Cl 10/06/2023 21:59:00 103 98-107 (mm ol/L) Final CO2 10/06/2023 21:59:00 31 22-32 (mmo l/L) Final Anion gap 10/06/2023 21:59:00 6 Below low normal 7-1 5 (mmol/L) Final Glucose 10/06/2023 21:59:00 97 70-120 (mg /dL) Final Calcium 10/06/2023 21:59:00 7.8 Below low normal 8.4 -10.2 (mg/dL) Final Performing Location [place] [facility] [place] [address] [place] [address]
--- OUTSIDE RECORDS SUMMARY | 2023-12-30 10:32 | External Medical Summary ---
Author Name Unknown Address Unknown Organization : Laboratory Report Ordering Provider Test Date Status CHAITANYA HADLEY 10/07/2023 16:47:21 Final Observation Date Value Abnormality Reference (Units ) Status Glucose Point of Care 10/07/2023 16:47:21 133 Above high normal 70-120 (mg/dL) Final Performing Location
--- OUTSIDE RECORDS SUMMARY | 2023-12-30 10:32 | External Medical Summary ---
Author Name Unknown Address Unknown Organization K01:LABORATORY [facility] [place] - [facility] [address] [facility] [address] Laboratory Report Ordering Provider Test Date Status DUNIA JENSEN 10/05/2023 11:10:01 Final Observation Date Value Abnormality Reference (Units ) Status BUN 10/05/2023 11:10:01 46 Above high normal 6-20 (mg/dL) Final Creatinine 10/05/2023 11:10:01 2.2 Above high normal 0.6-1.2 (mg/dL) Final Glomerular filtration rate/1.73 sq M.predicted [Volume Rate/Area] in Serum, Plasma or Blood by Creatinine-based formula (CKD-EPI) 10/05/2023 11:10:01 31 Below low normal >=60 (mL/min) Final eGFR is calculated based on the CKD-EPI 2020 equation Sodium 10/05/2023 11:10:01 141 135-146 (m mol/L) Final Potassium 10/05/2023 11:10:01 4.3 3.5-5.1 (m mol/L) Final Cl 10/05/2023 11:10:01 103 98-107 (mm ol/L) Final CO2 10/05/2023 11:10:01 28 22-32 (mmo l/L) Final Anion gap 10/05/2023 11:10:01 10 7-15 (mmol /L) Final Glucose 10/05/2023 11:10:01 97 70-120 (mg /dL) Final Calcium 10/05/2023 11:10:01 7.8 Below low normal 8.4 -10.2 (mg/dL) Final Performing Location LABORATORY [facility] [place] - [address] [place] [address]
--- OUTSIDE RECORDS SUMMARY | 2023-12-30 10:32 | External Medical Summary ---
Author Name Unknown Address Unknown Organization : Laboratory Report Ordering Provider Test Date Status CHAITANYA HADLEY 10/06/2023 20:52:42 Final Observation Date Value Abnormality Reference (Units ) Status Glucose Point of Care 10/06/2023 20:52:42 102 70-120 (mg/dL) Final Performing Location
--- OUTSIDE RECORDS SUMMARY | 2023-12-30 10:32 | External Medical Summary ---
Author Name Unknown Address Unknown Organization K01:LABORATORY [facility] [place] - [facility] [address] [place] [address] Laboratory Report Ordering Provider Test Date Status DUNIA JENSEN 10/07/2023 06:23:00 Final Observation Date Value Abnormality Reference (Units ) Status BUN 10/07/2023 06:23:00 50 Above high normal 6-20 (mg/dL) Final Creatinine 10/07/2023 06:23:00 1.9 Above high normal 0.6-1.2 (mg/dL) Final Glomerular filtration rate/1.73 sq M.predicted [Volume Rate/Area] in Serum, Plasma or Blood by Creatinine-based formula (CKD-EPI) 10/07/2023 06:23:00 37 Below low normal >=60 (mL/min) Final eGFR is calculated based on the CKD-EPI 2020 equation Sodium 10/07/2023 06:23:00 140 135-146 (m mol/L) Final Potassium 10/07/2023 06:23:00 3.4 Below low normal 3.5 -5.1 (mmol/L) Final Cl 10/07/2023 06:23:00 102 98-107 (mm ol/L) Final CO2 10/07/2023 06:23:00 30 22-32 (mmo l/L) Final Anion gap 10/07/2023 06:23:00 8 7-15 (mmol /L) Final Glucose 10/07/2023 06:23:00 90 70-120 (mg /dL) Final Calcium 10/07/2023 06:23:00 7.9 Below low normal 8.4 -10.2 (mg/dL) Final Performing Location LABORATORY [facility] [place] - [address] [place] [address]
--- OUTSIDE RECORDS SUMMARY | 2023-12-30 10:32 | External Medical Summary ---
Author Name Unknown Address Unknown Organization : Laboratory Report Ordering Provider Test Date Status CHAITANYA HADLEY 10/04/2023 00:08:00 Final Observation Date Value Abnormality Reference (Units ) Status Glucose Point of Care 10/04/2023 00:08:00 119 70-120 (mg/dL) Final Performing Location
--- OUTSIDE RECORDS SUMMARY | 2023-12-30 10:32 | External Medical Summary ---
Author Name Unknown Address Unknown Organization K01:[place] [facility] [place] [address] [place] [address] Laboratory Report Ordering Provider Test Date Status MADISYN MISHRA 10/05/2023 06:12:26 Final Observation Date Value Abnormality Reference (Units ) Status WBC, Total 10/05/2023 06:12:26 10.00 4.00-10.80 (K/uL) Final RBC 10/05/2023 06:12:26 2.88 4.50-5.25 (M/uL) Final Hemoglobin 10/05/2023 06:12:26 9.3 Below low normal 14.0-16.8 (g/dL) Final HCT 10/05/2023 06:12:26 28.7 Below low normal 40.0-48.4 (%) Final MCV 10/05/2023 06:12:26 99.7 82.0-99.5 (fL) Final MCH 10/05/2023 06:12:26 32.3 27.0-34.0 (pg) Final MCHC 10/05/2023 06:12:26 32.4 32.0-36.0 (g/dL) Final RDW 10/05/2023 06:12:26 13.4 11.5-15.5 (%) Final Platelets 10/05/2023 06:12:26 109 Below low normal 140-400 (K/uL) Final MPV 10/05/2023 06:12:26 9.1 6.6-11.1 (fL) Final Nucleated erythrocytes/100 leukocytes [Ratio] in Blood by Automated count 10/05/2023 06:12:26 0 <=0 (/100 WBCs) Final Performing Location [place] [facility] [place] [address] [place] [address]
--- OUTSIDE RECORDS SUMMARY | 2023-12-30 10:32 | External Medical Summary ---
Author Name Unknown Address Unknown Organization K01:LABORATORY [facility] [place] - [facility] [address] [place] [address] Laboratory Report Ordering Provider Test Date Status DUNIA JENSEN 10/06/2023 05:42:00 Final Observation Date Value Abnormality Reference (Units ) Status BUN 10/06/2023 05:42:00 49 Above high normal 6-20 (mg/dL) Final Creatinine 10/06/2023 05:42:00 2.1 Above high normal 0.6-1.2 (mg/dL) Final Glomerular filtration rate/1.73 sq M.predicted [Volume Rate/Area] in Serum, Plasma or Blood by Creatinine-based formula (CKD-EPI) 10/06/2023 05:42:00 33 Below low normal >=60 (mL/min) Final eGFR is calculated based on the CKD-EPI 2020 equation Sodium 10/06/2023 05:42:00 141 135-146 (m mol/L) Final Potassium 10/06/2023 05:42:00 3.9 3.5-5.1 (m mol/L) Final Cl 10/06/2023 05:42:00 105 98-107 (mm ol/L) Final CO2 10/06/2023 05:42:00 30 22-32 (mmo l/L) Final Anion gap 10/06/2023 05:42:00 6 Below low normal 7-1 5 (mmol/L) Final Glucose 10/06/2023 05:42:00 97 70-120 (mg /dL) Final Calcium 10/06/2023 05:42:00 7.7 Below low normal 8.4 -10.2 (mg/dL) Final Performing Location LABORATORY [facility] [place] - [address] [place] [address]
--- OUTSIDE RECORDS SUMMARY | 2023-12-30 10:32 | External Medical Summary ---
Author Name Unknown Address Unknown Organization K01:LABORATORY [facility] [place] - [facility] [address] [place] [address] Laboratory Report Ordering Provider Test Date Status DUNIA JENSEN 10/04/2023 11:22:27 Final Observation Date Value Abnormality Reference (Units ) Status WBC, Total 10/04/2023 11:22:27 12.09 Above high normal 4.00-10.80 (K/uL) Final RBC 10/04/2023 11:22:27 3.33 4.50-5.25 (M/uL) Final Hemoglobin 10/04/2023 11:22:27 10.8 Below low normal 14.0-16.8 (g/dL) Final HCT 10/04/2023 11:22:27 33.2 Below low normal 40.0-48.4 (%) Final MCV 10/04/2023 11:22:27 99.7 82.0-99.5 (fL) Final MCH 10/04/2023 11:22:27 32.4 27.0-34.0 (pg) Final MCHC 10/04/2023 11:22:27 32.5 32.0-36.0 (g/dL) Final RDW 10/04/2023 11:22:27 13.7 11.5-15.5 (%) Final Platelets 10/04/2023 11:22:27 117 Below low normal 140-400 (K/uL) Final MPV 10/04/2023 11:22:27 9.2 6.6-11.1 (fL) Final Nucleated erythrocytes/100 leukocytes [Ratio] in Blood by Automated count 10/04/2023 11:22:27 0 <=0 (/100 WBCs) Final Performing Location LABORATORY [facility] [place] - [address] [place] [address]
--- OUTSIDE RECORDS SUMMARY | 2023-12-30 10:32 | External Medical Summary ---
Author Name Unknown Address Unknown Organization : Laboratory Report Ordering Provider Test Date Status CHAITANYA HADLEY 10/04/2023 23:51:40 Final Observation Date Value Abnormality Reference (Units ) Status Glucose Point of Care 10/04/2023 23:51:40 95 70-120 (mg/dL) Final Performing Location
--- OUTSIDE RECORDS SUMMARY | 2023-12-30 10:32 | External Medical Summary ---
Author Name Unknown Address Unknown Organization K01:LABORATORY [facility] [place] - Formerly named [facility] [address] [facility] [address] Laboratory Report Ordering Provider Test Date Status DUNIA JENSEN 10/04/2023 05:49:58 Final Observation Date Value Abnormality Reference (Units ) Status BUN 10/04/2023 05:49:58 38 Above high normal 6-20 (mg/dL) Final Creatinine 10/04/2023 05:49:58 2.2 Above high normal 0.6-1.2 (mg/dL) Final Glomerular filtration rate/1.73 sq M.predicted [Volume Rate/Area] in Serum, Plasma or Blood by Creatinine-based formula (CKD-EPI) 10/04/2023 05:49:58 31 Below low normal >=60 (mL/min) Final eGFR is calculated based on the CKD-EPI 2020 equation Sodium 10/04/2023 05:49:58 144 135-146 (m mol/L) Final Potassium 10/04/2023 05:49:58 4.8 3.5-5.1 (m mol/L) Final Cl 10/04/2023 05:49:58 107 98-107 (mm ol/L) Final CO2 10/04/2023 05:49:58 27 22-32 (mmo l/L) Final Anion gap 10/04/2023 05:49:58 10 7-15 (mmol /L) Final Glucose 10/04/2023 05:49:58 112 70-120 (mg /dL) Final Calcium 10/04/2023 05:49:58 8.0 Below low normal 8.4 -10.2 (mg/dL) Final Performing Location LABORATORY [facility] [place] - Formerly named [facility] [place] [address]
--- OUTSIDE RECORDS SUMMARY | 2023-12-30 10:32 | External Medical Summary ---
Author Name Unknown Address Unknown Organization K01:LAB[place]ATORY [facility] [place] [address] [place] [address] Laboratory Report Ordering Provider Test Date Status DUNIA JENSEN 10/04/2023 05:49:58 Final Anticoagulation may affect t esting. Refer to [facility] Test Catalog for a list of effects. Observation Date Value Abnormality Reference (Units ) Status aPTT panel - Platelet poor plasma 10/04/2023 05:49:58 30 21-38 (seconds) Final Performing Location LABORATORY [facility] [place] [address] [place] [address]
--- OUTSIDE RECORDS SUMMARY | 2023-12-30 10:32 | External Medical Summary ---
Author Name Unknown Address Unknown Organization K01:LABORATORY [facility] [place] [address] [place] [address] Laboratory Report Ordering Provider Test Date Status DUNIA JENSEN 10/05/2023 06:26:01 Final Observation Date Value Abnormality Reference (Units ) Status Lactic Acid, Whole Blood 10/05/2023 06:26:01 1.0 0.4-2.0 (mmol/L) Final Performing Location LABORATORY C - [address] [place] [address]
--- OUTSIDE RECORDS SUMMARY | 2023-12-30 10:32 | External Medical Summary ---
Author Name Unknown Address Unknown Organization K01:LABORATORY [facility] [place] - [facility] [address] [facility] [address] Laboratory Report Ordering Provider Test Date Status DUNIA JENSEN 10/06/2023 15:47:00 Final Observation Date Value Abnormality Reference (Units ) Status BUN 10/06/2023 15:47:00 51 Above high normal 6-20 (mg/dL) Final Creatinine 10/06/2023 15:47:00 2.0 Above high normal 0.6-1.2 (mg/dL) Final Glomerular filtration rate/1.73 sq M.predicted [Volume Rate/Area] in Serum, Plasma or Blood by Creatinine-based formula (CKD-EPI) 10/06/2023 15:47:00 36 Below low normal >=60 (mL/min) Final eGFR is calculated based on the CKD-EPI 2020 equation Sodium 10/06/2023 15:47:00 141 135-146 (m mol/L) Final Potassium 10/06/2023 15:47:00 3.5 3.5-5.1 (m mol/L) Final Cl 10/06/2023 15:47:00 102 98-107 (mm ol/L) Final CO2 10/06/2023 15:47:00 30 22-32 (mmo l/L) Final Anion gap 10/06/2023 15:47:00 9 7-15 (mmol /L) Final Glucose 10/06/2023 15:47:00 92 70-120 (mg /dL) Final Calcium 10/06/2023 15:47:00 8.0 Below low normal 8.4 -10.2 (mg/dL) Final Performing Location LABORATORY [facility] [place] - [address] [place] [address]
--- OUTSIDE RECORDS SUMMARY | 2023-12-30 10:32 | External Medical Summary ---
Author Name Unknown Address Unknown Organization K01:[place] [facility] [place] [facility] [address] [place] [address] Laboratory Report Ordering Provider Test Date Status DUNIA JENSEN 10/06/2023 09:33:00 Final Observation Date Value Abnormality Reference (Units ) Status BUN 10/06/2023 09:33:00 53 Above high normal 6-20 (mg/dL) Final Creatinine 10/06/2023 09:33:00 2.1 Above high normal 0.6-1.2 (mg/dL) Final Glomerular filtration rate/1.73 sq M.predicted [Volume Rate/Area] in Serum, Plasma or Blood by Creatinine-based formula (CKD-EPI) 10/06/2023 09:33:00 34 Below low normal >=60 (mL/min) Final eGFR is calculated based on the CKD-EPI 2020 equation Sodium 10/06/2023 09:33:00 142 135-146 (m mol/L) Final Potassium 10/06/2023 09:33:00 4.0 3.5-5.1 (m mol/L) Final Cl 10/06/2023 09:33:00 104 98-107 (mm ol/L) Final CO2 10/06/2023 09:33:00 31 22-32 (mmo l/L) Final Anion gap 10/06/2023 09:33:00 7 7-15 (mmol /L) Final Glucose 10/06/2023 09:33:00 93 70-120 (mg /dL) Final Calcium 10/06/2023 09:33:00 8.1 Below low normal 8.4 -10.2 (mg/dL) Final Performing Location [place]OR[place] [facility] [place] [address] [place] [address]
--- OUTSIDE RECORDS SUMMARY | 2023-12-30 10:32 | External Medical Summary ---
Author Name Unknown Address Unknown Organization K01:LABORATORY [facility] [place] - [facility] [address] [facility] [address] Laboratory Report Ordering Provider Test Date Status DUNIA JENSEN 10/04/2023 17:33:20 Final Observation Date Value Abnormality Reference (Units ) Status BUN 10/04/2023 17:33:20 45 Above high normal 6-20 (mg/dL) Final Creatinine 10/04/2023 17:33:20 2.4 Above high normal 0.6-1.2 (mg/dL) Final Glomerular filtration rate/1.73 sq M.predicted [Volume Rate/Area] in Serum, Plasma or Blood by Creatinine-based formula (CKD-EPI) 10/04/2023 17:33:20 29 Below low normal >=60 (mL/min) Final eGFR is calculated based on the CKD-EPI 2020 equation Sodium 10/04/2023 17:33:20 143 135-146 (m mol/L) Final Potassium 10/04/2023 17:33:20 4.3 3.5-5.1 (m mol/L) Final Cl 10/04/2023 17:33:20 106 98-107 (mm ol/L) Final CO2 10/04/2023 17:33:20 26 22-32 (mmo l/L) Final Anion gap 10/04/2023 17:33:20 11 7-15 (mmol /L) Final Glucose 10/04/2023 17:33:20 105 70-120 (mg /dL) Final Calcium 10/04/2023 17:33:20 7.3 Below low normal 8.4 -10.2 (mg/dL) Final Performing Location LABORATORY [facility] [place] - [facility] [place] [address]
--- OUTSIDE RECORDS SUMMARY | 2023-12-30 10:32 | External Medical Summary ---
Author Name Unknown Address Unknown Organization K01:LABORATORY [facility] [place] - [facility] [address] [place] [address] Laboratory Report Ordering Provider Test Date Status DUNIA JENSEN 10/07/2023 09:15:00 Final Observation Date Value Abnormality Reference (Units ) Status BUN 10/07/2023 09:15:00 47 Above high normal 6-20 (mg/dL) Final Creatinine 10/07/2023 09:15:00 1.9 Above high normal 0.6-1.2 (mg/dL) Final Glomerular filtration rate/1.73 sq M.predicted [Volume Rate/Area] in Serum, Plasma or Blood by Creatinine-based formula (CKD-EPI) 10/07/2023 09:15:00 38 Below low normal >=60 (mL/min) Final eGFR is calculated based on the CKD-EPI 2020 equation Sodium 10/07/2023 09:15:00 139 135-146 (m mol/L) Final Potassium 10/07/2023 09:15:00 3.3 Below low normal 3.5 -5.1 (mmol/L) Final Cl 10/07/2023 09:15:00 102 98-107 (mm ol/L) Final CO2 10/07/2023 09:15:00 29 22-32 (mmo l/L) Final Anion gap 10/07/2023 09:15:00 8 7-15 (mmol /L) Final Glucose 10/07/2023 09:15:00 91 70-120 (mg /dL) Final Calcium 10/07/2023 09:15:00 8.0 Below low normal 8.4 -10.2 (mg/dL) Final Performing Location LABORATORY [facility] [place] - [address] [place] [address]
--- OUTSIDE RECORDS SUMMARY | 2023-12-30 10:32 | External Medical Summary ---
Author Name Unknown Address Unknown Organization K01:LAB[place]ATORY [facility] [place] - [facility] [address] [facility] [address] Laboratory Report Ordering Provider Test Date Status DUNIA JENSEN 10/05/2023 18:28:00 Final Observation Date Value Abnormality Reference (Units ) Status BUN 10/05/2023 18:28:00 48 Above high normal 6-20 (mg/dL) Final Creatinine 10/05/2023 18:28:00 2.2 Above high normal 0.6-1.2 (mg/dL) Final Glomerular filtration rate/1.73 sq M.predicted [Volume Rate/Area] in Serum, Plasma or Blood by Creatinine-based formula (CKD-EPI) 10/05/2023 18:28:00 31 Below low normal >=60 (mL/min) Final eGFR is calculated based on the CKD-EPI 2020 equation Sodium 10/05/2023 18:28:00 139 135-146 (m mol/L) Final Potassium 10/05/2023 18:28:00 4.4 3.5-5.1 (m mol/L) Final Cl 10/05/2023 18:28:00 102 98-107 (mm ol/L) Final CO2 10/05/2023 18:28:00 30 22-32 (mmo l/L) Final Anion gap 10/05/2023 18:28:00 7 7-15 (mmol /L) Final Glucose 10/05/2023 18:28:00 96 70-120 (mg /dL) Final Calcium 10/05/2023 18:28:00 8.0 Below low normal 8.4 -10.2 (mg/dL) Final Performing Location LAB[place]ATORY [facility] [place] [address] [place] [address]
--- OUTSIDE RECORDS SUMMARY | 2023-12-30 10:32 | External Medical Summary ---
Author Name Unknown Address Unknown Organization K01:LABORATORY [facility] [place] - [facility] [address] [facility] [address] Laboratory Report Ordering Provider Test Date Status DUNIA JENSEN 10/04/2023 23:49:10 Final Observation Date Value Abnormality Reference (Units ) Status BUN 10/04/2023 23:49:10 48 Above high normal 6-20 (mg/dL) Final Creatinine 10/04/2023 23:49:10 2.3 Above high normal 0.6-1.2 (mg/dL) Final Glomerular filtration rate/1.73 sq M.predicted [Volume Rate/Area] in Serum, Plasma or Blood by Creatinine-based formula (CKD-EPI) 10/04/2023 23:49:10 29 Below low normal >=60 (mL/min) Final eGFR is calculated based on the CKD-EPI 2020 equation Sodium 10/04/2023 23:49:10 141 135-146 (m mol/L) Final Potassium 10/04/2023 23:49:10 4.4 3.5-5.1 (m mol/L) Final Cl 10/04/2023 23:49:10 103 98-107 (mm ol/L) Final CO2 10/04/2023 23:49:10 28 22-32 (mmo l/L) Final Anion gap 10/04/2023 23:49:10 10 7-15 (mmol /L) Final Glucose 10/04/2023 23:49:10 96 70-120 (mg /dL) Final Calcium 10/04/2023 23:49:10 7.6 Below low normal 8.4 -10.2 (mg/dL) Final Performing Location LABORATORY [facility] [place] - [facility] [place] [address]
--- OUTSIDE RECORDS SUMMARY | 2023-12-30 10:32 | External Medical Summary ---
Author Name Unknown Address Unknown Organization : Laboratory Report Ordering Provider Test Date Status CHAITANYA HADLEY 10/04/2023 11:21:46 Final Observation Date Value Abnormality Reference (Units ) Status Glucose Point of Care 10/04/2023 11:21:46 101 70-120 (mg/dL) Final Performing Location
--- OUTSIDE RECORDS SUMMARY | 2023-12-30 10:32 | External Medical Summary ---
Author Name Unknown Address Unknown Organization K01:LABORATORY [facility] [place] - [address] [place] [address] Laboratory Report Ordering Provider Test Date Status DUNIA JENSEN 10/04/2023 05:49:58 Final Observation Date Value Abnormality Reference (Units ) Status Lactic Acid, Whole Blood 10/04/2023 05:49:58 1.8 0.4-2.0 (mmol/L) Final Performing Location LABORATORY C - [address] [place] [address]
--- OUTSIDE RECORDS SUMMARY | 2023-12-30 10:32 | External Medical Summary ---
Author Name Unknown Address Unknown Organization K01:LABORATORY [facility] [place] - [address] [place] [address] Laboratory Report Ordering Provider Test Date Status DUNIA JENSEN 10/04/2023 11:22:27 Final Observation Date Value Abnormality Reference (Units ) Status Lactic Acid, Whole Blood 10/04/2023 11:22:27 3.5 Above high normal 0.4-2.0 (mmol/L) Final Performing Location LABORATORY [facility] [place] - [address] [place] [address]
--- OUTSIDE RECORDS SUMMARY | 2023-12-30 10:32 | External Medical Summary ---
Author Name Unknown Address Unknown Organization K01:[place] [facility] [place] [address] [place] [address] Laboratory Report Ordering Provider Test Date Status MADISYN MISHRA 10/07/2023 06:23:00 Final Observation Date Value Abnormality Reference (Units ) Status WBC, Total 10/07/2023 06:23:00 5.18 4.00-10.80 (K/uL) Final RBC 10/07/2023 06:23:00 2.71 4.50-5.25 (M/uL) Final Hemoglobin 10/07/2023 06:23:00 8.9 Below low normal 14.0-16.8 (g/dL) Final HCT 10/07/2023 06:23:00 26.5 Below low normal 40.0-48.4 (%) Final MCV 10/07/2023 06:23:00 97.8 82.0-99.5 (fL) Final MCH 10/07/2023 06:23:00 32.8 27.0-34.0 (pg) Final MCHC 10/07/2023 06:23:00 33.6 32.0-36.0 (g/dL) Final RDW 10/07/2023 06:23:00 13.2 11.5-15.5 (%) Final Platelets 10/07/2023 06:23:00 117 Below low normal 140-400 (K/uL) Final MPV 10/07/2023 06:23:00 8.8 6.6-11.1 (fL) Final Nucleated erythrocytes/100 leukocytes [Ratio] in Blood by Automated count 10/07/2023 06:23:00 0 <=0 (/100 WBCs) Final Performing Location [place] [facility] [place] [address] [place] [address]
--- OUTSIDE RECORDS SUMMARY | 2023-12-30 10:32 | External Medical Summary ---
Author Name Unknown Address Unknown Organization : Laboratory Report Ordering Provider Test Date Status CHAITANYA HADLEY 10/06/2023 16:29:41 Final Observation Date Value Abnormality Reference (Units ) Status Glucose Point of Care 10/06/2023 16:29:41 85 70-120 (mg/dL) Final Performing Location
--- OUTSIDE RECORDS SUMMARY | 2023-12-30 10:32 | External Medical Summary ---
Author Name Unknown Address Unknown Organization K01:LABORATORY [facility] [place] - [facility] [address] [facility] [address] Laboratory Report Ordering Provider Test Date Status DUNIA JENSEN 10/04/2023 11:22:27 Final Observation Date Value Abnormality Reference (Units ) Status BUN 10/04/2023 11:22:27 41 Above high normal 6-20 (mg/dL) Final Creatinine 10/04/2023 11:22:27 2.5 Above high normal 0.6-1.2 (mg/dL) Final Glomerular filtration rate/1.73 sq M.predicted [Volume Rate/Area] in Serum, Plasma or Blood by Creatinine-based formula (CKD-EPI) 10/04/2023 11:22:27 27 Below low normal >=60 (mL/min) Final eGFR is calculated based on the CKD-EPI 2020 equation Sodium 10/04/2023 11:22:27 143 135-146 (m mol/L) Final Potassium 10/04/2023 11:22:27 4.4 3.5-5.1 (m mol/L) Final Cl 10/04/2023 11:22:27 105 98-107 (mm ol/L) Final CO2 10/04/2023 11:22:27 24 22-32 (mmo l/L) Final Anion gap 10/04/2023 11:22:27 14 7-15 (mmol /L) Final Glucose 10/04/2023 11:22:27 107 70-120 (mg /dL) Final Calcium 10/04/2023 11:22:27 7.6 Below low normal 8.4 -10.2 (mg/dL) Final Performing Location LABORATORY [facility] [place] - [facility] [address] [place] [address]
--- OUTSIDE RECORDS SUMMARY | 2023-12-30 10:32 | External Medical Summary ---
Author Name Unknown Address Unknown Organization K01:LABORATORY [facility] [place] - [facility] [address] [place] [address] Laboratory Report Ordering Provider Test Date Status DUNIA JENSEN 10/05/2023 06:12:26 Final Observation Date Value Abnormality Reference (Units ) Status BUN 10/05/2023 06:12:26 46 Above high normal 6-20 (mg/dL) Final Creatinine 10/05/2023 06:12:26 2.2 Above high normal 0.6-1.2 (mg/dL) Final Glomerular filtration rate/1.73 sq M.predicted [Volume Rate/Area] in Serum, Plasma or Blood by Creatinine-based formula (CKD-EPI) 10/05/2023 06:12:26 32 Below low normal >=60 (mL/min) Final eGFR is calculated based on the CKD-EPI 2020 equation Sodium 10/05/2023 06:12:26 139 135-146 (m mol/L) Final Potassium 10/05/2023 06:12:26 4.2 3.5-5.1 (m mol/L) Final Cl 10/05/2023 06:12:26 103 98-107 (mm ol/L) Final CO2 10/05/2023 06:12:26 30 22-32 (mmo l/L) Final Anion gap 10/05/2023 06:12:26 6 Below low normal 7-1 5 (mmol/L) Final Glucose 10/05/2023 06:12:26 94 70-120 (mg /dL) Final Calcium 10/05/2023 06:12:26 7.6 Below low normal 8.4 -10.2 (mg/dL) Final Performing Location LABORATORY [facility] [place] - [address] [place] [address]
--- OUTSIDE RECORDS SUMMARY | 2023-12-30 10:33 | External Medical Summary ---
Author Name Unknown Address Unknown Organization K01:LABORATORY [address] [facility] [address] Laboratory Report Ordering Provider Test Date Status DUNIA JENSEN 10/03/2023 13:35:02 Final In PACU Observation Date Value Abnormality Reference (Units ) Status Calcium.ionized [Moles/volume] in Serum or Plasma by Ion-selective membrane electrode (ISE) 10/03/2023 13:35:02 1.19 1.13-1.32 (mmol/L) Final This test was developed and its performance characteristics dtermined by [employer]. It has not been cleared or approved by the [place] Food and Drug Administration Performing Location LABORATORY [place] [address] [address] [facility] [address]
--- OUTSIDE RECORDS SUMMARY | 2023-12-30 10:33 | External Medical Summary ---
Author Name Unknown Address Unknown Organization K01:[place] [facility] [place] [address] [place] [address] Laboratory Report Ordering Provider Test Date Status DUNIA JENSEN 10/03/2023 13:35:02 Final Observation Date Value Abnormality Reference (Units ) Status REY 10/03/2023 13:35:02 101 39-308 (U/ L) Final Performing Location LABORATORY [facility] - [address] [place] [address]
--- OUTSIDE RECORDS SUMMARY | 2023-12-30 10:33 | External Medical Summary ---
Author Name Unknown Address Unknown Organization K01:LABORATORY [facility] [place] - [address] [place] [address] Laboratory Report Ordering Provider Test Date Status DUNIA JENSEN 10/03/2023 17:19:26 Final Observation Date Value Abnormality Reference (Units ) Status Lactic Acid, Whole Blood 10/03/2023 17:19:26 1.7 0.4-2.0 (mmol/L) Final Performing Location LABORATORY C - [address] [place] [address]
--- OUTSIDE RECORDS SUMMARY | 2023-12-30 10:33 | External Medical Summary ---
Author Name Unknown Address Unknown Organization K01:LABORATORY [facility] [place] - [address] [place] [address] Laboratory Report Ordering Provider Test Date Status TYLER JONES 10/03/2023 12:58:39 Final Observation Date Value Abnormality Reference (Units ) Status WBC, Total 10/03/2023 12:58:39 10.52 4.00-10.80 (K/uL) Final RBC 10/03/2023 12:58:39 3.21 4.50-5.25 (M/uL) Final Hemoglobin 10/03/2023 12:58:39 10.7 Below low normal 14.0-16.8 (g/dL) Final HCT 10/03/2023 12:58:39 31.2 Below low normal 40.0-48.4 (%) Final MCV 10/03/2023 12:58:39 97.2 82.0-99.5 (fL) Final MCH 10/03/2023 12:58:39 33.3 27.0-34.0 (pg) Final MCHC 10/03/2023 12:58:39 34.3 32.0-36.0 (g/dL) Final RDW 10/03/2023 12:58:39 13.2 11.5-15.5 (%) Final Platelets 10/03/2023 12:58:39 87 Below low normal 140-400 (K/uL) Final MPV 10/03/2023 12:58:39 8.6 6.6-11.1 (fL) Final Nucleated erythrocytes/100 leukocytes [Ratio] in Blood by Automated count 10/03/2023 12:58:39 0 <=0 (/100 WBCs) Final Performing Location LABORATORY [facility] [place] - [address] [place] [address]
--- OUTSIDE RECORDS SUMMARY | 2023-12-30 10:33 | External Medical Summary ---
Author Name Unknown Address Unknown Organization K01:[place] [facility] [place] [address] [place] [address] Laboratory Report Ordering Provider Test Date Status DUNIA JENSEN 10/04/2023 00:04:10 Final Observation Date Value Abnormality Reference (Units ) Status Lactic Acid, Whole Blood 10/04/2023 00:04:10 1.9 0.4-2.0 (mmol/L) Final Performing Location LABORATORY C - [address] [place] [address]
--- OUTSIDE RECORDS SUMMARY | 2023-12-30 10:33 | External Medical Summary ---
Author Name Unknown Address Unknown Organization K01:[place] [facility] [place] [address] [place] [address] Laboratory Report Ordering Provider Test Date Status TYLER JONES 10/03/2023 10:43:41 Final Anticoagulation may affect t esting. Refer to [facility] Test Catalog for a list of effects. Observation Date Value Abnormality Reference (Units ) Status aPTT panel - Platelet poor plasma 10/03/2023 10:43:41 >150 Above upper panic limits 21-38 (seconds) Final Results rechecked. Performing Location [place] [facility] [place] [address] [place] [address]
--- OUTSIDE RECORDS SUMMARY | 2023-12-30 10:33 | External Medical Summary ---
Author Name Unknown Address Unknown Organization K01:LABORATORY [facility] [place] - [address] [place] [address] Laboratory Report Ordering Provider Test Date Status TYLER JONES 10/03/2023 10:43:41 Final If R time > 20 minutes and n o clot formed suggesting hypocoagulable state or interfering substance (anticoagulation). Consider resubmitting a new sample and/or checking PT/INR, aPTT, fibrinogen, and platelet count.
If R time > 20 minutes and no clot formed suggesting hypocoagulable state or interfering substance (anticoagulation). Consider resubmitting a new sample and/or checking PT/INR, aPTT, fibrinogen, and platelet count. Observation Date Value Abnormality Reference (Units) Status Clot formation [Time] in Blood by Thromboelastography 10/03/2023 10:43:41 >20.0 Above high normal 2.5-8.3 (minutes) Final Performing Location LABORATORY [facility] [place] - [address] [place] [address]
--- OUTSIDE RECORDS SUMMARY | 2023-12-30 10:33 | External Medical Summary ---
Author Name Unknown Address Unknown Organization : Laboratory Report Ordering Provider Test Date Status CHAITANYA HADLEY 10/03/2023 11:57:09 Final NORMAL (NON-HEPARINIZED) 74- 137 SECONDS
HEPARINIZED 200+ SECONDS
CRITICAL GREATER THAN 1000 SECONDS
null Observation Date Value Abnormality Reference (Units ) Status Kaolin activated time [Units/volume] in Blood 10/03/2023 11:57:09 131 50-1000 (secs) Final Performing Location
--- OUTSIDE RECORDS SUMMARY | 2023-12-30 10:33 | External Medical Summary ---
Author Name Unknown Address Unknown Organization K01:[place] [facility] [place] [facility] [address] [place] [address] Laboratory Report Ordering Provider Test Date Status DUNIA JENSEN 10/04/2023 00:04:10 Final Observation Date Value Abnormality Reference (Units ) Status BUN 10/04/2023 00:04:10 34 Above high normal 6-20 (mg/dL) Final Creatinine 10/04/2023 00:04:10 2.1 Above high normal 0.6-1.2 (mg/dL) Final Glomerular filtration rate/1.73 sq M.predicted [Volume Rate/Area] in Serum, Plasma or Blood by Creatinine-based formula (CKD-EPI) 10/04/2023 00:04:10 33 Below low normal >=60 (mL/min) Final eGFR is calculated based on the CKD-EPI 2020 equation Sodium 10/04/2023 00:04:10 143 135-146 (m mol/L) Final Potassium 10/04/2023 00:04:10 4.7 3.5-5.1 (m mol/L) Final Cl 10/04/2023 00:04:10 105 98-107 (mm ol/L) Final CO2 10/04/2023 00:04:10 27 22-32 (mmo l/L) Final Anion gap 10/04/2023 00:04:10 11 7-15 (mmol /L) Final Glucose 10/04/2023 00:04:10 131 Above high normal 70 -120 (mg/dL) Final Calcium 10/04/2023 00:04:10 8.1 Below low normal 8.4 -10.2 (mg/dL) Final Performing Location LAB[place]ORY [facility] [place] [address] [place] [address]
--- OUTSIDE RECORDS SUMMARY | 2023-12-30 10:33 | External Medical Summary ---
Author Name Unknown Address Unknown Organization K01:[place] [facility] [place] [address] [facility] [address] Laboratory Report Ordering Provider Test Date Status TYLER JONES 10/03/2023 12:58:39 Final Observation Date Value Abnormality Reference (Units ) Status Body temperature 10/03/2023 12:58:39 37.0 (C) Final pH of Arterial blood 10/03/2023 12:58:39 7.325 Below low normal 7.350-7.450 (units) Final Carbon dioxide [Partial pressure] in Arterial blood 10/03/2023 12:58:39 49.5 Above high normal 35.0-45.0 (mmHg) Final Oxygen [Partial pressure] in Arterial blood 10/03/2023 12:58:39 248.0 Above high normal 75.0-100.0 (mmHg) Final Base excess, Arterial 10/03/2023 12:58:39 -0.7 -2.0-2.0 (mmol/L) Final Hemoglobin [Mass/volume] in Blood by Oximetry 10/03/2023 12:58:39 10.5 Below low normal 14.0-16.8 (g/dL) Final HCT, calc. 10/03/2023 12:58:39 32.6 Below low normal 40.0-48.4 (%) Final The Hematocrit reference int erval is based on adult population.
This method is intended for trending and screening purposes only.
A "Complete Blood Count" is more accurate and should be ordered if clinically indicated. Oxyhemoglobin, Arterial (FO2HB) 10/03/2023 12:58:39 96.6 94.0-99.0 (% total Hgb) Final Carboxyhemoglobin 10/03/2023 12:58:39 1.7 Above high normal <=1.5 (% total Hgb) Final Smokers: 0-9.0 % Methemoglobin 10/03/2023 12:58:39 1.2 <=1.5 (% total Hgb) Final Deoxyhemoglobin/Hemog lobin.total in Arterial blood 10/03/2023 12:58:39 0.5 0.0-5.0 (% total Hgb) Final Oxygen content in Arterial blood 10/03/2023 12:58:39 14.9 Below low normal 15.0-24.0 (%vol) Final Potassium, Whole Blood 10/03/2023 12:58:39 5.1 3.5-5.1 (mmol/L) Final Sodium, Whole Blood 10/03/2023 12:58:39 142 135-146 (mmol/L) Final Chloride, Whole Blood 10/03/2023 12:58:39 104 98-107 (mmol/L) Final Calcium.ionized [Moles/volume] in Blood by Ion-selective membrane electrode (ISE) 10/03/2023 12:58:39 1.04 Below low normal 1.13-1.32 (mmol/L) Final Anion gap, Whole Blood 10/03/2023 12:58:39 12.3 7.0-15.0 (mmol/L) Final Glucose, whole blood 10/03/2023 12:58:39 181 Above high normal 70-120 (mg/dL) Final Oxygen/Total gas setting [Volume Fraction] Ventilator 10/03/2023 12:58:39 Not Provided (%) Final O2 FLOW, [facility] - [facility] 10/03/2023 12:58:39 Not Provided (L/min) Final Bicarbonate, Venous, POC (i-STAT) 10/03/2023 12:58:39 25.1 23.0-31.0 (mmol/L) Final Performing Location LAB[place] [facility] [place] [address] [facility] [address]
--- OUTSIDE RECORDS SUMMARY | 2023-12-30 10:33 | External Medical Summary ---
Author Name Unknown Address Unknown Organization K01:[place]ATORY [facility] [place] [address] [place] [address] Laboratory Report Ordering Provider Test Date Status DUNIA JENSEN 10/03/2023 14:21:51 Final In PACU Observation Date Value Abnormality Reference (Units ) Status Lactic Acid, Whole Blood 10/03/2023 14:21:51 2.3 Above high normal 0.4-2.0 (mmol/L) Final Performing Location [place]ORY [facility] [place] - [address] [place] [address]
--- OUTSIDE RECORDS SUMMARY | 2023-12-30 10:33 | External Medical Summary ---
Author Name Unknown Address Unknown Organization K01:LABORATORY [facility] [place] - [address] [place] [address] Laboratory Report Ordering Provider Test Date Status TYLER JONES 10/03/2023 12:58:39 Final Observation Date Value Abnormality Reference (Units ) Status Lactic Acid, Whole Blood 10/03/2023 12:58:39 3.5 Above high normal 0.4-2.0 (mmol/L) Final Performing Location LABORATORY [facility] [place] - [address] [place] [address]
--- OUTSIDE RECORDS SUMMARY | 2023-12-30 10:33 | External Medical Summary ---
Author Name Unknown Address Unknown Organization K01:LABORATORY [facility] - [address] [place] [address] Laboratory Report Ordering Provider Test Date Status DUNIA JENSEN 10/03/2023 13:35:02 Final Observation Date Value Abnormality Reference (Units ) Status Troponin T 10/03/2023 13:35:02 36 Above high normal < =22 (ng/L) Final Performing Location LABORATORY C - [address] [place] [address]
--- OUTSIDE RECORDS SUMMARY | 2023-12-30 10:33 | External Medical Summary ---
Author Name Unknown Address Unknown Organization K01:[place] [facility] [place] [facility] [address] [place] [address] Laboratory Report Ordering Provider Test Date Status TYLER JONES 10/03/2023 12:58:39 Final Warfarin Therapy
INR: 2 .0-3.0 conventional anticoagulation
INR: 2.5- 3.5 high intensity anticoagulation Observation Date Value Abnormality Reference (Units ) Status PT 10/03/2023 12:58:39 17.4 Above high normal 11 .6-15.2 (seconds) Final INR 10/03/2023 12:58:39 1.4 Above high normal 0. 8-1.2 Final Performing Location [place] [facility] [place] [address] [place] [address]
--- OUTSIDE RECORDS SUMMARY | 2023-12-30 10:33 | External Medical Summary ---
Author Name Unknown Address Unknown Organization : Laboratory Report Ordering Provider Test Date Status CHAITANYA HADLEY 10/03/2023 11:52:46 Final Observation Date Value Abnormality Reference (Units) Status Blood draw [PhenX] 10/03/2023 11:52:46 Arterial Draw Final pH, POC (i-STAT) 10/03/2023 11:52:46 7.295 Below low normal 7.350-7.450 Final PCO2 POC (i-STAT) 10/03/2023 11:52:46 51.0 Above high normal 35.0-45.0 (mm Hg) Final PO2 POC (i-STAT) 10/03/2023 11:52:46 298 Above high normal 75-100 (mm Hg) Final Base excess standard in Arterial blood by calculation 10/03/2023 11:52:46 -2 -2-2 (mmol/L) Final Bicarbonate, Venous, POC (i-STAT) 10/03/2023 11:52:46 24.8 23.0-31.0 (mmol/L) Final O2 Sat, calculated POC (i-STAT) 10/03/2023 11:52:46 100.0 Above high normal 94.0-98.0 (%) Final Glucose, whole blood 10/03/2023 11:52:46 183 Above high normal 70-120 (mg/dL) Final Potassium, Whole Blood 10/03/2023 11:52:46 5.1 3.5-5.1 (mmol/L) Final Sodium, Whole Blood 10/03/2023 11:52:46 141 135-146 (mmol/L) Final Calcium, Ionized, Whole Blood 10/03/2023 11:52:46 1.39 Above high normal 1.13-1.32 (mmol/L) Final Hemoglobin POC (i-STAT) 10/03/2023 11:52:46 10.2 Below low normal 14.0-16.8 (g/dL) Final HCT 10/03/2023 11:52:46 30 Below low normal 40-48 (%) Final Oxygen/Total gas setting [Volume Fraction] Ventilator 10/03/2023 11:52:46 70 (%) Final Performing Location
--- OUTSIDE RECORDS SUMMARY | 2023-12-30 10:33 | External Medical Summary ---
Author Name Unknown Address Unknown Organization K01:LAB[facility]ATORY [facility] [place] - [facility] [address] [place] [address] Laboratory Report Ordering Provider Test Date Status TYLER JONES 10/03/2023 10:43:41 Final Observation Date Value Abnormality Reference (Units) Status Clot formation [Time] in Blood by Thromboelastography 10/03/2023 10:43:41 7.2 2.5-8.3 (minutes) Final Clot strength in Blood by Thromboelastography 10/03/2023 10:43:41 13.8 Above high normal 0.5-3.7 (minutes) Final Clot angle in Blood by Thromboelastography 10/03/2023 10:43:41 23.0 Below low normal 46.8-78.4 (degrees) Final Maximum clot firmness [Length] in Blood by Thromboelastography 10/03/2023 10:43:41 27.3 Below low normal 50.6-72.5 (mm) Final Coagulation index in Blood by Thromboelastography 10/03/2023 10:43:41 -12.6 Below low normal -3.0-3.0 Final Clot Lysis [Length fraction] in Blood by Thromboelastography --30 minutes post maximum clot amplitude 10/03/2023 10:43:41 0.0 0.0-7.5 (%) Final This is an appended report. These results have been appended to a previously preliminary verified report. Performing Location [facility] [place] - [facility] [address] [place] [address] [address]
--- OUTSIDE RECORDS SUMMARY | 2023-12-30 10:33 | External Medical Summary ---
Author Name Unknown Address Unknown Organization K01:LABORATORY [facility] [place] - [address] [place] [address] Laboratory Report Ordering Provider Test Date Status DUNIA JENSEN 10/04/2023 00:04:10 Final Observation Date Value Abnormality Reference (Units ) Status WBC, Total 10/04/2023 00:04:10 9.97 4.00-10.80 (K/uL) Final RBC 10/04/2023 00:04:10 3.41 4.50-5.25 (M/uL) Final Hemoglobin 10/04/2023 00:04:10 11.3 Below low normal 14.0-16.8 (g/dL) Final HCT 10/04/2023 00:04:10 33.4 Below low normal 40.0-48.4 (%) Final MCV 10/04/2023 00:04:10 97.9 82.0-99.5 (fL) Final MCH 10/04/2023 00:04:10 33.1 27.0-34.0 (pg) Final MCHC 10/04/2023 00:04:10 33.8 32.0-36.0 (g/dL) Final RDW 10/04/2023 00:04:10 13.4 11.5-15.5 (%) Final Platelets 10/04/2023 00:04:10 88 Below low normal 140-400 (K/uL) Final MPV 10/04/2023 00:04:10 8.8 6.6-11.1 (fL) Final Nucleated erythrocytes/100 leukocytes [Ratio] in Blood by Automated count 10/04/2023 00:04:10 0 <=0 (/100 WBCs) Final Performing Location LABORATORY [facility] [place] - [address] [place] [address]
--- OUTSIDE RECORDS SUMMARY | 2023-12-30 10:33 | External Medical Summary ---
Author Name Unknown Address Unknown Organization : Laboratory Report Ordering Provider Test Date Status CHAITANYA HADLEY 10/03/2023 10:26:52 Final Observation Date Value Abnormality Reference (Units) Status Blood draw [PhenX] 10/03/2023 10:26:52 Arterial Draw Final pH, POC (i-STAT) 10/03/2023 10:26:52 7.361 7.350-7.450 Final PCO2 POC (i-STAT) 10/03/2023 10:26:52 40.3 35.0-45.0 (mm Hg) Final PO2 POC (i-STAT) 10/03/2023 10:26:52 206 Above high normal 75-100 (mm Hg) Final Base excess standard in Arterial blood by calculation 10/03/2023 10:26:52 -3 Below low normal -2-2 (mmol/L) Final Bicarbonate, Venous, POC (i-STAT) 10/03/2023 10:26:52 22.8 Below low normal 23.0-31.0 (mmol/L) Final O2 Sat, calculated POC (i-STAT) 10/03/2023 10:26:52 100.0 Above high normal 94.0-98.0 (%) Final Glucose, whole blood 10/03/2023 10:26:52 167 Above high normal 70-120 (mg/dL) Final Potassium, Whole Blood 10/03/2023 10:26:52 4.5 3.5-5.1 (mmol/L) Final Sodium, Whole Blood 10/03/2023 10:26:52 139 135-146 (mmol/L) Final Calcium, Ionized, Whole Blood 10/03/2023 10:26:52 1.96 Above upper panic limits 1.13-1.32 (mmol/L) Final Hemoglobin POC (i-STAT) 10/03/2023 10:26:52 11.6 Below low normal 14.0-16.8 (g/dL) Final HCT 10/03/2023 10:26:52 34 Below low normal 40-48 (%) Final Performing Location
--- OUTSIDE RECORDS SUMMARY | 2023-12-30 10:33 | External Medical Summary ---
Author Name Unknown Address Unknown Organization K01:[place] [facility] [place] [address] [place] [address] Laboratory Report Ordering Provider Test Date Status TYLER JONES 10/03/2023 10:43:41 Final Observation Date Value Abnormality Reference (Units ) Status Lactic Acid, Whole Blood 10/03/2023 10:43:41 2.9 Above high normal 0.4-2.0 (mmol/L) Final Performing Location [facility] [place] [address] [place] [address]
--- OUTSIDE RECORDS SUMMARY | 2023-12-30 10:33 | External Medical Summary ---
Author Name Unknown Address Unknown Organization K01:[place] [facility] [place] [address] [place] [address] Laboratory Report Ordering Provider Test Date Status TYLER JONES 10/03/2023 10:43:41 Final Observation Date Value Abnormality Reference (Units ) Status WBC, Total 10/03/2023 10:43:41 12.20 Above high normal 4.00-10.80 (K/uL) Final RBC 10/03/2023 10:43:41 3.07 4.50-5.25 (M/uL) Final Hemoglobin 10/03/2023 10:43:41 10.1 Below low normal 14.0-16.8 (g/dL) Final HCT 10/03/2023 10:43:41 30.4 Below low normal 40.0-48.4 (%) Final MCV 10/03/2023 10:43:41 99.0 82.0-99.5 (fL) Final MCH 10/03/2023 10:43:41 32.9 27.0-34.0 (pg) Final MCHC 10/03/2023 10:43:41 33.2 32.0-36.0 (g/dL) Final RDW 10/03/2023 10:43:41 13.1 11.5-15.5 (%) Final Platelets 10/03/2023 10:43:41 49 Below low normal 140-400 (K/uL) Final MPV 10/03/2023 10:43:41 9.0 6.6-11.1 (fL) Final Nucleated erythrocytes/100 leukocytes [Ratio] in Blood by Automated count 10/03/2023 10:43:41 0 <=0 (/100 WBCs) Final Performing Location [facility] [place] [address] [place] [address]
--- OUTSIDE RECORDS SUMMARY | 2023-12-30 10:33 | External Medical Summary ---
Author Name Unknown Address Unknown Organization K01:LABORATORY [facility] [place] - [address] [place] [address] Laboratory Report Ordering Provider Test Date Status TYLER JONES 10/03/2023 12:58:39 Final Anticoagulation may affect t esting. Refer to [facility] Test Catalog for a list of effects. Observation Date Value Abnormality Reference (Units ) Status aPTT panel - Platelet poor plasma 10/03/2023 12:58:39 37 21-38 (seconds) Final Performing Location LAB[facility]ORY [facility] [place] - [address] [place] [address]
--- OUTSIDE RECORDS SUMMARY | 2023-12-30 10:33 | External Medical Summary ---
Author Name Unknown Address Unknown Organization K01:LAB[facility]ORY [facility] [place] - [address] [facility] [facility] [address] [address] Laboratory Report Ordering Provider Test Date Status TYLER JONES 10/03/2023 10:43:41 Final Observation Date Value Abnormality Reference (Units ) Status Body temperature 10/03/2023 10:43:41 37.0 (C) Final pH of Arterial blood 10/03/2023 10:43:41 7.279 Below low normal 7.350-7.450 (units) Final Carbon dioxide [Partial pressure] in Arterial blood 10/03/2023 10:43:41 38.7 35.0-45.0 (mmHg) Final Oxygen [Partial pressure] in Arterial blood 10/03/2023 10:43:41 247.0 Above high normal 75.0-100.0 (mmHg) Final Base excess, Arterial 10/03/2023 10:43:41 -8.1 Below low normal -2.0-2.0 (mmol/L) Final Hemoglobin [Mass/volume] in Blood by Oximetry 10/03/2023 10:43:41 9.6 Below low normal 14.0-16.8 (g/dL) Final HCT, calc. 10/03/2023 10:43:41 29.7 Below low normal 40.0-48.4 (%) Final The Hematocrit reference int erval is based on adult population.
This method is intended for trending and screening purposes only.
A "Complete Blood Count" is more accurate and should be ordered if clinically indicated. Oxyhemoglobin, Arterial (FO2HB) 10/03/2023 10:43:41 97.8 94.0-99.0 (% total Hgb) Final Carboxyhemoglobin 10/03/2023 10:43:41 1.4 <= 1.5 (% total Hgb) Final Smokers: 0-9.0 % Methemoglobin 10/03/2023 10:43:41 0.5 <=1.5 (% total Hgb) Final Deoxyhemoglobin/Hemog lobin.total in Arterial blood 10/03/2023 10:43:41 0.3 0.0-5.0 (% total Hgb) Final Oxygen content in Arterial blood 10/03/2023 10:43:41 13.8 Below low normal 15.0-24.0 (%vol) Final Potassium, Whole Blood 10/03/2023 10:43:41 4.6 3.5-5.1 (mmol/L) Final Sodium, Whole Blood 10/03/2023 10:43:41 138 135-146 (mmol/L) Final Chloride, Whole Blood 10/03/2023 10:43:41 108 Above high normal 98-107 (mmol/L) Final Calcium.ionized [Moles/volume] in Blood by Ion-selective membrane electrode (ISE) 10/03/2023 10:43:41 1.02 Below low normal 1.13-1.32 (mmol/L) Final Anion gap, Whole Blood 10/03/2023 10:43:41 12.8 7.0-15.0 (mmol/L) Final Glucose, whole blood 10/03/2023 10:43:41 173 Above high normal 70-120 (mg/dL) Final Oxygen/Total gas setting [Volume Fraction] Ventilator 10/03/2023 10:43:41 Not Provided (%) Final O2 FLOW, ARTERIAL - [facility] 10/03/2023 10:43:41 Not Provided (L/min) Final Bicarbonate, Venous, POC (i-STAT) 10/03/2023 10:43:41 17.5 Below low normal 23.0-31.0 (mmol/L) Final Performing Location LABORATORY [facility] [place] - [address] [facility] [address]
--- OUTSIDE RECORDS SUMMARY | 2023-12-30 10:33 | External Medical Summary ---
Author Name Unknown Address Unknown Organization K01:LABORATORY [facility] - [address] [place] [address] Laboratory Report Ordering Provider Test Date Status ROBERTTYLER 10/03/2023 10:43:41 Final Observation Date Value Abnormality Reference (Units ) Status Fibrinogen 10/03/2023 10:43:41 <60 Below lower panic limits 178-467 (mg/dL) Final Results rechecked. Performing Location LABORATORY [facility] - [address] [place] [address]
--- OUTSIDE RECORDS SUMMARY | 2023-12-30 10:33 | External Medical Summary ---
Author Name Unknown Address Unknown Organization K01:LABORATORY [facility] [place] - [address] [facility] [address] Laboratory Report Ordering Provider Test Date Status TYLER JONES 10/03/2023 12:58:39 Final If R time > 20 minutes and n o clot formed suggesting hypocoagulable state or interfering substance (anticoagulation). Consider resubmitting a new sample and/or checking PT/INR, aPTT, fibrinogen, and platelet count. Observation Date Value Abnormality Reference (Units ) Status Clot formation [Time] in Blood by Thromboelastography 10/03/2023 12:58:39 6.5 2.5-8.3 (minutes) Final Clot strength in Blood by Thromboelastography 10/03/2023 12:58:39 2.1 0.5-3.7 (minutes) Final Clot angle in Blood by Thromboelastography 10/03/2023 12:58:39 61.7 46.8-78.4 (degrees) Final Maximum clot firmness [Length] in Blood by Thromboelastography 10/03/2023 12:58:39 54.8 50.6-72.5 (mm) Final Coagulation index in Blood b y Thromboelastography 10/03/2023 12:58:39 -1.4 -3.0-3.0 Final Clot Lysis [Length fraction] in Blood by Thromboelastography --30 minutes post maximum clot amplitude 10/03/2023 12:58:39 0.0 0.0-7.5 (%) Final This is an appended report. These results have been appended to a previously preliminary verified report. Performing Location LABORATORY [facility] [place] - [address] [facility] [address]
--- OUTSIDE RECORDS SUMMARY | 2023-12-30 10:33 | External Medical Summary | Summary of Care ---
Author Name Unknown Organization [facility] Address [address] [place] [address] Phone [phone] Care Team Providers Care [employer] Name Role Phone Valdemar Segundo PA-C Primary Care Provider [phone] Reason for Visit * Reason Onset Date Comments STAIR AAA 10/03/2023 Encounter Details Date Type Department Care Team (Late st Contact Info) Description 10/03/2023 Telephone STAIR AAA [address] [place] [address] Program, Stair [address] [place] [address] STAIR AAA Allergies Active Allergy Reactions Criticality Noted Date Comments Penicillins Rash 09/28/2003 documented as of this encounter (statuses as of 10/03/2023) Medications Medication Sig Dispensed Refills Start Date End Date Status Trelegy Ellipta 100-62.5-25 MCG/ACT Aerosol Powder Breath [...] as of this encounter (statuses as of 10/03/2023) Active Problems Problem Noted Date Diagnosed Date Coronary artery disease invo lving [place] coronary artery of [place] heart without angina pectoris 06/05/2023 S/P CABG (coronary artery bypass graft) 06/05/20 Infrarenal abdominal aortic aneurysm (AAA) witho ut rupture 05/30/2022 Iliac artery aneurysm, right 05/30/2022 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 Nicotine use 05/30/2022 SPRAIN CRUCIATE LIG KNEE 10/01/2003 documented as of this encounter (statuses as of 10/03/2023) Social History Tobacco Use Types Packs/Day Years Used Date Smoking Tobacco: Former Cigarettes Smokeless Tobacco: Current Snuff Sex and Gender Information Value Date Recorded Sex Assigned at Not on file Gender Identity Not on file Sexual Orientation Not on file Job Start Date Occupation Industry Not on file Not on file Not on file documented as of this encounter Miscellaneous Notes * Telephone Encounter - Skye Russo LPN - 10/03/2023 3:35 PM EDT AAA - Clinical Summary Name: Neri Bear Age: [age] year old AAA Review: Follow-up Follow-up Encounter Provider: Gregory Le MD Patient Identified by: NLP Report Imaging Interpretation: CTA Type of Result: SP Open Repair AAA Care Plan Imaging Recommendation: No Imaging needed. Details: None AAA Care Plan Visit Recommendation: No Visit needed Details: None Next steps: No action needed at this time. Open repair completed today. No longer eligible for STAIR AAA. Time spent: 10 minutes Patient disenrolled from STAIR Program for Abdominal Aortic Aneurysm - banner removed Skye Russo LPN Coordinator STAIR (System to Track Abnormalities of Importance Reliably) CTA ABD/PELVIS 08/28/2023 Narrative EXAM: CTA ABDOMEN PELVIS WITH CONTRAST HISTORY: AAA, celiac stenosis, common iliac aneurysm COMPARISON: CT from 06/03/2023. TECHNIQUE: CTA abdomen pelvis with intravenous contrast was performed. Reformatted MIP images were obtained and reviewed. CONTRAST: 95 mL intravenously. FINDINGS: LOWER CHEST: Emphysema at the lung bases. LIVER: Right hepatic dome cyst. GALLBLADDER/BILE DUCTS: Cholelithiasis. PANCREAS: Unremarkable. GI TRACT: Scattered colonic diverticula. No evidence of bowel obstruction. SPLEEN: Unremarkable. LYMPH NODES: No lymphadenopathy. ADRENAL GLANDS: Unremarkable. KIDNEYS/URETERS: Unremarkable. URINARY BLADDER: Unremarkable. REPRODUCTIVE ORGANS: Prostatomegaly. VASCULATURE: Extremely tight angulation at the level the renal arteries with a fusiform aneurysm now measuring up to 54 x 56 mm (previously measuring 53 mm). Aortic lumen tapers to a proximally 14.4 mm just prior to the aneurysm. There is aneurysmal dilatation of the descending thoracic aorta above this with mixed areas of ulcerating plaque measuring up to 42 mm. 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 Aneurysmal dilatation of the right common iliac artery measuring up to 33.4 mm. Aneurysmal dilatation of the left common iliac artery measuring 29 mm. MISCELLANEOUS: No free fluid or free air. Fat containing inguinal hernias. MUSCULOSKELETAL: Polyarticular degenerative changes. Impression : Fusiform aneurysm of the infrarenal abdominal aorta measuring up to 56 mm, slightly increased in size since prior exam. Descending thoracic/suprarenal aortic aneurysm measuring up to 42 mm containing moderate intramuralhematoma and ulcerating plaque. Extremely tight angulation of the abdominal aorta at the level of the renal arteries with a minimalluminal diameter 14.4 mm. Aneurysmal dilatation of the bilateral common iliac arteries measuring up to 33.4 mm on the right and 29 mm on the left. All measurements were taken on true orthogonal plane on 3D software. documented in this encounter Plan of Treatment Upcoming Encounters Date Type Department Care Team (Late st Contact Info) Description 11/14/2023 12:30 PM EDT Imaging Radiology [facility] [place] [address] [place] [address] 11/20/2023 2:10 PM EDT Office Visit Vascular Surgery, [facility] [address] [facility] [place] [address] Gregory Le MD [address] [place] [address] Scheduled Procedures Name Priority Associated Diagnoses Date/Ti me REPAIR ANEURYSM ABDOMINAL AORTA INVOLVING VISCERAL MUSCLES Infrarenal abdominal aortic aneurysm (AAA) without rupture (HCC) 10/03/2023 6:30 AM EDT Health Maintenance Due Date Last Done Comments [...] this encounter Medical Devices Implanted Type Area Trouble Operator Device Identifier Shelf Expiration Date Model / Serial / Lot Graft Bifur [id number] - [id number] Implanted:Qty : 1 on 10/03/2023 by Gregory Le MD at OR [facility] [place] N/A: Aorta GETINGE : MAQUET [id number] 04/30/2028 [id number] [facility] / [id number] / [id number] documented as of this encounter Advance Directives [...] the patient have Health Care Power of Band Splitter? No Care Teams [employer] Relationship Specialty Start Date End Date Valdemar Segundo, MARYCARMEN [address] [place] [address] [place] [address] PCP - General Physician [employer] 05/03/21 documented as of this encounter
--- OUTSIDE RECORDS SUMMARY | 2023-12-30 10:33 | External Medical Summary ---
Author Name Unknown Address Unknown Organization K01:LABORATORY [facility] [place] - [facility] [address] [facility] [address] Laboratory Report Ordering Provider Test Date Status DUNIA JENSEN 10/03/2023 17:19:26 Final Observation Date Value Abnormality Reference (Units ) Status BUN 10/03/2023 17:19:26 32 Above high normal 6-20 (mg/dL) Final Creatinine 10/03/2023 17:19:26 2.0 Above high normal 0.6-1.2 (mg/dL) Final Glomerular filtration rate/1.73 sq M.predicted [Volume Rate/Area] in Serum, Plasma or Blood by Creatinine-based formula (CKD-EPI) 10/03/2023 17:19:26 35 Below low normal >=60 (mL/min) Final eGFR is calculated based on the CKD-EPI 2020 equation Sodium 10/03/2023 17:19:26 143 135-146 (m mol/L) Final Potassium 10/03/2023 17:19:26 4.6 3.5-5.1 (m mol/L) Final Cl 10/03/2023 17:19:26 105 98-107 (mm ol/L) Final CO2 10/03/2023 17:19:26 26 22-32 (mmo l/L) Final Anion gap 10/03/2023 17:19:26 12 7-15 (mmol /L) Final Glucose 10/03/2023 17:19:26 147 Above high normal 70 -120 (mg/dL) Final Calcium 10/03/2023 17:19:26 8.5 8.4-10.2 ( mg/dL) Final Performing Location LABORATORY [facility] [place] - [facility] [address] [place] [address]
--- OUTSIDE RECORDS SUMMARY | 2023-12-30 10:33 | External Medical Summary ---
Author Name Unknown Address Unknown Organization K01:[place] [facility] [place] [facility] [address] [place] [address] Laboratory Report Ordering Provider Test Date Status JAVIERTYLER VILLASENOR 10/03/2023 10:43:41 Final Warfarin Therapy
INR: 2 .0-3.0 conventional anticoagulation
INR: 2.5- 3.5 high intensity anticoagulation Observation Date Value Abnormality Reference (Units ) Status PT 10/03/2023 10:43:41 31.2 Above high normal 11 .6-15.2 (seconds) Final INR 10/03/2023 10:43:41 3.0 Above high normal 0. 8-1.2 Final Performing Location [facility] [facility] [place] [address] [place] [address]
--- OUTSIDE RECORDS SUMMARY | 2023-12-30 10:33 | External Medical Summary ---
Author Name Unknown Address Unknown Organization : Laboratory Report Ordering Provider Test Date Status CHAITANYA HADLEY 10/03/2023 14:25:31 Final Observation Date Value Abnormality Reference (Units ) Status Glucose Point of Care 10/03/2023 14:25:31 125 Above high normal 70-120 (mg/dL) Final Performing Location
--- OUTSIDE RECORDS SUMMARY | 2023-12-30 10:33 | External Medical Summary ---
Author Name Unknown Address Unknown Organization K01:[place]ORY [facility] [place] [address] [place] [address] Laboratory Report Ordering Provider Test Date Status DUNIA JENSEN 10/03/2023 17:19:26 Final Observation Date Value Abnormality Reference (Units ) Status WBC, Total 10/03/2023 17:19:26 10.48 4.00-10.80 (K/uL) Final RBC 10/03/2023 17:19:26 3.54 4.50-5.25 (M/uL) Final Hemoglobin 10/03/2023 17:19:26 11.6 Below low normal 14.0-16.8 (g/dL) Final HCT 10/03/2023 17:19:26 35.0 Below low normal 40.0-48.4 (%) Final MCV 10/03/2023 17:19:26 98.9 82.0-99.5 (fL) Final MCH 10/03/2023 17:19:26 32.8 27.0-34.0 (pg) Final MCHC 10/03/2023 17:19:26 33.1 32.0-36.0 (g/dL) Final RDW 10/03/2023 17:19:26 13.3 11.5-15.5 (%) Final Platelets 10/03/2023 17:19:26 95 Below low normal 140-400 (K/uL) Final MPV 10/03/2023 17:19:26 9.4 6.6-11.1 (fL) Final Nucleated erythrocytes/100 leukocytes [Ratio] in Blood by Automated count 10/03/2023 17:19:26 0 <=0 (/100 WBCs) Final Performing Location [facility] [facility] [place] [address] [place] [address]
--- OUTSIDE RECORDS SUMMARY | 2023-12-30 10:33 | External Medical Summary ---
Author Name Unknown Address Unknown Organization : Laboratory Report Ordering Provider Test Date Status CHAITANYA HADLEY 10/03/2023 22:52:54 Final Observation Date Value Abnormality Reference (Units ) Status Glucose Point of Care 10/03/2023 22:52:54 124 Above high normal 70-120 (mg/dL) Final Performing Location
--- OUTSIDE RECORDS SUMMARY | 2023-12-30 10:33 | External Medical Summary ---
Author Name Unknown Address Unknown Organization K01:LABORATORY [facility] - [address] [place] [address] Laboratory Report Ordering Provider Test Date Status TYLER JONES 10/03/2023 12:58:39 Final Observation Date Value Abnormality Reference (Units ) Status Fibrinogen 10/03/2023 12:58:39 187 178-467 ( mg/dL) Final Performing Location LABORATORY [facility] - [address] [place] [address]
--- OUTSIDE RECORDS SUMMARY | 2023-12-30 10:33 | External Medical Summary ---
Author Name Unknown Address Unknown Organization : Laboratory Report Ordering Provider Test Date Status CHAITANYA HADLEY 10/03/2023 17:09:43 Final Observation Date Value Abnormality Reference (Units ) Status Glucose Point of Care 10/03/2023 17:09:43 122 Above high normal 70-120 (mg/dL) Final Performing Location
--- OUTSIDE RECORDS SUMMARY | 2023-12-30 10:33 | External Medical Summary ---
Author Name Unknown Address Unknown Organization K01:[place] [facility] [place] [address] [place] [address] [address] [facility] [address] Laboratory Report Ordering Provider Test Date Status TYLER JONES 10/03/2023 12:58:39 Final Observation Date Value Abnormality Reference (Units) Status Clot formation [Time] in Blood by Thromboelastography 10/03/2023 12:58:39 6.5 2.5-8.3 (minutes) Final Clot strength in Blood by Thromboelastography 10/03/2023 12:58:39 2.2 0.5-3.7 (minutes) Final Clot angle in Blood by Thromboelastography 10/03/2023 12:58:39 41.2 Below low normal 46.8-78.4 (degrees) Final Maximum clot firmness [Length] in Blood by Thromboelastography 10/03/2023 12:58:39 57.6 50.6-72.5 (mm) Final Coagulation index in Blood by Thromboelastography 10/03/2023 12:58:39 -2.7 -3.0-3.0 Final Clot Lysis [Length fraction] in Blood by Thromboelastography --30 minutes post maximum clot amplitude 10/03/2023 12:58:39 0.0 0.0-7.5 (%) Final This is an appended report. These results have been appended to a previously preliminary verified report. Performing Location [facility] [place] [facility] [address] [facility] [address]
[2023-12-30 10:34] LABS: D Dimer 15210 ug/L FEU (0-500)
[2023-12-30 10:34] LABS: Adenovirus PCR Not Detected (NotDetected); Bordetella parapertussis PCR Not Detected (NotDetected); Bordetella pertussis PCR Not Detected (NotDetected); Chlamydia pneumoniae PCR Not Detected (NotDetected); Coronavirus 229E PCR Not Detected (NotDetected); Coronavirus CoV-2 (COVID19)PCR Not Detected (NotDetected); Coronavirus HKU1 PCR Not Detected (NotDetected); Coronavirus NL63 PCR Not Detected (NotDetected); Coronavirus OC43PCR Not Detected (NotDetected); Human Metapneumovirus PCR Not Detected (NotDetected); Influenza A PCR Not Detected (NotDetected); Influenza B PCR Not Detected (NotDetected); Mycoplasma pneumoniae PCR Not Detected (NotDetected); Parainfluenza Virus 1 PCR Not Detected (NotDetected); Parainfluenza Virus 2 PCR Not Detected (NotDetected); Parainfluenza Virus 3 PCR Not Detected (NotDetected); Parainfluenza Virus 4 PCR Not Detected (NotDetected); Respiratory Syncytial VirusPCR Not Detected (NotDetected); Rhinovirus/Enterovirus PCR Not Detected (NotDetected)
--- OUTSIDE RECORDS SUMMARY | 2023-12-30 10:34 | External Medical Summary ---
Author Name Unknown Address Unknown Organization : Laboratory Report Ordering Provider Test Date Status CHAITANYA HADLEY 10/03/2023 06:59:02 Final Observation Date Value Abnormality Reference (Units ) Status Glucose Point of Care 10/03/2023 06:59:02 92 70-120 (mg/dL) Final Performing Location
--- OUTSIDE RECORDS SUMMARY | 2023-12-30 10:34 | External Medical Summary ---
Author Name Unknown Address Unknown Organization : Laboratory Report Ordering Provider Test Date Status CHAITANYA HADLEY 10/03/2023 08:01:53 Final NORMAL (NON-HEPARINIZED) 74- 137 SECONDS
HEPARINIZED 200+ SECONDS
CRITICAL GREATER THAN 1000 SECONDS
null Observation Date Value Abnormality Reference (Units ) Status Kaolin activated time [Units/volume] in Blood 10/03/2023 08:01:53 141 50-1000 (secs) Final Performing Location
--- OUTSIDE RECORDS SUMMARY | 2023-12-30 10:34 | External Medical Summary ---
Author Name Unknown Address Unknown Organization : Laboratory Report Ordering Provider Test Date Status CHAITANYA HADLEY 10/03/2023 07:54:33 Final Observation Date Value Abnormality Reference (Units) Status Blood draw [PhenX] 10/03/2023 07:54:33 Arterial Draw Final pH, POC (i-STAT) 10/03/2023 07:54:33 7.351 7.350-7.450 Final PCO2 POC (i-STAT) 10/03/2023 07:54:33 40.8 35.0-45.0 (mm Hg) Final PO2 POC (i-STAT) 10/03/2023 07:54:33 394 Above high normal 75-100 (mm Hg) Final Base excess standard in Arterial blood by calculation 10/03/2023 07:54:33 -3 Below low normal -2-2 (mmol/L) Final Bicarbonate, Venous, POC (i-STAT) 10/03/2023 07:54:33 22.6 Below low normal 23.0-31.0 (mmol/L) Final O2 Sat, calculated POC (i-STAT) 10/03/2023 07:54:33 100.0 Above high normal 94.0-98.0 (%) Final Glucose, whole blood 10/03/2023 07:54:33 97 70-120 (mg/dL) Final Potassium, Whole Blood 10/03/2023 07:54:33 3.8 3.5-5.1 (mmol/L) Final Sodium, Whole Blood 10/03/2023 07:54:33 141 135-146 (mmol/L) Final Calcium, Ionized, Whole Blood 10/03/2023 07:54:33 1.22 1.13-1.32 (mmol/L) Final Hemoglobin POC (i-STAT) 10/03/2023 07:54:33 14.6 14.0-16.8 (g/dL) Final HCT 10/03/2023 07:54:33 43 40-48 (%) Final Oxygen/Total gas setting [Volume Fraction] Ventilator 10/03/2023 07:54:33 50 (%) Final Performing Location
--- OUTSIDE RECORDS SUMMARY | 2023-12-30 10:34 | External Medical Summary ---
Author Name Unknown Address Unknown Organization [id number]:LABORATORY [facility] [place] B LOOD BANK - [address] [place] [address] Laboratory Report Ordering Provider Test Date Status CHAITANYA HADLEY 10/03/2023 06:42:20 Final Observation Date Value Abnormality Reference (Units ) Status ABO 10/03/2023 06:42:20 O Final RH 10/03/2023 06:42:20 Positive Final RED BLOOD CELL ANTIBODY SCREEN 10/03/2023 06:42:20 Negative Final SPECIMEN EXPIRATION DATE 10/03/2023 06:42:20 10/06/2023 23:59 Final Performing Location LABORATORY [facility] B[facility]OD [facility] - [address] [place] [address]
--- OUTSIDE RECORDS SUMMARY | 2023-12-30 10:34 | External Medical Summary ---
Author Name Unknown Address Unknown Organization : Laboratory Report Ordering Provider Test Date Status CHAITANYA HADLEY 10/03/2023 09:05:15 Final Observation Date Value Abnormality Reference (Units) Status Blood draw [PhenX] 10/03/2023 09:05:15 Arterial Draw Final pH, POC (i-STAT) 10/03/2023 09:05:15 7.290 Below low normal 7.350-7.450 Final PCO2 POC (i-STAT) 10/03/2023 09:05:15 44.1 35.0-45.0 (mm Hg) Final PO2 POC (i-STAT) 10/03/2023 09:05:15 265 Above high normal 75-100 (mm Hg) Final Base excess standard in Arterial blood by calculation 10/03/2023 09:05:15 -5 Below low normal -2-2 (mmol/L) Final Bicarbonate, Venous, POC (i-STAT) 10/03/2023 09:05:15 21.2 Below low normal 23.0-31.0 (mmol/L) Final O2 Sat, calculated POC (i-STAT) 10/03/2023 09:05:15 100.0 Above high normal 94.0-98.0 (%) Final Glucose, whole blood 10/03/2023 09:05:15 129 Above high normal 70-120 (mg/dL) Final Potassium, Whole Blood 10/03/2023 09:05:15 4.3 3.5-5.1 (mmol/L) Final Sodium, Whole Blood 10/03/2023 09:05:15 141 135-146 (mmol/L) Final Calcium, Ionized, Whole Blood 10/03/2023 09:05:15 1.12 Below low normal 1.13-1.32 (mmol/L) Final Hemoglobin POC (i-STAT) 10/03/2023 09:05:15 14.3 14.0-16.8 (g/dL) Final HCT 10/03/2023 09:05:15 42 40-48 (%) Final Performing Location
--- OUTSIDE RECORDS SUMMARY | 2023-12-30 10:34 | External Medical Summary | Summary of Care ---
Author Name Unknown Organization [facility] Address [address] [place] [address] Phone [phone] Care Team Providers Care Keyboard Teacher Name Role Phone Valdemar Segundo PA-C Primary Care Provider [phone] [phone] Reason for Visit * Reason Onset Date Comments Letter Requests 09/06/2023 Encounter Details Date Type Department Care Team (Late st Contact Info) Description 09/06/2023 Telephone Vascular Surg [facility] [address] [place], [place] [id number] Services, [facility] [address] [place] [address] Letter Requests Allergies Active Allergy Reactions Criticality Noted Date Comments Penicillins Rash 09/28/2003 documented as of this encounter (statuses as of 09/06/2023) Medications Medication Sig Dispensed Refills Start Date [...] Tablet Delayed Release daily. 0 02/22/2022 Active Losartan Potassium 100 MG Oral Tablet (Cozaar) take one tablet by mouth every day for blood pressure-stop 50mg 0 02/26/2022 Active Cyanocobalamin 1000 MCG/ML Injection Solution (Cyanocobalamin) every 30 days. 0 02/22/2022 Acti ve Lansoprazole 30 MG Oral Capsule Delayed Release (Prevacid) Take 1 Capsule by mouth in the morning. 0 Active Metoprolol Tartrate 25 MG Oral Tablet (Lopressor) Take by mouth 2 times a day. 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 Does he have a fax number to fax it to?? We can also mail it to him. * Telephone Encounter - Esther Antunez OSA - 09/06/2023 8:34 AM EST Pt called asking for an excuse for jury duty - he was called for jury duty on 10/02 when he is scheduled for surgery. - he is asking if an excuse could be mailed to him documented in this encounter Plan of Treatment Upcoming Encounters Date Type Department Care Team (Late st Contact Info) Description 10/03/2023 Hospital Encounter [facility]ATING ROOM [facility] [place] [address] [place] [address] Gregory Le MD [address] [place] [address] 11/14/2023 12:30 PM EDT Imaging Radiology [facility] 1st [facility] [address] [place] [address] 11/20/2023 2:10 PM EDT Office Visit Vascular Surgery, [facility] [address] [place] [address] Gregory Le MD [address] [place], [place] [phone] Scheduled Procedures Name Priority Associated Diagnoses Date/Ti me REPAIR ANEURYSM ABDOMINAL AO RTA INVOLVING VISCERAL MUSCLES Infrarenal abdominal aortic aneurysm (AAA) without rupture (HCC) Health Maintenance Due Date Last Done Comments [...] 4 season) 2023 Influenza Vaccine (FLU shot) (#1) 2023 GARDASIL-HPV IMMUNIZATION SERIES Aged Out No longer eligible based on patient's age to complete this topic Hepatitis B Aged Out No longer eligi ble based on patient's age to complete this topic MENINGOCOCCAL (MENACTRA/MENVEO) Aged Out No longer eligible based on patient's age to complete this topic documented as of this encounter Medical Devices Not on filedocumented as of this encounter Care Teams Keyboard Teacher Relationship Specialty Start Date End Date Valdemar Segundo, MARYCARMEN [address] [place] [address] PCP - General Physician Foundry Superintendant 05/03/21 documented as of this encounter
--- OUTSIDE RECORDS SUMMARY | 2023-12-30 10:34 | External Medical Summary ---
Author Name Unknown Address Unknown Organization K01:LABORATORY [facility] [place] - [address] [facility] [address] Laboratory Report Ordering Provider Test Date Status TYLER JONES 10/03/2023 09:51:44 Final Observation Date Value Abnormality Reference (Units ) Status Body temperature 10/03/2023 09:51:44 37.0 (C) Final pH of Arterial blood 10/03/2023 09:51:44 7.283 Below low normal 7.350-7.450 (units) Final Carbon dioxide [Partial pressure] in Arterial blood 10/03/2023 09:51:44 46.4 Above high normal 35.0-45.0 (mmHg) Final Oxygen [Partial pressure] in Arterial blood 10/03/2023 09:51:44 271.0 Above high normal 75.0-100.0 (mmHg) Final Base excess, Arterial 10/03/2023 09:51:44 -5.0 Below low normal -2.0-2.0 (mmol/L) Final Hemoglobin [Mass/volume] in Blood by Oximetry 10/03/2023 09:51:44 13.3 Below low normal 14.0-16.8 (g/dL) Final HCT, calc. 10/03/2023 09:51:44 40.7 40.0-48.4 (%) Final The Hematocrit reference int erval is based on adult population.
This method is intended for trending and screening purposes only.
A "Complete Blood Count" is more accurate and should be ordered if clinically indicated. Oxyhemoglobin, Arterial (FO2HB) 10/03/2023 09:51:44 97.5 94.0-99.0 (% total Hgb) Final Carboxyhemoglobin 10/03/2023 09:51:44 1.1 <= 1.5 (% total Hgb) Final Smokers: 0-9.0 % Methemoglobin 10/03/2023 09:51:44 0.8 <=1.5 (% total Hgb) Final Deoxyhemoglobin/Hemog lobin.total in Arterial blood 10/03/2023 09:51:44 0.6 0.0-5.0 (% total Hgb) Final Oxygen content in Arterial blood 10/03/2023 09:51:44 18.8 15.0-24.0 (%vol) Final Potassium, Whole Blood 10/03/2023 09:51:44 4.8 3.5-5.1 (mmol/L) Final Sodium, Whole Blood 10/03/2023 09:51:44 139 135-146 (mmol/L) Final Chloride, Whole Blood 10/03/2023 09:51:44 108 Above high normal 98-107 (mmol/L) Final Calcium.ionized [Moles/volume] in Blood by Ion-selective membrane electrode (ISE) 10/03/2023 09:51:44 1.06 Below low normal 1.13-1.32 (mmol/L) Final Anion gap, Whole Blood 10/03/2023 09:51:44 9.5 7.0-15.0 (mmol/L) Final Glucose, whole blood 10/03/2023 09:51:44 163 Above high normal 70-120 (mg/dL) Final Oxygen/Total gas setting [Volume Fraction] Ventilator 10/03/2023 09:51:44 Not Provided (%) Final O2 FLOW, ARTERIAL - [facility] 10/03/2023 09:51:44 Not Provided (L/min) Final Bicarbonate, Venous, POC (i-STAT) 10/03/2023 09:51:44 21.2 Below low normal 23.0-31.0 (mmol/L) Final Performing Location LABORATORY [facility] - [address] [facility] [address]
--- OUTSIDE RECORDS SUMMARY | 2023-12-30 10:34 | External Medical Summary ---
Author Name Unknown Address Unknown Organization : Laboratory Report Ordering Provider Test Date Status CHAITANYA HADLEY 10/03/2023 10:07:28 Final NORMAL (NON-HEPARINIZED) 74- 137 SECONDS
HEPARINIZED 200+ SECONDS
CRITICAL GREATER THAN 1000 SECONDS
null Observation Date Value Abnormality Reference (Units ) Status Kaolin activated time [Units/volume] in Blood 10/03/2023 10:07:28 222 50-1000 (secs) Final Performing Location
--- OUTSIDE RECORDS SUMMARY | 2023-12-30 10:34 | External Medical Summary ---
Author Name Unknown Address Unknown Organization : Laboratory Report Ordering Provider Test Date Status CHAITANYA HADLEY 10/03/2023 09:55:29 Final Observation Date Value Abnormality Reference (Units) Status Blood draw [PhenX] 10/03/2023 09:55:29 Arterial Draw Final pH, POC (i-STAT) 10/03/2023 09:55:29 7.259 Below low normal 7.350-7.450 Final PCO2 POC (i-STAT) 10/03/2023 09:55:29 47.7 Above high normal 35.0-45.0 (mm Hg) Final PO2 POC (i-STAT) 10/03/2023 09:55:29 230 Above high normal 75-100 (mm Hg) Final Base excess standard in Arterial blood by calculation 10/03/2023 09:55:29 -6 Below low normal -2-2 (mmol/L) Final Bicarbonate, Venous, POC (i-STAT) 10/03/2023 09:55:29 21.4 Below low normal 23.0-31.0 (mmol/L) Final O2 Sat, calculated POC (i-STAT) 10/03/2023 09:55:29 100.0 Above high normal 94.0-98.0 (%) Final Glucose, whole blood 10/03/2023 09:55:29 161 Above high normal 70-120 (mg/dL) Final Potassium, Whole Blood 10/03/2023 09:55:29 4.9 3.5-5.1 (mmol/L) Final Sodium, Whole Blood 10/03/2023 09:55:29 139 135-146 (mmol/L) Final Calcium, Ionized, Whole Blood 10/03/2023 09:55:29 1.07 Below low normal 1.13-1.32 (mmol/L) Final Hemoglobin POC (i-STAT) 10/03/2023 09:55:29 13.3 Below low normal 14.0-16.8 (g/dL) Final HCT 10/03/2023 09:55:29 39 Below low normal 40-48 (%) Final Oxygen/Total gas setting [Volume Fraction] Ventilator 10/03/2023 09:55:29 70 (%) Final Performing Location
--- OUTSIDE RECORDS SUMMARY | 2023-12-30 10:34 | External Medical Summary ---
Author Name Unknown Address Unknown Organization K01:LABORATORY [facility] - [address] [facility] [address] Laboratory Report Ordering Provider Test Date Status CHAITANYA HADLEY 10/03/2023 06:42:20 Final Observation Date Value Abnormality Reference (Units ) Status BUN 10/03/2023 06:42:20 31 Above high normal 6-20 (mg/dL) Final Creatinine 10/03/2023 06:42:20 1.8 Above high normal 0.6-1.2 (mg/dL) Final Glomerular filtration rate/1.73 sq M.predicted [Volume Rate/Area] in Serum, Plasma or Blood by Creatinine-based formula (CKD-EPI) 10/03/2023 06:42:20 40 Below low normal >=60 (mL/min) Final eGFR is calculated based on the CKD-EPI 2020 equation Sodium 10/03/2023 06:42:20 139 135-146 (m mol/L) Final Potassium 10/03/2023 06:42:20 4.0 3.5-5.1 (m mol/L) Final Cl 10/03/2023 06:42:20 106 98-107 (mm ol/L) Final CO2 10/03/2023 06:42:20 20 Below low normal 22- 32 (mmol/L) Final Anion gap 10/03/2023 06:42:20 13 7-15 (mmol /L) Final Glucose 10/03/2023 06:42:20 102 70-120 (mg /dL) Final Albumin 10/03/2023 06:42:20 4.1 3.8-5.0 (g /dL) Final AST (Aspartate aminotransferase) 10/03/2023 06:42:20 38 10-50 (U/L) Fin al Result may be falsely elevat ed due to hemolysis. Alk Phos 10/03/2023 06:42:20 51 35-130 (U/ L) Final Bilirubin, Total 10/03/2023 06:42:20 1.1 <=1 .2 (mg/dL) Final Calcium 10/03/2023 06:42:20 9.1 8.4-10.2 ( mg/dL) Final Protein 10/03/2023 06:42:20 7.0 6.0-8.3 (g /dL) Final ALT (Alanine aminotransferase) 10/03/2023 06:42:20 20 10-50 (U/L) Final Performing Location LABORATORY [facility] - [facility] [address] [facility] [address]
--- OUTSIDE RECORDS SUMMARY | 2023-12-30 10:34 | External Medical Summary | Summary of Care ---
Author Name Unknown Organization [facility] Address [address] [place] [address] Phone [phone] Care Team Providers Care Grants Assistant Name Role Phone Valdemar Segundo PA-C Primary Care Provider [phone] Reason for Visit * Reason Onset Date Comments Letter Requests 09/06/2023 Encounter Details Date Type Department Care Team (Late st Contact Info) Description 09/06/2023 Telephone Vascular Surg [facility] [address] [place], [place] [phone] Services, [facility] [address] [place] [address] Letter Requests Allergies Active Allergy Reactions Criticality [...] Diagnosed Date Coronary artery disease invo lving [place] coronary artery of [place] heart without angina pectoris 06/05/2023 S/P CABG [...] Encounter - Jerel Sheppard OSA - 09/06/2023 10:10 AM EST Neri called back and gave us the fax number. Letter faxed to [facility] [phone] and mailed to patient's home. * Telephone Encounter - Jerel Sheppard OSA [...] 10/03/2023 Hospital Encounter OR [facility], OPERATING ROOM [facility] [place] [facility] [address] [place] [address] Gregory Le MD [address] [place] [address] 11/14/2023 12:30 PM EDT Imaging Radiology [facility] 1st [facility] [address] [place] [address] 11/20/2023 2:10 PM EDT Office Visit Vascular Surgery, [address] [address] Gregory Le MD [address] [place], [place] [phone] Scheduled Procedures Name Priority Associated Diagnoses Date/Ti [...] filedocumented as of this encounter Care Teams Grants Assistant Relationship Specialty Start Date End Date Valdemar Segundo, ANGELIAC [address] [place] [address] PCP - General Physician Press Hand 05/03/21 documented as of this encounter
--- OUTSIDE RECORDS SUMMARY | 2023-12-30 10:34 | External Medical Summary ---
Author Name Unknown Address Unknown Organization K01:LABORATORY [facility] [place] B LOOD BANK - [address] [address] Laboratory Report Ordering Provider Test Date Status CHAITANYA HADLEY 10/03/2023 06:42:20 Final Observation Date Value Abnormality Reference (Units ) Status ABO 10/03/2023 06:42:20 O Final RH 10/03/2023 06:42:20 Positive Final Performing Location LABORATORY [facility] BLOOD [facility]ANK - [address] [address]
--- OUTSIDE RECORDS SUMMARY | 2023-12-30 10:34 | External Medical Summary ---
Author Name Unknown Address Unknown Organization K01:[place] [facility] [place] [address] [address] Laboratory Report Ordering Provider Test Date Status TYLER JONES 10/03/2023 09:51:44 Final Observation Date Value Abnormality Reference (Units ) Status Lactic Acid, Whole Blood 10/03/2023 09:51:44 1.1 0.4-2.0 (mmol/L) Final Performing Location LABORATORY C - [address] [place] [address]
--- OUTSIDE RECORDS SUMMARY | 2023-12-30 10:34 | External Medical Summary | Summary of Care ---
Author Name Unknown Organization [facility] Address [address] [place] [address] Phone [phone] Care Team Providers Care Wireless Engineer Name Role Phone Valdemar Segundo PA-C Primary Care Provider [phone] [phone] Reason for Visit * Reason Onset Date Comments STAIR AAA 09/04/2023 Encounter Details Date Type Department Care Team (Late st Contact Info) Description 09/04/2023 Telephone STAIR [facility] [address] [place] [address] Program, Stair [address] [place] [address] STAIR AAA Allergies Active Allergy Reactions Criticality Noted Date Comments Penicillins Rash 09/28/2003 documented as of this encounter (statuses as of 09/17/2023) Medications Medication Sig Dispensed Refills Start Date [...] as of this encounter (statuses as of 09/17/2023) Active Problems Problem Noted Date Diagnosed Date Coronary artery disease invo lving [place] coronary artery of [place] heart without angina pectoris 06/05/2023 S/P CABG (coronary artery bypass graft) 06/05/20 Infrarenal abdominal aortic aneurysm (AAA) witho ut rupture 05/30/2022 Iliac artery aneurysm, right 05/30/2022 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 Will continue to track. * Telephone Encounter - Skye Russo LPN - 09/04/2023 3:21 PM EST AAA - Clinical Summary Name: Neri Bear Age: [age] year old AAA Review: Follow-up Follow-up Encounter Provider: Gregory Le MD Patient Identified by: NLP Report Imaging Interpretation: CTA Type of Result: AAA >= 5 cm AAA Care Plan Imaging Recommendation: Open Repair - details below Details: being set up by vascular AAA Care Plan Visit Recommendation: Return visit in Vascular Surgery Details: one month post op Next steps: No action needed at this time. Patient was seen by vascular surgery today. Next clinic visit with testing prior is already scheduled for after surgery. Awaiting surgery date. Will continue to track. Time spent: 10 minutes Skye Russo LPN Coordinator STAIR (System to [...] Upcoming Encounters Date Type Department Care Team (Latest Contact Info) Description 10/03/2023 7:15 AM EDT Hospital Encounter [place] [facility] [facility] [address] [place] [address] Gregory Le MD [address] [place] [address] 10/03/2023 7:15 AM EDT - 10/03/2023 1:41 PM EDT Surgery OR [facility] O[facility] [address] [facility] [place] [address] Gregory Le MD [address] [place] [address] REPAIR ANEURYSM ABDOMINAL AORTA INVOLVING VISCERAL MUSCLES 11/14/2023 12:30 PM EDT Imaging Radiology [facility] 1st [facility] [address] [place] [address] 11/20/2023 2:10 PM EDT Office Visit Vascular Surgery, [address] [address] Gregory Le MD [address] [place], [place] [phone] Scheduled Procedures Name Priority Associated Diagnoses Date/Ti me REPAIR ANEURYSM ABDOMINAL AORTA INVOLVING VISCERAL MUSCLES Infrarenal abdominal aortic aneurysm (AAA) without rupture (HCC) 10/03/2023 7:15 AM EDT Health Maintenance Due Date Last [...] filedocumented as of this encounter Care Teams Wireless Engineer Relationship Specialty Start Date End Date Valdemar Segundo, ANGELIAC [address] [place] [address] PCP - General Physician Mold Press Operator 05/03/21 documented as of this encounter
--- OUTSIDE RECORDS SUMMARY | 2023-12-30 10:34 | External Medical Summary | Summary of Care ---
Author Name Unknown Organization [facility] Address [address] [place] [address] Phone [phone] Care Team Providers Care Wrecking Crane Engine Operator Name Role Phone Valdemar Segundo PA-C Primary Care Provider [phone] [phone] Reason for Visit * Reason Onset Date Comments Films 09/11/2023 Encounter Details Date Type Department Care Team (Late st Contact Info) Description 09/11/2023 Telephone Radiology Film File [address] [place] [address] Gregory Le MD [address] [place], [place] [phone] Films Allergies Active Allergy Reactions Criticality Noted Date Comments Penicillins Rash 09/28/2003 documented as of this encounter (statuses as of 09/11/2023) Medications Medication Sig Dispensed Refills Start Date [...] as of this encounter (statuses as of 09/11/2023) Active Problems Problem Noted Date Diagnosed Date Coronary artery disease invo lving [place] coronary artery of [place] heart without angina pectoris 06/05/2023 S/P CABG (coronary artery bypass graft) 06/05/20 23 Infrarenal abdominal aortic aneurysm (AAA) witho ut rupture 05/30/2022 Iliac artery aneurysm, right 05/30/2022 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 [place] Authorization to Release on file. Images pushed to [email or web address] account Job ID: [id number] Associated report(s) not needed. documented in this encounter Plan of Treatment Upcoming Encounters Date Type Department Care Team (Latest Contact Info) Description 10/03/2023 7:15 AM EDT Hospital Encounter OR [facility] [place], OPERATING ROOM [facility] [place] [address] [place] [address] Gregory Le MD [address] [place] [address] 10/03/2023 7:15 AM EDT - 10/03/2023 1:41 PM EDT Surgery OR [facility] [place], OPERATING ROOM [facility] [place] [address] [facility] [place] [address] Gregory Le MD [address] [place] [address] REPAIR ANEURYSM ABDOMINAL AORTA INVOLVING VISCERAL MUSCLES 11/14/2023 12:30 PM EDT Imaging Radiology [facility] [address] [address] 11/20/2023 2:10 PM EDT Office Visit Vascular Surgery, [facility] [address] [place] [address] Gregory Le MD [address] [place], [place] [phone] Scheduled Procedures Name Priority Associated Diagnoses Date/Ti [...] filedocumented as of this encounter Care Teams Wrecking Crane Engine Operator Relationship Specialty Start Date End Date Valdemar Segundo, ANGELIAC [address] [place] [id number] PCP - General Physician Patch Setter 05/03/21 documented as of this encounter
--- OUTSIDE RECORDS SUMMARY | 2023-12-30 10:35 | External Medical Summary ---
Author Name Unknown Address Unknown Organization [id number][facility] [address] [place] [address] Laboratory Report Ordering Provider Test Date Status GLENDY MORALES 09/04/2023 13:59:34 Final Observation Date Value Abnormality Reference (Units ) Status BUN 09/04/2023 13:59:34 30 Above high normal 6-20 (mg/dL) Final Creatinine 09/04/2023 13:59:34 1.9 Above high normal 0.6-1.2 (mg/dL) Final Glomerular filtration rate/1.73 sq M.predicted [Volume Rate/Area] in Serum, Plasma or Blood by Creatinine-based formula (CKD-EPI) 09/04/2023 13:59:34 38 Below low normal >=60 (mL/min) Final eGFR is calculated based on the CKD-EPI 2020 equation SODIUM 09/04/2023 13:59:34 137 135-146 (m mol/L) Final Potassium 09/04/2023 13:59:34 4.6 3.5-5.1 (m mol/L) Final Cl 09/04/2023 13:59:34 103 98-107 (mm ol/L) Final CO2 09/04/2023 13:59:34 21 Below low normal 22- 32 (mmol/L) Final Anion gap 09/04/2023 13:59:34 13 7-15 (mmol /L) Final Glucose 09/04/2023 13:59:34 83 70-120 (mg /dL) Final Albumin 09/04/2023 13:59:34 4.0 3.8-5.0 (g /dL) Final AST (Aspartate aminotransferase) 09/04/2023 13:59:34 29 10-50 (U/L) Fin al Alk Phos 09/04/2023 13:59:34 57 35-130 (U/ L) Final Bilirubin, Total 09/04/2023 13:59:34 0.8 <=1 .2 (mg/dL) Final Calcium 09/04/2023 13:59:34 9.2 8.4-10.2 ( mg/dL) Final Protein 09/04/2023 13:59:34 7.0 6.0-8.3 (g /dL) Final ALT (Alanine aminotransferase) 09/04/2023 13:59:34 14 10-50 (U/L) Viraj fischer Performing Location [facility] [address] [facility] [address]
--- OUTSIDE RECORDS SUMMARY | 2023-12-30 10:35 | External Medical Summary | Summary of Care ---
Author Name Unknown Organization [facility] Address [address] [place] [address] Phone [phone] Care Team Providers Care Care Partner Name Role Phone Valdemar Segundo PA-C Primary Care Provider [phone] Reason for Visit * Reason Onset Date Comments STAIR AAA 09/04/2023 Encounter Details Date Type Department Care Team (Late st Contact Info) Description 09/04/2023 Telephone [facility] [address] [place] [address] Program, Stair [address] [place] [address] [facility] Allergies Active Allergy Reactions Criticality Noted Date Comments Penicillins Rash 09/28/2003 documented as of this encounter (statuses as of 09/04/2023) Medications Medication Sig Dispensed Refills Start Date [...] as of this encounter (statuses as of 09/04/2023) Active Problems Problem Noted Date Diagnosed Date Coronary artery disease invo lving [place] coronary artery of [place] heart without angina pectoris 06/05/2023 S/P CABG (coronary artery bypass graft) 06/05/20 23 Infrarenal abdominal aortic aneurysm (AAA) witho ut rupture 05/30/2022 Iliac artery aneurysm, right 05/30/2022 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 [place] [address] 11/20/2023 2:10 PM EDT Office Visit Vascular Surgery, [facility] [address] [facility] [place] [address] Gregory Le MD [address] [place] [address] Health Maintenance Due Date Last Done Comments [...] filedocumented as of this encounter Care Teams Care Partner Relationship Specialty Start Date End Date Valdemar Segundo, PAWalterC [address] [place] [id number] PCP - General Physician Compressor Operator 05/03/21 documented as of this encounter
--- OUTSIDE RECORDS SUMMARY | 2023-12-30 10:35 | External Medical Summary | Summary of Care ---
Author Name Unknown Organization [facility] Address [address] [facility] [place] [address] Phone [phone] Care Team Providers Care Medical Office Representative Name Role Phone Valdemar Segundo PA-C Primary Care Provider [phone] Reason for Visit * Reason Comments Outpatient Testing Encounter Details Date Type Department Care Team (Late st Contact Info) Description 09/04/2023 2:10 PM EST Laboratory Laboratory, [facility] [id number] [facility] [address] Iliac artery aneurysm, right (HCC); Infrarenal abdominal aortic aneurysm (AAA) without rupture (HCC); Pre-operative cardiovascular examination Allergies Active Allergy Reactions Criticality Noted Date [...] Diagnosed Date Coronary artery disease invo lving [place] coronary artery of [place] heart without angina pectoris 06/05/2023 S/P CABG [...] on file documented as of this encounter Plan of Treatment Upcoming Encounters Date Type Department Care Team (Late st Contact Info) Description 11/14/2023 12:30 PM EDT [facility] [address] [facility] [place] [address] 11/20/2023 2:10 PM EDT Office Visit Vascular Surgery, [address] [place] [address] [facility] Le [facility] [address] [facility] [address] Health Maintenance Due Date Last Done Comments [...] Not on filedocumented as of this encounter Visit Diagnoses Diagnosis Iliac artery aneurysm, right (HCC) Aneurysm of iliac artery Infrarenal abdominal aortic aneurysm (AAA) without rupture (HCC) Pre-operative cardiovascular examination documented in this encounter Care Teams Medical Office Representative Relationship Specialty Start Date End Date Valdemar Segundo, ANGELIAC [address] [place] [id number] PCP - General Physician Theater Set Production Designer 05/03/21 documented as of this encounter
--- OUTSIDE RECORDS SUMMARY | 2023-12-30 10:35 | External Medical Summary | Summary of Care ---
Author Name Unknown Organization [facility] Address [address] [place] [address] Phone [phone] Care Team Providers Care Instrument Repair Technician Name Role Phone Valdemar Segundo PA-C Primary Care Provider [phone] Reason for Visit * Reason Onset Date Comments Letter Requests 09/06/2023 Encounter Details Date Type Department Care Team (Late st Contact Info) Description 09/06/2023 Telephone Vascular Surg [facility] [address] [place], [place] [phone] Services, [facility] [address] [place] [address] Letter Requests Allergies Active Allergy Reactions Criticality [...] Diagnosed Date Coronary artery disease invo lving [place] coronary artery of [place] heart without angina pectoris 06/05/2023 S/P CABG [...] encounter Miscellaneous Notes * Telephone Encounter - Joyce Dotson CRNP [...] 10/03/2023 Hospital Encounter OR [facility], OPERATING ROOM GM, BERNY [place] [address] [place] [address] Gregory Le MD [address] [place], [place] [id number] 11/14/2023 12:30 PM EDT Imaging Radiology [facility] [address] [address] 11/20/2023 2:10 PM EDT Office Visit Vascular Surgery, [facility] [address] [place] [address] Gregory Le MD [address] [place] [address] Scheduled Procedures Name Priority Associated Diagnoses Date/Ti [...] filedocumented as of this encounter Care Teams Instrument Repair Technician Relationship Specialty Start Date End Date Valdemar Segundo, ANGELIAC [address] [place], [place] [address] [phone] PCP - General Physician Regional Marketing Director 05/03/21 documented as of this encounter
--- OUTSIDE RECORDS SUMMARY | 2023-12-30 10:35 | External Medical Summary | Summary of Care ---
Author Name Unknown Organization [facility] Address [address] [place] [address] Phone [phone] Care Team Providers Care Special Programs Director Name Role Phone Valdemar Segundo PA-C Primary Care Provider [phone] Reason for Visit * Reason Onset Date Comments Letter Requests 09/06/2023 Encounter Details Date Type Department Care Team (Late st Contact Info) Description 09/06/2023 Telephone Vascular Surg [facility] [address] [place], [place] [phone] Services, [facility] [address] [place] [address] Letter Requests Allergies Active Allergy Reactions Criticality [...] Diagnosed Date Coronary artery disease invo lving [place] coronary artery of [place] heart without angina pectoris 06/05/2023 S/P CABG [...] OPERATING ROOM GM, BERNY LARSONNICO [address] [place] [address] Gregory Le MD [address] [place], [place] [id number] 11/14/2023 12:30 PM EDT Imaging Radiology [facility] [address] [address] 11/20/2023 2:10 PM EDT Office Visit Vascular Surgery, [facility] [address] [place] [address] Gregory Le MD [address] [place] [address] Scheduled Procedures Name Priority Associated [...] filedocumented as of this encounter Care Teams Special Programs Director Relationship Specialty Start Date End Date Valdemar Segundo, ANGELIAC [address] [place], [place] [address] [address] PCP - General Physician Warehouse Team Member 05/03/21 documented as of this encounter
--- OUTSIDE RECORDS SUMMARY | 2023-12-30 10:35 | External Medical Summary ---
Author Name Unknown Address Unknown Organization K01:[facility] [place] [facility] [address] [facility] [place] [address] Laboratory Report Ordering Provider Test Date Status GLENDY MORALES 09/04/2023 13:59:34 Final Observation Date Value Abnormality Reference (Units ) Status WBC, Total 09/04/2023 13:59:34 7.86 4.00-10.8 0 (K/uL) Final RBC 09/04/2023 13:59:34 5.12 4.50-5.25 (M/uL) Final Hemoglobin 09/04/2023 13:59:34 17.0 Above high normal 1 4.0-16.8 (g/dL) Final Anemia reflex testing trigge rs on a HGB < 12.0 for Females and HGB < 13.0 for Males in accordance with the WHO Anemia Guidelines
Anemia reflex testing triggers on a HGB < 12.0 for Females and HGB < 13.0 for Males in accordance with the WHO Anemia Guidelines HCT 09/04/2023 13:59:34 50.3 Above hi gh normal 40.0-48.4 (%) Final MCV 09/04/2023 13:59:34 98.2 82.0-99.5 (fL) Final MCH 09/04/2023 13:59:34 33.2 27.0-34.0 (pg) Final MCHC 09/04/2023 13:59:34 33.8 32.0-36.0 (g/dL) Final RDW 09/04/2023 13:59:34 13.3 11.5-15.5 (%) Final Platelets 09/04/2023 13:59:34 167 140-400 (K /uL) Final MPV 09/04/2023 13:59:34 9.4 6.6-11.1 ( fL) Final Nucleated erythrocytes/100 leukocytes [Ratio] in Blood by Automated count 09/04/2023 13:59:34 0 <=0 (/100 WBCs) Final Performing Location [facility] [place] [facility] [place][note 2] [address]. [facility] [address]
--- OUTSIDE RECORDS SUMMARY | 2023-12-30 10:35 | External Medical Summary | Summary of Care ---
Author Name Unknown Organization [facility] Address [address] [place] [address] Phone [phone] Care Team Providers Care Proof Press Operator Name Role Phone Valdemar Segundo PA-C Primary Care Provider [phone] Reason for Referral * Precert (Within 10 days (routine)) - Pending Review Specialty Diagnoses / Procedures Referred By Contazeem t Referred To Contact Radiology Diagnoses Iliac artery aneurysm, right (HCC) Infrarenal abdominal aortic aneurysm (AAA) without rupture (HCC) Pre-operative cardiovascular examination Procedures CTA ABD/PELVIS Elian Herrera PA-C [address] [place] [address] Referral ID Status Reason Start Date Expiration Date V isits Requested Visits Authorized [id number] Pending Review 09/04/2023 999 999 Reason for Visit * Reason Comments Follow Up Infrareanal aneurysm Encounter Details Date Type Department Care Team (Latest Contact Info) Description 09/04/2023 12:30 PM EST Office Visit Vascular Surgery, [facility] [address] [facility] [place] [address] Gregory Le MD [address] [place] [address] Iliac artery aneurysm, right (HCC)*; Infrarenal abdominal aortic aneurysm (AAA) without rupture (HCC); Celiac artery aneurysm (HCC); Nicotine use; Pre-operative cardiovascular examination Allergies Active Allergy Reactions Criticality Noted Date Comments Penicillins Rash 09/28/2003 documented as of this encounter (statuses as of 09/05/2023) Medications Medication Sig Dispensed Refills Start Date [...] as of this encounter (statuses as of 09/05/2023) Active Problems Problem Noted Date Diagnosed Date Coronary artery disease invo lving gambell coronary artery of gambell heart without angina pectoris 06/05/2023 S/P CABG (coronary artery bypass graft) 06/05/20 Infrarenal abdominal aortic aneurysm (AAA) witho ut rupture 05/30/2022 Iliac artery aneurysm, right 05/30/2022 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 Nicotine use 05/30/2022 SPRAIN CRUCIATE LIG KNEE 10/01/2003 documented as of this encounter (statuses as of 09/05/2023) Social History Tobacco Use Types Packs/Day Years Used Date Smoking Tobacco: Former Cigarettes Smokeless Tobacco: Current Snuff Tobacco Cessation:Ready to Q uit: Not Asked; Counseling Given: Not Answered Sex and Gender Information Value Date Recorded Sex Assigned at Not on file Gender Identity Not on file Sexual Orientation Not on file Job Start Date Occupation Industry Not on file Not on file Not on file documented as of this encounter Last Filed Vital Signs Vital Sign Reading Time Taken Comments Blood Pressure 142/95 09/04/2023 12:39 PM EST Pulse 77 09/04/2023 12:39 PM EST Temperature 36.5 C (97.7 F) 09/04/2023 1 2:39 PM EST Respiratory Rate - - Oxygen Saturation - - Inhaled Oxygen Concentration - - Weight 76.2 kg (167 lb 14.4 oz) 024 12:39 PM EST Height - - Body Mass Index 25.53 06/05/2023 1:53 PM EST documented in this encounter Progress Notes * Elian Herrera PA-C - 09/04/2023 12:30 PM EST ADDENDUM: Via his aoc airspace control officer, Dr. Vargas ([facility] Permit Technician) confirmed that Mr. Bear DOES NOT need any cardiactesting/re-evaluations PRIOR to his 10/03/23 open AAA repair. Patient is s/p CABG from October 2022 is w/out angina or RYAN Elian Herrera PA-C 09/05/2023 8:11 AM +++++++++++++++++ Date of Service: 09/04/23 Neri Bear is a 73 year old male. Patient being seen in consultation at the request of Grover Parham DO Chief Complaint: Return pt, known AAA & SONY aneurysms Remains asymptomatic from his AAA Feels fully recovered from his October 2022 CABG No recent CP/RYAN Ready for AAA surgery HPI: Very pleasant reformed smoker (but uses chewing tobacco) who underwent an MRI which revealed a AAA.He was referred to us. CT scan was also completed at [facility] in [place] on 04/07/21. We were not sure we [...] 81 MG Oral Tablet Delayed Release daily. Losartan Potassium 100 MG Oral Tablet (Cozaar) take one tablet by mouth every day for blood pressure-stop 50mg Lansoprazole 30 MG Oral Capsule Delayed Release (Prevacid) Take 1 Capsule by mouth in the morning. Metoprolol Tartrate 25 MG Oral Tablet (Lopressor) Take by mouth 2 times a day. 1 1/2 tablets Cyanocobalamin 1000 MCG/ML Injection Solution (Cyanocobalamin) every 30 days. No current facility-administered medications for this visit. Patient Active Problem List Diagnosis Code SPRAIN CRUCIATE LIG KNEE Infrarenal abdominal aortic aneurysm (AAA) without rupture ([facility]) I71.43 Iliac artery aneurysm, right (HCC) I72.3 Celiac artery aneurysm (HCC) I72.8 Nicotine use Z72.0 Coronary artery disease involving gambell coronary artery of gambell heart without angina pectoris I25.10 S/P CABG (coronary artery bypass graft) Z95.1 No past medical history on file. No past surgical history on file. Social History Socioeconomic History Marital status: Spouse [...] pain, shortness of breath, palpitations, angina or [place]. Stress test @ [facility], [place] per pt report Neurological: Negative for stroke, TIA, amaurosis fugax All other systems negative except for those noted above and in the history of present illness (HPI). GENERAL MULTI-SYSTEM PHYSICAL EXAM: VITAL SIGNS: BP 142/95 | Pulse 77 | Temp 36.5 C (97.7 F) | Wt 76.2 kg (167 lb 14.4 oz) | BMI 25.53 kg/m | BSA 1.91 m GENERAL MULTI-SYSTEM PHYSICAL EXAM: GENERAL: RRR NECK: Supple, no masses RESPIRATORY: Distant BS but CTA CHEST: healed sternotomy CARDIOVASCULAR: RRR. No murmurs or varicosities GASTROINTESTINAL: +BS, NT/ND, no bruits SKIN: No rashes PSYCHIATRIC: Nl mood and [...] cm, LCIA 2.7 cm, LIIA 2.9 cm The above diagnostic images were directly visualized and independently interpreted by me on 09/04/2023 with results as above 06/03/2023 CTA Abd/Pelvis: Stable proximal celiac stenosis [...] 97/148/150/120, ZI 44 04/28/2021; Location of Study: [facility] [address]; Modality: duplex; AAA measures 3.6 cm in [...] LABS: Results for orders placed or performed in visit on 09/17/13 LDL (DIRECT MEASURE) Result Value Ref Range LDL Cholesterol (Direct Measure) 120 0 - 129 mg/dL LIPID PANEL Result Value Ref Range HOURS FASTING 12 hours Triglycerides 97 <200 mg/dL Cholesterol 178 <200 mg/dL HDL Cholesterol 33 (L) >39 mg/dL Cholesterol-HDL Ratio 5.4 LDL Cholesterol 126 0 - 129 mg/dL PSA SCREENING Result Value Ref Range PSA SCREENING 0.83 <4.1 ng/mL TSH Result Value Ref Range TSH 3.76 0.27 - 4.2 uIU/mL CBC/DIFF Result Value Ref Range WBC 7.91 4.00 - 10.80 K/uL RBC 5.52 (H) 4.50 - 5.25 M/uL HGB 17.9 (H) 14.0 - 16.5 g/dL HCT 49.9 (H) 40.0 - 47.0 % MCV 90.4 82.0 - 99.5 fL MCH 32.4 27.0 - 34.0 pg MCHC 35.9 32.0 - 36.0 g/dL RDW 11.6 11.5 - 15.5 % PLT 243 140 - 400 K/uL MPV 8.2 6.6 - 11.1 fL Neutrophils % 69 40 - 75 % Lymphocytes % 19 18 - 42 % Monocytes % 9 1 - 11 % Eosinophils % 3 0 - 6 % Basophils % 0 0 - 2 % ABS. SEGS 5.52 1.8 - 7.7 K/uL Absolute Lymphocytes 1.50 1.0 - 4.8 K/uL Absolute Monocytes 0.67 0.0 - 1.1 K/uL Absolute Eosinophils 0.20 0.0 - 0.7 K/uL Absolute Basophils 0.02 0.0 - 0.2 K/uL COMPR METAB PANEL Result Value Ref Range BUN 17 6 - 20 mg/dL Creatinine 1.1 0.7 - 1.3 mg/dL Estimated Glomerular Filtration Rate >60.0 >60 mL/min Sodium 139 135 - 146 mmol/L Potassium 4.1 3.5 - 5.1 mmol/L Chloride 101 98 - 111 mmol/L CO2 27 22 - 32 mmol/L Anion Gap 11 7 - 15 mmol/L Glucose 123 (H) 70 - 120 mg/dL Albumin 3.9 3.8 - 5.0 g/dL AST 32 10 - 50 U/L Alkaline Phosphatase 68 0 - 153 U/L Bilirubin, Total 0.9 0.3 - 1.3 mg/dL Calcium 9.8 8.3 - 10.5 mg/dL Protein 7.8 6.0 - 8.3 g/dL ALT 38 10 - 50 U/L The above clinical lab tests were reviewed by me on 09/04/23 IMPRESSIONS: Asymptomatic 5.6 cm AAA, 5.1 cm 2022 90 degree angulated AAA w/ short proximal neck, not a candidate for EVAR 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 Follows with Dr. Vargas, [facility] Cardiology Reformed smoker but uses chewing tobacco HTN PLAN: The patient was counseled regarding the pathophysiology and natural history of abdominal aortic aneurysms, as well as the signs of rupture and the need to initiate emergency medical attention in thatsituation. While AAA remains a bit under threshold for surgical repair, the size of his RCIA aneurysm is what will lead us to operate sooner than later The patient was counseled regarding the pathophysiology and natural history of mesenteric vascular disease, as well as the interventional and noninterventional therapeutic options. Continue ASA 81 mg daily for platelet inhibition Continue Lipitor 40 mg daily for pleiotropic effects of statins Sign pt up for open [id number] Aneurysm repair Pre op labs and EKG today I will call Dr. Vargas, [facility] Cardiology to see if pt needs any cardiac testing before AAA surgery. Pt s/p CABG 10/2022 RTC ~ 1 month pos top with CTA Abd/Pelvis 1-2 wks prior to that next visit. Patient re-instructed to stop nicotine use, in any form. He remains dedicated to using chewing tobacco The patient was seen and examined with Gregory Le MD. Elian Herrera MPAS, PA-C Section of Vascular and Endovascular Surgery [address] [address] 72 year old male with enlarging aortoiliac aneurysmal disease, sizes as above Has recovered from his CABG and is ready for aneurysm surgery Will confirm with his automotive airconditioning mechanic that he is medically optimized Plan will be for open aortoiliac aneurysm repair. He is not an endovascular candidate. Will likely NOT address his left internal iliac artery aneurysm at this operation, both to preserve pelvic bloodflow to assist in the recovery from this surgery and due to anatomic complexity. We can always address this in a staged fashion via endovascular repair with coil/cover. He also has an aneurysm at thelevel of the aortic hiatus that will need to be monitored for possible future intervention. The patient was counseled at length regarding the nature of the complex aortic disease and the risks, benefits and alternatives of this surgery. I have discussed with the patient that they are at very high risk for the following anticipated complications due to the patient's co-morbidities including , heart attack, stroke, kidney failurerequiring dialysis, infection and urinary tract infection, bleeding requiring transfusions/re-operat ion, intestinal ischemia/obstruction requiring bowel resection/colostomy, respiratory complicationsrequiring tracheostomy, paralysis/paraplegia, graft failure, or limb ischemia requiring major amputation. I have also explained that other risks of the surgery include, but are not limited to, sexual dysfunction, transfusion reaction, and incisional hernia. The patient understands the seriousness of the situation and would like to proceed with the surgery. The patient understands that they may need a thoracotomy and a laparotomy. I also discussed the possible need for insertion of chest tube and possible need for institution of heart lung bypass. The patient understands the increased risk of paraplegia is significant and that they may need placement of spinal drain by anesthesia service. The patient understands the significant risk of intraoperative . The patient understands that a prolonged hospital course is expected in the best-case scenario, and may even need life support for some time including measures like tracheostomy, ventilators and feeding tubes, and informed consent was obtained to proceed with the surgery. The [facility] Open AAA booklet was reviewed and given to the patient. Gregory Le MD Section of Vascular and [place] [address] [phone] documented in this encounter Nursing Notes * Rocío Chisholm LPN - 09/04/2023 12:42 PM EST Chief Complaint Patient presents with Follow Up Infrareanal aneurysm Patient has pain in his legs. Other than that no problems. documented in this encounter Miscellaneous Notes * Addendum Note - Elian Herrera PA-C - 09/05/2023 8:11 AM ESTAddended by: ELIAN HERRERA on: 09/05/2023 08:11 AM Modules accepted: Orders documented in this encounter Plan of Treatment Upcoming Encounters Date Type Department Care Team (Late st Contact Info) Description 10/03/2023 Hospital Encounter [facility], OPERATING ROOM [facility] [facility] [address] [place] [address] Gregory Le MD [address] [place] [address] 11/14/2023 12:30 PM EDT Imaging Radiology [facility]st [facility] [address] [place] [address] 11/20/2023 2:10 PM EDT Office Visit Vascular Surgery, [facility] [address] [place] [address] Gregory Le MD [address] [place] [address] Scheduled Orders Name Type Priority Associated Diagnoses Orde r Schedule CTA ABD/PELVIS Medical Imaging Routine Iliac artery aneurysm, right (HCC) Infrarenal abdominal aortic aneurysm (AAA) without rupture (HCC) Pre-operative cardiovascular examination Ordered: 09/04/2023 EKG EKG Routine Iliac artery aneurysm, right (HCC) Infrarenal abdominal aortic aneurysm (AAA) without rupture (HCC) Pre-operative cardiovascular examination Expected: 09/04/2023 (Approximate), Expires: 10/04/2024 Scheduled Procedures Name Priority Associated Diagnoses Date/Ti [...] Not on filedocumented as of this encounter Procedures Procedure Name Priority Date/Time Associated Diagnosis Comments ANEMIA REFLEX CHEMISTRY HOLD Routine 09/04/2023 1:59 PM EST Iliac artery aneurysm, right (HCC) Infrarenal abdominal aortic aneurysm (AAA) without rupture (HCC) Pre-operative cardiovascular examination ANEMIA CBC Routine 09/04/2023 1:59 PM EST Iliac artery aneurysm, right (HCC) Infrarenal abdominal aortic aneurysm (AAA) without rupture (HCC) Pre-operative cardiovascular examination DIFFERENTIAL, AUTOMATED Routine 09/04/2023 1:59 PM EST Iliac artery aneurysm, right (HCC) Infrarenal abdominal aortic aneurysm (AAA) without rupture (HCC) Pre-operative cardiovascular examination DIFFERENTIAL, AUTOMATED Routine 09/04/2023 1:59 PM EST Iliac artery aneurysm, right (HCC) Infrarenal abdominal aortic aneurysm (AAA) without rupture (HCC) Pre-operative cardiovascular examination COMPREHENSIVE METABOLIC PANEL Routine 09/04/2023 1:59 PM EST Iliac artery aneurysm, right (HCC) Infrarenal abdominal aortic aneurysm (AAA) without rupture (HCC) Pre-operative cardiovascular examination documented in this encounter Results * ANEMIA REFLEX CHEMISTRY HOLD (09/04/2023 1:59 PM EST) Blood Venous blood specimen / Unknown Venipuncture / Unknown 09/04/2023 1:59 PM EST 09/04/2023 1:59 PM EST Elian Herrera PA-C LAB BLOOD [facility]A [facility] [address] [place] [address] * (ABNORMAL) DIFFERENTIAL, AUTOMATED (09/04/2023 1:59 PM EST) WBC 7.86 4.00 - 10.80 K/uL 09/05/2023 12:01 AM EST [facility] Neutrophils % 65.9 40.0 - 75.0 % 09/05/2023 12:01 AM EST [facility] Lymphocytes % 15.0(L) 18.0 - 42.0 % 09/05/2023 12:01 AM EST [facility] Monocytes % 11.6(H) 1.0 - 11.0 % 09/05/2023 12:01 AM EST [facility] Eosinophils % 5.5 0.0 - 6.0 % 09/05/2023 12:01 AM EST [facility] Basophils % 1.0 0.0 - 2.0 % 09/05/2023 12:01 AM EST LAB[facility] Immature Granulocytes % 1.0 0.0 - 2.0 % 09/05/2023 12:01 AM EST [facility] Absolute Neutrophils 5.18 1.80 - 7.70 K/uL 09/05/2023 12:01 AM EST LAB[facility] Absolute Lymphocytes 1.18 1.00 - 4.80 K/ul 09/05/2023 12:01 AM EST [facility] Absolute Monocytes 0.91 0.00 - 1.10 K/uL 09/05/2023 12:01 AM EST LAB[facility] Absolute Eosinophils 0.43 0.00 - 0.70 K/uL 09/05/2023 12:01 AM EST LAB[facility] Absolute Basophils 0.08 0.00 - 0.20 K/uL 09/05/2023 12:01 AM EST [facility] Absolute Immature Granulocytes 0.08 0.00 - 0.20 K/uL 09/05/2023 12:01 AM EST [facility] Blood Venous blood specimen / Unknown Venipuncture / Unknown 09/04/2023 1:59 PM EST 09/04/2023 1:59 PM EST Elian Herrera PA-C LAB BLOOD ORDERA BLES Performing Organization Address City/State/[facility] Co de Phone Number LAB[facility]ATORY [facility] [address] [place] [address] * (ABNORMAL) ANEMIA CBC (09/04/2023 1:59 PM EST) WBC 7.86 4.00 - 10.80 K/uL 09/05/2023 12:01 AM EST [facility] RBC 5.12 4.50 - 5.25 M/uL 09/05/2023 12:01 AM EST LAB[facility] HGB 17.0(H) 14.0 - 16.8 g/dL 09/05/2023 12:01 AM EST LAB[facility]ORY [facility] Comment: Anemia reflex testing triggers on a HGB < 12.0 for Females and HGB < 13.0 for Males in accordance with the WHO Anemia Guidelines Anemia reflex testing triggers on a HGB < 12.0 for Females and HGB < 13.0 for Males in accordance with the WHO Anemia Guidelines HCT 50.3(H) 40.0 - 48.4 % 09/05/2023 12:01 AM EST [facility] MCV 98.2 82.0 - 99.5 fL 09/05/2023 12:01 AM EST [facility] MCH 33.2 27.0 - 34.0 pg 09/05/2023 12:01 AM EST LAB[facility] MCHC 33.8 32.0 - 36.0 g/dL 09/05/2023 12:01 AM EST [facility] RDW 13.3 11.5 - 15.5 % 09/05/2023 12:01 AM EST [facility] PLT 167 140 - 400 K/uL 09/05/2023 12:01 AM EST [facility] MPV 9.4 6.6 - 11.1 fL 09/05/2023 12:01 AM EST LABORATORY [facility] nRBCs 0 <=0 /100 WBCs 09/05/2023 12:01 AM EST LABORATORY [facility] Blood Venous blood specimen / Unknown Venipuncture / Unknown 09/04/2023 1:59 PM EST 09/04/2023 1:59 PM EST Elian Herrera PA-C LAB BLOOD ORDERA [facility] [address] [place] [address] * (ABNORMAL) COMPREHENSIVE METABOLIC PANEL (09/04/2023 1:59 PM EST) BUN 30(H) 6 - 20 mg/dL 09/04/2023 3:03 PM EST LAB[facility]ORY [place] [facility] Creatinine 1.9(H) 0.6 - 1.2 mg/dL 09/04/2023 3:03 PM EST LAB[facility] [place] [facility] Estimated Glomerular Filtration Rate 38(L) >=60 mL/min 09/04/2023 3:03 PM EST LAB[facility] [place] [facility] Comment:eGFR is calculated b ased on the CKD-EPI 2020 equation Sodium 137 135 - 146 mmol/L 09/04/2023 3:03 PM EST LAB[facility] [place] [facility] Potassium 4.6 3.5 - 5.1 mmol/L 09/04/2023 3:03 PM EST LAB[facility] [place] [facility] Chloride 103 98 - 107 mmol/L 09/04/2023 3:03 PM EST [facility] [place] [facility] CO2 21(L) 22 - 32 mmol/L 09/04/2023 3:03 PM EST [facility] [place] [facility] Anion Gap 13 7 - 15 mmol/L 09/04/2023 3:03 PM EST [facility] [place] [facility] Glucose 83 70 - 120 mg/dL 09/04/2023 3:03 PM EST [facility] [place] [facility] Albumin 4.0 3.8 - 5.0 g/dL 09/04/2023 3:03 PM EST [facility] [place] [facility] AST 29 10 - 50 U/L 09/04/2023 3:03 PM EST LAB[facility] [place] [facility] Alkaline Phosphatase 57 35 - 130 U/L 09/04/2023 3:03 PM EST [facility] [place] [facility] Bilirubin, Total 0.8 <=1.2 mg/dL 09/04/2023 3:03 PM EST [facility] [place] [facility] Calcium 9.2 8.4 - 10.2 mg/dL 09/04/2023 3:03 PM EST LAB[facility] [place] [facility] Protein 7.0 6.0 - 8.3 g/dL 09/04/2023 3:03 PM EST LAB[facility] [place] [facility] ALT 14 10 - 50 U/L 09/04/2023 3:03 PM EST LAB[facility] [place] [facility] Blood Venous blood specimen / Unknown Venipuncture / Unknown 09/04/2023 1:59 PM EST 09/04/2023 1:59 PM EST Elian Herrera PA-C LAB BLOOD ORDERA BL[facility] LAB[facility] [place] [facility] [address] [facility] [place] [address] documented in this encounter Visit Diagnoses Diagnosis Iliac artery aneurysm, right (HCC)- Primary Aneurysm of iliac artery Infrarenal abdominal aortic aneurysm (AAA) without rupture (HCC) Celiac artery aneurysm (HCC) Aneurysm of other visceral artery Nicotine use Pre-operative cardiovascular examination Infrarenal abdominal aortic aneurysm (AAA) without rupture (HCC)- Primary Infrarenal abdominal aortic aneurysm (AAA) without rupture (HCC) documented in this encounter Care Teams Proof Press Operator Relationship Specialty Start Date End Date Valdemar Segundo PA-C [address] [place] [id number] PCP - General Physician Band Builder 05/03/21 documented as of this encounter"
--- OUTSIDE RECORDS SUMMARY | 2023-12-30 10:35 | External Medical Summary | Summary of Care ---
Author Name Unknown Organization [facility] Address [address] [place] [address] Phone [phone] Care Team Providers Care Wharf Labourer Name Role Phone Valdemar Segundo PA-C Primary Care Provider [phone] Reason for Visit * Reason Onset Date Comments Letter Requests 09/06/2023 Encounter Details Date Type Department Care Team (Late st Contact Info) Description 09/06/2023 Telephone Vascular Surg [facility] [address], [place] [id number] Services, [facility] [address] [place] [address] Letter Requests Allergies Active Allergy Reactions Criticality [...] Diagnosed Date Coronary artery disease invo lving qagan tayagung[place] coronary artery of qagan [place] heart without angina pectoris 06/05/2023 S/P CABG [...] encounter Miscellaneous Notes * Telephone Encounter - Esther Antunez OSA [...] 10/03/2023 Hospital Encounter OR [facility], OPERATING ROOM [facility] [address] [place] [address] Gregory Le MD [address] [place] [address] 11/14/2023 12:30 PM EDT Imaging Radiology [facility]st [facility] [address] [place] [address] 11/20/2023 2:10 PM EDT Office Visit Vascular Surgery, [facility] [address] [facility] [address] Gregory Le MD [address] [place] [address] Scheduled Procedures Name Priority Associated Diagnoses Date/Ti [...] filedocumented as of this encounter Care Teams Wharf Labourer Relationship Specialty Start Date End Date Valdemar Segundo, ANGELIAC [address] [place] [address] PCP - General Physician Turntable Man 05/03/21 documented as of this encounter
--- OUTSIDE RECORDS SUMMARY | 2023-12-30 10:35 | External Medical Summary | Summary of Care ---
Author Name Unknown Organization [facility] Address [address] [place] [address] Phone [phone] Care Team Providers Care Brick Chimney Supervisor Name Role Phone Valdemar Segundo PA-C Primary Care Provider [phone] Reason for Referral * Precert (Within 10 days (routine)) - Pending Review Specialty Diagnoses / Procedures Referred By Contazeem t Referred To Contact Radiology Diagnoses Iliac artery aneurysm, right (HCC) Infrarenal abdominal aortic aneurysm (AAA) without rupture (HCC) Pre-operative cardiovascular examination Procedures CTA ABD/PELVIS Elian Herrera PA-C [address] [place] [address] Referral ID Status Reason Start Date Expiration Date V isits Requested Visits Authorized [id number] Pending Review 09/04/2023 999 999 Reason for Visit * Reason Comments Follow Up Infrareanal aneurysm Encounter Details Date Type Department Care Team (Latest Contact Info) Description 09/04/2023 12:30 PM EST [facility] [address] [facility] [place] [id number] Gregory Le MD [address] [place] [address] Iliac artery aneurysm, right (HCC)*; [...] Diagnosed Date Coronary artery disease invo lving yurok coronary artery of y[place]k heart without angina pectoris 06/05/2023 S/P CABG [...] Herrera PA-C - 09/04/2023 12:30 PM EST Date of Service: 09/04/23 Neri Bear is [...] us. CT scan was also completed at [facility] in [place] on 04/07/21. 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 Stress test @ [facility], [place] per pt report Neurological: Negative for [...] NT/ND, no bruits SKIN: No rashes PSYCHIATRIC: mood and affect NEUROLOGIC: 11/02 muscle strength and sensation PULSE SCALE: Carotid [...] 97/148/150/120, ZI 44 04/28/2021; Location of Study: [facility]; Modality: duplex; AAA measures 3.6 cm in [...] thoracic aortic [place] [address] [place] [facility] [place] only, viewable through Care Everywhere) CAD s/p CABG x 4 11/05/22 ([place]-to-LAD, SVG-to-PDA, SVG-to-OM1, SVG-to-D1). Follows with Dr. Vargas, [facility] Cardiology Reformed smoker but uses chewing tobacco [...] of statins Sign pt up for open UHI-Rw-Pjxva Aneurysm repair Pre op labs and EKG today I will call Dr. Vargas, [facility] Cardiology to see if pt needs any cardiac testing before AAA surgery. Pt s/p CABG 10/2022 RTC ~ 1 month pos top with CTA Abd/Pelvis 1-2 wks prior to that next visit. Patient re-instructed to stop nicotine use, in any form. He remains dedicated to using chewing tobacco The patient was seen and examined with Gregory Le MD. KENYATTA Paredes, PA-C Section of Vascular and Endovascular Surgery [address] [address] 72 year old male with enlarging aortoiliac aneurysmal disease, sizes as above Has recovered from his CABG and is ready for aneurysm surgery Will confirm with his physicist light and optics that he is medically optimized Plan will [...] obtained to proceed with the surgery. The [facility] Open AAA booklet was reviewed and given to the patient. Gregory Le MD Section of Vascular [place] [address] [phone] documented in this encounter Nursing Notes * Rocío Chisholm LPN - 09/04/2023 12:42 PM EST Chief Complaint Patient presents with Follow Up Infrareanal aneurysm Patient has pain in his legs. Other than that no problems. documented in this encounter Plan of Treatment Upcoming Encounters Date Type Department Care Team (Late st Contact Info) Description 11/14/2023 12:30 PM EDT Imaging Radiology [address] [facility] [place] [address] 11/20/2023 2:10 PM EDT [facility] [address] [place] [address] Gregory Le MD [address] [place] [address] Pending Results Name Type Priority Associated Diagnoses Date /Time CBC WITH WBC DIFFERENTIAL AND ANEMIA REFLEX WORKUP Lab Routine Iliac artery aneurysm, right (HCC) Infrarenal abdominal aortic aneurysm (AAA) without rupture (HCC) Pre-operative cardiovascular examination 09/04/2023 1:59 PM EST COMPREHENSIVE METABOLIC PANEL Lab Routine Iliac artery aneurysm, right (HCC) Infrarenal abdominal aortic aneurysm (AAA) without rupture (HCC) Pre-operative cardiovascular examination 09/04/2023 1:59 PM EST ANEMIA CBC Lab Routine Iliac artery aneurysm, right (HCC) Infrarenal abdominal aortic aneurysm (AAA) without rupture (HCC) Pre-operative cardiovascular examination 09/04/2023 1:59 PM EST DIFFERENTIAL, AUTOMATED Lab Routine Iliac artery aneurysm, right (HCC) Infrarenal abdominal aortic aneurysm (AAA) without rupture (HCC) Pre-operative cardiovascular examination 09/04/2023 1:59 PM EST ANEMIA REFLEX CHEMISTRY HOLD Lab Routine Iliac artery aneurysm, right (HCC) Infrarenal abdominal aortic aneurysm (AAA) without rupture (HCC) Pre-operative cardiovascular examination 09/04/2023 1:59 PM EST Scheduled Orders Name Type Priority Associated Diagnoses Orde r Schedule CTA ABD/PELVIS Medical Imaging Routine Iliac artery aneurysm, right (HCC) Infrarenal abdominal aortic aneurysm (AAA) without rupture (HCC) Pre-operative cardiovascular examination Ordered: 09/04/2023 EKG EKG Routine Iliac artery aneurysm, right (HCC) Infrarenal abdominal aortic aneurysm (AAA) without rupture (HCC) Pre-operative cardiovascular examination Expected: 09/04/2023 (Approximate), Expires: 10/04/2024 Health Maintenance Due Date Last Done Comments [...] visceral artery Nicotine use Pre-operative cardiovascular examination documented in this encounter Care Teams Brick Chimney Supervisor Relationship Specialty Start Date End Date Valdemar Segundo, PAWalterC [address] [place] [id number] PCP - General Physician Pill Machine Operator 05/03/21 documented as of this encounter"
--- OUTSIDE RECORDS SUMMARY | 2023-12-30 10:35 | External Medical Summary ---
Author Name Unknown Address Unknown Organization [id number]:[facility]ORY [facility] - [address] [facility] [address] Laboratory Report Ordering Provider Test Date Status GLENDY MORALES 09/04/2023 13:59:34 Final Observation Date Value Abnormality Reference (Units ) Status SYNC LEUKOCYTES IN BLOOD BY AUTOMATED COUNT 09/04/2023 13:59:34 7.86 4.00-10.80 (K/uL) Final Segs 09/04/2023 13:59:34 65.9 40.0-75.0 (%) Final Lymphs % 09/04/2023 13:59:34 15.0 Below low normal 18.0-42.0 (%) Final Monos 09/04/2023 13:59:34 11.6 Above high normal 1.0-11.0 (%) Final Eosinophils 09/04/2023 13:59:34 5.5 0.0-6.0 (%) Final Basos 09/04/2023 13:59:34 1.0 0.0-2.0 (%) Final Immature Granulocyte, Percent 09/04/2023 13:59:34 1.0 0.0-2.0 (%) Final Absolute Segs 09/04/2023 13:59:34 5.18 1.80-7.70 (K/uL) Final Lymphs, absolute 09/04/2023 13:59:34 1.18 1.00-4.80 (K/ul) Final Monos, Abs 09/04/2023 13:59:34 0.91 0.00-1.10 (K/uL) Final Eos, Abs 09/04/2023 13:59:34 0.43 0.00-0.70 (K/uL) Final Basos, Abs 09/04/2023 13:59:34 0.08 0.00-0.20 (K/uL) Final Immature Granulocytes, Number 09/04/2023 13:59:34 0.08 0.00-0.20 (K/uL) Final Performing Location [facility] - [facility] [place] [address]
[2023-12-30] MEDS: OPTIRAY 320 125ml IV ONE (10:50)
[2023-12-30] MEDS: cefTRIAXone SODIUM 2,000 MG/50 ML BAG IV STA (10:57)
[2023-12-30] MEDS: AZITHROMYCIN 250 MG TAB PO ONE (11:05)
--- NOTE | 2023-12-30 11:16 | CT Scan Report ---
CHEST CTA for PULMONARY ARTERIES CT DOSE: 801.58 mGy.cm HISTORY: Shortness of breath. TECHNIQUE: Multiaxial CT images of the chest were performed following the intravenous administration of contrast to evaluate the pulmonary arteries. 3D/Maximal intensity projection images were also obta ined. Sagittal and coronal reformations were also reviewed. A dose lowering technique was utilized a dhering to the principles of ALARA. COMPARISON STUDY: Chest 12/30/2023. FINDINGS: Atherosclerotic plaque within the thoracic aorta with no evidence for a dissection. There i s focal mild aneurysmal dilatation of the distal ureter at the thoracic/aortic junction measuring 4.1 cm. 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 Limited v iews of the upper abdomen demonstrate a normal spleen and adrenal glands. A 1.2 cm hypodense lesion w ithin the right hepatic dome favors a cyst. The heart is normal in size. No pericardial effusion. Tra ce left pleural effusion. Respiratory motion artifact results in nondiagnostic evaluation of the darian rity of the left lower lobe segmental/subsegmental pulmonary arteries. Otherwise, no filling defects within the remaining pulmonary arteries to suggest a pulmonary embolus. No evidence for right-sided h eart strain. Normal esophagus. No hilar lymphadenopathy. A few mildly enlarged AP window lymph nodes with the dominant lymph node measuring 17 x 9 mm. No acute fractures. There are poststernotomy change s with prior coronary artery bypass. No pneumothorax. The central airways are patent. Advanced emphys brigitte. Peripheral consolidation within the left upper lobe likely representing a pneumonia. A 4R nodule within the right lung apex on image 179. There is an irregular/nodular density within the right lung apex on image 180 measuring approximately 2.0 x 0.9 cm. This corresponds the chest x-ray abnormality and could represent scarring or a pulmonary lesion. A 6 mm nodule within the right upper lobe on mariluz ge 140 with an adjacent calcified granuloma. A 4 mm nodule within the right upper lobe on image 93. A peripheral 14 x 10 mm nodule within the right lower lobe on image 119. This may also represent an ar ea of scarring or pulmonary lesion. IMPRESSION: 1. No evidence for a pulmonary embolus with limitations as described above. 2. Peripheral consolidation within the left upper lobe which favors a pneumonia. A 3-[address] follow-up recommended to ensure resolution. 3. Advanced emphysema. 4. Borderline AP window lymphadenopathy which may be reactive. Attention at follow-up recommended. 5. Similar-appearing irregular nodules within the right lung apex and right lower lobe as described a constance with the largest measuring 2.0 x 0.9 cm. These could represent scarring. Pulmonary lesions are n ot excluded. Therefore, these also require 3-[address] follow-up to ensure stability. 6. Mild aneurysmal dilatation of the junction of the descending thoracic aorta and abdominal aorta me asuring 4.1 cm. 7. Additional findings as described above. ACT 112: Positive. There are findings on this exam that require communication between the performing entity and the patient following Patient Test Result Information Act ([place] Act 112) guidelines. Electronically signed by: Alessandro Lujan M.D. 12/30/2023 11:15 AM
[2023-12-30 12:13] LABS: Base Excess VBG -1.3 mEq/L; HCO3 VBG 24 mmol/L; Oxygen Saturation VBG < 60.0 %; PCO2 VBG 40 mmHg (38-50); PO2 VBG 29 mmHg; pH VBG 7.38 (7.36-7.41)
[2023-12-30] MEDS ORDERED: ALUMINUM/MAGNESIUM SUSP 30 ML UDC PO PRN (12:58)
[2023-12-30] MEDS ORDERED: ONDANSETRON INJ 2 MG/ML 2 ML VIAL IV PRN (12:58)
[2023-12-30] MEDS ORDERED: MAGNESIUM HYDROXIDE SUSP 30 ML UDC PO PRN (12:58)
[2023-12-30] MEDS ORDERED: ACETAMINOPHEN 325 MG TAB PO PRN (12:58)
[2023-12-30] MEDS ORDERED: POLYETHYLENE (MIRALAX) 17 GM PACK PO PRN (12:58)
--- NOTE | 2023-12-30 13:17 | History & Physical Report ---
Date of Service December 30, 2023 Assessment & Plan (1) Pneumonia: Plan: Patient presents with increasing shortness of breath, denies fever or chills, elevated D-dimer CTA chest positive for pneumonia Will obtain procalcitonin IV antibiotics Rocephin azithromycin Recent abdominal aortic aneurysm repair, postop patient had a feeding tube, feeding tube removed a month ago Will obtain speech evaluation, to rule out aspiration (2) COPD (chronic obstructive pulmonary disease): Plan: No signs of COPD exacerbation, patient using oxygen as needed at home, was hypoxic in the ER Placed on oxygen (3) S/P CABG (coronary artery bypass graft): Plan: Reports atypical chest pain Negative troponin (4) CAD (coronary artery disease): Plan: Status post CABG Atypical chest pain, possibly secondary to pneumonia Trend troponin Monitor on telemetry Continue home meds (5) Hypertension: Plan: Blood pressure stable Continue home meds (6) Acute on chronic respiratory failure with hypoxemia: Plan: Patient uses oxygen at home as needed secondary to COPD emphysema Hypoxic in ER, oxygen level 86% Will use supplemental oxygen (7) H/O abdominal aortic aneurysm repair: Plan: Recent abdominal aortic aneurysm repair x 2, done in [place] (8) Cholecystostomy care: Plan: Recent cholecystostomy tube placement, as per no problem with drainage, patient denies abdominal pain (9) Hepatitis C virus: Plan: Patient was recently treated for hepatitis, reports being in remission History of Present Illness Chief Complaint: chest pain , SOB Primary Care Provider: Valdemar Segundo 73-year-old male with past medical history significant for Hypertension, Hypercholesterolemia, COPD, Hepatitis C, AAA-3.6 x 3.8 cm, March 2021, Right Common Iliac Artery Aneurysm-2.6 cm March 2021, PAD, and CAD s/p CABG x 4 Vessels 11/05/22 ([place]-to-LAD, SVG-to-PDA, SVG-to-OM1, SVG-to-D1), he was [facility], underwent abdominal aortic aneurysm repair twice, as per she had complications postop, chest bowel perforation, he had a feeding tube, which is removed now, he had acute cholecystitis, currently has a cholecystostomy tube in place, as per there was no problem with drainage in the last 24 to 48 hours, he denies any abdominal pain, he is tolerating diet, denies any difficulty swallowing at this point, he presented today with acute onset of shortness of breath, started around 1 AM. placed oxygen on the patient, around 6 AM he was still reporting some difficulties breathing and right-sided chest pain. He was brought in ER, CTA chest no acute pulmonary emboli, peripheral consolidation within the left upper lobe which favors a pneumonia. A 3-[address] follow-up recommended to ensure resolution. Patient started on IV antibiotics. He denies fever or chills, denies cough, said, that he was previously suspected to have pneumonia, but was not treated for that. He is follow-up appointment in [facility] on January 24. Allergies Allergy/AdvReac Type Severity Reaction Status Date / Time Penicillins Allergy Unknown Verified 12/30/23 11:12 Home Medications Medication Instructions Recorded Confirmed Type atorvastatin 40 mg tablet 40 mg PO DAILY #90 tabs 02/22/22 12/30/23 Rx fenofibrate nanocrystallized 145 145 mg PO DAILY 02/22/22 12/30/23 History mg tablet folic acid 1 mg tablet 1 mg PO DAILY 02/22/22 12/30/23 History metoprolol tartrate 25 mg tablet 37.5 mg PO BID 12/14/22 12/30/23 History alprazolam 0.5 mg tablet 0.5 mg PO BID PRN Anxiety 12/30/23 12/30/23 History aspirin 81 mg tablet,delayed 81 mg PO DAILY 12/30/23 12/30/23 History release escitalopram oxalate 10 mg tablet 10 mg PO DAILY 12/30/23 12/30/23 History fluticasone fur. 100 mcg-umeclid 1 inh inhalation DAILY 12/30/23 12/30/23 History 62.5 mcg-vilant 25 mcg inhalat.powder (Trelegy Ellipta) Past Med/Surg History Problem List (Updated 12/30/23 @ 13:32 by Lily Robles MD) Hepatitis C virus Cholecystostomy care H/O abdominal aortic aneurysm repair Acute on chronic respiratory failure with hypoxemia Pneumonia COPD (chronic obstructive pulmonary disease) COPD exacerbation S/P CABG (coronary artery bypass graft) CAD (coronary artery disease) Chest pain syndrome SOBOE (shortness of breath on exertion) PVD (peripheral vascular disease) Hypercholesterolemia Hypertension Social History Smoking Status: Never smoker Second Hand Exposure: No; Do You Dip or Chew Tobacco: No; Hx Alcohol Use: No Hx Substance Use: Yes Last Used Substance: Unknown Preferred Language: Zimbabwean Communication Ability: Effective Quality Management Nurse Required: No Beliefs That Will Affect Care: None Current Living Situation: Spouse Feels Safe at Home: Yes Assistive Devices: None Review of Systems Review of Systems: All systems reviewed & are unremarkable except as noted in Subjective Physical Exam Physical Exam: Head is atraumatic normocephalic Neck supple no JVD no carotid bruit not rhythm of lymphadenopathy appreciate Lungs diminished breath sound bilaterally, no wheezes crackles appreciated Heart S1-S2 regular, no murmurs gallops or rubs appreciated Abdomen soft, nontender nondistended, bowel sounds present, he has a healed scar in the mid abdomen, has a cholecystostomy tube in the right upper quadrant, bag is filled with bile Extremities no clubbing no cyanosis, pulses present Results & Data Results & Data Vital Signs (Past 12 Hours) Vital Signs Temp Pulse Pulse Resp BP BP Pulse Ox 12/30/23 12:57 105 H 12/30/23 10:00 99 H 20 135/86 98 12/30/23 08:58 100 H 12/30/23 08:56 36.8 C 97 H 20 146/83 H 96 12/30/23 08:56 89 L 12/30/23 08:56 36.8 C 97 H 20 146/83 H 96 O2 Del Method O2 Flow Rate 12/30/23 12:57 12/30/23 10:00 Nasal Cannula 2 12/30/23 08:58 12/30/23 08:56 Nasal Cannula 2 12/30/23 08:56 Room Air 12/30/23 08:56 Nasal Cannula 2 Laboratory Results Abnormal lab results 12/30/23 Range/Units 08:55 RBC 3.99 L (4.70-6.10) M/uL Hgb 11.6 L (14.0-18.0) g/dl Hct 36.1 L (42.0-52.0) % RDW Std Deviation 50.3 H (36.4-46.3) fL RDW Coeff of Kaye 15.2 H (11.5-14.5) % MPV 8.9 L (9.4-12.4) fL Neut # (Auto) 7.34 H (1.40-6.50) K/uL Lymph # (Auto) 0.79 L (1.20-3.40) K/uL [place]al # (Auto) 1.03 H (0.11-0.59) K/uL PT 12.1 H (9.0-12.0) Seconds APTT 33 H (21-31) Seconds D-Dimer 68245 H* (0-500) ug/L FEU Sodium 135 L (136-145) mmol/L BUN 24 H (6-23) mg/dl BUN/Creatinine Ratio 24.7 H (10-20) Glucose 100 H (70-99(Fasting)) mg/dl Calcium 8.3 L (8.6-10.3) mg/dl B-Natriuretic Peptide 159 H (0-100) pg/ml Diagnostic Findings Chest X-Ray 12/30/23 09:07 XR chest 1V portable CLINICAL HISTORY: Chest pain, nonspecific COMPARISON STUDY: Chest radiograph October 11, 2014. FINDINGS: There are median sternotomy wires. Cardiac size is normal. Mediastinal contours are unremarkable. No pneumothorax or pleural effusion is present. There is underlying emphysema. A 1.6 cm irregular right upper lung density is present. Moderate airspace opacities within the left lung are present. IMPRESSION: 1. Moderate airspace opacities within the left lung suggestive of pneumonia. Follow-up PA and lateral chest radiographs in 1 to 2 months are recommended to ensure resolution. 2. 1.6 cm irregular right upper lung density. This may also be infectious however should be assessed on follow-up chest radiograph to ensure resolution. 3. Emphysema. ACT 112: Negative or not required by law. Electronically signed by: Oscar Moulton M.D. 12/30/2023 9:53 AM Chest CTA 12/30/23 10:34 CHEST CTA for PULMONARY ARTERIES CT DOSE: 801.58 mGy.cm HISTORY: Shortness of breath. TECHNIQUE: Multiaxial CT images of the chest were performed following the intravenous administration of contrast to evaluate the pulmonary arteries. 3D/Maximal intensity projection images were also obtained. Sagittal and coronal reformations were also reviewed. A dose lowering technique was utilized adhering to the principles of ALARA. COMPARISON STUDY: Chest 12/30/2023. FINDINGS: Atherosclerotic plaque within the thoracic aorta with no evidence for a dissection. 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 Limited views of the upper abdomen demonstrate a normal spleen and adrenal glands. A 1.2 cm hypodense lesion within the right hepatic dome favors a cyst. The heart is normal in size. No pericardial effusion. Trace left pleural effusion. Respiratory motion artifact results in nondiagnostic evaluation of the majority of the left lower lobe segmental/subsegmental pulmonary arteries. Otherwise, no filling defects within the remaining pulmonary arteries to suggest a pulmonary embolus. No evidence for right-sided heart strain. Normal esophagus. No hilar lymphadenopathy. A few mildly enlarged AP window lymph nodes with the dominant lymph node measuring 17 x 9 mm. No acute fractures. There are poststernotomy changes with prior coronary artery bypass. No pneumothorax. The central airways are patent. Advanced emphysema. Peripheral consolidation within the left upper lobe likely representing a pneumonia. A 4R nodule within the right lung apex on image 179. There is an irregular/nodular density within the right lung apex on image 180 measuring approximately 2.0 x 0.9 cm. This corresponds the chest x-ray abnormality and could represent scarring or a pulmonary lesion. A 6 mm nodule within the right upper lobe on image 140 with an adjacent calcified granuloma. A 4 mm nodule within the right upper lobe on image 93. A peripheral 14 x 10 mm nodule within the right lower lobe on image 119. This may also represent an area of scarring or pulmonary lesion. IMPRESSION: 1. No evidence for a pulmonary embolus with limitations as described above. 2. Peripheral consolidation within the left upper lobe which favors a pneumonia. A 3-[address] follow-up recommended to ensure resolution. 3. Advanced emphysema. 4. Borderline AP window lymphadenopathy which may be reactive. Attention at follow-up recommended. 5. Similar-appearing irregular nodules within the right lung apex and right lower lobe as described above with the largest measuring 2.0 x 0.9 cm. These could represent scarring. Pulmonary lesions are not excluded. Therefore, these also require 3-[address] follow-up to ensure stability. 6. 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 7. Additional findings as described above. ACT 112: Positive. There are findings on this exam that require communication between the performing entity and the patient following Patient Test Result Information Act ([place] Act 112) guidelines. Electronically signed by: Alessandro Lujan M.D. 12/30/2023 11:15 AM ECG Additional Comments: Normal sinus rhythm, 94 bpm, anterolateral infarct age undetermined PG Care Time/CCT Total # of Minutes Spent Total Time Spent with Patient: Total time spent is greater than 50% in coordination of care (as documented) at patient's floor/unit and/or counseling patient: Coding Level of Care Code 31035 INT INP/OBS CARE 3/75MIN Diagnoses Pneumonia J18.9 Chronic obstructive pulmonary disease, unspecified COPD type J44.9 COPD type: unspecified COPD S/P CABG (coronary artery bypass graft) Z95.1 Coronary artery disease involving [place] coronary artery of [place] heart without angina pectoris I25.10 Coronary Disease-Associated Artery/Lesion type: [place] artery [place] vs. transplanted heart: [place] heart Associated angina: without angina Primary hypertension I10 Hypertension type: primary hypertension Acute on chronic respiratory failure with hypoxemia J96.21 H/O abdominal aortic aneurysm repair Z98.890 Cholecystostomy care Z43.4 Hepatitis C virus B19.20 (2) COPD (chronic obstructive pulmonary disease) COPD type: unspecified COPD Qualified Code(s): J44.9 - Chronic obstructive pulmonary disease, unspecified (4) CAD (coronary artery disease) Coronary Disease-Associated Artery/Lesion type: [place] artery [place] vs. transplanted heart: [place] heart Associated angina: without angina Qualified Code(s): I25.10 - Atherosclerotic heart disease of [place] coronary artery without angina pectoris (5) Hypertension Hypertension type: primary hypertension Qualified Code(s): I10 - Essential (primary) hypertension
[2023-12-30] MEDS ORDERED: ALBUT/IPRATROP 3MG/0.5MG NEB 3 ML VIAL NEB PRN (15:49)
[2023-12-30] MEDS: LACTATED RINGER'S 1,000 ML IV SCH (16:49)
[2023-12-30] MEDS: NICOTINE 21 MG/24 HR TDSY TD SCH (17:48)
[2023-12-30] MEDS: METOPROLOL TARTRATE 1 MG/ML VIAL IV PRN (18:28)
[2023-12-30] MEDS: METOPROLOL TARTRATE 25 MG TAB PO SCH (20:48)
[2023-12-31 06:43] LABS: Basophils # (auto) 0.02 K/uL (0.00-0.20); Basophils % (auto) 0.3 %; Eosinophils # (auto) 0.43 K/uL (0.00-0.50); Eosinophils % (auto) 5.7 %; Hematocrit (blood only) 34.2 % (42.0-52.0); Immature Granulocytes # (auto) 0.05 K/uL (0.01-0.20); Immature Granulocytes % (auto) 0.7 %; Lymphocytes # (auto) 0.49 K/uL (1.20-3.40); Lymphocytes % (auto) 6.5 %; Mean Corpuscular Hemoglobin 29.2 pg (25.0-34.0); Mean Corpuscular Hgb Conc 32.2 g/dL (32.0-36.0); Mean Corpuscular Volume 90.7 fL (80.0-100.0); Monocytes # (auto) 0.78 K/uL (0.11-0.59); Monocytes % (auto) 10.4 %; Neutrophils # (auto) 5.73 K/uL (1.40-6.50); Neutrophils % (auto) 76.4 %; Platelet Count 164 K/uL (130-400); RDW Coefficient of Variation 15.1 % (11.5-14.5); RDW Standard Deviation 50.5 fL (36.4-46.3); Red Blood Count 3.77 M/uL (4.70-6.10)
[2023-12-31 07:40] LABS: Albumin Level 2.8 gm/dl (3.4-5.0); Bilirubin,Total 0.4 mg/dl (0.2-1.0); Calcium 8.1 mg/dl (8.6-10.3); Potassium 3.6 mmol/L (3.5-5.1)
[2023-12-31 07:46] LABS: Albumin Globulin Ratio 0.8 (0.9-2); BUN Creatinine Ratio 22.1 (10-20); Est GFR (Non-African American) 80.2 ml/min; Globulin 3.3 gm/dl (2.5-4.0); Total Protein 6.1 gm/dl (6.0-8.3)
[2023-12-31] MEDS: ASPIRIN 81 MG ECTAB PO SCH (08:51)
[2023-12-31] MEDS: ENOXAPARIN INJ 40 MG/0.4 ML SYR SQ SCH (08:51)
[2023-12-31] MEDS: ATORVASTATIN 40 MG TAB PO SCH (08:51)
[2023-12-31] MEDS: UMECLIDINIUM/VILANTEROL 62.5/25MCG 7 PUFFS/INHALER INH SCH (08:52)
[2023-12-31] MEDS: ESCITALOPRAM OXALATE 10 MG TAB PO SCH (08:52)
[2023-12-31] MEDS: FENOFIBRATE NANOCRYSTALLIZED 145 MG TABLET PO SCH (08:52)
[2023-12-31] MEDS: FOLIC ACID 1 MG TAB PO SCH (08:53)
[2023-12-31] MEDS: FLUTICASONE FUROATE 100MCG 14 PUFFS/INHALER INH SCH (08:54)
[2023-12-31] MEDS ORDERED: NON-FORMULARY MEDICATION (Fluticasone-Umeclidin-Vilanter [Trelegy Ellipta] 100-62.5-25 mcg INH SCH (09:00)
[2023-12-31] MEDS ORDERED: cefTRIAXone SODIUM 1,000 MG/50 ML BAG IV SCH (11:00)
[2023-12-31] MEDS: CEFEPIME 2,000 MG in SYRINGE 0 ML IV SCH (11:38)
[2023-12-31] MEDS: AZITHROMYCIN 500 MG in DEXTROSE 5% 250 ML IV SCH (12:10)
--- NOTE | 2023-12-31 16:09 | Hospitalist Progress Note ---
Date of Service December 31, 2023 Assessment & Plan (1) Pneumonia: Plan: FRANCESCA Since he had a 30+ day hospital stay at [facility] in September/October 2023 need to cover for gram negatives/nosocial infection thus - change rocephin to cefepime cont azithromycin for atypical coverage checked MRSA swab - negative; thus, defer on MRSA coverage stable in room air follow blood cx's (2) COPD (chronic obstructive pulmonary disease): Plan: no exacerbation at this time defer on steroids for now cont inhalers from home (3) S/P CABG (coronary artery bypass graft): Plan: troponins negative x 2 no ischemic symptoms at this time cont statin, asa, fenofibrate, metoprolol tartrate (4) CAD (coronary artery disease): Plan: as above in #3 (5) Hypertension: Plan: Blood pressures stable/controlled Continue metoprolol (6) H/O abdominal aortic aneurysm repair: Plan: Recent abdominal aortic aneurysm repair x 2, done at [facility] CTA chest - " 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." per pt's the AAA is still present (7) Cholecystostomy care: Plan: Recent cholecystostomy tube placement at [facility] in [place] LFTs stable Will need to f/u with surgery about definitive gall bladder removal (8) Hepatitis C virus: Plan: treated in remission (By report) (9) Severe protein-calorie malnutrition: Plan: 13-15kg weight loss since early 2023 2nd to prolonged hospitalization at [facility] in September 2023 he is starting to eat better has been drinking boost at home will add MVI Plan DVT proph - lovenox daily Admission and Anticipated Discharge Date Admission Date: December 30, 2023 Subjective patient feeling a little better today less dyspnea discomfort upper L back is better today no orthopnea/no PND no chest pain or pleuritic pain no fevers eating fair-good Review of Systems Review of Systems: gen - no fevers or chills GI - no N/V pulm - no significant sputum Physical Exam Physical Exam: gen - thin, NAD, lying comfortably in bed neck - no JVD mouth - MMM, no thrush skin - no rash heart - RRR, s1 s2 lungs - mildly decreased BS left apex with rare rales; otherwise CTA b/l; occasional scattered wheeze b/l abd - soft NT ND BS+; cholecystostomy tube present RUQ ext - no edema, pulses 2+ b/l Results & Data Results & Data Vital Signs (Past 12 Hours) Vital Signs Temp Pulse Pulse Resp BP Pulse Ox O2 Del Method 12/31/23 12:31 36.7 C 86 18 156/85 H 91 Room Air 12/31/23 09:00 Room Air, Nasal Cannula 12/31/23 08:40 36.7 C 68 18 146/81 H 96 Nasal Cannula 12/31/23 05:54 87 O2 Flow Rate 12/31/23 12:31 12/31/23 09:00 2 12/31/23 08:40 2 12/31/23 05:54 Laboratory Results Laboratory Results - last 48 hr 12/30/23 12/30/23 12/30/23 08:55 09:19 09:19 WBC RBC Hgb Hct MCV MCH MCHC RDW Std Deviation RDW Coeff of Kaye Plt Count MPV Immature Gran % (Auto) Neut % (Auto) Lymph % (Auto) [place] % (Auto) Eos % (Auto) Baso % (Auto) Neut # (Auto) Lymph # (Auto) [place] # (Auto) Eos # (Auto) Baso # (Auto) Immature Gran # (Auto) PT 12.1 H INR 1.1 APTT 33 H PTT Ratio 1.2 D-Dimer 88693 H* VBG pH 7.38 VBG pCO2 VBG pO2 VBG HCO3 VBG O2 Saturation VBG Base Excess Sodium 135 L Potassium 3.7 Chloride 104 Carbon Dioxide 24 Anion Gap 7 BUN 24 H Creatinine 0.97 Est Cr Clr Drug Dosing 65.4 Est GFR ( Amer) 90.7 Est GFR (Non-Af Amer) 78.2 BUN/Creatinine Ratio 24.7 H Glucose 100 H POC Glucose Calcium 8.3 L Total Bilirubin AST ALT Alkaline Phosphatase Troponin I High Sens 10.3 B-Natriuretic Peptide 159 H Total Protein Albumin Globulin Albumin/Globulin Ratio Lipase 50 Procalcitonin Nasal Screen MRSA (PCR) Adenovirus (PCR) B. pertussis DNA (PCR) B.parapertussis DNA PCR C. pneumoniae DNA (PCR) Coronavirus OC43 (PCR) Coronavirus HKU1 (PCR) Coronavirus 229E (PCR) SARS-CoV-2 (PCR) Coronavirus NL63 (PCR) Human Metapneumovir PCR Influenza Type A (PCR) Influenza Type B (PCR) M. pneumoniae (PCR) Parainfluenza 1 (PCR) Parainfluenza 2 (PCR) Parainfluenza 3 (PCR) Parainfluenza 4 (PCR) RSV (PCR) Entero/Rhino (PCR) 12/30/23 12/30/23 12/30/23 09:19 09:19 09:19 WBC RBC Hgb Hct MCV MCH MCHC RDW Std Deviation RDW Coeff of Kaye Plt Count MPV Immature Gran % (Auto) Neut % (Auto) Lymph % (Auto) [place] % (Auto) Eos % (Auto) Baso % (Auto) Neut # (Auto) Lymph # (Auto) [place] # (Auto) Eos # (Auto) Baso # (Auto) Immature Gran # (Auto) PT INR APTT PTT Ratio D-Dimer VBG pH VBG pCO2 40 VBG pO2 29 VBG HCO3 24 VBG O2 Saturation VBG Base Excess Sodium Potassium Chloride Carbon Dioxide Anion Gap BUN Creatinine Est Cr Clr Drug Dosing Est GFR ( Amer) Est GFR (Non-Af Amer) BUN/Creatinine Ratio Glucose POC Glucose Calcium Total Bilirubin AST ALT Alkaline Phosphatase Troponin I High Sens B-Natriuretic Peptide Total Protein Albumin Globulin Albumin/Globulin Ratio Lipase Procalcitonin Nasal Screen MRSA (PCR) Adenovirus (PCR) B. pertussis DNA (PCR) B.parapertussis DNA PCR C. pneumoniae DNA (PCR) Coronavirus OC43 (PCR) Coronavirus HKU1 (PCR) Coronavirus 229E (PCR) SARS-CoV-2 (PCR) Coronavirus NL63 (PCR) Human Metapneumovir PCR Influenza Type A (PCR) Influenza Type B (PCR) M. pneumoniae (PCR) Parainfluenza 1 (PCR) Parainfluenza 2 (PCR) Parainfluenza 3 (PCR) Parainfluenza 4 (PCR) RSV (PCR) Entero/Rhino (PCR) 12/30/23 12/30/23 12/30/23 09:19 09:19 09:22 WBC RBC Hgb Hct MCV MCH MCHC RDW Std Deviation RDW Coeff of Kaye Plt Count MPV Immature Gran % (Auto) Neut % (Auto) Lymph % (Auto) [place] % (Auto) Eos % (Auto) Baso % (Auto) Neut # (Auto) Lymph # (Auto) [place] # (Auto) Eos # (Auto) Baso # (Auto) Immature Gran # (Auto) PT INR APTT PTT Ratio D-Dimer VBG pH VBG pCO2 VBG pO2 VBG HCO3 VBG O2 Saturation < 60.0 VBG Base Excess -1.3 Sodium Potassium Chloride Carbon Dioxide Anion Gap BUN Creatinine Est Cr Clr Drug Dosing Est GFR ( Amer) Est GFR (Non-Af Amer) BUN/Creatinine Ratio Glucose POC Glucose Calcium Total Bilirubin AST ALT Alkaline Phosphatase Troponin I High Sens B-Natriuretic Peptide Total Protein Albumin Globulin Albumin/Globulin Ratio Lipase Procalcitonin Nasal Screen MRSA (PCR) Adenovirus (PCR) Not Detected B. pertussis DNA (PCR) Not Detected B.parapertussis DNA PCR Not Detected C. pneumoniae DNA (PCR) Not Detected Coronavirus OC43 (PCR) Not Detected Coronavirus HKU1 (PCR) Not Detected Coronavirus 229E (PCR) Not Detected SARS-CoV-2 (PCR) Not Detected Coronavirus NL63 (PCR) Not Detected Human Metapneumovir PCR Not Detected Influenza Type A (PCR) Not Detected Influenza Type B (PCR) Not Detected M. pneumoniae (PCR) Not Detected Parainfluenza 1 (PCR) Not Detected Parainfluenza 2 (PCR) Not Detected Parainfluenza 3 (PCR) Not Detected Parainfluenza 4 (PCR) Not Detected RSV (PCR) Not Detected Entero/Rhino (PCR) Not Detected 12/30/23 12/31/23 12/31/23 16:33 06:03 08:12 WBC 7.50 RBC 3.77 L Hgb 11.0 L Hct 34.2 L MCV 90.7 MCH 29.2 MCHC 32.2 RDW Std Deviation 50.5 H RDW Coeff of Kaye 15.1 H Plt Count 164 MPV 9.0 L Immature Gran % (Auto) 0.7 Neut % (Auto) 76.4 Lymph % (Auto) 6.5 [place] % (Auto) 10.4 Eos % (Auto) 5.7 Baso % (Auto) 0.3 Neut # (Auto) 5.73 Lymph # (Auto) 0.49 L [place] # (Auto) 0.78 H Eos # (Auto) 0.43 Baso # (Auto) 0.02 Immature Gran # (Auto) 0.05 PT INR APTT PTT Ratio D-Dimer VBG pH VBG pCO2 VBG pO2 VBG HCO3 VBG O2 Saturation VBG Base Excess Sodium 134 L Potassium 3.6 Chloride 103 Carbon Dioxide 26 Anion Gap 5 BUN 21 Creatinine 0.95 Est Cr Clr Drug Dosing 63.0 Est GFR ( Amer) 93.0 Est GFR (Non-Af Amer) 80.2 BUN/Creatinine Ratio 22.1 H Glucose 119 H POC Glucose 113 H Calcium 8.1 L Total Bilirubin 0.4 AST 14 ALT 7 Alkaline Phosphatase 39 Troponin I High Sens 10.2 B-Natriuretic Peptide Total Protein 6.1 Albumin 2.8 L Globulin 3.3 Albumin/Globulin Ratio 0.8 L Lipase Procalcitonin 0.09 Nasal Screen MRSA (PCR) Adenovirus (PCR) B. pertussis DNA (PCR) B.parapertussis DNA PCR C. pneumoniae DNA (PCR) Coronavirus OC43 (PCR) Coronavirus HKU1 (PCR) Coronavirus 229E (PCR) SARS-CoV-2 (PCR) Coronavirus NL63 (PCR) Human Metapneumovir PCR Influenza Type A (PCR) Influenza Type B (PCR) M. pneumoniae (PCR) Parainfluenza 1 (PCR) Parainfluenza 2 (PCR) Parainfluenza 3 (PCR) Parainfluenza 4 (PCR) RSV (PCR) Entero/Rhino (PCR) 12/31/23 11:19 WBC RBC Hgb Hct MCV MCH MCHC RDW Std Deviation RDW Coeff of Kaye Plt Count MPV Immature Gran % (Auto) Neut % (Auto) Lymph % (Auto) [place] % (Auto) Eos % (Auto) Baso % (Auto) Neut # (Auto) Lymph # (Auto) [place] # (Auto) Eos # (Auto) Baso # (Auto) Immature Gran # (Auto) PT INR APTT PTT Ratio D-Dimer VBG pH VBG pCO2 VBG pO2 VBG HCO3 VBG O2 Saturation VBG Base Excess Sodium Potassium Chloride Carbon Dioxide Anion Gap BUN Creatinine Est Cr Clr Drug Dosing Est GFR ( Amer) Est GFR (Non-Af Amer) BUN/Creatinine Ratio Glucose POC Glucose Calcium Total Bilirubin AST ALT Alkaline Phosphatase Troponin I High Sens B-Natriuretic Peptide Total Protein Albumin Globulin Albumin/Globulin Ratio Lipase Procalcitonin Nasal Screen MRSA (PCR) Negative Adenovirus (PCR) B. pertussis DNA (PCR) B.parapertussis DNA PCR C. pneumoniae DNA (PCR) Coronavirus OC43 (PCR) Coronavirus HKU1 (PCR) Coronavirus 229E (PCR) SARS-CoV-2 (PCR) Coronavirus NL63 (PCR) Human Metapneumovir PCR Influenza Type A (PCR) Influenza Type B (PCR) M. pneumoniae (PCR) Parainfluenza 1 (PCR) Parainfluenza 2 (PCR) Parainfluenza 3 (PCR) Parainfluenza 4 (PCR) RSV (PCR) Entero/Rhino (PCR) Diagnostic Findings Microbiology 12/30/23 10:23 Blood Aerobic Blood Culture - Preliminary No growth in Aerobic bottle after 24 hours. 12/30/23 10:23 Blood Anaerobic Blood Culture - Preliminary No growth in Anaerobic bottle after 24 hours. 12/30/23 10:28 Blood Aerobic Blood Culture - Preliminary No growth in Aerobic bottle after 24 hours. 12/30/23 10:28 Blood Anaerobic Blood Culture - Preliminary No growth in Anaerobic bottle after 24 hours. PG Care Time/CCT Total # of Minutes Spent Total Time Spent with Patient: Total time spent is greater than 50% in coordination of care (as documented) at patient's floor/unit and/or counseling patient: Coding Level of Care Code 29291 SUB INP/OBS CARE 2/35MIN Diagnoses Pneumonia J18.9 Laterality: left Lung location: unspecified part of lung Pneumonia type: due to unspecified organism Chronic obstructive pulmonary disease, unspecified COPD type J44.9 COPD type: unspecified COPD S/P CABG (coronary artery bypass graft) Z95.1 Coronary artery disease involving [place] coronary artery of [place] heart without angina pectoris I25.10 Associated angina: without angina Coronary Disease-Associated Artery/Lesion type: [place] artery [place] vs. transplanted heart: [place] heart Primary hypertension I10 Hypertension type: primary hypertension H/O abdominal aortic aneurysm repair Z98.890 Cholecystostomy care Z43.4 Hepatitis C virus B19.20 Severe protein-calorie malnutrition E43 (1) Pneumonia Laterality: left Lung location: unspecified part of lung Pneumonia type: due to unspecified organism Qualified Code(s): J18.9 - Pneumonia, unspecified organism (2) COPD (chronic obstructive pulmonary disease) COPD type: unspecified COPD Qualified Code(s): J44.9 - Chronic obstructive pulmonary disease, unspecified (4) CAD (coronary artery disease) Associated angina: without angina Coronary Disease-Associated Artery/Lesion type: [place] artery [place] vs. transplanted heart: [place] heart Qualified Code(s): I25.10 - Atherosclerotic heart disease of [place] coronary artery without angina pectoris (5) Hypertension Hypertension type: primary hypertension Qualified Code(s): I10 - Essential (primary) hypertension
--- NOTE | 2023-12-31 16:26 | Fluoroscopy Report ---
FL video swallow CLINICAL HISTORY: assess for aspiration TECHNIQUE: Video fluoroscopy of the pharyngeal region was performed as barium mixtures of varying con sistencies were administered to the patient by the speech pathologist. A formal esophagram was not pe rformed. Comparison: None available at the time of this dictation. FINDINGS: Total fluoroscopy time: 1.27 minutes. Radiation dose: 7.82 mGy. The patient swallowed the different barium consistencies without difficulty. There was no laryngeal v estibular penetration or bernice tracheal aspiration. Pooling of barium was noted in the bilateral piri form sinuses and valleculae. IMPRESSION: No evidence of aspiration. Please see the speech pathology report for further details. ACT 112: Negative or not required by law. Electronically signed by: Efren Peterson M.D. 12/31/2023 4:24 PM
[2023-12-31] MEDS: CEROVITE ADV FORMULA TAB PO SCH (17:35)
[2023-12-31] MEDS: MELATONIN 3 MG TAB PO PRN (21:16)
--- NOTE | 2023-12-31 23:06 | Electrocardiogram Report ---
Test Reason : Blood Pressure : / mmHG Vent. Rate : 094 BPM Atrial Rate : 094 BPM P-R Int : 158 ms QRS Dur : 084 ms QT Int : 352 ms P-R-T Axes : 060 -07 003 degrees QTc Int : 440 ms Normal sinus rhythm Inferior infarct , age undetermined Anterolateral infarct , age undetermined Nonspecific T wave abnormality Abnormal ECG No previous ECGs available Confirmed by Kenney Obando ([id number]) on 12/31/2023 11:06:31 PM Referred By: REFERRED SELF Confirmed By:Kenney Obando
[2024-01-01 16:36] LABS: Calcium 8.5 mg/dl (8.6-10.3); Magnesium 1.5 mg/dl (1.7-2.4); Potassium 3.6 mmol/L (3.5-5.1)
[2024-01-01 16:42] LABS: BUN Creatinine Ratio 19.8 (10-20); Creatinine Clr Calc Pharmacy 65.5 ml/min; Est GFR (African American) 97.9 ml/min; Est GFR (Non-African American) 84.5 ml/min; Phosphorus 2.6 mg/dl (2.5-4.9)
[2024-01-01] MEDS: MAGNESIUM SULFATE / D5W 1 GM/100 ML BAG IV SCH (18:25)
--- NOTE | 2024-01-01 19:17 | Hospitalist Progress Note ---
Date of Service January 01, 2024 Assessment & Plan (1) Pneumonia: Plan: FRANCESCA Since he had a 30+ day hospital stay at [facility] in September/October 2023 need to cover for gram negatives/nosocomial infection cont cefepime - day #2 of such cont azithromycin for atypical coverage; day #3 of such checked MRSA swab - negative; thus, defer on MRSA coverage stable in room air blood cx's remain negative he will need a formal 2-step on day of discharge given his severe hypoxia with w alking as witnessed by staff today (2) COPD (chronic obstructive pulmonary disease): Plan: probably mild exacerbation start dexamethasone - give 6mg IV x 1 now, then 4mg daily starting tomorrow cont inhalers from home cont pulmonary toilet (3) S/P CABG (coronary artery bypass graft): Plan: troponins negative x 2 no ischemic symptoms at this time cont statin, asa, fenofibrate, metoprolol tartrate (4) CAD (coronary artery disease): Plan: as above in #3 (5) Hypertension: Plan: Blood pressures stable/controlled Continue metoprolol (6) H/O abdominal aortic aneurysm repair: Plan: Recent abdominal aortic aneurysm repair x 2, done at [facility] CTA chest - " 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 will attempt to obtain records from that prolonged hospitalization earlier this year (7) Cholecystostomy care: Plan: Recent cholecystostomy tube placement at [facility] in [place] LFTs stable Will need to f/u with surgery about definitive gall bladder removal in the future (8) Hepatitis C virus: Plan: treated in remission (By report) (9) Severe protein-calorie malnutrition: Plan: 13-15kg weight loss since early 2023 2nd to prolonged hospitalization at [facility] in September 2023 he is starting to eat better has been drinking boost at home cont MVI (10) Hyponatremia: Plan: check serum osm in am check urine osm, urine Na he appears euvolemic cortisol wnl check a TSH to be complete (11) Hypomagnesemia: Plan: replace with IV mag sulfate repeat mag level am (12) Dizziness: Plan: orthostatics checked today -- negative he was significantly hypoxic, tachycardic, and dyspneic with walking from the bed to the doorway to the hallway suspect 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 of his "dizziness" no vertigo formal 2-step at discharge Plan DVT proph - lovenox daily updated pt's by phone this evening Admission and Anticipated Discharge Date Admission Date: December 30, 2023 Subjective patient mentions that ever since his long hospital stay earlier this year in [place] he has had dizziness upon standing and starting to walk he has no had vertigo or syncope he has no dizziness at rest breathing overall is improved he endorses baseline RYAN with walking minimal distances staff walked him and checked his o2 sats with walking to the hallway; sats dropped to <90% within 15 feet of walking cough remains largely dry no dyspnea at rest no orthopnea eating fair tele - wnl overnight Review of Systems Review of Systems: gen - no fevers or chills cv - no PND; no edema GI - no no N/V pulm - no hemoptysis Physical Exam Physical Exam: gen - thin, NAD, lying comfortably in bed neck - no JVD mouth - MMM, no thrush heart - RRR, s1 s2, no murmur lungs - rales L base, otherwise CTA b/l; minimal end-exp wheezes abd - soft NT ND BS+; cholecystostomy tube present RUQ with clear bilious fluid ext - no edema, pulses 2+ b/l Results & Data Results & Data Vital Signs (Past 12 Hours) Vital Signs Temp Pulse Pulse Resp BP Pulse Ox O2 Del Method 01/01/24 16:51 83 01/01/24 16:44 84 01/01/24 11:38 36.9 C 75 17 145/81 H 91 Room Air 01/01/24 08:00 Room Air 01/01/24 08:00 83 01/01/24 07:32 36.5 C 83 18 133/77 92 Room Air Laboratory Results Laboratory Results - last 24 hr 01/01/24 16:06 Sodium 131 L Potassium 3.6 Chloride 99 Carbon Dioxide 27 Anion Gap 5 BUN 18 Creatinine 0.91 Est Cr Clr Drug Dosing 65.5 Est GFR ( Amer) 97.9 Est GFR (Non-Af Amer) 84.5 BUN/Creatinine Ratio 19.8 Glucose 102 H Calcium 8.5 L Phosphorus 2.6 Magnesium 1.5 L Random Cortisol Pending PG Care Time/CCT Total # of Minutes Spent Total Time Spent with Patient: Total time spent is greater than 50% in coordination of care (as documented) at patient's floor/unit and/or counseling patient: Coding Level of Care Code 57004 SUB INP/OBS CARE 3/50MIN Diagnoses Pneumonia J18.9 Laterality: left Lung location: unspecified part of lung Pneumonia type: due to unspecified organism Chronic obstructive pulmonary disease, unspecified COPD type J44.9 COPD type: unspecified COPD S/P CABG (coronary artery bypass graft) Z95.1 Coronary artery disease involving [place] coronary artery of [place] heart without angina pectoris I25.10 Associated angina: without angina Coronary Disease-Associated Artery/Lesion type: [place] artery [place] vs. transplanted heart: [place] heart Primary hypertension I10 Hypertension type: primary hypertension H/O abdominal aortic aneurysm repair Z98.890 Cholecystostomy care Z43.4 Hepatitis C virus B19.20 Severe protein-calorie malnutrition E43 Hyponatremia E87.1 Hypomagnesemia E83.42 Dizziness R42 (1) Pneumonia Laterality: left Lung location: unspecified part of lung Pneumonia type: due to unspecified organism Qualified Code(s): J18.9 - Pneumonia, unspecified organism (2) COPD (chronic obstructive pulmonary disease) COPD type: unspecified COPD Qualified Code(s): J44.9 - Chronic obstructive pulmonary disease, unspecified (4) CAD (coronary artery disease) Associated angina: without angina Coronary Disease-Associated Artery/Lesion type: [place] artery [place] vs. transplanted heart: [place] heart Qualified Code(s): I25.10 - Atherosclerotic heart disease of [place] coronary artery without angina pectoris (5) Hypertension Hypertension type: primary hypertension Qualified Code(s): I10 - Essential (primary) hypertension
[2024-01-01] MEDS: dexAMETHasone 4 MG in SYRINGE 0 ML IV ONE (22:03)
[2024-01-02 07:26] LABS: Calcium 8.2 mg/dl (8.6-10.3); Est GFR (African American) 101.6 ml/min; Est GFR (Non-African American) 87.7 ml/min; Magnesium 2.1 mg/dl (1.7-2.4); Potassium 4.1 mmol/L (3.5-5.1)
[2024-01-02] MEDS: dexAMETHasone 4 MG TAB PO SCH (15:15)
[2024-01-02] MEDS: ALPRAZolam 0.5 MG TABLET PO PRN (17:38)
--- NOTE | 2024-01-02 17:49 | Hospitalist Progress Note ---
Date of Service January 02, 2024 Assessment & Plan (1) Pneumonia: Plan: FRANCESCA Since he had a 30+ day hospital stay at [facility] in September[place]October 2023 need to cover for gram negatives/nosocomial infection cont cefepime - day #3 of such cont azithromycin for atypical coverage; day #4 of such; plan 5 days of Rx then stop zithromax checked MRSA swab - negative; thus, defer on MRSA coverage stable in room air blood cx's remain negative he will need a formal 2-step on day of discharge (2) COPD (chronic obstructive pulmonary disease): Plan: mild exacerbation - improved s/p dexamethasone 6mg IV yesterday 4mg daily starting today cont inhalers from home cont pulmonary toilet (3) S/P CABG (coronary artery bypass graft): Plan: troponins negative x 2 no ischemic symptoms at this time cont statin, asa, fenofibrate, metoprolol tartrate (4) CAD (coronary artery disease): Plan: as above in #3 (5) Hypertension: Plan: Blood pressures stable/controlled Continue metoprolol (6) H/O abdominal aortic aneurysm repair: Plan: Recent abdominal aortic aneurysm repair - [facility] - earlier this spring CTA chest - " 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 did get pt's d/c summary and op report records - will review (7) Cholecystostomy care: Plan: Recent cholecystostomy tube placement at [facility] in [place] LFTs stable Will need to f/u with surgery about definitive gall bladder removal in the future (8) Hepatitis C virus: Plan: treated in remission (By report) (9) Severe protein-calorie malnutrition: Plan: 13-15kg weight loss since early 2023 2nd to prolonged hospitalization at [facility] in September 2023 cont MVI cont boost or ensure overall he is doing better (10) Hyponatremia: Plan: continues to appear euvolemic cortisol wnl check a TSH in am check urine osm, urine Na (11) Hypomagnesemia: Plan: replaced resolved (12) Dizziness: Plan: orthostatics checked -- negative he was significantly hypoxic, tachycardic, and dyspneic with walking from the bed to the doorway to the hallway suspect the low O2 is the primary utility driver of his "dizziness" no vertigo formal 2-step at discharge Plan DVT proph - lovenox daily updated pt's by phone this evening once again Admission and Anticipated Discharge Date Admission Date: December 30, 2023 Subjective no new complaints feeling better eating better still with dyspnea on exertion but no worse than prior visit tele overnight wnl Review of Systems Review of Systems: gen - no fevers cv - no cp pulm - no wheezing Physical Exam Physical Exam: gen - thin, NAD, lying comfortably in bed - looks good today neck - no JVD mouth - MMM, no thrush heart - RRR, s1 s2, no murmur lungs - rales L base, otherwise CTA b/l; no wheezes today abd - soft NT ND BS+; cholecystostomy tube present RUQ with clear bilious fluid in collection bag ext - no edema, pulses 2+ b/l Results & Data Results & Data Vital Signs (Past 12 Hours) Vital Signs Temp Pulse Pulse Resp BP Pulse Ox O2 Del Method 01/02/24 15:26 36.4 C L 79 18 134/78 93 Room Air 01/02/24 15:11 71 01/02/24 11:24 36.4 C L 85 18 136/79 94 Room Air 01/02/24 07:36 36.5 C 71 18 145/82 H 95 Nasal Cannula 01/02/24 07:30 Nasal Cannula O2 Flow Rate 01/02/24 15:26 01/02/24 15:11 01/02/24 11:24 01/02/24 07:36 2 01/02/24 07:30 2 Laboratory Results Laboratory Results - last 24 hr 01/01/24 01/02/24 16:06 05:59 Sodium 133 L Potassium 4.1 Chloride 103 Carbon Dioxide 24 Anion Gap 6 BUN 17 Creatinine 0.85 Est Cr Clr Drug Dosing 71.0 Est GFR ( Amer) 101.6 Est GFR (Non-Af Amer) 87.7 BUN/Creatinine Ratio 20.0 Glucose 172 H Osmolality 283 Calcium 8.2 L Magnesium 2.1 Random Cortisol 22.67 Diagnostic Findings Microbiology 12/30/23 10:23 Blood Aerobic Blood Culture - Preliminary No growth in Aerobic bottle after 48 hours. 12/30/23 10:23 Blood Anaerobic Blood Culture - Preliminary No growth in Anaerobic bottle after 48 hours. 12/30/23 10:28 Blood Aerobic Blood Culture - Preliminary No growth in Aerobic bottle after 48 hours. 12/30/23 10:28 Blood Anaerobic Blood Culture - Preliminary No growth in Anaerobic bottle after 48 hours. PG Care Time/CCT Total # of Minutes Spent Total Time Spent with Patient: Total time spent is greater than 50% in coordination of care (as documented) at patient's floor/unit and/or counseling patient: Coding Level of Care Code 99393 SUB INP/OBS CARE 2/35MIN Diagnoses Pneumonia J18.9 Laterality: left Lung location: unspecified part of lung Pneumonia type: due to unspecified organism Chronic obstructive pulmonary disease, unspecified COPD type J44.9 COPD type: unspecified COPD S/P CABG (coronary artery bypass graft) Z95.1 Coronary artery disease involving [place] coronary artery of [place] heart without angina pectoris I25.10 Associated angina: without angina Coronary Disease-Associated Artery/Lesion type: [place] artery [place] vs. transplanted heart: [place] heart Primary hypertension I10 Hypertension type: primary hypertension H/O abdominal aortic aneurysm repair Z98.890 Cholecystostomy care Z43.4 Hepatitis C virus B19.20 Severe protein-calorie malnutrition E43 Hyponatremia E87.1 Hypomagnesemia E83.42 Dizziness R42 (1) Pneumonia Laterality: left Lung location: unspecified part of lung Pneumonia type: due to unspecified organism Qualified Code(s): J18.9 - Pneumonia, unspecified organism (2) COPD (chronic obstructive pulmonary disease) COPD type: unspecified COPD Qualified Code(s): J44.9 - Chronic obstructive pulmonary disease, unspecified (4) CAD (coronary artery disease) Associated angina: without angina Coronary Disease-Associated Artery/Lesion type: [place] artery [place] vs. transplanted heart: [place] heart Qualified Code(s): I25.10 - Atherosclerotic heart disease of [place] coronary artery without angina pectoris (5) Hypertension Hypertension type: primary hypertension Qualified Code(s): I10 - Essential (primary) hypertension
[2024-01-03 06:08] LABS: Calcium 8.4 mg/dl (8.6-10.3); Folate (Folic Acid),Ser orPlas > 22.30 ng/ml (>5.38); Potassium 4.3 mmol/L (3.5-5.1); Vitamin B12 301 pg/ml (180-914)
[2024-01-03 06:14] LABS: BUN Creatinine Ratio 26.3 (10-20); Creatinine Clr Calc Pharmacy 63.6 ml/min; Est GFR (Non-African American) 80.2 ml/min
[2024-01-03 06:26] LABS: Thyroid Stimulating Hormone 2.007 uIu/ml (0.300-4.500)
[2024-01-03 06:48] LABS: Estimated Average Glucose 97 mg/dl
[2024-01-03] MEDS: AZITHROMYCIN 250 MG TAB PO SCH (08:31)
--- NOTE | 2024-01-03 14:52 | Discharge Summary ---
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, PAD, and CAD s/p CABG x 4 Vessels 11/05/22 (KILGORE-to-LAD, SVG-to-PDA, SVG-to-OM1, SVG-to-D1), he was recently admitted to [facility] in September 2023, underwent abdominal aortic aneurysm repair twice, as per she had complications postop, chest bowel perforation, he had a feeding tube, which is removed now, he had acute cholecystitis, currently has a cholecystostomy tube in place, as per there was no problem with drainage in the last 24 to 48 hours, he denies any abdominal pain, he is tolerating diet, denies any difficulty swallowing at this point, he presented today with acute onset of shortness of breath, started around 1 AM. placed oxygen on the patient, around 6 AM he was still reporting some difficulties breathing and right-sided chest pain. He was brought in ER, CTA chest no acute pulmonary emboli, peripheral consolidation within the left upper lobe which favors a pneumonia. A 3-[address] follow-up recommended to ensure resolution. Patient started on IV antibiotics. He denies fever or chills, denies cough, said, that he was previously suspected to have pneumonia, but was not treated for that. He is follow-up appointment in [facility] on January 24. Principal Diagnosis 1. FRANCESCA pneumonia - improving 2. COPD 3. multiple pulmonary nodules 4. history of abdominal aortic aneurysm repair 5. perforated duodenum with repair 6. cholecystitis with placement of cholecystostomy tube 7. mild hyponatremia - stable Discharge Exam gen - thin, NAD, lying comfortably in bed neck - no JVD mouth - MMM, no thrush heart - RRR, s1 s2, no murmur lungs - rales L base, otherwise CTA b/l; no wheezes; good airation abd - soft NT ND BS+; cholecystostomy tube present RUQ with bilious fluid in collection bag ext - no edema, pulses 2+ b/l skin - midline incision abdomen well-healed Discharge Data Allergies Allergy/AdvReac Type Severity Reaction Status Date / Time Penicillins Allergy Intermediate Rash Verified 12/30/23 15:49 Consultations PT Speech therapy Procedures Performed 2-step oxygen test -- need for 2 L NC O2 with ambulation Ordered Studies Chest X-Ray 12/30/23 09:07 XR chest 1V portable CLINICAL HISTORY: Chest pain, nonspecific COMPARISON STUDY: Chest radiograph October 11, 2014. FINDINGS: There are median sternotomy wires. Cardiac size is normal. Mediastinal contours are unremarkable. No pneumothorax or pleural effusion is present. There is underlying emphysema. A 1.6 cm irregular right upper lung density is present. Moderate airspace opacities within the left lung are present. IMPRESSION: 1. Moderate airspace opacities within the left lung suggestive of pneumonia. Follow-up PA and lateral chest radiographs in 1 to 2 months are recommended to ensure resolution. 2. 1.6 cm irregular right upper lung density. This may also be infectious however should be assessed on follow-up chest radiograph to ensure resolution. 3. Emphysema. ACT 112: Negative or not required by law. Electronically signed by: Oscar Moulton M.D. 12/30/2023 9:53 AM Chest CTA 12/30/23 10:34 CHEST CTA for PULMONARY ARTERIES CT DOSE: 801.58 mGy.cm HISTORY: Shortness of breath. TECHNIQUE: Multiaxial CT images of the chest were performed following the intravenous administration of contrast to evaluate the pulmonary arteries. 3D/Maximal intensity projection images were also obtained. Sagittal and coronal reformations were also reviewed. A dose lowering technique was utilized adhering to the principles of ALARA. COMPARISON STUDY: Chest 12/30/2023. FINDINGS: Atherosclerotic plaque within the thoracic aorta with no evidence for a dissection. 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 Limited views of the upper abdomen demonstrate a normal spleen and adrenal glands. A 1.2 cm hypodense lesion within the right hepatic dome favors a cyst. The heart is normal in size. No pericardial effusion. Trace left pleural effusion. Respiratory motion artifact results in nondiagnostic evaluation of the majority of the left lower lobe segmental/subsegmental pulmonary arteries. Otherwise, no filling defects within the remaining pulmonary arteries to suggest a pulmonary embolus. No evidence for right-sided heart strain. Normal esophagus. No hilar lymphadenopathy. A few mildly enlarged AP window lymph nodes with the dominant lymph node measuring 17 x 9 mm. No acute fractures. There are poststernotomy changes with prior coronary artery bypass. No pneumothorax. The central airways are patent. Advanced emphysema. Peripheral consolidation within the left upper lobe likely representing a pneumonia. A 4R nodule within the right lung apex on image 179. There is an irregular/nodular density within the right lung apex on image 180 measuring approximately 2.0 x 0.9 cm. This corresponds the chest x-ray abnormality and could represent scarring or a pulmonary lesion. A 6 mm nodule within the right upper lobe on image 140 with an adjacent calcified granuloma. A 4 mm nodule within the right upper lobe on image 93. A peripheral 14 x 10 mm nodule within the right lower lobe on image 119. This may also represent an area of scarring or pulmonary lesion. IMPRESSION: 1. No evidence for a pulmonary embolus with limitations as described above. 2. Peripheral consolidation within the left upper lobe which favors a pneumonia. A 3-[address] follow-up recommended to ensure resolution. 3. Advanced emphysema. 4. Borderline AP window lymphadenopathy which may be reactive. Attention at follow-up recommended. 5. Similar-appearing irregular nodules within the right lung apex and right lower lobe as described above with the largest measuring 2.0 x 0.9 cm. These could represent scarring. Pulmonary lesions are not excluded. Therefore, these also require 3-[address] follow-up to ensure stability. 6. 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 7. Additional findings as described above. ACT 112: Positive. There are findings on this exam that require communication between the performing entity and the patient following Patient Test Result Information Act ([place] Act 112) guidelines. Electronically signed by: Alessandro Lujan M.D. 12/30/2023 11:15 AM Videofluoroscopic Swallow 12/31/23 13:30 FL video swallow CLINICAL HISTORY: assess for aspiration TECHNIQUE: Video fluoroscopy of the pharyngeal region was performed as barium mixtures of varying consistencies were administered to the patient by the speech pathologist. A formal esophagram was not performed. Comparison: None available at the time of this dictation. FINDINGS: Total fluoroscopy time: 1.27 minutes. Radiation dose: 7.82 mGy. The patient swallowed the different barium consistencies without difficulty. There was no laryngeal vestibular penetration or bernice tracheal aspiration. Pooling of barium was noted in the bilateral piriform sinuses and valleculae. IMPRESSION: No evidence of aspiration. Please see the speech pathology report for further details. ACT 112: Negative or not required by law. Electronically signed by: Efren Peterson M.D. 12/31/2023 4:24 PM Hospital Course (1) Pneumonia: FRANCESCA Since he had a 30+ day hospital stay at [facility] in October 2023 he received coverage for gram negative pathogens/nosocomial infection Thus, will hospitalized, he was treated with cefepime He also received azithromycin for atypical coverage MRSA swab was negative; thus, deferred on MRSA coverage while here He was stable in room air the entire stay and blood cx's remained negative 2-step ambulatory O2 test on day of discharge showed he needed 2 liters of NC O2 with ambulation only He will complete 4 days of levaquin 750mg daily post-discharge to complete his antibiotic course Of note - he underwent video swallow evaluation by speech therapy to ensure no aspiration and this returned normal (2) COPD (chronic obstructive pulmonary disease): mild exacerbation during the stay s/p dexamethasone 6mg IV daily during the stay he will complete a 5-day dexamethasone steroid taper post-discharge usual inhalers were continued throughout his stay (3) S/P CABG (coronary artery bypass graft): troponins negative x 2 while here no ischemic symptoms at this time cont statin, asa, fenofibrate, metoprolol tartrate (4) CAD (coronary artery disease): as above in #3 (5) Hypertension: Blood pressures were stable/controlled while hospitalized Continue metoprolol (6) H/O abdominal aortic aneurysm repair: Recent abdominal aortic aneurysm repair - [facility] - earlier this spring 2023 He had a complicated hospitalization encompassing 30+ days at 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" This will need to be followed closely over time Records from [facility] showed that the AAA was indeed repaired successfully during his September 2023 stay He has f/u with his surgeon later in December 2023 for recheck (7) Cholecystostomy care: Recent cholecystostomy tube placement at [facility] in [place] LFTs stable during the stay The cholecystostomy tube was draining well without any issues Will need to f/u with surgery about definitive gall bladder removal in the future (8) Hepatitis C virus: treated in remission (By report) (9) Severe protein-calorie malnutrition: 13-15kg weight loss since early 2023 2nd to prolonged hospitalization at [facility] in September 2023 cont MVI cont boost or ensure overall he is doing better with appetite (10) Hyponatremia: serum Na was 131-135 during the stay with discharge level of 133 he was euvolemic during the hospitalization cortisol level was wnl TSH wnl Urine osm 655 Urine Na 29 Serus osm 283 although SIADH was suspected, his urine Na level was not c/w such he should have a f/u BMP within a week of discharge for stability (11) Hypomagnesemia: replaced resolved (12) Hypoxia: ambulatory 2-step oxygen test on day of discharge showed that he needed 2 liters of NC O2 with activity (13) Perforated small intestine: patient was found to have a perforated duodenum while at [facility] this was in the setting of a post-operative ileus after having had AAA repair the perforated duodenum was repaired during a 2nd surgery which was about 2 weeks after the initial AAA repair (14) Pulmonary nodules: see full CTA chest report he follows with pulmonology in [place], [place] his CTA chest was placed on a disc for him and he was asked to f/u with his lung specialist within a few weeks of discharge per the radiology report --- "Similar-appearing irregular nodules within the right lung apex and right lower lobe as described above with the largest measuring 2.0 x 0.9 cm. These could represent scarring. Pulmonary lesions are not excluded. Therefore, these also require 3-[address] follow-up to ensure stability." Plan DVT proph - lovenox daily employed while here Home Health Attestation I certify that this patient is under my care and that I, or a physicians front end assistant working with me, had a face to-face encounter that meets the home health dkyr-ek-hips encounter requirements with this patient. The encounter with the patient was in whole, or in part, for the following medic al condition, which is the primary reason for home health care (list medical condition): I certify that, based on my findings, the following services are medically necessary home health services: My clinical findings support the need for the above services because: Further, I certify that my clinical findings support that this patient is homebound (i.e. absences from home require considerable and taxing effort and are for medical reasons or jew services or infrequently or of short duration when for other reasons) because: Certification for Home Health Services: Based on the above findings, I certify that this patient is confined to the home and needs intermittent long term care, physical therapy and/or speech therapy or continues to need occupational therapy. The patient is under my care, and I have initiated the establishment of the plan of care. This patient will be followed by a physician who will periodically review the plan of care. Total Time Total Time Spent Total Time Spent (In Minutes): 40 Discharge Plan Discharge Items Patient Disposition: Home - Home Health Services Reason For Visit: PNEUMONIA Discharge Diagnosis: 1. left lung pneumonia - improving 2. COPD/emphysema 3. multiple pulmonary nodules - follow-up with your lung physician needed; bring the CD with your CT scan on it to your follow-up appointment 4. history of abdominal aneurysm repair - [facility] 5. perforated duodenum with repair - [facility] 6. cholecystitis with placement of cholecystostomy tube - [facility] 7. mild hyponatremia (low sodium in the blood) - stable 8. need for home oxygen - 2 liters with activity/ambulation Activity: As commented below Activity Comment: gradually increase your activities over the next 7-10 days Non-emergency contact: Primary Care Provider, Surgeon, Specialist and Forest Fire Control Officer Call non-emergency contact if: you have any medication questions, your symptoms worsen and you have a fever Follow-up/Referrals: [facility] Outside Providers [Provider Group] (see Dr Gregory Le on 01/22/24 at 150pm - [facility] - as previously scheduled. ) Valdemar Segundo [Primary Care Provider] - (5 days ) Diet: Heart Healthy Addtl Attending Provider Instructions: Mr Bear, You were treated for left-sided pneumonia with IV antibiotics during your stay. The pneumonia was in the top portion of the left lung. We performed a swallow study to make sure your pneumonia was not due to aspiration which is when food/beverage is swallowed into the lungs. The video swallow test was normal. You improved with antibiotics, supportive care, steroids, and time. A walking oxygen test on 01/03/24 showed that you need to use your oxygen with activity/ambulation. Please use 2 liters of oxygen with any walking/activity/ambulation. Be sure to bring it with you when you leave your house. You can sleep with the oxygen on as well. You had asked if your abdominal aneurysm was repaired at [facility]. Records show that indeed the aneurysm was surgically corrected during your stay in [place]. Your CT scan of your lungs shows multiple pulmonary nodules. Most nodules are benign and do not cause harm. You had some of these nodules on your CT scan of the lungs while in [place]. You will need to have a repeat CT scan of your chest in 2-3 months. Your lung doctor (photolith operator) can arrange this for you. Be sure to bring the CD with your CT scan of the lungs with you to your next appointment with the lung doctor. Recommendations - 1. levofloxacin antibiotic - 750mg once daily x 4 days, first dose later today. 2. dexamethasone steroid taper x 5 days; start this TOMORROW; take with food. 3. take a multi-vitamin every day; I did prescribe this for you, but your pharmacist may ask you to purchase it over the counter. 4. drink a boost or ensure once daily to increase your protein stores. 5. take over the counter vitamin B12 supplement - 1000mcg (1mg) daily x 6 months; your vitamin B12 level was low-normal (was about 300). 6. again use your oxygen with ANY activity/walking/ambulation. Be sure to bring your portable oxygen with you when you leave your house. You can take the oxygen off when sitting. Ok to use the oxygen while sleeping. 7. ask your lung doctor about enrolling in "pulmonary rehab." 8. continue your cholecystostomy tube care as previous (showers are ok, but no swimming or tub baths). Be sure to see your surgeon soon to determine when the tube will be removed and if/when you will have the gall bladder surgically removed. 9. if you don't have a pulse oximeter please purchase one. You can buy this at most drug [employer], [employer], on-line retailers, etc. These devices go on your finger and check your oxygen levels. Check your pulse ox daily. If your readings are consistently less than 88% this is cause for concern and you should seek medical attention. Follow-up - * see your family doctor within 5 days * see your vascular surgeon, Dr Le, as scheduled on 01/22/24 * see your lung doctor within 1-2 weeks * see [facility] Interventional Radiology in [place] on 01/27/24 at 2pm for your cholecystostomy tube * you also have an appointment on 04/29/24 at 1:30pm with radiology at [facility] Return to [facility] if - * you have fevers over 100 degrees * you develop severe diarrhea * your oxygen level on your finger via a pulse oximeter is consistently less than 88% * you have chest pains or severe shortness of breath * any other concerns It was our pleasure to care for you! -Dr Escalona Pending Studies at Discharge: No Stand-Alone Forms: My [facility], Smoking Cessation Medications and DC Order Prescriptions: New Cerovite Senior 0.4 mg-300 mcg- 250 mcg Tablet 1 tab PO QAM Qty: 90 3RF cyanocobalamin (vitamin B-12) 1,000 mcg capsule 1,000 mcg PO DAILY Qty: 90 1RF Rx Instructions: purchase [id number] (DME) Oxygen Home Liters Per Minute See Rx Instructions .ROUTE .MEDSUPPLY Qty: 1 0RF Rx Instructions: 2 liters with activity/ambulation/sleep. dexamethasone 2 mg tablet 2 mg PO DIRECTED Qty: 7 0RF Rx Instructions: start /, take with food. 2 tabs PO days 1-2. 1 tab PO days 3-5. Continued fenofibrate nanocrystallized 145 mg tablet 145 mg PO DAILY folic acid 1 mg tablet 1 mg PO DAILY atorvastatin 40 mg tablet 40 mg PO DAILY Qty: 90 3RF metoprolol tartrate 25 mg tablet 37.5 mg PO BID aspirin 81 mg Tablet,Delayed Release (Dr/Ec) 81 mg PO DAILY escitalopram oxalate 10 mg tablet 10 mg PO DAILY Trelegy Ellipta 100-62.5-25 mcg blister with device 1 inh INHALATION DAILY alprazolam 0.5 mg tablet 0.5 mg PO BID PRN (Reason: Anxiety or severe leg cramps) Qty: 0 0RF Discharge Orders: Discharge Order (Routine); Ordered 01/03/24 Ordered By: Leandro Escalona Admission Data Admit Date/Time: 12/30/23 12:58 Attending Provider: Leandro Escalona Admit Provider: Lily Robles Primary Care Provider: Valdemar Segundo Other Providers: Lily Robles Other Interventions: Discharge Summary Assessment (RN) Last Done: 01/03/24 15:05 Coding Level of Care Code 59691 INP/OBS DISCH >30 MIN Diagnoses Pneumonia J18.9 Laterality: left Lung location: unspecified part of lung Pneumonia type: due to unspecified organism Chronic obstructive pulmonary disease, unspecified COPD type J44.9 COPD type: unspecified COPD S/P CABG (coronary artery bypass graft) Z95.1 Coronary artery disease involving [place] coronary artery of [place] heart without angina pectoris I25.10 Associated angina: without angina Coronary Disease-Associated Artery/Lesion type: [place] artery [place] vs. transplanted heart: [place] heart Primary hypertension I10 Hypertension type: primary hypertension H/O abdominal aortic aneurysm repair Z98.890 Cholecystostomy care Z43.4 Hepatitis C virus B19.20 Severe protein-calorie malnutrition E43 Hyponatremia E87.1 Hypomagnesemia E83.42 Hypoxia R09.02 Perforated small intestine K63.1 Pulmonary nodules R91.8
--- NOTE | 2024-01-05 10:33 | Coding Query ---
5 CODING QUERY To promote full compliance with coding requirements relating to patient care, provider participation is requested in all cases of manager international uncertainty. Please assist us with the question(s) below: Coding Question(s): Pt admitted with pneumonia. Progress notes mention due to prior October 28 plus day [facility] stay need coverage for gram negative organisms for nosocomial infection. Please document, if known or suspected , the type of organism responsible for the pneumonia. Thanks for your help! Glenroy Coleman [facility] Physician's Response(s): no sputum culture was available to isolate a specific bug. thus, would simply say this was likely a gram negative pneumonia. thank you! Leandro Escalona Principal Diagnosis: "that condition established after study, to be chiefly responsible for occasioning the admission of the patient to the hospital for care." Co-Existing Principal Diagnosis: "when two or more diagnoses equally meet the criteria for principal diagnosis as determined by the circumstances of admission, diagnostic work up, and/or therapy provided, and the Alphabetic Index, Tabular List, or another coding guideline does not provide sequencing direction, any one of the diagnoses may be sequenced first." "When the physician has documented what appears to be a current diagnosis in the body of the record, but has not included the diagnosis in the final diagnostic statement, the physician should be asked whether the diagnosis should be added." (Source Coding Clinic 2 QTR90. p3-4) DANICA
== END 2024-01-03 16:34 | disposition home health service (06) | DRG 177 ==
LOC: ED 08:45 → SUATTDRO 12:58 → 2W 12:58